=== PATIENT | female | born 1930 | race Caucasian/White ===

== ENCOUNTER 2016-10-21 20:53 | Emergency (ER) | payer MEDICARE, OTHER ==
[2016-10-21] MEDS ORDERED: ONDANSETRON 4 MG TAB.RAPDIS PO ONE (21:13)
--- NOTE | 2016-10-21 21:13 | ER Document Report ---
ED Medical Screen (RME) - General Stated Complaint: ABDOMINAL PAIN Notes: 3 hours ago around 6 pm epigastric area constat ache with nausea Last Bm - nl PMH: CHF, IBS, -HTN, HLD, Dm, tobacco use I have greeted and performed a rapid initial assessment of this patient. A comprehensive ED assessment and evaluation of the patient, analysis of test results and completion of the medical decision making process will be conducted by additional ED providers. - Related Data Allergies/Adverse Reactions: No Known Allergies Allergy (Unverified 10/21/16 21:09) Physical Exam - Vital signs Vitals: Temp Pulse Resp BP Pulse Ox 97.5 F 57 L 18 146/47 H 97 10/21/16 21:02 10/21/16 21:02 10/21/16 21:02 10/21/16 21:02 10/21/16 21:02 Course - Vital Signs Vital signs: Temp Pulse Resp BP Pulse Ox 97.5 F 57 L 18 146/47 H 97 10/21/16 21:02 10/21/16 21:02 10/21/16 21:02 10/21/16 21:02 10/21/16 21:02
--- NOTE | 2016-10-21 23:10 | ER Document Report ---
ED General - General Chief Complaint: Abdominal Pain Stated Complaint: ABDOMINAL PAIN Notes: Patient is a 6 year old female presents with complaint of onset of upper abdominal pain. Pain is mostly epigastric region. Pain is since resolved. No chest pain. No shortness of breath. Some nausea. No vomiting. No diarrhea. No recent fevers or infections. Patient does have a history of CHF. She was recently admitted to [facility] in [place]. She had a stress test which was negative. At that time she did have some fluid on her lungs. Those symptoms have since resolved. TRAVEL OUTSIDE OF THE [place] IN LAST 30 DAYS: No - Related Data Allergies/Adverse Reactions: No Known Allergies Allergy (Unverified 10/21/16 21:09) Past Medical History - Social History Smoking Status: Never Smoker Chew tobacco use (# tins/day): No Frequency of alcohol use: None Drug Abuse: None Family History: Reviewed & Not Pertinent Patient has suicidal ideation: No Patient has homicidal ideation: No Renal/ Medical History: Denies: Hx Peritoneal Dialysis Review of Systems - Review of Systems Notes: My Normal Review Basic REVIEW OF SYSTEMS: CONSTITUTIONAL : Denies fever, chills, or sweats. Denies recent illness. EENT: Denies eye, ear, throat, or mouth pain or symptoms. Denies nasal or sinus congestion. CARDIOVASCULAR: No chest pain RESPIRATORY: Denies cough, cold, or chest congestion. Denies shortness of breath, difficulty breathing, or wheezing. GASTROINTESTINAL: Epigastric abdominal pain. Denies nausea, vomiting, or diarrhea. Denies constipation. Last BM: MUSCULOSKELETAL: Denies neck or back pain or joint pain or swelling. SKIN: Denies rash or skin lesions. NEUROLOGICAL: Denies altered mental status or loss of consciousness. Denies headache. Denies weakness or paralysis or loss of use of either side. Denies problems with gait or speech. Denies sensory or motor loss. ALL OTHER SYSTEMS REVIEWED AND NEGATIVE. Physical Exam - Vital signs Vitals: Temp Pulse Resp BP Pulse Ox 97.5 F 57 L 18 146/47 H 97 10/21/16 21:02 10/21/16 21:02 10/21/16 21:02 10/21/16 21:02 10/21/16 21:02 - Notes Notes: General Appearance: Well nourished, alert, cooperative, no acute distress, no obvious discomfort. Well-appearing. Vitals: reviewed, See vital signs table. Head: no swelling or tenderness to the head Eyes: PERRL, EOMI, Conjuctiva clear Mouth: No decreasd moisture Neck: Supple, no neck tenderness, No thyromegaly Lungs: No wheezing, No rales, No rhonci, No accessory muscle use, good air exchange bilaterally. Heart: Normal rate, Regular rythm, No murmur, no rub Abdomen: Normal BS, soft, No rigidity, mild epigastric abdominal tenderness to palpation, No guarding, no rebound, no abdominal masses, no organomegaly Extremities: strength 5/5 in all extremities, good pulses in all extremities, no swelling or tenderness in the extremities, no edema. Skin: warm, dry, appropriate color, no rash Neuro: speech clear, oriented x 3, normal affect, responds appropriately to questions. Course - Vital Signs Vital signs: Temp Pulse Resp BP Pulse Ox 97.5 F 57 L 18 146/47 H 97 10/21/16 21:02 10/21/16 21:02 10/21/16 21:02 10/21/16 21:02 10/21/16 21:02 - Laboratory Result Diagrams: 10/21/16 23:45 10/21/16 23:45 Laboratory results interpreted by me: 10/21/16 10/21/16 10/21/16 23:45 23:45 23:55 WBC 11.5 H Hgb 11.3 L Hct 34.4 L RDW 14.4 H Seg Neutrophils % 81.0 H Lymphocytes % 8.2 L Absolute Neutrophils 9.3 H BUN 32 H Est GFR ( Amer) 51 L Est GFR (Non-Af Amer) 42 L Alkaline Phosphatase 178 H Creatine Kinase 29 L Lipase 409.0 H Ur Leukocyte Esterase SMALL H Urine Ascorbic Acid 40 H - EKG Interpretation by Me Additional EKG results interpreted by me: 10/21/16 23:09 EKG is reviewed and interpreted by me. EKG shows sinus bradycardia with rate of [address] segment elevation or depression. No ischemic T wave inversions. CA interval, QRS duration, QTC intervals are within normal range. No old EKG available for comparison. - Transfer of Care Notes: 10/22/16 02:44 Patient is continued be asymptomatic since come back to the room in the ER. She continues to have no pain. She continues to look well. Her laboratory evaluation is unremarkable exception of a very mild leukocytosis and a very mild elevation of her lipase. I did obtain old shunt the gallbladder which was negative. Obtain a CT scan of the abdomen and pelvis which was negative. I suspect this and the patient's initial severe epigastric pain which relieved and the mild lipase elevation that she may have had a gallstone that passed. I did explain to the patient. Informed her that there is no exact test to prove that that this is what has happened; however, that her history and long-term findings suggest that this is a possibility to assess what has occurred. I do not think patient needs state hospital being that she looks well and has been asymptomatic for several hours now. I will discharge her home but strongly encourage her to return to ER immediately if she has any recurrence of her symptoms. If she remains asymptomatic we will just have her follow-up with her doctor on Monday for reevaluation. Patient agrees with plan and will be discharged home. Dictation of this chart was performed using voice recognition software; therefore, there may be some unintended grammatical errors. Discharge - Discharge Clinical Impression: Abdominal pain Qualifiers: Abdominal location: epigastric Qualified Code(s): R10.13 - Epigastric pain Condition: Good Disposition: HOME, SELF-CARE Additional Instructions: ABDOMINAL PAIN: There are many causes of abdominal pain. Pain can mean a serious problem requiring surgery (such as appendicitis). It can also be an innocent problem that goes away on its own (such as a viral infection). Often, time must pass to determine the cause of pain. The physician does not feel that hospitalization is necessary, at present. Things may change within the next 24 hours. Call the doctor or come back for re- examination if any problems occur, such as: (1) Pain that becomes more severe, steady, or becomes concentrated in one specific area. Also, pain that is more severe with movement or coughing. (2) Vomiting that persists or becomes more frequent. (3) Blood in the vomitus, urine, or bowel movements. Blood in the stool may have a tarry or black appearance. (4) Shaking chills or fever greater than 100 degrees F. (5) The abdomen becomes more distended or swollen. (6) Bowel movements cease. (7) Failure to improve as expected. NORMAL EXAM AND WORKUP: At this time, your examination and workup show no significant abnormality. No significant abnormal physical findings are noted. All laboratory, EKG, and imaging ( CT scans, ultrasound) studies that were ordered show no significant abnormality. Although your examination and all studies that were ordered showed no significant abnormal finding, there are no examinations and no studies that are 100% accurate. There is always the possibility that some abnormality could exist and not be detected with physical examination or within the limits and capabilities of laboratory and other studies. You should return or follow up as you were instructed on your visit today for further evaluation if your symptoms do not resolve. PAIN MEDICATION INJECTION: You have received an injection of a pain medication. You should experience significant pain relief within 45 minutes. This drug is a narcotic - - it will impair your judgement, slow your reaction time and make you sleepy ( as well as relieve your pain). Narcotics also can cause nausea. You should not drive, work with machinery, or perform any task requiring mental alertness until all effects of the medication are gone -- six to eight hours. Do not take any alcohol, or sedatives, and do not take any other medication without checking with your physician. ANTINAUSEA MEDICATION: You have been given a medication to suppress nausea and vomiting. This type of medication can be given as a shot, pill, or suppository. It will usually last for many hours. Pills and shots usually last six to eight hours, suppositories last about 12 hours. For the typical illness, only one or two doses of the medication may be necessary. Mild lightheadedness may occur. This type of medicine can cause drowsiness. Do not drive or operate dangerous machinery while under its influence. Do not mix with alcohol. See your doctor at once if you have muscle spasms or tightness, or uncontrollable motions (particularly of the neck, mouth, or jaw). Persistent vomiting or severe lightheadedness should also be evaluated by the physician. FOLLOW-UP CARE: If you have been referred to a physician for follow-up care, call the physician s office for an appointment as you were instructed or within the next two days. If you experience worsening or a significant change in your symptoms, notify the physician immediately or return to the Emergency Department at any time for re-evaluation. FOLLOW-UP CARE: Please return to ER immediately if you have recurrent pain, recurrent vomiting, fevers, or feel unwell. If you continue to not have any pain than you can just follow-up with your doctor on Monday for reevaluation.
[2016-10-21 23:56] LABS: ABSOLUTE BASOPHILS # (AUTO) 0.1 10^3/uL (0.0-0.2); ABSOLUTE EOSINOPHILS # (AUTO) 0.3 10^3/uL (0.0-0.6); ABSOLUTE LYMPHOCYTES (AUTO) 0.9 10^3/uL (0.5-4.7); ABSOLUTE MONOCYTES (AUTO) 0.8 10^3/uL (0.1-1.4); ABSOLUTE NEUT (AUTO) 9.3 10^3/uL (1.7-8.2); BASOPHILS % (AUTO) 0.9 % (0-2); EOSINOPHILS % (AUTO) 2.7 % (0-6); HEMATOCRIT 34.4 % (36.0-47.0); HEMOGLOBIN 11.3 g/dL (12.0-15.5); HGB HCT DIFFERENCE -0.5; LYMPHOCYTES % (AUTO) 8.2 % (13-45); MEAN CORPUSCULAR HEMOGLOBIN 28.3 pg (27.0-33.4); MEAN CORPUSCULAR HGB CONC 32.9 g/dL (32.0-36.0); MEAN CORPUSCULAR VOLUME 86 fl (80-97); MONOCYTES % (AUTO) 7.2 % (3-13); RED CELL DISTRIBUTION WIDTH 14.4 % (11.5-14.0); WHITE BLOOD COUNT 11.5 10^3/uL (4.0-10.5)
[2016-10-22 00:08] LABS: APPEARANCE,URINE SLIGHTLY-CLOUDY; BILIRUBIN,URINE NEGATIVE (NEGATIVE); GLUCOSE, URINE NEGATIVE (NEGATIVE); KETONES,URINE NEGATIVE (NEGATIVE); LEUKOCYTE ESTERASE,URINE SMALL (NEGATIVE); NITRITE,URINE NEGATIVE (NEGATIVE); PROTEIN,URINE NEGATIVE (NEGATIVE); URINE SPECIFIC GRAVITY 1.013; UROBILINOGEN,URINE NEGATIVE mg/dL (<2.0)
[2016-10-22 00:09] LABS: ALANINE AMINOTRANSFERASE 26 U/L (9-52); ALKALINE PHOSPHATASE 178 U/L (38-126); ANION GAP 14 (5-19); ASPARTATE AMINO TRANSFERASE 22 U/L (14-36); BILIRUBIN,TOTAL 0.7 mg/dL (0.2-1.3); BLOOD UREA NITROGEN 32 mg/dL (7-20); CALCIUM 9.8 mg/dL (8.4-10.2); CARBON DIOXIDE 25 mmol/L (22-30); CHLORIDE 104 mmol/L (98-107); CREATINE KINASE 29 U/L (30-135); CREATININE RESULT 1.22 mg/dL (0.52-1.25); GLUCOSE 106 mg/dL (75-110); POTASSIUM 4.8 mmol/L (3.6-5.0); TOTAL PROTEIN 7.4 g/dL (6.3-8.2)
[2016-10-22 00:21] LABS: CREATINE KINASE MB 1.01 ng/mL (<4.55)
[2016-10-22 00:23] LABS: TROPONIN I < 0.012 ng/mL
[2016-10-22] MEDS ORDERED: NORMAL SALINE 1000 ML 500 ML IV ONE (01:25)
[2016-10-22 03:28] VITALS: BP 133/45
--- NOTE | 2016-10-22 08:42 | EKG REPORT ---
SEVERITY:- ABNORMAL ECG - SINUS RHYTHM PROBABLE LVH WITH SECONDARY REPOL ABNRM : Confirmed by: Cem Feliciano MD 22-Oct-2016 08:42:28
== END 2016-10-22 03:28 | disposition home or self-care (01) ==
LOC: ER 20:53
DX: R10.13 Epigastric pain (principal); R11.0 Nausea; R00.1 Bradycardia, unspecified; D72.829 Elevated white blood cell count, unspecified; R74.8 Abnormal levels of other serum enzymes; Z86.79 Personal history of other diseases of the circulatory system
CPT/HCPCS: 93005; 99284; 36415; 82553; 82550; 83690; 85025; 80053; 81001; 84484; 76705; 93976; 74177; 93010; A9270; J7030; S0119

== ENCOUNTER → 2017-01-17 | Day surgery (SDC) | payer MEDICARE, OTHER ==
[~2017-01-17] MED LIST: BUPIVACAINE HCL 0.5 % INJ/PF 30 ML SDV ONE; METHYLPREDNISOLONE ACETATE INJ 40 MG/1 ML ML ONE
== END ==
LOC: RAD 14:28
PROVIDERS: ATTEND Orthopaedic Surgery
PROC: 3E0U33Z Introduction of Anti-inflammatory into Joints, Percutaneous Approach (ICD-10-PCS; principal; 2017-01-17)
DX: M16.12 Unilateral primary osteoarthritis, left hip (principal)
CPT/HCPCS: 73501; 20610; 77002; J1020

== ENCOUNTER → 2017-03-02 | Day surgery (SDC) | payer MEDICARE, OTHER ==
--- NOTE | 2017-03-02 16:17 | RADIOLOGY REPORT (SQ) ---
EXAM DESCRIPTION: HIP UNILATERAL-1 VIEW; FLUORO/NEEDLE PLACEMENT; INJECT/ASPIR HIP/SHLDR/KNEE COMPLETED DATE/TIME: 03/02/2017 3:46 pm REASON FOR STUDY: PAIN IN LEFT HIP M25.552 PAIN IN LEFT HIP COMPARISON: Left hip films 11/25/2015 Left hip steroid injection 01/17/2017 FLUOROSCOPY TIME: 17 seconds 2 digital radiographic images saved to PACS. LIMITATIONS: None. PROCEDURE: SITE OF INJECTION: Left hip LOCALIZING CONTRAST TYPE AND DOSE: 0.5 mL of Isovue-300 MEDICATION TYPE AND DOSE: 80 mg of Depo-Medrol, 5 mL of 0.5% bupivacaine Using local anesthesia and sterile technique with fluoroscopic guidance, the needle was advanced into the joint. Iodinated contrast was injected to verify intraarticular placement. This was followed by therapeutic injection of the indicated medications. The needle was removed. There were no immediat e complications. Preprocedure pain level: 0/10. Postprocedure pain level: 0/10. IMPRESSION: THERAPEUTIC INJECTION OF THE left hip JOINT ABOVE. COMMENT: Patient medication list reviewed: Yes- Quality ID# [id number]:Eligible professional attests to doc umenting in the medical record they obtained, updated, or reviewed the patient's current medications. . Quality ID 145: Final reports for procedures using fluoroscopy that document radiation exposure sandhya daria, or exposure time and number of fluorographic images (if radiation exposure indices are not avail able) TECHNICAL DOCUMENTATION: JOB ID: [id number] [employer]- All Rights Reserved
== END ==
LOC: RAD 14:50
PROVIDERS: ATTEND Orthopaedic Surgery
PROC: 3E0U33Z Introduction of Anti-inflammatory into Joints, Percutaneous Approach (ICD-10-PCS; principal; 2017-03-02)
DX: M25.552 Pain in left hip (principal)
CPT/HCPCS: 73501; 20610; 77002; J1020

== ENCOUNTER 2017-08-23 15:17 | Inpatient (IN) | payer MEDICARE, OTHER ==
--- NOTE | 2017-08-23 15:58 | ER Document Report ---
ED Medical Screen (RME) - General Chief Complaint: Shortness Of Breath Stated Complaint: SHORTNESS OF BREATH Time Seen by Provider: 08/23/17 15:55 Notes: Patient reports 3 days of shortness of breath. No significant cough or cold symptoms. No pain. She states she does have a history of congestive heart failure and was hospitalized for this just before . She denies missing any doses of her medication. TRAVEL OUTSIDE OF THE [place] IN LAST 30 DAYS: No - Related Data Allergies/Adverse Reactions: No Known Allergies Allergy (Verified 08/23/17 15:17) Past Medical History - Social History Chew tobacco use (# tins/day): Yes Frequency of alcohol use: None - Past Medical History Cardiac Medical History: Reports: Hx Hypertension Renal/ Medical History: Denies: Hx Peritoneal Dialysis Past Surgical History: Reports: Hx Appendectomy Physical Exam - Vital signs Vitals: Temp Pulse Resp BP Pulse Ox 98.2 F 47 L 16 135/42 H 97 08/23/17 15:31 08/23/17 15:31 08/23/17 15:31 08/23/17 15:31 08/23/17 15:31 Course - Vital Signs Vital signs: Temp Pulse Resp BP Pulse Ox 98.2 F 47 L 16 135/42 H 97 08/23/17 15:31 08/23/17 15:31 08/23/17 15:31 08/23/17 15:31 08/23/17 15:31
[2017-08-23 16:41] LABS: ABSOLUTE BASOPHILS # (AUTO) 0.1 10^3/uL (0.0-0.2); ABSOLUTE EOSINOPHILS # (AUTO) 0.4 10^3/uL (0.0-0.6); ABSOLUTE LYMPHOCYTES (AUTO) 1.3 10^3/uL (0.5-4.7); ABSOLUTE MONOCYTES (AUTO) 0.8 10^3/uL (0.1-1.4); ABSOLUTE NEUT (AUTO) 5.8 10^3/uL (1.7-8.2); BASOPHILS % (AUTO) 1.6 % (0-2); EOSINOPHILS % (AUTO) 5.3 % (0-6); HEMATOCRIT 31.7 % (36.0-47.0); HEMOGLOBIN 10.5 g/dL (12.0-15.5); HGB HCT DIFFERENCE -0.2; LYMPHOCYTES % (AUTO) 15.2 % (13-45); MEAN CORPUSCULAR HEMOGLOBIN 28.7 pg (27.0-33.4); MEAN CORPUSCULAR VOLUME 87 fl (80-97); RED BLOOD COUNT 3.65 10^6/uL (3.72-5.28); RED CELL DISTRIBUTION WIDTH 15.7 % (11.5-14.0); SEGMENTED NEUTROPHILS % (AUTO) 68.9 % (42-78); WHITE BLOOD COUNT 8.5 10^3/uL (4.0-10.5)
[2017-08-23 16:57] LABS: ALANINE AMINOTRANSFERASE 29 U/L (9-52); ALBUMIN 4.3 g/dL (3.5-5.0); ALKALINE PHOSPHATASE 99 U/L (38-126); ANION GAP 16 (5-19); ASPARTATE AMINO TRANSFERASE 29 U/L (14-36); BILIRUBIN,DIRECT 0.2 mg/dL (0.0-0.4); BILIRUBIN,TOTAL 0.9 mg/dL (0.2-1.3); BLOOD UREA NITROGEN 45 mg/dL (7-20); CALCIUM 9.7 mg/dL (8.4-10.2); CARBON DIOXIDE 23 mmol/L (22-30); CHLORIDE 104 mmol/L (98-107); CREATININE RESULT 1.52 mg/dL (0.52-1.25); GLUCOSE 92 mg/dL (75-110); SODIUM 142.9 mmol/L (137-145); TOTAL PROTEIN 7.2 g/dL (6.3-8.2)
--- NOTE | 2017-08-23 17:08 | RADIOLOGY REPORT (SQ) ---
EXAM DESCRIPTION: CHEST PA/LAT COMPLETED DATE/TIME: 08/23/2017 4:38 pm REASON FOR STUDY: sob COMPARISON: None. EXAM PARAMETERS: NUMBER OF VIEWS: two views TECHNIQUE: Digital Frontal and Lateral radiographic views of the chest acquired. RADIATION DOSE: NA LIMITATIONS: none FINDINGS: LUNGS AND PLEURA: The lungs are hyperexpanded. Chronic interstitial changes are present. There is no localized infiltrate or effusion. MEDIASTINUM AND HILAR STRUCTURES: No masses or contour abnormalities. HEART AND VASCULAR STRUCTURES: Heart normal size. No evidence for failure. BONES: No acute findings. HARDWARE: None in the chest. OTHER: No other significant finding. IMPRESSION: Chronic lung changes with no acute cardiopulmonary disease. TECHNICAL DOCUMENTATION: JOB ID: [id number] [employer]- All Rights Reserved
[2017-08-23 17:09] LABS: TROPONIN I < 0.012 ng/mL
--- NOTE | 2017-08-23 18:08 | ER Document Report ---
ED Respiratory Problem - General Chief Complaint: Shortness Of Breath Stated Complaint: SHORTNESS OF BREATH Time Seen by Provider: 08/23/17 15:55 TRAVEL OUTSIDE OF THE [place] IN LAST 30 DAYS: No - HPI Notes: 87-year-old female with history of hypertension and CHF presents with dyspnea for approximately 3 days. Family is noted some wheezing particularly 2 days ago. She did have a recent hospitalization for a few days and [place] for CHF approximately 2 weeks ago. She was seen in follow-up by Dr. Phillips her PCP in [place], they stated her lungs had cleared. She notes most of her dyspnea with exertion. She denies any chest discomfort. Denies fever. No significant cough or cold symptoms otherwise. She has noted some slight increase in her lower extremity swelling. She states it is slightly worse on the left but she has had a left hip replacement. Denies hemoptysis, syncope, palpitations. She is currently using Lasix as directed. - Related Data Allergies/Adverse Reactions: No Known Allergies Allergy (Verified 08/23/17 15:17) Past Medical History - Social History Smoking Status: Never Smoker Chew tobacco use (# tins/day): Yes Frequency of alcohol use: None Family History: Reviewed & Not Pertinent Patient has suicidal ideation: No Patient has homicidal ideation: No - Past Medical History Cardiac Medical History: Reports: Hx Congestive Heart Failure, Hx Hypertension Renal/ Medical History: Denies: Hx Peritoneal Dialysis Past Surgical History: Reports: Hx Appendectomy, Hx Orthopedic Surgery - left hip replacement Review of Systems - Review of Systems -: Yes All other systems reviewed and negative Physical Exam - Vital signs Vitals: Temp Pulse Resp BP Pulse Ox 98.2 F 47 L 16 135/42 H 97 08/23/17 15:31 08/23/17 15:31 08/23/17 15:31 08/23/17 15:31 08/23/17 15:31 Interpretation: Hypertensive, Bradycardic - Notes Notes: Physical Exam: GENERAL: VS as per nursing doc. Well-appearing, thin female and in no acute distress. HEAD: Atraumatic, normocephalic. EYES: Sclera anicteric, no conjunctival injection or discharge. ENT: Nares patent, oropharynx clear without exudates. Moist mucous membranes. NECK: Supple without lymphadenopathy. Borderline JVD LUNGS: Breath sounds are coarse bilaterally, slightly diminished. There is a questionable left anterior friction rub evidence as a "squeak" HEART: Normal S1S2. Regular rate and rhythm with systolic murmurs. Equal peripheral pulses. ABDOMEN: Soft, non-tender EXTREMITIES: Normal range of motion. No calf tenderness. Negative Homans. 2+ edema of the left lower extremity, 1+ edema in the right lower extremity NEUROLOGICAL: Cranial nerves grossly intact. Normal speech. Normal sensory and motor exams. No gross cerebellar abnormalities. PSYCH: Normal mood, normal affect. SKIN: Warm, dry, no cyanosis, no splinter hemorrhages. Cap refill < 2 sec. Course - Vital Signs Vital signs: Temp Pulse Resp BP Pulse Ox 97.8 F 47 L 19 143/48 H 92 08/23/17 19:24 08/23/17 15:31 08/23/17 21:01 08/23/17 20:31 08/23/17 21:01 - Laboratory Result Diagrams: 08/23/17 16:20 08/23/17 16:20 Laboratory results interpreted by me: 08/23/17 08/23/17 08/23/17 16:20 16:20 16:20 RBC 3.65 L Hgb 10.5 L Hct 31.7 L RDW 15.7 H D-Dimer Carbonic Acid ABG pH ABG pCO2 ABG pO2 ABG O2 Saturation BUN 45 H Creatinine 1.52 H Est GFR ( Amer) 39 L Est GFR (Non-Af Amer) 32 L NT-Pro-B Natriuret Pep 638 H 08/23/17 08/23/17 16:20 20:41 RBC Hgb Hct RDW D-Dimer 1.48 H Carbonic Acid 0.86 L ABG pH 7.48 H ABG pCO2 28.6 L ABG pO2 51.5 L ABG O2 Saturation 89.6 L BUN Creatinine Est GFR ( Amer) Est GFR (Non-Af Amer) NT-Pro-B Natriuret Pep - Diagnostic Test Radiology reviewed: Image reviewed - Chronic lung changes without acute abnormality, Reports reviewed - EKG Interpretation by Me Rate: Bradycardia - Heart rate 49, some mild ST nonspecific changes slightly more prominent laterally. This does appear consistent with EKG from October 2016 where the rate was 53 - Consults Dr. Lockett Time consulted: 22:44 Consulted provider: will come to ER - Admit to Tele. NS Bol[place]. Discharge - Discharge Clinical Impression: Dyspnea, Hypoxemia, Bronchospasm Condition: Fair Disposition: ADMITTED INPATIENT Admitting Provider: Dr. Lockett Unit Admitted: Telemetry
[2017-08-23] MEDS ORDERED: IPRATROPIUM/ALBUTEROL 0.5-2.5 MG/3 ML AMPUL NEB ONE ×2 (18:16→19:37)
[2017-08-23 20:55] LABS: ARTERIAL BLOOD BASE EXCESS -1.6 mmol/L; ARTERIAL BLOOD O2 SATURATION 89.6 % (94-98)
--- NOTE | 2017-08-23 22:08 | EKG REPORT ---
SEVERITY:- OTHERWISE NORMAL ECG - SINUS BRADYCARDIA : Confirmed by: Ange Del Toro 23-Aug-2017 22:08:16
--- NOTE | 2017-08-23 22:09 | RADIOLOGY REPORT (SQ) ---
EXAM DESCRIPTION: NM LUNG VENT/PERF SCAN COMPLETED DATE/TIME: 08/23/2017 9:55 pm REASON FOR STUDY: Dyspnea, Elevated D-Dimer COMPARISON: Chest x-ray dated 08/23/2017. RADIONUCLIDE AND DOSE: 5.21 millicuries TC-99m MAA Intravenous 31.3 millicuries TC-99m DTPA Inhaled aerosol TECHNIQUE: Eight views of the lungs acquired post ventilation of DTPA aerosol. Eight matching views of the lungs acquired following injection of MAA. LIMITATIONS: None. FINDINGS: VENTILATION: Symmetric distribution of DTPA aerosol during ventilatory phase. Somewhat he terogenous appearance. No significant areas of photopenia. PERFUSION: Perfusion images with normal homogenous activity and no wedge-shaped or segmental defects. No ventilation-perfusion mismatches. OTHER: No other significant finding. IMPRESSION: NORMAL VENTILATION-PERFUSION LUNG SCAN. NEGATIVE FOR PULMONARY EMBOLI. SOMEWHAT HETERO GENOUS APPEARANCE ON VENTILATION IMAGES CONSISTENT WITH UNDERLYING LUNG DISEASE. TECHNICAL DOCUMENTATION: JOB ID: [id number] [employer]- All Rights Reserved
[2017-08-23] MEDS ORDERED: METHYLPREDNISOLONE INJ 125 MG/2 ML SDV IV ONE (22:32)
[2017-08-23] MEDS ORDERED: NORMAL SALINE 500 ML IV ONE (22:43)
[2017-08-23] MEDS ORDERED: LEVALBUTEROL HCL NEB 1.25 MG/3 ML AMPUL NEB PRN (23:26)
[2017-08-23] MEDS ORDERED: GUAIFENESIN SYRP 200 MG/10 ML UDC PO PRN (23:26)
[2017-08-23] MEDS ORDERED: VANCOMYCIN HCL 0 MG in DEXTROSE 5%-WATER 250 ML IV NR (23:30)
[2017-08-23] MEDS ORDERED: VANCOMYCIN HCL 1,250 MG in DEXTROSE 5%-WATER 250 ML IV ONE (23:45)
[2017-08-23] MEDS ORDERED: PIPERACILLIN/TAZOBACTAM 3.375 GM VIAL IV PRN (23:53)
[2017-08-23] MEDS ORDERED: VANCOMYCIN HCL INJ 1000 MG VIAL IV PRN (23:53)
[2017-08-24] MEDS ORDERED: PIPERACILLIN SODIUM/TAZOBACTAM 3.375 GM in NORMAL SALINE 100 ML IV SCH ×2
--- NOTE | 2017-08-24 01:58 | PDOC H&P ---
History of Present Illness Admission Date/PCP: 08/23/17 23:01 Dr. Belinda Phillips MD [place] History of Present Illness: ALEXANDER CHRISTOPHER is a 87 year old female with past medical history of hypertension , hyperlipidemia, gout, IBS, cervical cancer, and congestive heart failure who presents to the emergency department with shortness of breath. Patient reports that every time she gets an upper respiratory tract infection or visits her sisters in [place], that she ends up getting pneumonia or bronchitis. Patient reports that she was hospitalized over [facility] and [place]. Patient apparently saw her primary care physician after this hospitalization and is reported that her lungs were clear at that time. Patient complains of 3 days of shortness of breath, cough, and wheezing. She denies any sputum production. She admits to chronically being cold but denies any overt fevers. Patient is referred to the hospitalist service for COPD exacerbation. Patient's medications are currently undergoing reconciliation. Current list is automatically generated by [employer] and does not reflect an accurate description of her medications. Due to the urgent/emergent nature of her condition, she is admitted without a full list. Patient is unsure of doses, but reports that she takes aspirin, Toprol, Zocor, allopurinol, dicyclomine, and Lasix. Past Medical History Cardiac Medical History: Reports: Congestive Heart Failure, Hyperlipidema, Hypertension Pulmonary Medical History: Reports: Bronchitis, Pneumonia Renal/ Medical History: Reports: Other - Gout GI Medical History: Reports: Other - IBS Past Surgical History Past Surgical History: Reports: Appendectomy, Hysterectomy, Orthopedic Surgery - left hip replacement Social History Smoking Status: Never Smoker Frequency of Alcohol Use: None Hx Recreational Drug Use: No Drugs: None Hx Prescription Drug Abuse: No - Advance Directive Resuscitation Status: Do Not Resuscitate Surrogate healthcare decision maker:: Mert Christopher, Family History Family History: COPD, Malignancy, Other - Accident Parental Family History Reviewed: Yes Children Family History Reviewed: Yes Sibling(s) Family History Reviewed.: Yes Medication/Allergy Allergies/Adverse Reactions: No Known Allergies Allergy (Verified 08/23/17 15:17) Review of Systems Constitutional: PRESENT: chills, fatigue, weight loss - 3-4 pounds over the last 12 months. ABSENT: fever(s), headache(s), night sweats, weakness, weight gain Eyes: ABSENT: visual disturbances Ears: ABSENT: hearing changes Cardiovascular: PRESENT: edema - Left lower extremity chronic. ABSENT: chest pain, dyspnea on exertion, orthropnea, palpitations Respiratory: PRESENT: cough, dyspnea. ABSENT: hemoptysis, sputum Gastrointestinal: PRESENT: diarrhea - Occasional. ABSENT: abdominal pain, constipation, hematemesis, hematochezia, nausea, vomiting Genitourinary: ABSENT: dysuria, hematuria, nocturia Musculoskeletal: ABSENT: joint swelling Integumentary: ABSENT: rash, wounds Neurological: ABSENT: abnormal gait, abnormal speech, confusion, dizziness, focal weakness, syncope Psychiatric: ABSENT: anxiety, depression, homidical ideation, suicidal ideation Endocrine: ABSENT: cold intolerance, heat intolerance, polydipsia, polyuria Hematologic/Lymphatic: ABSENT: easy bleeding, easy bruising Physical Exam Vital Signs: Temp Pulse Resp BP Pulse Ox 97.8 F 64 18 150/55 H 95 08/24/17 01:21 08/24/17 01:21 08/24/17 01:21 08/24/17 01:21 08/24/17 01:21 General appearance: PRESENT: mild distress, well-developed, well-nourished, other - Appears younger than stated age ill appearing Head exam: PRESENT: atraumatic, normocephalic Eye exam: PRESENT: conjunctiva pink, EOMI, PERRLA. ABSENT: conjunctival injection, periorbital swelling, scleral icterus Ear exam: PRESENT: normal external ear exam Mouth exam: PRESENT: moist, tongue midline Neck exam: PRESENT: JVD. ABSENT: lymphadenopathy, thyromegaly, tracheal deviation Respiratory exam: PRESENT: rhonchi, symmetrical, tachypnea, unlabored, wheezes - R>L. ABSENT: accessory muscle use, rales Cardiovascular exam: PRESENT: RRR, +S1, +S2, systolic murmur. ABSENT: diastolic murmur, rubs Pulses: PRESENT: normal dorsalis pedis pul Vascular exam: PRESENT: normal capillary refill GI/Abdominal exam: PRESENT: normal bowel sounds, soft. ABSENT: distended, firm , guarding, mass, Gavin's sign, organolmegaly, rebound, rigid, tenderness Rectal exam: PRESENT: deferred Extremities exam: PRESENT: +1 edema - RLE, +2 edema - LLE. ABSENT: calf tenderness, clubbing Neurological exam: PRESENT: alert, awake, oriented to person, oriented to place , oriented to time, oriented to situation, CN II-XII grossly intact. ABSENT: motor sensory deficit Psychiatric exam: PRESENT: appropriate affect, normal mood. ABSENT: homicidal ideation, suicidal ideation Skin exam: PRESENT: dry, intact, warm. ABSENT: cyanosis, rash Results Laboratory Results: 08/23/17 08/23/17 08/23/17 16:20 16:20 16:20 WBC 8.5 Hgb 10.5 L Hct 31.7 L Plt Count 212 D-Dimer ABG pH ABG pCO2 ABG pO2 ABG HCO3 ABG O2 Saturation Sodium 142.9 Potassium 4.0 Chloride 104 Carbon Dioxide 23 Anion Gap 16 BUN 45 H Creatinine 1.52 H Glucose 92 Calcium 9.7 Total Bilirubin 0.9 Direct Bilirubin 0.2 AST 29 ALT 29 Alkaline Phosphatase 99 Troponin I < 0.012 Total Protein 7.2 Albumin 4.3 08/23/17 08/23/17 16:20 20:41 WBC Hgb Hct Plt Count D-Dimer 1.48 H ABG pH 7.48 H ABG pCO2 28.6 L ABG pO2 51.5 L ABG HCO3 21.0 ABG O2 Saturation 89.6 L Sodium Potassium Chloride Carbon Dioxide Anion Gap BUN Creatinine Glucose Calcium Total Bilirubin Direct Bilirubin AST ALT Alkaline Phosphatase Troponin I Total Protein Albumin Impressions: Chest X-Ray 08/23/17 15:56 IMPRESSION: Chronic lung changes with no acute cardiopulmonary disease. Lung Scan-VQ NM 08/23/17 20:08 IMPRESSION: NORMAL VENTILATION-PERFUSION LUNG SCAN. NEGATIVE FOR PULMONARY EMBOLI. SOMEWHAT HETEROGENOUS APPEARANCE ON VENTILATION IMAGES CONSISTENT WITH UNDERLYING LUNG DISEASE. Status: Imported from PACS Assessment & Plan - Diagnosis (1) COPD exacerbation Is this a current diagnosis for this admission?: Yes Plan: Patient reports that her parents were heavy smokers and her first was a heavy smoker as well. She reports that she develops bronchitis or pneumonia every time she gets an upper respiratory tract infection. Place patient on scheduled nebulized treatments and re-evaluate for improvement. PRN Xopenex Place patient on IV Solu-Medrol Obtain sputum culture Have concerns that patient may have early pneumonia. In light of this and her recent hospitalization will initiate patient on vancomycin and Zosyn. (2) Acute hypoxemic respiratory failure Is this a current diagnosis for this admission?: Yes Plan: Oxygen as needed to maintain saturation greater than 94% and will consider the use of BiPAP. (3) Renal failure (ARF), acute on chronic Qualifiers: Acute renal failure type: unspecified Chronic kidney disease stage: stage 3 (moderate) Qualified Code(s): N17.9 - Acute kidney failure, unspecified; N18.3 - Chronic kidney disease, stage 3 (moderate); N18.3 - Chronic kidney disease, stage 3 (moderate) Is this a current diagnosis for this admission?: Yes Plan: Patient appears to be mildly dehydrated though not feeling well, has been taking her Lasix regularly. Will give small amount of IV fluid. 06/12/17 08/23/17 06:30 16:20 Creatinine 1.14 1.52 H 10/21/16 23:45 Creatinine 1.22 (4) Chronic CHF Qualifiers: Congestive heart failure type: unspecified congestive heart failure type Qualified Code(s): I50.9 - Heart failure, unspecified Is this a current diagnosis for this admission?: Yes Plan: Will obtain echocardiogram. Will resume patient's home medications. Judicious use of IV fluids. (5) Hypertension Qualifiers: Hypertension type: essential hypertension Qualified Code(s): I10 - Essential (primary) hypertension Is this a current diagnosis for this admission?: Yes (6) Hyperlipidemia Qualifiers: Hyperlipidemia type: unspecified Qualified Code(s): E78.5 - Hyperlipidemia , unspecified Is this a current diagnosis for this admission?: Yes (7) Gout Qualifiers: Gout site: unspecified site Gout etiology: unspecified cause Chronicity: chronic Presence of tophus: without tophus Qualified Code(s): M1A.9XX0 - Chronic gout, unspecified, without tophus (tophi) Is this a current diagnosis for this admission?: Yes (8) IBS (irritable bowel syndrome) Qualifiers: Irritable bowel syndrome type: with diarrhea Qualified Code(s): K58.0 - Irritable bowel syndrome with diarrhea Is this a current diagnosis for this admission?: Yes (9) Hx of cervical cancer Is this a current diagnosis for this admission?: Yes (10) Anemia Qualifiers: Anemia type: unspecified type Qualified Code(s): D64.9 - Anemia, unspecified Is this a current diagnosis for this admission?: Yes Plan: Defer evaluation of this to her outpatient physician. Will continue to monitor and transfuse if drops below 8 (11) Lower extremity edema Is this a current diagnosis for this admission?: Yes Plan: Patient does have an elevated d-dimer. She had a negative VQ scan. Will obtain bilateral lower extremity Dopplers. She does report that her left leg is chronically more edematous than her right leg. - Time Time Spent: 50 to 70 Minutes Medications reviewed and adjusted accordingly: Yes Anticipated discharge: Home with Homehealth, Acute Rehab Within: Other - Plan improvement of symptomatology - Inpatient Certification Based on my medical assessment, after consideration of the patient's comorbidities, presenting symptoms, or acuity I expect that the services needed warrant INPATIENT care.: Yes I certify that my determination is in accordance with my understanding of Medicare's requirements for reasonable and necessary INPATIENT services [42 CFR 412.3e].: Yes Medical Necessity: Need For IV Fluids, Need For Continuous Telemetry Monitoring , Need for Nebulizer Therapy and Monitoring of Response, Need for IV Antibiotics Post Hospital Care: D/C Meteorology Instructor Documentation
[2017-08-24] MEDS ORDERED: PIPERACILLIN/TAZOBACTAM 3.375 GM VIAL IV ONE (02:32)
[2017-08-24] MEDS: PIPERACILLIN SODIUM/TAZOBACTAM 3.375 GM in NORMAL SALINE 100 ML IV SCH ×3 (02:48→16:17)
[2017-08-24 05:05] LABS: ABSOLUTE LYMPHOCYTES (AUTO) 0.3 10^3/uL (0.5-4.7); ABSOLUTE NEUT (AUTO) 5.9 10^3/uL (1.7-8.2); BASOPHILS % (AUTO) 0.4 % (0-2); EOSINOPHILS % (AUTO) 0.1 % (0-6); HEMATOCRIT 27.5 % (36.0-47.0); HEMOGLOBIN 9.2 g/dL (12.0-15.5); HGB HCT DIFFERENCE 0.1; LYMPHOCYTES % (AUTO) 5.4 % (13-45); MEAN CORPUSCULAR HEMOGLOBIN 28.9 pg (27.0-33.4); MEAN CORPUSCULAR HGB CONC 33.6 g/dL (32.0-36.0); MEAN CORPUSCULAR VOLUME 86 fl (80-97); MONOCYTES % (AUTO) 0.7 % (3-13); RED CELL DISTRIBUTION WIDTH 15.8 % (11.5-14.0); SEGMENTED NEUTROPHILS % (AUTO) 93.4 % (42-78); WHITE BLOOD COUNT 6.3 10^3/uL (4.0-10.5)
[2017-08-24] MEDS: BENZONATATE 100 MG CAPSULE PO SCH ×3 (05:19→22:01)
[2017-08-24] MEDS: HEPARIN SOD (PORCINE) 5,000 UNIT/ML 1 ML SYRINGE SUBCUT SCH ×3 (05:19→22:02)
[2017-08-24] MEDS: NORMAL SALINE 1000 ML 1,000 ML IV PRN ×2 (05:23→22:14)
[2017-08-24 05:24] LABS: ANION GAP 15 (5-19); BLOOD UREA NITROGEN 40 mg/dL (7-20); CALCIUM 9.1 mg/dL (8.4-10.2); CARBON DIOXIDE 20 mmol/L (22-30); CHLORIDE 107 mmol/L (98-107); CREATININE RESULT 1.46 mg/dL (0.52-1.25); GLUCOSE 193 mg/dL (75-110); POTASSIUM 3.8 mmol/L (3.6-5.0); SODIUM 142.3 mmol/L (137-145)
[2017-08-24] MEDS ORDERED: METHYLPREDNISOLONE INJ 40 MG/1 ML SDV IV SCH (06:00)
[2017-08-24] MEDS: IPRATROPIUM/ALBUTEROL 0.5-2.5 MG/3 ML AMPUL NEB SCH ×3 (07:46→19:44)
--- NOTE | 2017-08-24 09:02 | XCELERA REPORT ---
[address] [address] Lower Extremity Venous Evaluation Name: ALEXANDER CHRISTOPHER Age: 87 yrs Gender: Female : 1930 Patient Status: Emergency Patient Location: ER Study Date: 08/23/2017 07:36 PM Procedure: Color flow and duplex imaging bilaterally of the veins of the lower extremities as well as the Common Femoral veins. Reason For Study: Dyspnea, Edema (Bilateral Please) Ordering Physician: JAGRUTI GREGG Performed By: Lurdes Quiñonez Right Sided Venous Evaluation Subcutaneous edema noted in leg. Normal vessel filling wall to wall, compression and augmentation as well as Colour flow down to the infrageniculate veins. Left Sided Venous Evaluation Subcutaneous edema noted in leg. Normal vessel filling wall to wall, compression and augmentation as well as Colour flow down to the infrageniculate veins. Interpretation Summary No duplex evidence of DVT or obstruction in the bilateral lower extremities. Bilateral leg edema. : JAGRUTI GREGG [place]
[2017-08-24] MEDS ORDERED: GUAIFENESIN 600 MG TABLET.SA PO SCH (10:00)
[2017-08-24] MEDS: LACTOBACILLUS ACIDOPHILUS 250 MG TAB PO SCH ×2 (10:11→18:20)
[2017-08-24] MEDS ORDERED: LEVALBUTEROL HCL NEB 1.25 MG/3 ML AMPUL NEB PRN (11:00)
--- NOTE | 2017-08-24 14:09 | XCELERA REPORT ---
[address] [address] Transthoracic Echocardiogram Report Name: ALEXANDER CHRISTOPHER Age: 87 yrs Gender: Female : 1930 Patient Status: Inpatient Patient Location: [address] [place], [place] [id number] Study Date: 08/24/2017 09:24 AM Height: 66 in Weight: 123 lb BSA: 1.6 m2 Procedure: A two-dimensional transthoracic echocardiogram with color flow and Doppler was performed. Study Quality: Good. Reason For Study: CHF History: CHF. Ordering Physician: LELA KIDD Performed By: Lucina Campbell Interpretation Summary The left ventricle is normal in size. There is normal left ventricular wall thickness. LV EF is > than 65% Left ventricular systolic function is normal. Doppler measurements suggest normal left ventricular diastolic function The left ventricular wall motion is normal. There is no thrombus. There is no ventricular septal defect visualized. The right ventricle is mild to moderately dilated. The right ventricular systolic function is normal. There is mild right ventricular hypertrophy. The right atrium is mildly dilated. The left atrial size is normal. The interatrial septum is intact with no evidence for an atrial septal defect. There is no evidence of mitral valve prolapse. There is no mitral valve stenosis. There is a mild amount of mitral regurgitation There is no aortic valve stenosis There is no LVOT obstruction. There is a mild amount of aortic regurgitation There is no tricuspid stenosis. There is a mild to moderate amount of tricuspid regurgitation There is servere pulmonary hypertension by echo RVSP is 97 to 105 mm of Hg , with RA mean of 10 to 15. The inferior vena cava appeared normal and decreased < 50% with respiration (RAP 10-15 mmHg) The aortic root is normal size. There is no pericardial effusion. MMode/2D Measurements & Calculations RVDd: 2.9 cm LVIDd: 5.4 cm FS: 39.5 % Ao root diam: 2.4 cm IVSd: 0.92 cm LVIDs: 3.2 cm EDV(Teich): 139.1 ml LVPWd: 0.86 cm ESV(Teich): 42.4 ml Ao root area: 4.5 cm2 EF(Teich): 69.5 % Doppler Measurements & Calculations MV E max rina: MV dec slope: Ao V2 max: AI max rina: 130.1 cm/sec 166.0 cm/sec 353.8 cm/sec MV A max rina: 710.5 cm/sec2 Ao max PG: AI max P.5 cm/sec MV dec time: 11.0 mmHg 50.1 mmHg MV E/A: 2.1 0.18 sec AI dec slope: 156.9 cm/sec2 AI P1/2t: 660.5 msec LV V1 max PG: PA V2 max: TR max rina: 5.3 mmHg 117.0 cm/sec 435.8 cm/sec LV V1 max: PA max P.5 mmHgTR max P.6 cm/sec 76.3 mmHg Left Ventricle The left ventricle is normal in size. There is normal left ventricular wall thickness. LV EF is > than 65%. Left ventricular systolic function is normal. Doppler measurements suggest normal left ventricular diastolic function. The left ventricular wall motion is normal. There is no thrombus. There is no ventricular septal defect visualized. Right Ventricle The right ventricle is mild to moderately dilated. There is mild right ventricular hypertrophy. The right ventricular systolic function is normal. Atria The right atrium is mildly dilated. The left atrial size is normal. The interatrial septum is intact with no evidence for an atrial septal defect. Mitral Valve There is no evidence of mitral valve prolapse. There is no vegetation seen on the mitral valve. There is no mitral valve stenosis. There is a mild amount of mitral regurgitation. Aortic Valve There is no aortic valvular vegetation. There is no aortic valve stenosis. There is no LVOT obstruction. There is a mild amount of aortic regurgitation. Tricuspid Valve There is no tricuspid stenosis. There is a mild to moderate amount of tricuspid regurgitation. There is servere pulmonary hypertension by echo. RVSP is 97 to 105 mm of Hg , with RA mean of 10 to 15. Pulmonic Valve There is no pulmonic valvular stenosis. There is no pulmonic valvular regurgitation. Great Vessels The aortic root is normal size. The inferior vena cava appeared normal and decreased < 50% with respiration (RAP 10-15 mmHg). Effusions There is no pericardial effusion. : LELA KIDD > Elenita Chamberlain
[2017-08-24] MEDS: METHYLPREDNISOLONE INJ 40 MG/1 ML SDV IV SCH ×2 (14:14→22:02)
[2017-08-24] MEDS ORDERED: VANCOMYCIN HCL 500 MG in DEXTROSE 5%-WATER 100 ML IV SCH (22:00)
[2017-08-24] MEDS: GUAIFENESIN 600 MG TABLET.SA PO SCH (22:02)
[2017-08-24] MEDS: ACETAMINOPHEN 325 MG TABLET PO PRN (23:24)
[2017-08-25 05:07] LABS: HEMATOCRIT 27.6 % (36.0-47.0); HEMOGLOBIN 9.1 g/dL (12.0-15.5); HGB HCT DIFFERENCE -0.3; MEAN CORPUSCULAR HEMOGLOBIN 28.4 pg (27.0-33.4); MEAN CORPUSCULAR HGB CONC 32.9 g/dL (32.0-36.0); MEAN CORPUSCULAR VOLUME 86 fl (80-97); RED CELL DISTRIBUTION WIDTH 15.6 % (11.5-14.0)
[2017-08-25 05:14] LABS: ANION GAP 16 (5-19); BLOOD UREA NITROGEN 42 mg/dL (7-20); CARBON DIOXIDE 19 mmol/L (22-30); CHLORIDE 104 mmol/L (98-107); CREATININE RESULT 1.47 mg/dL (0.52-1.25); GLUCOSE 134 mg/dL (75-110); POTASSIUM 3.9 mmol/L (3.6-5.0); SODIUM 138.6 mmol/L (137-145)
[2017-08-25 05:22] LABS: BASOPHILS % (MANUAL) 0 % (0-2); EOSINOPHILS % (MANUAL) 0 % (0-6); LYMPHOCYTES % (MANUAL) 2 % (13-45); TOTAL CELLS COUNTED 100
[2017-08-25] MEDS: BENZONATATE 100 MG CAPSULE PO SCH ×3 (05:23→21:42)
[2017-08-25 05:24] LABS: ANISOCYTOSIS SLIGHT; OVALOCYTES SLIGHT; POIKILOCYTOSIS SLIGHT; POLYCHROMASIA SLIGHT; SCHISTOCYTES SLIGHT; TOXIC GRANULATION SLIGHT; WHITE BLOOD COUNT 13.1 10^3/uL (4.0-10.5)
[2017-08-25] MEDS: HEPARIN SOD (PORCINE) 5,000 UNIT/ML 1 ML SYRINGE SUBCUT SCH ×3 (05:24→21:45)
[2017-08-25] MEDS: METHYLPREDNISOLONE INJ 40 MG/1 ML SDV IV SCH ×2 (05:24→15:06)
[2017-08-25 05:42] LABS: THYROID STIMULATING HORMONE < 0.01 uIU/mL (0.47-4.68)
[2017-08-25] MEDS: IPRATROPIUM/ALBUTEROL 0.5-2.5 MG/3 ML AMPUL NEB SCH ×2 (07:42→13:27)
[2017-08-25] MEDS: LACTOBACILLUS ACIDOPHILUS 250 MG TAB PO SCH ×2 (09:38→17:52)
[2017-08-25] MEDS: GUAIFENESIN 600 MG TABLET.SA PO SCH ×2 (09:39→21:42)
[2017-08-25] MEDS ORDERED: LEVOFLOXACIN 500 MG TABLET PO ONE (10:00)
--- NOTE | 2017-08-25 15:58 | PDOC PROGRESS REPORT ---
Subjective Progress Note for:: 08/24/17 Subjective:: Patient is a 87-year-old with viral URI most likely resulting in her respiratory symptoms or acute bronchitis. Patient states she feels somewhat better. Explained to patient that her workup thus far is negative. Patient asked why she is always a cold. Told patient that I would check her thyroid function. Reason For Visit: ACUTE HYPOXEMIC RESPIRATORY FAILURE Physical Exam Vital Signs: Temp Pulse Resp BP Pulse Ox 97.5 F 65 15 141/49 H 100 08/24/17 15:08 08/24/17 15:08 08/24/17 15:08 08/24/17 15:08 08/24/17 17:28 Intake & Output General appearance: PRESENT: no acute distress, thin Head exam: PRESENT: normocephalic Eye exam: PRESENT: EOMI. ABSENT: scleral icterus Ear exam: PRESENT: normal external ear exam Mouth exam: PRESENT: moist Neck exam: ABSENT: carotid bruit, JVD, lymphadenopathy, thyromegaly Respiratory exam: PRESENT: clear to auscultation jase, decreased breath sounds. ABSENT: rales, rhonchi, wheezes Cardiovascular exam: PRESENT: RRR. ABSENT: diastolic murmur, rubs, systolic murmur GI/Abdominal exam: PRESENT: normal bowel sounds, soft. ABSENT: distended, guarding, mass, organolmegaly, rebound, tenderness Rectal exam: PRESENT: deferred Extremities exam: PRESENT: full ROM. ABSENT: calf tenderness, clubbing, pedal edema Neurological exam: PRESENT: alert, awake, oriented to person, oriented to place , oriented to time, oriented to situation, CN II-XII grossly intact. ABSENT: motor sensory deficit Psychiatric exam: PRESENT: appropriate affect, normal mood. ABSENT: homicidal ideation, suicidal ideation Skin exam: PRESENT: dry, intact, warm. ABSENT: cyanosis, rash Results Laboratory Results: 08/24/17 04:54 08/24/17 04:54 08/24/17 08/24/17 04:54 04:54 WBC 6.3 RBC 3.20 L Hgb 9.2 L Hct 27.5 L MCV 86 MCH 28.9 MCHC 33.6 RDW 15.8 H Plt Count 162 Seg Neutrophils % 93.4 H Lymphocytes % 5.4 L Monocytes % 0.7 L Eosinophils % 0.1 Basophils % 0.4 Absolute Neutrophils 5.9 Absolute Lymphocytes 0.3 L Absolute Monocytes 0.0 L Absolute Eosinophils 0.0 Absolute Basophils 0.0 Sodium 142.3 Potassium 3.8 Chloride 107 Carbon Dioxide 20 L Anion Gap 15 BUN 40 H Creatinine 1.46 H Est GFR ( Amer) 41 L Est GFR (Non-Af Amer) 34 L Glucose 193 H Calcium 9.1 Impressions: Chest X-Ray 08/23/17 15:56 IMPRESSION: Chronic lung changes with no acute cardiopulmonary disease. Lung Scan-VQ CA 08/23/17 20:08 IMPRESSION: NORMAL VENTILATION-PERFUSION LUNG SCAN. NEGATIVE FOR PULMONARY EMBOLI. SOMEWHAT HETEROGENOUS APPEARANCE ON VENTILATION IMAGES CONSISTENT WITH UNDERLYING LUNG DISEASE. Assessment & Plan - Diagnosis (1) COPD exacerbation Is this a current diagnosis for this admission?: Yes Plan: She has COPD exacerbation most likely due to viral bronchitis as patient chest x -ray is clear. Will de-escalate patient antibiotics to Levaquin alone along with systemic steroids. Will continue patient neb treatments. (2) Bronchitis Is this a current diagnosis for this admission?: Yes Plan: She has acute bronchitis most likely viral resulting in COPD exacerbation. Patient empirically started on antibiotics. Her antibiotics is weaned to just Levaquin. Will continue steroids and nebs. Patient does not have any active wheezing. Patient does not have any cough she just complains of feeling short of breath. (3) Acute hypoxemic respiratory failure Is this a current diagnosis for this admission?: Yes Plan: Patient receiving supplemental oxygen patient states she does not use oxygen at home. Will evaluate patient for home O2 prior to discharge home. Patient oxygen levels have been stable during his hospitalization while on supplemental oxygen. (4) Anemia Qualifiers: Anemia type: unspecified type Qualified Code(s): D64.9 - Anemia, unspecified Is this a current diagnosis for this admission?: Yes Plan: Does have anemia which appears to be chronic. 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 Patient hemoglobin lower than previous however this may be delusional as patient was receiving IV fluids. (5) Chronic CHF Qualifiers: Congestive heart failure type: unspecified congestive heart failure type Qualified Code(s): I50.9 - Heart failure, unspecified Is this a current diagnosis for this admission?: Yes Plan: Gives a history of chronic CHF however patient EF is normal on cardiac echo. Patient diastolic function is also normal. Patient may have venous insufficiency resulting in her pedal edema. (6) Gout Qualifiers: Gout site: unspecified site Gout etiology: unspecified cause Chronicity: chronic Presence of tophus: without tophus Qualified Code(s): M1A.9XX0 - Chronic gout, unspecified, without tophus (tophi) Is this a current diagnosis for this admission?: Yes Plan: Restart patient on her allopurinol. (7) Hyperlipidemia Qualifiers: Hyperlipidemia type: unspecified Qualified Code(s): E78.5 - Hyperlipidemia , unspecified Is this a current diagnosis for this admission?: Yes Plan: Continue statin. (8) Hypertension Qualifiers: Hypertension type: essential hypertension Qualified Code(s): I10 - Essential (primary) hypertension Is this a current diagnosis for this admission?: Yes Plan: Patient blood pressures are fairly stable. Will continue to monitor. (10) IBS (irritable bowel syndrome) Qualifiers: Irritable bowel syndrome type: with diarrhea Qualified Code(s): K58.0 - Irritable bowel syndrome with diarrhea Is this a current diagnosis for this admission?: Yes Plan: Resume patient's [place]. She is not complaining of any abdominal symptoms at this time. (11) Lower extremity edema Is this a current diagnosis for this admission?: Yes (12) Renal failure (ARF), acute on chronic Qualifiers: Acute renal failure type: unspecified Chronic kidney disease stage: stage 3 (moderate) Qualified Code(s): N17.9 - Acute kidney failure, unspecified; N18.3 - Chronic kidney disease, stage 3 (moderate); N18.3 - Chronic kidney disease, stage 3 (moderate) Is this a current diagnosis for this admission?: Yes Plan: Continue to monitor. Patient renal function appears stable at this time. Will discontinue the vancomycin and Zosyn as these can be harsh on the kidneys and patient does not require that treatment at this time. - Time Time Spent with patient: Less than 15 minutes Anticipated discharge: Home Within: within 36 hours - Inpatient Certification Medical Necessity: Need Close Monitoring Due to Risk of Patient Decompensation
--- NOTE | 2017-08-25 16:10 | PDOC PROGRESS REPORT ---
Subjective Progress Note for:: 08/25/17 Subjective:: Patient is a 87-year-old with viral URI most likely resulting in her respiratory symptoms or acute bronchitis. Per nurse patient had a panic attack overnight. Despite the patient that her workup thus far has been negative. Patient states she does not feel up to having Prashant dinner and has decided to cancel it. Patient states she still feels short of breath from time to time. Reason For Visit: ACUTE HYPOXEMIC RESPIRATORY FAILURE Physical Exam Vital Signs: Temp Pulse Resp BP Pulse Ox 97.2 F 80 16 147/56 H 94 08/25/17 11:41 08/25/17 14:00 08/25/17 13:27 08/25/17 11:41 08/25/17 13:27 Intake & Output 08/24/17 08/25/17 08/26/17 06:59 06:59 06:59 Intake Total 352 2573 118 Balance 352 2573 118 Weight 59.2 kg 59 kg General appearance: PRESENT: no acute distress, thin Head exam: PRESENT: normocephalic Eye exam: PRESENT: EOMI. ABSENT: scleral icterus Mouth exam: PRESENT: moist Neck exam: ABSENT: carotid bruit, JVD, lymphadenopathy, thyromegaly Respiratory exam: PRESENT: clear to auscultation jase, decreased breath sounds. ABSENT: rales, rhonchi, wheezes Cardiovascular exam: PRESENT: RRR. ABSENT: diastolic murmur, rubs, systolic murmur GI/Abdominal exam: PRESENT: normal bowel sounds, soft. ABSENT: distended, guarding, mass, organolmegaly, rebound, tenderness Rectal exam: PRESENT: deferred Extremities exam: PRESENT: full ROM, other - Left lower extremity is larger than right. ABSENT: calf tenderness, clubbing, pedal edema Neurological exam: PRESENT: alert, awake, oriented to person, oriented to place , oriented to time, oriented to situation, CN II-XII grossly intact. ABSENT: motor sensory deficit Psychiatric exam: PRESENT: anxious. ABSENT: homicidal ideation, suicidal ideation Skin exam: PRESENT: dry, intact, warm. ABSENT: cyanosis, rash Results Laboratory Results: 08/25/17 04:07 08/25/17 04:07 08/25/17 08/25/17 08/25/17 04:07 04:07 04:07 WBC 13.1 H D RBC 3.20 L Hgb 9.1 L Hct 27.6 L MCV 86 MCH 28.4 MCHC 32.9 RDW 15.6 H Plt Count 163 Seg Neutrophils % Not Reportable Lymphocytes % Not Reportable Monocytes % Not Reportable Eosinophils % Not Reportable Basophils % Not Reportable Absolute Neutrophils Not Reportable Absolute Lymphocytes Not Reportable Absolute Monocytes Not Reportable Absolute Eosinophils Not Reportable Absolute Basophils Not Reportable Sodium 138.6 Potassium 3.9 Chloride 104 Carbon Dioxide 19 L Anion Gap 16 BUN 42 H Creatinine 1.47 H Est GFR ( Amer) 41 L Est GFR (Non-Af Amer) 34 L Glucose 134 H Calcium 9.0 Magnesium 2.0 TSH < 0.01 L Free T4 1.16 Impressions: Chest X-Ray 08/23/17 15:56 IMPRESSION: Chronic lung changes with no acute cardiopulmonary disease. Lung Scan-VQ NM 08/23/17 20:08 IMPRESSION: NORMAL VENTILATION-PERFUSION LUNG SCAN. NEGATIVE FOR PULMONARY EMBOLI. SOMEWHAT HETEROGENOUS APPEARANCE ON VENTILATION IMAGES CONSISTENT WITH UNDERLYING LUNG DISEASE. Assessment & Plan - Diagnosis (1) COPD exacerbation Is this a current diagnosis for this admission?: Yes Plan: She has COPD exacerbation most likely due to viral bronchitis as patient chest x -ray is clear. Continue with p.o. Levaquin. Will wean to oral steroids as patient is not wheezing; more she is feeling jittery which could be due to the use of high-dose steroids.. Will continue with nebs however will change to Xopenex as patient is complaining of feeling anxious and jittery. (2) Bronchitis Is this a current diagnosis for this admission?: Yes Plan: Treatment continue treatment with steroids, nebs and antibiotic. Please refer to above for further management details. (3) Acute hypoxemic respiratory failure Is this a current diagnosis for this admission?: Yes Plan: Patient receiving supplemental oxygen patient states she does not use oxygen at home. Plan to evaluate patient for home O2 prior to discharge home. Patient oxygen levels have been stable during his hospitalization while on supplemental oxygen despite her feeling extremely short of breath from time to time. (4) Anemia Qualifiers: Anemia type: unspecified type Qualified Code(s): D64.9 - Anemia, unspecified Is this a current diagnosis for this admission?: Yes Plan: Does have anemia which appears to be chronic. 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 Hemoglobin has been stable since yesterday. (5) Chronic CHF Qualifiers: Congestive heart failure type: unspecified congestive heart failure type Qualified Code(s): I50.9 - Heart failure, unspecified Is this a current diagnosis for this admission?: Yes Plan: She does not have CHF based on echo completed on 08/24/2017. Possibly her pedal edema secondary to venous insufficiency. Will resume patient's Lasix. (6) Gout Qualifiers: Gout site: unspecified site Gout etiology: unspecified cause Chronicity: chronic Presence of tophus: without tophus Qualified Code(s): M1A.9XX0 - Chronic gout, unspecified, without tophus (tophi) Is this a current diagnosis for this admission?: Yes Plan: No acute attack. Continue allopurinol. (7) Hyperlipidemia Qualifiers: Hyperlipidemia type: unspecified Qualified Code(s): E78.5 - Hyperlipidemia , unspecified Is this a current diagnosis for this admission?: Yes Plan: Continue statin. (8) Hypertension Qualifiers: Hypertension type: essential hypertension Qualified Code(s): I10 - Essential (primary) hypertension Is this a current diagnosis for this admission?: Yes Plan: Patient blood pressures are fairly stable. Will continue to monitor. Will resume antihypertensives on discharge. (9) IBS (irritable bowel syndrome) Qualifiers: Irritable bowel syndrome type: with diarrhea Qualified Code(s): K58.0 - Irritable bowel syndrome with diarrhea Is this a current diagnosis for this admission?: Yes Plan: Stable. Continue patient's Bentyl. (10) Lower extremity edema Is this a current diagnosis for this admission?: Yes Plan: No DVT on Doppler studies. Will resume patient's Lasix. Patient has compression stockings in place. Patient's pedal edema is most likely thought to be secondary to venous insufficiency. (11) Renal failure (ARF), acute on chronic Qualifiers: Acute renal failure type: unspecified Chronic kidney disease stage: stage 3 (moderate) Qualified Code(s): N17.9 - Acute kidney failure, unspecified; N18.3 - Chronic kidney disease, stage 3 (moderate); N18.3 - Chronic kidney disease, stage 3 (moderate) Is this a current diagnosis for this admission?: Yes Plan: We will continue to monitor. Will renally dose medications when appropriate. - Time Time Spent with patient: 15-24 minutes Anticipated discharge: Home Within: within 24 hours - Inpatient Certification Medical Necessity: Significant Comorbidiites Make Outpatient Treatment Too Risky
[2017-08-25] MEDS: DICYCLOMINE HCL 10 MG CAPSULE PO SCH (19:37)
[2017-08-25] MEDS: LEVALBUTEROL HCL NEB 1.25 MG/3 ML AMPUL NEB SCH (19:56)
[2017-08-25] MEDS ORDERED: ALLOPURINOL 100 MG TABLET PO SCH (22:00)
[2017-08-25] MEDS ORDERED: SIMVASTATIN 10 MG TABLET PO SCH (22:00)
[2017-08-26] MEDS: DICYCLOMINE HCL 10 MG CAPSULE PO SCH ×3 (00:47→12:09)
[2017-08-26] MEDS: ACETAMINOPHEN 325 MG TABLET PO PRN (00:49)
[2017-08-26] MEDS: BENZONATATE 100 MG CAPSULE PO SCH (06:24)
[2017-08-26] MEDS: HEPARIN SOD (PORCINE) 5,000 UNIT/ML 1 ML SYRINGE SUBCUT SCH (06:25)
[2017-08-26 08:38] VITALS: BP 153/60
[2017-08-26] MEDS: LEVALBUTEROL HCL NEB 1.25 MG/3 ML AMPUL NEB SCH (08:48)
[2017-08-26] MEDS: GUAIFENESIN 600 MG TABLET.SA PO SCH (09:11)
[2017-08-26] MEDS: LACTOBACILLUS ACIDOPHILUS 250 MG TAB PO SCH (09:14)
[2017-08-26] MEDS ORDERED: PREDNISONE 20 MG TABLET PO SCH (10:00)
[2017-08-26] MEDS ORDERED: ESCITALOPRAM OXALATE 10 MG TABLET PO SCH (10:00)
[2017-08-26] MEDS ORDERED: LEVOFLOXACIN 250 MG TABLET PO SCH (10:00)
[2017-08-26] MEDS ORDERED: FERROUS SULFATE 325 MG TABLET PO SCH (10:00)
[2017-08-26] MEDS ORDERED: METOPROLOL SUCCINATE 25 MG TAB.SR.24H PO SCH (10:00)
[2017-08-26] MEDS ORDERED: FUROSEMIDE 20 MG TABLET PO SCH (10:00)
[2017-08-26] MEDS ORDERED: ALLOPURINOL 100 MG TABLET PO SCH (10:00)
[2017-08-26] MEDS ORDERED: DULOXETINE HCL 20 MG CAPSULE.DR PO SCH (10:00)
[2017-08-26] MEDS ORDERED: ASPIRIN 81 MG TABLET, ENT COATED PO SCH (10:00)
--- NOTE | 2017-08-26 11:38 | PDOC DISCHARGE SUMMARY ---
General - Admit/Disc Date/PCP Admission Date/Primary Care Provider: 08/23/17 23:01 Discharge Date: 08/26/17 - Discharge Diagnosis (1) COPD exacerbation Is this a current diagnosis for this admission?: Yes (2) Bronchitis Is this a current diagnosis for this admission?: Yes (3) Acute hypoxemic respiratory failure Is this a current diagnosis for this admission?: Yes (4) Anemia Is this a current diagnosis for this admission?: Yes (5) Chronic CHF Is this a current diagnosis for this admission?: Yes (6) Gout Is this a current diagnosis for this admission?: Yes (7) Hyperlipidemia Is this a current diagnosis for this admission?: Yes (8) Hypertension Is this a current diagnosis for this admission?: Yes (9) IBS (irritable bowel syndrome) Is this a current diagnosis for this admission?: Yes (10) Lower extremity edema Is this a current diagnosis for this admission?: Yes (11) Renal failure (ARF), acute on chronic Is this a current diagnosis for this admission?: Yes - Additional Information Resuscitation Status: Do Not Resuscitate Discharge Activity: Activity As Tolerated Prescriptions: Azithromycin 500 mg PO DAILY 5 Days #5 tablet Ipratropium/Albuterol Sulfate [Duoneb 3 ml Ampul] 3 ml NEB TID 90 Days vial.neb Nebulizer and Compressor [Portable Nebulizer System] 1 each MC TID #1 each Prednisone [Deltasone 20 mg Tablet] 40 mg PO DAILY #10 tablet Walker [Folding Walker] 1 each MC ASDIR PRN #1 each PRN Reason: Home Medications: Albuterol Sulfate [Proair HFA] 1 puff IN Q4 08/24/17 Allopurinol [Zyloprim 100 mg Tablet] 100 mg PO Q8 08/24/17 Amlodipine Besylate [Norvasc 10 mg Tablet] 10 mg PO DAILY 08/24/17 Aspirin [Aspirin EC] 81 mg PO DAILY 08/24/17 Dicyclomine HCl [Bentyl 10 mg Capsule] 10 mg PO Q6 08/24/17 Escitalopram Oxalate [Lexapro] 20 mg PO DAILY 08/24/17 Furosemide [Lasix 20 mg Tablet] 60 mg PO DAILY 08/24/17 Ketoconazole [Nizoral 2% Shampoo 120 ml Bottle] 3 ml TP MOTH@1000 08/24/17 Metoprolol Succinate [Toprol Xl] 25 mg PO DAILY 08/24/17 Simvastatin [Zocor 20 mg Tablet] 20 mg PO QHS 08/24/17 Azithromycin 500 mg PO DAILY 5 Days #5 tablet 08/26/17 Ipratropium/Albuterol Sulfate [Duoneb 3 ml Ampul] 3 ml NEB TID 90 Days vial.neb 08/26/17 Nebulizer and Compressor [Portable Nebulizer System] 1 each TID #1 each 08/26 Prednisone [Deltasone 20 mg Tablet] 40 mg PO DAILY #10 tablet 08/26/17 Walker [Folding Walker] 1 each ASDIR PRN #1 each 08/26/17 History of Present Illness History of Present Illness: ALEXANDER CHRISTOPHER is a 87 year old female hypertension, hyperlipidemia, gout, IBS, cervical cancer and congestive heart failure presented with complaint of shortness of breath. Please refer to H&P dictated by Dr. Lockett for complete details. Hospital Course Hospital Course: Patient was brought in for shortness of breath. Patient thought to have acute bronchitis due to a viral syndrome. Patient did not have any finding on chest x -ray nor was her white count elevated. Patient did not have any true respiratory symptoms although she stated that she felt short of breath. Patient was treated aggressively with antibiotics steroids and pulmonary toilet. VQ scan was done and was low probability for possible PE however it was consistent with chronic lung disease. Patient states he does not have a nebulizer at home but does have inhalers. Advised patient that she would be supplied with a nebulizer for her COPD. Patient was weaned off of her supplemental oxygen and did maintain her sats. Will be discharged on p.o. steroids and antibiotic for her COPD exacerbation. Patient is being discharged on azithromycin as it does not require renal dosing. Patient did ambulate with PT who recommended that patient have a walker. Patient had a cardiac echo done which was negative for heart failure despite patient giving the history of congestive heart failure. Patient does have intermittent swelling of her legs but this was thought to be most likely secondary to venous insufficiency. Patient had venous Doppler completed which was negative for DVT. Does have CKD stage III which remained stable during hospitalization. Patient count was also stable she was continued on allopurinol. Patient blood pressure medications were held during her hospitalization but will be resumed on discharge. Patient blood pressures were fairly stable during hospitalization. Reports having anxiety and depression. Patient is currently on Lexapro per patient's family she is not always compliant with this medication. Patient was offered additional medications however she was reluctant to take anything new. Patient will be discharged home with home health,nurses aide and physical therapy. Physical Exam Vital Signs: Temp Pulse Resp BP Pulse Ox 97.6 F 64 16 153/60 H 99 08/26/17 07:30 08/26/17 07:30 08/26/17 07:30 08/26/17 07:30 08/26/17 07:30 Intake & Output 08/25/17 08/26/17 08/27/17 06:59 06:59 06:59 Intake Total 2573 1679 Balance 2573 1679 Weight 59 kg 59 kg General appearance: PRESENT: no acute distress, thin Head exam: PRESENT: normocephalic Eye exam: PRESENT: EOMI. ABSENT: scleral icterus Ear exam: PRESENT: normal external ear exam Mouth exam: PRESENT: moist Teeth exam: PRESENT: other - dentures Neck exam: ABSENT: carotid bruit, JVD, lymphadenopathy, thyromegaly Respiratory exam: PRESENT: clear to auscultation jase. ABSENT: rales, rhonchi, wheezes Cardiovascular exam: PRESENT: RRR. ABSENT: diastolic murmur, rubs, systolic murmur Pulses: PRESENT: normal dorsalis pedis pul Vascular exam: PRESENT: normal capillary refill GI/Abdominal exam: PRESENT: normal bowel sounds, soft. ABSENT: distended, guarding, mass, organolmegaly, rebound, tenderness Rectal exam: PRESENT: deferred Extremities exam: PRESENT: full ROM. ABSENT: calf tenderness, clubbing, pedal edema Neurological exam: PRESENT: alert, awake, oriented to person, oriented to place , oriented to time, oriented to situation, CN II-XII grossly intact. ABSENT: motor sensory deficit Psychiatric exam: PRESENT: appropriate affect, normal mood. ABSENT: homicidal ideation, suicidal ideation Skin exam: PRESENT: dry, intact, warm. ABSENT: cyanosis, rash Results Laboratory Results: 08/25/17 04:07 08/25/17 04:07 Impressions: Chest X-Ray 08/23/17 15:56 IMPRESSION: Chronic lung changes with no acute cardiopulmonary disease. Lung Scan-VQ NM 08/23/17 20:08 IMPRESSION: NORMAL VENTILATION-PERFUSION LUNG SCAN. NEGATIVE FOR PULMONARY EMBOLI. SOMEWHAT HETEROGENOUS APPEARANCE ON VENTILATION IMAGES CONSISTENT WITH UNDERLYING LUNG DISEASE. Qualifiers PATEINT BEING DISCHARGED WITH ANY OF THE FOLLOWING DIAGNOSIS?: No Plan Time Spent: Greater than 30 Minutes - 1 home health and physical therapy. Patient will also receive a nurse's aide. Prescription given for walker and for nebulizer.
== END 2017-08-26 13:00 | disposition home or self-care (01) | DRG 192 ==
LOC: ER 15:17 → EH 23:01 → 3N 08-24 01:15
PROVIDERS: ADMIT Family Medicine; ATTEND Family Medicine
DX: J44.0 Chronic obstructive pulmonary disease with (acute) lower respiratory infection (principal); J44.1 Chronic obstructive pulmonary disease with (acute) exacerbation; J20.8 Acute bronchitis due to other specified organisms; D63.1 Anemia in chronic kidney disease; I12.9 Hypertensive chronic kidney disease with stage 1 through stage 4 chronic kidney disease, or unspecified chronic kidney disease; N18.3 Chronic kidney disease, stage 3 (moderate); E78.5 Hyperlipidemia, unspecified; M10.9 Gout, unspecified; K58.9 Irritable bowel syndrome, unspecified; Z66 Do not resuscitate; Z77.22 Contact with and (suspected) exposure to environmental tobacco smoke (acute) (chronic); I11.0 Hypertensive heart disease with heart failure; I50.9 Heart failure, unspecified; E86.0 Dehydration; Z85.41 Personal history of malignant neoplasm of cervix uteri; Z79.899 Other long term (current) drug therapy; Z90.49 Acquired absence of other specified parts of digestive tract; Z90.710 Acquired absence of both cervix and uterus; Z96.642 Presence of left artificial hip joint
CPT/HCPCS: 36415; 71020; 78582; 80048; 80053; 82803; 83735; 83880; 84439; 84443; 84484; 85025; 85379; 87040; 87077; 87186; 93005; 93010; 93306; 93970; 94640; 94799; 96374; 99285; A9540; A9567; G8978-GP; G8979-GP; J1644; J2543; J2920; J2930; J3370; J3490; J7030; J7040; J7060; J7512; J7620; Q9969

== ENCOUNTER 2019-03-13 12:01 | Emergency (ER) | payer MEDICARE, OTHER ==
--- NOTE | 2019-03-13 13:34 | ER Document Report ---
ED General - General Chief Complaint: Head Injury Stated Complaint: HEAD INJURY Time Seen by Provider: 03/13/19 13:14 Mode of Arrival: Ambulatory Information source: Patient TRAVEL OUTSIDE OF THE [place] IN LAST 30 DAYS: No - HPI Notes: 88-year-old female presents the ED for complaints of getting out of bed approx 8 hours ago, lost her balance, hit the back of her head and having her right wrist hit against the bed rail, patient states she only fell less than 2 feet patient is on a baby aspirin. She also states she had her right wrist. Denies fevers, chills, chest pain,palpitations, shortness of breath, dyspnea, nausea, vomiting, diarrhea, abdominal pain, hematuria,blurred vision, double vision, loss of vision, speech changes, LH, dizziness, syncope, headaches, wheezing, ST, URI, neck pain, weakness, bowel or bladder dysfunction, saddle anesthesia, numbness or tingling in bilateral upper or lower extremities equally, muscle paralysis, weakness in bilateral upper or lower extremities equally or rash. - Related Data Allergies/Adverse Reactions: No Known Allergies Allergy (Verified 03/13/19 13:25) Past Medical History - General Information source: Patient - Social History Smoking Status: Unknown if Ever Smoked Chew tobacco use (# tins/day): No Frequency of alcohol use: None Family History: COPD, Malignancy, Other - Accident Patient has suicidal ideation: No Patient has homicidal ideation: No - Past Medical History Cardiac Medical History: Reports: Hx Congestive Heart Failure, Hx Hypercholesterolemia, Hx Hypertension Pulmonary Medical History: Reports: Hx Bronchitis, Hx Pneumonia Renal/ Medical History: Denies: Hx Peritoneal Dialysis Past Surgical History: Reports: Hx Appendectomy, Hx Hysterectomy, Hx Orthopedic Surgery - left hip replacement - Immunizations Hx Pneumococcal Vaccination: 07/12/17 Review of Systems - Review of Systems Constitutional: No symptoms reported EENT: No symptoms reported Cardiovascular: No symptoms reported Respiratory: No symptoms reported Gastrointestinal: No symptoms reported Genitourinary: No symptoms reported Female Genitourinary: No symptoms reported Musculoskeletal: No symptoms reported Skin: See HPI Hematologic/Lymphatic: No symptoms reported Neurological/Psychological: No symptoms reported Physical Exam - Notes Notes: PHYSICAL EXAMINATION: GENERAL: Well-appearing, well-nourished and in no acute distress. HEAD: Atraumatic, normocephalic. EYES: Pupils equal round and reactive to light, extraocular movements intact, conjunctiva are normal. ENT: Nares patent, oropharynx clear without exudates. Moist mucous membranes. NECK: Normal range of motion, supple without lymphadenopathy LUNGS: Breath sounds clear to auscultation bilaterally and equal. No wheezes ra les or rhonchi. HEART: Regular rate and rhythm without murmurs ABDOMEN: Soft, nontender, nondistended abdomen. No guarding, no rebound. No masses appreciated. Female : deferred Musculoskeletal: Normal range of motion, no pitting or edema. No cyanosis. NEUROLOGICAL: Cranial nerves grossly intact. Normal speech, normal gait. Normal sensory, motor exams. 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 Radial pulses +2 in bilateral upper extremities equally PSYCH: Normal mood, normal affect. SKIN: Warm, Dry, normal turgor, no rashes or lesions noted. Small hematoma to left occipital aspect of head, no open wounds bleeding or drainage. Course - Re-evaluation Re-evalutation: 03/13/19 13:35 88-year-old female afebrile vitals stable and in no distress for evaluation of Head hematoma after falling out of bed. CT head negative for any acute findings per radiology, CT cervical spine negative for any acute findings, EKG within normal limits, CBC negative for hematoma leukocytosis, CMP negative for hepatic or renal dysfunction, alk phos slightly elevated. Coags normal. Advised to follow concussion protocol. discussed concussion protocol such as being woken up every hour by someone you live with, be asked orientation questions and to call 911 if any neurological changes occur such as speech changes, weakness on one side, unable to orient, nausea, vomiting, or severe headache, etc. pt verbalized understanding of this care and agreed to plan of care. discussed worrisome symptoms as well as reasons for return over what time frame. patient states understanding and is agreeable with plan. Some appointment with her neurologist for routine checkup on March 15. After performing a Medical Screening Examination, I estimate there is LOW risk for ACUTE GLAUCOMA, TEMPORAL ARTERITIS, MENINGITIS, INCRANIAL HEMORRHAGE, or ISCHEMIC STROKE thus I consider the discharge disposition reasonable. I have reevaluated this patient multiple times and no significant life threatening changes are noted. The patient and I have discussed the diagnosis and risks, and we agree with discharging home with close follow-up with the understanding that symptoms and presentations can change. We also discussed returning to the Emergency Department immediately if new or worsening symptoms occur. We have discussed the symptoms which are most concerning (e.g., changing or worsening symptoms, new numbness or weakness, vomiting, fever) that necessitate immediate return. - Laboratory Result Diagrams: 03/13/19 13:25 03/13/19 13:25 Laboratory results interpreted by me: 03/13/19 03/13/19 13:25 13:25 Hgb 11.9 L Hct 35.4 L Potassium 3.4 L Carbon Dioxide 32 H BUN 26 H Est GFR ( Amer) 53 L Est GFR (Non-Af Amer) 44 L AST 68 H Alkaline Phosphatase 205 H Discharge - Discharge Clinical Impression: Closed head injury, Hematoma, Sprain of cervical neck, Right wrist pain Condition: Stable Disposition: HOME, SELF-CARE Instructions: Post-Concussion Syndrome ([facility]), Concussion ([facility]), Head Injury Precautions ([facility]), Wrist Sprain ([facility]), Neck Injury (Cervical Strain) ([facility]) Additional Instructions: CT of your head and neck were normal, wrist x-ray was normal. Advised to follow discussed concussion protocol such as being woken up every hour by someone you live with, be asked orientation questions and to call 911 if any neurological changes occur such as speech changes, weakness on one side, unable to orient, nausea, vomiting, or severe headache, etc. pt verbalized understanding of this care and agreed to plan of care. discussed worrisome symptoms as well as reasons for return over what time frame. patient states understanding and is agreeable with plan. follow up with Primary care provider tomorrow. Please return to the emergency department if you have any worsening, or concern of your symptoms. Please return to the emergency department if you develop chest pain, difficulty breathing, severe abdominal pain, or ongoing vomiting. Please follow-up with your primary care physician in 2-3 days and any other recommended physicians. If prescribed, take all medications as directed. If you have any questions or concerns do not hesitate to return the emergency department for evaluation. Referrals: PIEDAD CRUZ MD [ACTIVE STAFF] - Follow up tomorrow
[2019-03-13 13:38] LABS: ABSOLUTE BASOPHILS # (AUTO) 0.1 10^3/uL (0.0-0.2); ABSOLUTE EOSINOPHILS # (AUTO) 0.3 10^3/uL (0.0-0.6); ABSOLUTE MONOCYTES (AUTO) 0.6 10^3/uL (0.1-1.4); ABSOLUTE NEUT (AUTO) 5.1 10^3/uL (1.7-8.2); BASOPHILS % (AUTO) 0.7 % (0-2); EOSINOPHILS % (AUTO) 4.2 % (0-6); HEMATOCRIT 35.4 % (36.0-47.0); HEMOGLOBIN 11.9 g/dL (12.0-15.5); LYMPHOCYTES % (AUTO) 14.3 % (13-45); MEAN CORPUSCULAR HEMOGLOBIN 29.1 pg (27.0-33.4); MEAN CORPUSCULAR HGB CONC 33.5 g/dL (32.0-36.0); MEAN CORPUSCULAR VOLUME 87 fl (80-97); MONOCYTES % (AUTO) 8.1 % (3-13); PLATELET COUNT 156 10^3/uL (150-450); RED BLOOD COUNT 4.08 10^6/uL (3.72-5.28); RED CELL DISTRIBUTION WIDTH 13.8 % (11.5-14.0); SEGMENTED NEUTROPHILS % (AUTO) 72.7 % (42-78); TOTAL CELLS COUNTED % (AUTO) 100 %
[2019-03-13 13:45] LABS: INTERNATIONAL RATION (INR) 1.02; PROTHROMBIN TIME 13.4 SEC (11.4-15.4)
[2019-03-13 13:46] LABS: PARTIAL THROMBOPLASTIN TIME 34.9 SEC (23.5-35.8)
--- NOTE | 2019-03-13 13:54 | RADIOLOGY REPORT (SQ) ---
EXAM DESCRIPTION: CT HEAD WITHOUT COMPLETED DATE/TIME: 03/13/2019 1:40 pm REASON FOR STUDY: fell out of bed this am, small hematoma, neck pain COMPARISON: None. TECHNIQUE: Axial images acquired through the brain without intravenous contrast. Images reviewed wi th bone, brain and subdural windows. Additional sagittal and coronal reconstructions were generated. Images stored on PACS. All CT scanners at this facility use dose modulation, iterative reconstruction, and/or weight based d osing when appropriate to reduce radiation dose to as low as reasonably achievable (ALARA). [facility]: Dose Right [facility]: CareDose [facility]: Dose Right [facility]: Teradose 4D [facility]: [employer] RADIATION DOSE: CT Rad equipment meets quality standard of care and radiation dose reduction techniq ues were employed. CTDIvol: 53.2 mGy. DLP: 991 mGy-cm. mGy. LIMITATIONS: None. FINDINGS: VENTRICLES: Normal size and contour. CEREBRUM: No masses. No hemorrhage. No midline shift. No evidence for acute infarction. Few scatte red areas of low density in the white matter most likely chronic small vessel ischemic changes. CEREBELLUM: No masses. No hemorrhage. No alteration of density. No evidence for acute infarction. EXTRAAXIAL SPACES: No fluid collections. No masses. ORBITS AND GLOBE: No intra- or extraconal masses. Normal contour of globe without masses. CALVARIUM: No fracture. PARANASAL SINUSES: No fluid or mucosal thickening. SOFT TISSUES: Soft tissue hematoma of the left parietal scalp. OTHER: No other significant finding. IMPRESSION: 1. No acute intracranial pathology. 2. 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 3. Soft tissue hematoma of the left parietal scalp. EVIDENCE OF ACUTE STROKE: NO. COMMENT: Quality ID # [id number]: Final reports with documentation of one or more dose reduction techniques (e.g., Automated exposure control, adjustment of the mA and/or kV according to patient size, use of iterative reconstruction technique) TECHNICAL DOCUMENTATION: JOB ID: [id number] [employer]- All Rights Reserved Reading location - IP/workstation name: [id number]
[2019-03-13 13:55] LABS: ALANINE AMINOTRANSFERASE 52 U/L (9-52); ALBUMIN 4.2 g/dL (3.5-5.0); ALKALINE PHOSPHATASE 205 U/L (38-126); ANION GAP 9 (5-19); ASPARTATE AMINO TRANSFERASE 68 U/L (14-36); BILIRUBIN,DIRECT 0.2 mg/dL (0.0-0.4); BILIRUBIN,TOTAL 1.3 mg/dL (0.2-1.3); BLOOD UREA NITROGEN 26 mg/dL (7-20); CALCIUM 9.8 mg/dL (8.4-10.2); CARBON DIOXIDE 32 mmol/L (22-30); CHLORIDE 101 mmol/L (98-107); GLUCOSE 89 mg/dL (75-110); POTASSIUM 3.4 mmol/L (3.6-5.0); SODIUM 141.9 mmol/L (137-145); TOTAL PROTEIN 7.2 g/dL (6.3-8.2)
--- NOTE | 2019-03-13 14:01 | RADIOLOGY REPORT (SQ) ---
EXAM DESCRIPTION: CT CERVICAL SPINE WITHOUT COMPLETED DATE/TIME: 03/13/2019 1:40 pm REASON FOR STUDY: fell out of bed this am, small hematoma, neck pain COMPARISON: None. TECHNIQUE: Axial images acquired through the cervical spine without intravenous contrast. Images re viewed with lung, soft tissue and bone windows. Reconstructed coronal and sagittal MPR images review ed. Images stored on PACS. All CT scanners at this facility use dose modulation, iterative reconstruction, and/or weight based d osing when appropriate to reduce radiation dose to as low as reasonably achievable (ALARA). [facility]: Dose Right [facility]: CareDose [facility]: Dose Right [facility]: Teradose 4D [facility]: [employer] RADIATION DOSE: CT Rad equipment meets quality standard of care and radiation dose reduction techniq ues were employed. CTDIvol: 7.8 mGy. DLP: 146 mGy-cm. mGy. LIMITATIONS: None. FINDINGS: ALIGNMENT: Anatomic. MINERALIZATION: Normal. VERTEBRAL BODIES: No fractures or dislocation. DISCS: Severe multilevel disc degenerative disease and osteophytosis at C4 through C6. FACETS, LATERAL MASSES, POSTERIOR ELEMENTS: Severe left eccentric facet degenerative disease. No fra ctures. No dislocation. No acute findings. HARDWARE: None in the spine. VISUALIZED RIBS: No fractures. LUNG APICES AND SOFT TISSUES: No significant or acute findings. OTHER: No other significant finding. IMPRESSION: No fracture or static subluxation of the cervical spine. Severe multilevel disc and fac et degenerative disease of the cervical spine. TECHNICAL DOCUMENTATION: JOB ID: [id number] Quality ID # [id number]: Final reports with documentation of one or more dose reduction techniques (e.g., Au tomated exposure control, adjustment of the mA and/or kV according to patient size, use of iterative reconstruction technique) 2010 [employer]- All Rights Reserved Reading location - IP/workstation name: [email or web address]
[2019-03-13] MEDS ORDERED: NOREPINEPHRINE BITARTRATE INJ/PF 4 MG/4 ML SDV IV ONE (22:19)
== END 2019-03-13 15:34 | disposition home or self-care (01) ==
LOC: ER 12:01
DX: S09.90XA Unspecified injury of head, initial encounter (principal); S00.93XA Contusion of unspecified part of head, initial encounter; S16.1XXA Strain of muscle, fascia and tendon at neck level, initial encounter; M25.531 Pain in right wrist; W06.XXXA Fall from bed, initial encounter; Z79.82 Long term (current) use of aspirin; I50.9 Heart failure, unspecified; I11.0 Hypertensive heart disease with heart failure
CPT/HCPCS: 36415; 70450; 72125; 80053; 85025; 85610; 85730; 99284

== ENCOUNTER 2020-09-25 12:43 | Inpatient (IN) | payer MEDICARE, OTHER ==
[2020-09-25] MEDS ORDERED: HYDROCODONE/ACETAMINOPHEN 5-325 MG TABLET PO ONE (13:37)
--- NOTE | 2020-09-25 13:39 | ER Document Report ---
ED Medical Screen (RME) - General Chief Complaint: Hip Pain Stated Complaint: FALL/HIP PAIN Time Seen by Provider: 09/25/20 13:32 Primary Care Provider: ELISABET MUNGUIA DO [Primary Care Provider] - Follow up as needed Mode of Arrival: Medic Information source: Patient TRAVEL OUTSIDE OF THE [place] IN LAST 30 DAYS: No - HPI Patient complains to provider of: Right hip pain after fall Notes: 09/25/20 13:38 Patient is here with complaints of right hip pain after fall. The patient states she was going out to her mailbox when she tripped and fell and landed on her right hip. She denies striking her head, no loss of consciousness, no blood thinning medications. She complains of a lot of pain in her right hip. She denies any other injuries or complaints at this moment. Exam: No distress, nontoxic. No respiratory distress. Tenderness to palpation of the right hip with limited range of motion secondary to pain. Palpable pulse distally. An initial examination was made on the patient as part of the triage process, and it was determined a more comprehensive evaluation was necessary. Initial or ders were placed and patient was transferred to another provider in the ED who assumed care and finished evaluation and plan. - Related Data Allergies/Adverse Reactions: No Known Allergies Allergy (Verified 03/13/19 13:25) Past Medical History - Past Medical History Cardiac Medical History: Reports: Hx Congestive Heart Failure, Hx Hypercholesterolemia, Hx Hypertension Pulmonary Medical History: Reports: Hx Bronchitis, Hx Pneumonia Renal/ Medical History: Denies: Hx Peritoneal Dialysis Past Surgical History: Reports: Hx Appendectomy, Hx Hysterectomy, Hx Orthopedic Surgery - left hip replacement Physical Exam - Vital signs Vitals: Temp Pulse Resp BP Pulse Ox 97.6 F 60 12 185/83 H 95 09/25/20 13:10 09/25/20 13:10 09/25/20 13:10 09/25/20 13:10 09/25/20 13:10 Course - Vital Signs Vital signs: Temp Pulse Resp BP Pulse Ox 97.6 F 60 12 185/83 H 95 09/25/20 13:10 09/25/20 13:10 09/25/20 13:10 09/25/20 13:10 09/25/20 13:10 Doctor's Discharge - Discharge Referrals: RATLEY,ELISABET, DO [Primary Care Provider] - Follow up as needed
--- NOTE | 2020-09-25 14:19 | RADIOLOGY REPORT (SQ) ---
EXAM DESCRIPTION: CHEST SINGLE VIEW IMAGES COMPLETED DATE/TIME: 09/25/2020 2:06 pm REASON FOR STUDY: Pre-op COMPARISON: 08/23/2017 EXAM PARAMETERS: NUMBER OF VIEWS: One view. TECHNIQUE: Single frontal radiographic view of the chest acquired. RADIATION DOSE: NA LIMITATIONS: None. FINDINGS: LUNGS AND PLEURA: Chronic interstitial changes. No acute infiltrate or effusion. MEDIASTINUM AND HILAR STRUCTURES: No masses. Contour normal. HEART AND VASCULAR STRUCTURES: Heart normal in size. Normal vasculature. BONES: No acute findings. HARDWARE: Pacemaker. OTHER: No other significant finding. IMPRESSION: Chronic lung changes with no acute cardiopulmonary finding. TECHNICAL DOCUMENTATION: JOB ID: [id number] 2010 [employer]- All Rights Reserved Reading location - IP/workstation name: [email or web address]
--- NOTE | 2020-09-25 14:21 | RADIOLOGY REPORT (SQ) ---
EXAM DESCRIPTION: HIP RIGHT AP/LATERAL IMAGES COMPLETED DATE/TIME: 09/25/2020 2:06 pm REASON FOR STUDY: Fall, right hip pain COMPARISON: None. NUMBER OF VIEWS: Two views. TECHNIQUE: AP pelvis and additional frog legview of the right hip. LIMITATIONS: None. FINDINGS: MINERALIZATION: Normal. RIGHT HIP: Impacted subcapital fracture of the femoral neck. LEFT HIP: Left total hip replacement in good position. PUBIS AND ISCHIUM: No fracture. PELVIS: No fracture. SACRUM: No fracture or dislocation. No worrisome bone lesions. LOWER LUMBAR SPINE: No fracture or dislocation. No worrisome bone lesions. No significant disc disea se. SOFT TISSUES: No findings. OTHER: No other significant finding. IMPRESSION: Impacted subcapital fracture of the femoral neck. TECHNICAL DOCUMENTATION: JOB ID: [id number] 2010 [employer]- All Rights Reserved Reading location - IP/workstation name: [email or web address]
--- NOTE | 2020-09-25 14:32 | ER Document Report ---
Entered by CAROLINA KIM SCRIBE 09/25/20 1411 Acting as scribe for:ALEX RAYMUNDO MD ED Hip Pain/Injury - General Chief Complaint: Hip Pain Stated Complaint: FALL/HIP PAIN Time Seen by Provider: 09/25/20 13:32 Mode of Arrival: Medic Information source: Patient Notes: This 89-year-old female patient presents to the emergency department today with complaints of right hip pain resulting from a mechanical fall. Patient was walking out to her mailbox today and tripped, landing on her right hip. She did not lose consciousness. She is not on any blood thinners. TRAVEL OUTSIDE OF THE [place] IN LAST 30 DAYS: No - Related Data Allergies/Adverse Reactions: No Known Allergies Allergy (Verified 03/13/19 13:25) Past Medical History - General Information source: Patient - Social History Smoking Status: Never Smoker Cigarette use (# per day): No Chew tobacco use (# tins/day): No Smoking Education Provided: No Frequency of alcohol use: None Drug Abuse: None Lives with: Family Family History: COPD, Malignancy, Other - Accident - Past Medical History Cardiac Medical History: Reports: Hx Congestive Heart Failure, Hx Hypercholesterolemia, Hx Hypertension Pulmonary Medical History: Reports: Hx Bronchitis, Hx COPD - Patient is on 2 L nasal cannula at home., Hx Pneumonia Musculoskeletal Medical History: Reports Hx Musculoskeletal Trauma - Left hip frature Past Surgical History: Reports: Hx Appendectomy, Hx Hysterectomy, Hx Orthopedic Surgery - left hip replacement, Hx Pacemaker - Immunizations Hx Pneumococcal Vaccination: 07/12/17 Review of Systems - Review of Systems Constitutional: No symptoms reported EENT: No symptoms reported Cardiovascular: No symptoms reported Respiratory: No symptoms reported Gastrointestinal: No symptoms reported Genitourinary: No symptoms reported Female Genitourinary: No symptoms reported Musculoskeletal: See HPI, Joint pain - right hip Skin: No symptoms reported Hematologic/Lymphatic: No symptoms reported Neurological/Psychological: denies: Lost consciousness -: Yes All other systems reviewed and negative Physical Exam - Vital signs Vitals: Temp Pulse Resp BP Pulse Ox 97.6 F 60 12 185/83 H 95 09/25/20 13:10 09/25/20 13:10 09/25/20 13:10 09/25/20 13:10 09/25/20 13:10 - Notes Notes: Physical Exam: General: Alert, appears well. Patient is reasonably oriented, she does seem to be a little demented. HEENT: Normocephalic. Atraumatic. PERRL. Extraocular movements intact. Oropharynx clear. Neck: Supple. Non-tender. Respiratory: No respiratory distress. Mild wheezing and rhonchi bilaterally, consistent with COPD. Cardiovascular: Regular rate and rhythm. Abdominal: Normal Inspection. Non-tender. No distension. Normal Bowel Sounds. Back: No gross abnormalities. Extremities: Upper extremities: Normal inspection. Normal ROM. Lower extremities: Right hip tenderness to palpation. Neurological: Patient does seem to have some mild dementia. Normal speech. Psychological: Normal affect. Normal Mood. Skin: Warm. Dry. Normal color. Course - Vital Signs Vital signs: Temp Pulse Resp BP Pulse Ox 97.8 F 60 18 157/74 H 86 L 09/25/20 17:01 09/25/20 13:10 09/25/20 17:01 09/25/20 17:01 09/25/20 17:01 - Laboratory Results Result Diagrams: 09/25/20 14:36 09/25/20 14:36 Laboratory Results Interpreted: 09/25/20 09/25/20 09/25/20 14:36 14:36 16:09 WBC 19.0 H Plt Count 127 L Seg Neuts % (Manual) 96 H Lymphocytes % (Manual) 2 L Monocytes % (Manual) 2 L Abs Neuts (Manual) 18.2 H Abs Lymphs (Manual) 0.4 L BUN 25 H Est GFR ( Amer) 52 L Est GFR (MDRD) Non-Af 43 L Glucose 152 H Total Bilirubin 2.4 H AST 44 H Alkaline Phosphatase 166 H Urine Protein 100 H Urine Urobilinogen 2.0 H Ur Leukocyte Esterase SMALL H Critical Laboratory Results Reviewed: No Critical Results - Radiology Results Radiology Results Interpreted: 09/25/20 15:56 Chest x-ray shows chronic lung changes without acute findings. Right hip shows impacted subcapital femoral neck fracture. Critical Radiology Results Reviewed: Yes - Right femoral neck fracture Attending or Supervising Physician who Reviewed Radiology: ALEX RAYMUNDO - EKG Interpretation by Fl EKG shows normal: [place], Intervals, QRS Complexes, ST-T Waves Rate: Normal - 74 Rhythm: Other - Atrial paced complexes Voltage: Consistent with LVH When compared to previous EKG there are: Changes noted - Consults Dr. Carias Time consulted: 15:45 Consulted provider: will see as inpatient Dr. Pierre Time consulted: 16:30 Consulted provider: will come to ER Discharge - Discharge Clinical Impression: Femoral neck fracture Qualifiers: Encounter type: initial encounter Fracture type: closed Laterality: right Qualified Code(s): S72.001A - Fracture of unspecified part of neck of right femur, initial encounter for closed fracture Hypertension Qualifiers: Hypertension type: essential hypertension Qualified Code(s): I10 - Essential (primary) hypertension Leukocytosis Qualifiers: Leukocytosis type: unspecified Qualified Code(s): D72.829 - Elevated white blood cell count, unspecified COPD (chronic obstructive pulmonary disease) Qualifiers: COPD type: unspecified COPD Qualified Code(s): J44.9 - Chronic obstructive pulmonary disease, unspecified Condition: Stable Disposition: ADMITTED INPATIENT Admitting Provider: Gabby (Hospitalist) Unit Admitted: Telemetry I personally performed the services described in the documentation, reviewed and edited the documentation which was dictated to the scribe in my presence, and it accurately records my words and actions.
[2020-09-25 15:00] LABS: HEMOGLOBIN 14.2 g/dL (12.0-15.5); MEAN CORPUSCULAR HGB CONC 33.9 g/dL (32.0-36.0); MEAN CORPUSCULAR VOLUME 89 fl (80-97); PLATELET COUNT 127 10^3/uL (150-450); RED BLOOD COUNT 4.73 10^6/uL (3.72-5.28); RED CELL DISTRIBUTION WIDTH 13.8 % (11.5-14.0)
[2020-09-25 15:18] LABS: ABSOLUTE LYMPHOCYTES# (MANUAL) 0.4 10^3/uL (0.5-4.7); ABSOLUTE MONOCYTES # (MANUAL) 0.4 10^3/uL (0.1-1.4); BASOPHILS % (MANUAL) 0 % (0-2); EOSINOPHILS % (MANUAL) 0 % (0-6); LYMPHOCYTES % (MANUAL) 2 % (13-45); MONOCYTES % (MANUAL) 2 % (3-13); PLATELET COMMENT DECREASED; SEGMENTED NEUTROPHILS % (MAN) 96 % (42-78); TOTAL CELLS COUNTED 100
[2020-09-25 15:19] LABS: ALKALINE PHOSPHATASE 166 U/L (38-126); ANION GAP 8 (5-19); ASPARTATE AMINO TRANSFERASE 44 U/L (14-36); BILIRUBIN,DIRECT 0.3 mg/dL (0.0-0.4); BILIRUBIN,TOTAL 2.4 mg/dL (0.2-1.3); BLOOD UREA NITROGEN 25 mg/dL (7-20); CALCIUM 9.1 mg/dL (8.4-10.2); CARBON DIOXIDE 30 mmol/L (22-30); CHLORIDE 105 mmol/L (98-107); GLUCOSE 152 mg/dL (75-110); POTASSIUM 3.8 mmol/L (3.6-5.0); TOTAL PROTEIN 7.4 g/dL (6.3-8.2); TOXIC VACUOLATION PRESENT
[2020-09-25 15:20] LABS: BURR CELLS SLIGHT; SCHISTOCYTES SLIGHT
[2020-09-25] MEDS ORDERED: NORMAL SALINE 1000 ML 1,000 ML IV ONE (15:25)
[2020-09-25] MEDS ORDERED: MORPHINE SULFATE 10 MG/ML INJ IV ONE ×2 (15:25→16:25)
[2020-09-25] MEDS ORDERED: ONDANSETRON HCL INJ/PF 4 MG/2 ML SDV IV ONE (15:26)
[2020-09-25] MEDS ORDERED: IPRATROPIUM/ALBUTEROL 0.5-2.5 MG/3 ML AMPUL NEB ONE (15:46)
--- NOTE | 2020-09-25 16:32 | PDOC CONSULTATION ---
Consultation Consult Date: 09/25/20 Provider Consulted: FADI IZQUIERDO History of Present Illness Admission Date/PCP: ELISABET MUNGUIA DO Patient complains of: Right hip pain History of Present Illness: ALEXANDER CHRISTOPHER is a 89 year old female who sustained a fall onto her right hip when she was taking her mail out. Patient was unable to weight-bear and was brought to the emergency room where x-rays demonstrated fracture. Patient has had prior hip fracture on the left which was fixed with screws also sustained a distal radius fracture on the left at some point time in the past 3 weeks as well. As for her hip her pain is worse with any attempted motion and weightbearing. Denies numbness or tingling. Pain improved with current pain regimen. She has required respiratory treatment due to recent "cold". Past Medical History Cardiac Medical History: Reports: Congestive Heart Failure, Hyperlipidema, Hypertension Pulmonary Medical History: Reports: Bronchitis, Pneumonia Past Surgical History Past Surgical History: Reports: Appendectomy, Hysterectomy, Orthopedic Surgery - left hip replacement, Pacemaker Social History Lives with: Family Smoking Status: Never Smoker Frequency of Alcohol Use: None Hx Recreational Drug Use: No Drugs: None Hx Prescription Drug Abuse: No Family History Family History: COPD, Malignancy, Other - Accident Parental Family History Reviewed: No Children Family History Reviewed: No Sibling(s) Family History Reviewed.: No Medication/Allergy Home Medications: Albuterol Sulfate [Proair HFA] 1 puff IN Q4 08/24/17 Allopurinol [Zyloprim 100 mg Tablet] 100 mg PO Q8 08/24/17 Amlodipine Besylate [Norvasc 10 mg Tablet] 10 mg PO DAILY 08/24/17 Aspirin [Aspirin EC] 81 mg PO DAILY 08/24/17 Dicyclomine HCl [Bentyl 10 mg Capsule] 10 mg PO Q6 08/24/17 Escitalopram Oxalate [Lexapro] 20 mg PO DAILY 08/24/17 Furosemide [Lasix 20 mg Tablet] 60 mg PO DAILY 08/24/17 Ketoconazole [Nizoral 2% Shampoo 120 ml Bottle] 3 ml TP MOTH@1000 08/24/17 Metoprolol Succinate [Toprol Xl] 25 mg PO DAILY 08/24/17 Simvastatin [Zocor 20 mg Tablet] 20 mg PO QHS 08/24/17 Azithromycin 500 mg PO DAILY 5 Days #5 tablet 08/26/17 Ipratropium/Albuterol Sulfate [Duoneb 3 ml Ampul] 3 ml NEB TID 90 Days vial.neb 08/26/17 Nebulizer and Compressor [Portable Nebulizer System] 1 each MC TID #1 each 08/26/17 Prednisone [Deltasone 20 mg Tablet] 40 mg PO DAILY #10 tablet 08/26/17 Walker [Folding Walker] 1 each ASDIR PRN #1 each 08/26/17 Allergies/Adverse Reactions: No Known Allergies Allergy (Verified 03/13/19 13:25) Review of Systems Constitutional: ABSENT: chills, fever(s), headache(s), weight gain, weight loss Eyes: ABSENT: visual disturbances Ears: ABSENT: hearing changes Cardiovascular: ABSENT: chest pain, dyspnea on exertion, edema, orthropnea, palpitations Respiratory: PRESENT: cough, sputum. ABSENT: hemoptysis Gastrointestinal: ABSENT: abdominal pain, constipation, diarrhea, hematemesis, hematochezia, nausea, vomiting Genitourinary: ABSENT: dysuria, hematuria Musculoskeletal: PRESENT: as per HPI Integumentary: ABSENT: rash, wounds Neurological: ABSENT: abnormal gait, abnormal speech, confusion, dizziness, focal weakness, syncope Psychiatric: ABSENT: anxiety, depression, homidical ideation, suicidal ideation Endocrine: ABSENT: cold intolerance, heat intolerance, menstrual abnormalities, polydipsia, polyuria Hematologic/Lymphatic: ABSENT: easy bleeding, easy bruising, lymphadenopathy Physical Exam Vital Signs: Temp Pulse Resp BP Pulse Ox 97.6 F 60 22 H 170/68 H 95 09/25/20 13:10 09/25/20 13:10 09/25/20 15:03 09/25/20 15:03 09/25/20 15:03 Intake & Output 09/24/20 09/25/20 09/26/20 06:59 06:59 06:59 Weight 59.1 kg General appearance: PRESENT: no acute distress, well-developed, well-nourished Head exam: PRESENT: atraumatic, normocephalic Eye exam: PRESENT: conjunctiva pink, EOMI, PERRLA. ABSENT: scleral icterus Ear exam: PRESENT: normal external ear exam Mouth exam: PRESENT: moist, tongue midline Neck exam: PRESENT: full ROM. ABSENT: carotid bruit, JVD, lymphadenopathy, thyromegaly Respiratory exam: PRESENT: unlabored Cardiovascular exam: PRESENT: RRR. ABSENT: diastolic murmur, rubs, systolic murmur Pulses: PRESENT: normal dorsalis pedis pul, +2 pedal pulses bilateral Vascular exam: PRESENT: normal capillary refill GI/Abdominal exam: PRESENT: normal bowel sounds, soft. ABSENT: distended, guarding, mass, organolmegaly, rebound, tenderness Rectal exam: PRESENT: deferred Musculoskeletal exam: PRESENT: other - Right hip: Positive logroll. Short/external rotated. No erythema or drainage. Moderate thigh swelling without change, intact plantarflexion/dorsiflexion. No sensory deficits. No calf tenderness. Neurological exam: PRESENT: alert, awake, oriented to person, oriented to place, oriented to time, oriented to situation, CN II-XII grossly intact. ABSENT: motor sensory deficit Psychiatric exam: PRESENT: appropriate affect, normal mood. ABSENT: homicidal ideation, suicidal ideation Skin exam: PRESENT: dry, intact, warm. ABSENT: cyanosis, rash Results Laboratory Results: 09/25/20 14:36 09/25/20 14:36 09/25/20 09/25/20 14:36 14:36 WBC 19.0 H RBC 4.73 Hgb 14.2 Hct 42.0 MCV 89 MCH 30.0 MCHC 33.9 RDW 13.8 Plt Count 127 L Seg Neutrophils % Not Reportable Sodium 142.7 Potassium 3.8 Chloride 105 Carbon Dioxide 30 Anion Gap 8 BUN 25 H Creatinine 1.18 Est GFR ( Amer) 52 L Glucose 152 H Calcium 9.1 Total Bilirubin 2.4 H AST 44 H Alkaline Phosphatase 166 H Total Protein 7.4 Albumin 4.0 Impressions: Chest X-Ray 09/25/20 13:37 IMPRESSION: Chronic lung changes with no acute cardiopulmonary finding. Hip/Pelvis X-Ray 09/25/20 13:37 IMPRESSION: Impacted subcapital fracture of the femoral neck. Status: Image reviewed by me - I have reviewed patient's radiographs consistent with displaced right femoral neck fracture. Assessment & Plan - Diagnosis (1) Femoral neck fracture Qualifiers: Encounter type: initial encounter Fracture type: closed Laterality: right Qualified Code(s): S72.001A - Fracture of unspecified part of neck of right femur, initial encounter for closed fracture Is this a current diagnosis for this admission?: Yes Plan: Patient has evidence of right femoral neck fracture noted on radiographs which I have reviewed. Today we discussed treatment option with the patient and son who also provided history of present illness. Despite patient's advanced age she does ambulate regular without an assistive device and thus I have recommended operative intervention. However because of her age and comorbidities she knows she is at high risk of anesthesia risks. Despite these age and comorbidities I feel would be in patient's best interest to proceed with operative intervention to decrease further possible compromise specifically pulmonary compromise due to bedrest. After discussing risk and benefits joint decision was made to proceed with operative intervention which includes right hip hemiarthroplasty. Risks include anesthetic complications, excessive bleeding, infection, injury to surrounding nerves, vessels and tendons, bruising, healing difficulties, scar formation, hardware complication, posttraumatic arthritis and any unforseen complication.
[2020-09-25 16:57] LABS: APPEARANCE,URINE SLIGHTLY-CLOUDY; BILIRUBIN,URINE NEGATIVE (NEGATIVE); GLUCOSE, URINE NEGATIVE (NEGATIVE); KETONES,URINE NEGATIVE (NEGATIVE); LEUKOCYTE ESTERASE,URINE SMALL (NEGATIVE); NITRITE,URINE NEGATIVE (NEGATIVE); PROTEIN,URINE 100 mg/dL (NEGATIVE); URINE SPECIFIC GRAVITY 1.017
[2020-09-25 17:02] LABS: COLOR,URINE YELLOW
[2020-09-25 18:33] LABS: PROTHROMBIN TIME 13.4 SEC (11.4-15.4)
[2020-09-25 18:34] LABS: PARTIAL THROMBOPLASTIN TIME 34.5 SEC (23.5-35.8)
[2020-09-25] MEDS ORDERED: ONDANSETRON HCL INJ/PF 4 MG/2 ML SDV IV PRN (18:37)
[2020-09-25] MEDS ORDERED: IPRATROPIUM/ALBUTEROL 0.5-2.5 MG/3 ML AMPUL NEB PRN (18:37)
[2020-09-25] MEDS ORDERED: ALBUTEROL SULFATE HFA (90 MCG/PUFF) 8 GM MDI IH PRN (18:45)
[2020-09-25] MEDS ORDERED: MORPHINE SULFATE 10 MG/ML INJ IV PRN (18:46)
--- NOTE | 2020-09-25 19:10 | PDOC H&P ---
History of Present Illness Admission Date/PCP: 09/25/20 16:52 ELISABET MUNGUIA DO Patient complains of: fall and R hip pain History of Present Illness: ALEXANDER CHRISTOPHER is an 89 year old female with PMH of HTN, HLD, CHF, CHB s/p pacemaker, pulmonary hypertension on 2 L home O2 and frequent falls who presented to the ED s/p fall with R hip pain. She notes that she hates using canes/walkers. She was walking to the mailbox today when she had a mechanical fall onto her R hip. She denies LOC or head trauma. She recently (4-5 weeks ago) had a fall which results in a LUE fracture, which is still in a cast. She also notes that she broke her left hip in a fall a few years ago. She denies recent illnesses, sick contacts, fevers/chills, SOB, CP, cough, abdominal pain, dysuria. Pain is currently well controlled. In the ED, she was found to have a R femoral neck fracture. Orthopedic surgery was consulted and recommended surgical repair on 09/26. Past Medical History Cardiac Medical History: Reports: Congestive Heart Failure, Hyperlipidema, Hypertension Pulmonary Medical History: Reports: Respiratory Failure - pulmonary HTN on 2 L home O2 Past Surgical History Past Surgical History: Reports: Appendectomy, Hysterectomy, Orthopedic Surgery - left hip replacement, Pacemaker Social History Information Source: Patient, Relative Lives with: Family Smoking Status: Never Smoker Electronic Cigarette use?: No Frequency of Alcohol Use: None Hx Recreational Drug Use: No Drugs: None Hx Prescription Drug Abuse: No - Advance Directive Resuscitation Status: Do Not Resuscitate Surrogate healthcare decision maker:: her sons, Daniel and Felice Slade Family History Family History: Reviewed & Not Pertinent, COPD, Malignancy, Other - Accident Parental Family History Reviewed: Yes Children Family History Reviewed: Yes Sibling(s) Family History Reviewed.: Yes Medication/Allergy Home Medications: Albuterol Sulfate [Proair HFA] 1 puff IN Q4 08/24/17 Allopurinol [Zyloprim 100 mg Tablet] 100 mg PO Q8 08/24/17 Amlodipine Besylate [Norvasc 10 mg Tablet] 10 mg PO DAILY 08/24/17 Aspirin [Aspirin EC] 81 mg PO DAILY 08/24/17 Dicyclomine HCl [Bentyl 10 mg Capsule] 10 mg PO Q6 08/24/17 Escitalopram Oxalate [Lexapro] 20 mg PO DAILY 08/24/17 Furosemide [Lasix 20 mg Tablet] 60 mg PO DAILY 08/24/17 Ketoconazole [Nizoral 2% Shampoo 120 ml Bottle] 3 ml TP MOTH@1000 08/24/17 Metoprolol Succinate [Toprol Xl] 25 mg PO DAILY 08/24/17 Simvastatin [Zocor 20 mg Tablet] 20 mg PO QHS 08/24/17 Azithromycin 500 mg PO DAILY 5 Days #5 tablet 08/26/17 Ipratropium/Albuterol Sulfate [Duoneb 3 ml Ampul] 3 ml NEB TID 90 Days vial.neb 08/26/17 Nebulizer and Compressor [Portable Nebulizer System] 1 each MC TID #1 each 08/26/17 Prednisone [Deltasone 20 mg Tablet] 40 mg PO DAILY #10 tablet 08/26/17 Walker [Folding Walker] 1 each MC ASDIR PRN #1 each 08/26/17 Allergies/Adverse Reactions: No Known Allergies Allergy (Verified 03/13/19 13:25) Review of Systems Constitutional: ABSENT: fatigue, fever(s) Cardiovascular: ABSENT: chest pain, orthropnea, palpitations Respiratory: ABSENT: cough, dyspnea Gastrointestinal: ABSENT: diarrhea, vomiting Genitourinary: ABSENT: dysuria Integumentary: ABSENT: rash Neurological: PRESENT: frequent falls. ABSENT: syncope Physical Exam Vital Signs: Temp Pulse Resp BP Pulse Ox 97.8 F 60 18 157/74 H 86 L 09/25/20 17:01 09/25/20 13:10 09/25/20 17:01 09/25/20 17:01 09/25/20 17:01 Intake & Output 09/24/20 09/25/20 09/26/20 06:59 06:59 06:59 Weight 59.1 kg General appearance: PRESENT: no acute distress, cooperative Eye exam: ABSENT: scleral icterus Mouth exam: PRESENT: dry mucosa Throat exam: ABSENT: post pharyngeal erythema Neck exam: ABSENT: JVD Respiratory exam: PRESENT: unlabored. ABSENT: crackles, prolonged expiratory phas, tachypnea, wheezes Cardiovascular exam: PRESENT: RRR GI/Abdominal exam: PRESENT: normal bowel sounds, soft. ABSENT: tenderness Gentrourinary exam: PRESENT: indwelling catheter Extremities exam: ABSENT: pedal edema Musculoskeletal exam: PRESENT: normal inspection Neurological exam: PRESENT: alert, awake, oriented to person, oriented to place, oriented to situation Psychiatric exam: PRESENT: appropriate affect Skin exam: ABSENT: jaundice, rash Results Laboratory Results: 09/25/20 14:36 09/25/20 14:36 09/25/20 09/25/20 09/25/20 14:36 14:36 16:09 WBC 19.0 H RBC 4.73 Hgb 14.2 Hct 42.0 MCV 89 MCH 30.0 MCHC 33.9 RDW 13.8 Plt Count 127 L Seg Neutrophils % Not Reportable Sodium 142.7 Potassium 3.8 Chloride 105 Carbon Dioxide 30 Anion Gap 8 BUN 25 H Creatinine 1.18 Est GFR ( Amer) 52 L Glucose 152 H Calcium 9.1 Total Bilirubin 2.4 H AST 44 H Alkaline Phosphatase 166 H Total Protein 7.4 Albumin 4.0 Urine Color YELLOW Urine Appearance SLIGHTLY-CLOUDY Urine pH 5.0 Ur Specific [place] 1.017 Urine Protein 100 H Urine Glucose (UA) NEGATIVE Urine Ketones NEGATIVE Urine Blood NEGATIVE Urine Nitrite NEGATIVE Ur Leukocyte Esterase SMALL H Urine WBC (Auto) 9 Impressions: Chest X-Ray 09/25/20 13:37 IMPRESSION: Chronic lung changes with no acute cardiopulmonary finding. Hip/Pelvis X-Ray 09/25/20 13:37 IMPRESSION: Impacted subcapital fracture of the femoral neck. Assessment and Plan - Diagnosis (1) Femoral neck fracture Qualifiers: Encounter type: initial encounter Fracture type: closed Laterality: right Qualified Code(s): S72.001A - Fracture of unspecified part of neck of right femur, initial encounter for closed fracture Is this a current diagnosis for this admission?: Yes (2) Frequent falls Is this a current diagnosis for this admission?: Yes (3) Chronic hypoxemic respiratory failure Is this a current diagnosis for this admission?: Yes (4) Hypertension Qualifiers: Hypertension type: essential hypertension Qualified Code(s): I10 - Essential (primary) hypertension Is this a current diagnosis for this admission?: Yes (5) Leukocytosis Qualifiers: Leukocytosis type: unspecified Qualified Code(s): D72.829 - Elevated white blood cell count, unspecified Is this a current diagnosis for this admission?: Yes (6) Hyperlipidemia Qualifiers: Hyperlipidemia type: unspecified Qualified Code(s): E78.5 - Hyperlipidemia, unspecified Is this a current diagnosis for this admission?: Yes (7) Pulmonary hypertension Is this a current diagnosis for this admission?: Yes - Plan Summary Summary: -Lui CHRISTOPHER is an 89 year old female with PMH of HTN, HLD, CHF, CHB s/p pacemaker, pulmonary hypertension on 2 L home O2 and frequent falls who presented to the ED s/p fall with R hip pain. She notes that she hates using canes/walkers. She was walking to the mailbox today when she had a mechanical fall onto her R hip. She recently (4-5 weeks ago) had a fall which results in a LUE fracture, which is still in a cast. She also notes that she broke her left hip in a fall a few years ago. She denies recent illnesses, sick contacts, fevers/chills, SOB, CP, cough, abdominal pain, dysuria. R femoral neck fracture - Orthopedic surgery was consulted and recommended surgical repair on 09/26 (NPO past MN) - bed rest - fall precautions - Duke catheter placed in ED - PT immediately after surgery - pain control with oxycodone PRN, Tylenol scheduled and Morphine for breakthrough pain Pre-Operative Risk Assessment: she is euvolemic on exam and on the appropriate cardiac medications to control her risk factors. She has a Revised Cardiac Risk Index for Pre-Operative Risk of 2 (Class III) with a 10.1% 30-day risk of , CA or cardiac arrest. I discussed risks of surgery/anesthesia with patient and her son at bedside. They are understanding that she is high risk given her cardiac and pulmonary function, but are willing to take the risk to maximize her mobility and quality of life. Pulmonary HTN: on 2L Home O2 - Duo-Nebs PRN - supplemental O2 for goal saturation >90% - continue home sildenafil Leukocytosis: likely a stress reaction given fall and femur fracture. She has no other signs of or symptoms of infection. UA shows small LE and bacteria - this is likely due to asymptomatic bacteriuria and does not require antibiotic therapy. - repeat CBC in AM - hold off on antibiotics Congestive Heart Failure: euvolemic to slightly dry on exam today. No evidence of volume overload. - restart home medications - avoid aggressive IVF hydration Essential HTN: uncontrolled, likely due to the fact that she has not taken any of her home medications today - restart home medications Complete Heart Block s/p pacemaker - telemetry Dispo: she will likely require SNF placement on discharge. Discharge planning consult placed. DVT ppx: hold off on starting until after surgery tomorrow morning Code Status: DNR/DNI - Time Time Spent with patient: 35 or more minutes Anticipated Discharge Disposition: [facility] Anticipated Discharge Timeframe: within 48 hours
--- NOTE | 2020-09-25 19:25 | EKG REPORT ---
SEVERITY:- ABNORMAL ECG - ATRIAL-PACED COMPLEXES PROBABLE LVH WITH SECONDARY REPOL ABNRM : Confirmed by: Elenita Chamberlain MD 25-Sep-2020 19:24:54
[2020-09-25] MEDS: LOSARTAN POTASSIUM 50 MG TABLET PO SCH (20:14)
[2020-09-25] MEDS: ACETAMINOPHEN 325 MG TABLET PO SCH (20:14)
[2020-09-25] MEDS: SILDENAFIL CITRATE 20 MG TABLET PO SCH (20:17)
[2020-09-25] MEDS: CARVEDILOL 6.25 MG TABLET PO SCH (21:21)
[2020-09-25] MEDS: ATORVASTATIN CALCIUM 40 MG TABLET PO SCH (21:22)
[2020-09-25] MEDS: DILTIAZEM HCL 180 MG CAPSULE.CR PO SCH (21:22)
[2020-09-25] MEDS: ASPIRIN 81 MG TABLET, CHEWABLE PO SCH (21:22)
[2020-09-26 05:53] LABS: HEMATOCRIT 43.4 % (36.0-47.0); HEMOGLOBIN 14.7 g/dL (12.0-15.5); MEAN CORPUSCULAR HGB CONC 33.9 g/dL (32.0-36.0); MEAN CORPUSCULAR VOLUME 89 fl (80-97); RED CELL DISTRIBUTION WIDTH 13.9 % (11.5-14.0); WHITE BLOOD COUNT 19.5 10^3/uL (4.0-10.5)
[2020-09-26 06:00] LABS: ANION GAP 12 (5-19); BLOOD UREA NITROGEN 40 mg/dL (7-20); CALCIUM 8.6 mg/dL (8.4-10.2); CARBON DIOXIDE 25 mmol/L (22-30); CHLORIDE 105 mmol/L (98-107); GLUCOSE 127 mg/dL (75-110); POTASSIUM 4.5 mmol/L (3.6-5.0)
[2020-09-26 07:33] LABS: PLATELET COUNT 55 10^3/uL (150-450)
[2020-09-26 07:34] LABS: ABSOLUTE LYMPHOCYTES# (MANUAL) 0.2 10^3/uL (0.5-4.7); ABSOLUTE MONOCYTES # (MANUAL) 0.8 10^3/uL (0.1-1.4); BASOPHILS % (MANUAL) 0 % (0-2); EOSINOPHILS % (MANUAL) 1 % (0-6); LYMPHOCYTES % (MANUAL) 1 % (13-45); MONOCYTES % (MANUAL) 4 % (3-13); SEGMENTED NEUTROPHILS % (MAN) 94 % (42-78); TOTAL CELLS COUNTED 100
[2020-09-26 07:37] LABS: ANISOCYTOSIS SLIGHT; OVALOCYTES 1+; POIKILOCYTOSIS SLIGHT; TOXIC GRANULATION 1+
[2020-09-26 07:38] LABS: PLATELET COMMENT DECREASED; SCHISTOCYTES SLIGHT; TEAR DROP CELLS SLIGHT
[2020-09-26 08:10] LABS: ARTERIAL BLOOD BASE EXCESS -2.3 mmol/L; ARTERIAL BLOOD H2CO3 1.38 mmol/L (1.05-1.35); ARTERIAL BLOOD HCO3 23.8 mmol/L (20-24); ARTERIAL BLOOD O2 SATURATION 87.8 % (94-98); ARTERIAL BLOOD PCO2 45.8 mmHg (35-45); ARTERIAL BLOOD PH 7.33 (7.35-7.45); ARTERIAL BLOOD PO2 57.1 mmHg (80-100); ARTERIAL BLOOD TOTAL CO2 25.2 mmol/L (21-25)
[2020-09-26 08:12] LABS: ARTERIAL BLOOD FIO2 100%
[2020-09-26] MEDS ORDERED: PROMETHAZINE HCL INJ 25 MG/1 ML VIAL ONE (08:22)
[2020-09-26] MEDS ORDERED: PROMETHAZINE HCL INJ 25 MG/1 ML VIAL IV PRN (08:51)
[2020-09-26] MEDS ORDERED: NORMAL SALINE 250 ML IV PRN ×2 (08:55)
[2020-09-26] MEDS: SILDENAFIL CITRATE 20 MG TABLET PO SCH ×3 (09:02→17:16)
[2020-09-26] MEDS: CARVEDILOL 6.25 MG TABLET PO SCH ×2 (09:02→22:05)
[2020-09-26] MEDS: ESCITALOPRAM OXALATE 10 MG TABLET PO SCH (09:02)
[2020-09-26] MEDS: LOSARTAN POTASSIUM 50 MG TABLET PO SCH (09:02)
[2020-09-26] MEDS: ACETAMINOPHEN 325 MG TABLET PO SCH ×3 (09:02→17:16)
[2020-09-26] MEDS: METHYLPREDNISOLONE INJ 40 MG/1 ML SDV IV SCH ×2 (09:09→17:19)
[2020-09-26] MEDS: CEFEPIME 1 GM/D5W RTU 1 GM/50 ML RTUPB IV SCH ×2 (09:10→22:04)
[2020-09-26 09:37] LABS: INTERNATIONAL RATION (INR) 1.04; PROTHROMBIN TIME 13.8 SEC (11.4-15.4)
--- NOTE | 2020-09-26 09:49 | PDOC PROGRESS REPORT ---
Subjective Date:: 09/26/20 Subjective:: Patient lying in bed with BiPAP and respiratory therapist at bedside. Unable to obtain subjective history given patient's breathing status. Did discuss with patient's son who states she began having breathing issues last evening after he left and has worsened since his presentation today. According to nursing staff she has required high levels of oxygen over the past few hours and did have episode of nausea vomiting this morning. Reason For Visit: RIGHT FEMORAL NECK FRACTURE Physical Exam Vital Signs: Temp Pulse Resp BP Pulse Ox 98.4 F 66 20 144/55 H 82 L 09/26/20 07:32 09/26/20 08:14 09/26/20 08:14 09/26/20 07:32 09/26/20 08:14 Intake & Output 09/25/20 09/26/20 09/27/20 06:59 06:59 06:59 Output Total 15 Balance -15 Weight 62.3 kg Musculoskeletal exam: PRESENT: other - Right hip: Short/external rotated, positive logroll, moderate thigh swelling without change, intact plantarflexion/dorsiflexion. No sensory deficits. No calf tenderness. Results Laboratory Results: 09/26/20 04:55 09/26/20 04:55 09/25/20 09/25/20 09/25/20 14:36 14:36 14:36 WBC 19.0 H RBC 4.73 Hgb 14.2 Hct 42.0 MCV 89 MCH 30.0 MCHC 33.9 RDW 13.8 Plt Count 127 L Seg Neutrophils % Not Reportable Carbonic Acid HCO3/H2CO3 Ratio ABG pH ABG pCO2 ABG pO2 ABG HCO3 ABG O2 Saturation ABG Base Excess FiO2 Sodium 142.7 Potassium 3.8 Chloride 105 Carbon Dioxide 30 Anion Gap 8 BUN 25 H Creatinine 1.18 Est GFR ( Amer) 52 L Glucose 152 H Calcium 9.1 Magnesium Total Bilirubin 2.4 H AST 44 H Alkaline Phosphatase 166 H Total Protein 7.4 Albumin 4.0 Urine Color Urine Appearance Urine pH Ur Specific [place] Urine Protein Urine Glucose (UA) Urine Ketones Urine Blood Urine Nitrite Ur Leukocyte Esterase Urine WBC (Auto) Blood Type O POSITIVE Antibody Screen NEGATIVE 09/25/20 09/26/20 09/26/20 16:09 04:55 04:55 WBC 19.5 H RBC 4.90 Hgb 14.7 Hct 43.4 MCV 89 MCH 30.0 MCHC 33.9 RDW 13.9 Plt Count 55 L Seg Neutrophils % Not Reportable Carbonic Acid HCO3/H2CO3 Ratio ABG pH ABG pCO2 ABG pO2 ABG HCO3 ABG O2 Saturation ABG Base Excess FiO2 Sodium 141.6 Potassium 4.5 Chloride 105 Carbon Dioxide 25 Anion Gap 12 BUN 40 H Creatinine 2.18 H Est GFR ( Amer) 26 L Glucose 127 H Calcium 8.6 Magnesium 1.6 Total Bilirubin AST Alkaline Phosphatase Total Protein Albumin Urine Color YELLOW Urine Appearance SLIGHTLY-CLOUDY Urine pH 5.0 Ur Specific [place] 1.017 Urine Protein 100 H Urine Glucose (UA) NEGATIVE Urine Ketones NEGATIVE Urine Blood NEGATIVE Urine Nitrite NEGATIVE Ur Leukocyte Esterase SMALL H Urine WBC (Auto) 9 Blood Type Antibody Screen 09/26/20 07:50 WBC RBC Hgb Hct MCV MCH MCHC RDW Plt Count Seg Neutrophils % Carbonic Acid 1.38 H HCO3/H2CO3 Ratio 17:1 ABG pH 7.33 L ABG pCO2 45.8 H ABG pO2 57.1 L ABG HCO3 23.8 ABG O2 Saturation 87.8 L ABG Base Excess -2.3 FiO2 100% Sodium Potassium Chloride Carbon Dioxide Anion Gap BUN Creatinine Est GFR ( Amer) Glucose Calcium Magnesium Total Bilirubin AST Alkaline Phosphatase Total Protein Albumin Urine Color Urine Appearance Urine pH Ur Specific [place] Urine Protein Urine Glucose (UA) Urine Ketones Urine Blood Urine Nitrite Ur Leukocyte Esterase Urine WBC (Auto) Blood Type Antibody Screen Impressions: Hip/Pelvis X-Ray 09/25/20 13:37 IMPRESSION: Impacted subcapital fracture of the femoral neck. Assessment & Plan - Diagnosis (1) Femoral neck fracture Qualifiers: Encounter type: initial encounter Fracture type: closed Laterality: right Qualified Code(s): S72.001A - Fracture of unspecified part of neck of right femur, initial encounter for closed fracture Is this a current diagnosis for this admission?: Yes Plan: Unfortunately patient's respiratory status and creatinine have worsened over the past 18 hours. Currently she is not medically optimized for operative intervention and would be higher risk than she was in the past 24 hours. At this point patient will be treated via the hospital service for medical optimization and treatment of her current likely aspiration pneumonia and acute renal failure. Discussed the case with the hospitalist service who feels patient will require at least 48 hours of optimization to operative intervention can be performed. We will continue to monitor from the periphery once patient is medically optimized and cleared for surgery we will proceed with planned right hip hemiarthroplasty - Time Time Spent with patient: Less than 15 minutes
--- NOTE | 2020-09-26 09:51 | RADIOLOGY REPORT (SQ) ---
EXAM DESCRIPTION: CHEST SINGLE VIEW IMAGES COMPLETED DATE/TIME: 09/26/2020 8:54 am REASON FOR STUDY: hypoxia COMPARISON: AP chest 09/25/2020 EXAM PARAMETERS: NUMBER OF VIEWS: One view. TECHNIQUE: Single frontal radiographic view of the chest acquired. RADIATION DOSE: NA LIMITATIONS: None. FINDINGS: LUNGS AND PLEURA: There is now dense alveolar and interstitial infiltrates throughout both lungs, ARDS versus edema versus pneumonia. This is progressive since 09/25/2020. No gross pleural effusion or pneumothorax. MEDIASTINUM AND HILAR STRUCTURES: No masses. Contour normal. HEART AND VASCULAR STRUCTURES: Borderline cardiomegaly. Unchanged dual lead pacemaker BONES: No acute findings. HARDWARE: Left-sided pacemaker unchanged OTHER: No other significant finding. IMPRESSION: Dense alveolar and interstitial infiltrates edema versus ARDS versus pneumonia. This is progressive since yesterday TECHNICAL DOCUMENTATION: JOB ID: [id number] 2010 [employer]- All Rights Reserved Reading location - IP/workstation name: [id number]
--- NOTE | 2020-09-26 09:53 | RADIOLOGY REPORT (SQ) ---
EXAM DESCRIPTION: KUB/ABDOMEN (SINGLE VIEW) IMAGES COMPLETED DATE/TIME: 09/26/2020 8:54 am REASON FOR STUDY: abd pain COMPARISON: AP chest same day AP pelvis 09/25/2020 NUMBER OF VIEWS: One view. TECHNIQUE: Supine radiographic image of the abdomen acquired. LIMITATIONS: None. FINDINGS: BOWEL GAS PATTERN: Normal bowel gas pattern. No dilated loops. CALCIFICATIONS: No suspicious calcifications. SOFT TISSUES: No gross mass or suggestion of organomegaly. HARDWARE: Duke catheter in the bladder. BONES: Right subcapital femoral neck fracture unchanged from 09/25/2020. Old left hip replacement OTHER: No other significant finding. IMPRESSION: NO RADIOGRAPHIC EVIDENCE FOR ACUTE ABDOMINAL DISEASE. UNCHANGED RIGHT SUBCAPITAL FEMORAL NECK FRACTURE TECHNICAL DOCUMENTATION: JOB ID: [id number] 2010 [employer]- All Rights Reserved Reading location - IP/workstation name: [email or web address]
[2020-09-26 09:55] LABS: C-REACTIVE PROTEIN 52.4 mg/L (<10.0)
[2020-09-26 09:56] LABS: D-DIMER 15.09 ug/mL (0.00-0.50)
[2020-09-26] MEDS ORDERED: FUROSEMIDE 40 MG TABLET PO SCH (10:00)
--- NOTE | 2020-09-26 12:07 | RADIOLOGY REPORT (SQ) ---
EXAM DESCRIPTION: NM LUNG PERFUSION SCAN IMAGES COMPLETED DATE/TIME: 09/26/2020 11:27 am REASON FOR STUDY: SOB. COMPARISON: Chest film 09/26/2020, 09/25/2020 Ventilation-perfusion scan 08/23/2017 RADIONUCLIDE AND DOSE: 5.3 millicuries TC-99m MAA The route of agent administration: Intravenous TECHNIQUE: Eight views of the lungs acquired following injection of MAA. LIMITATIONS: None. FINDINGS: PERFUSION: Perfusion images with normal homogenous activity and no wedge-shaped or segment al defects. OTHER: No other significant finding. IMPRESSION: NORMAL PERFUSION LUNG SCAN. TECHNICAL DOCUMENTATION: JOB ID: [id number] 2010 [employer]- All Rights Reserved Reading location - IP/workstation name: [email or web address]
--- NOTE | 2020-09-26 16:15 | PDOC PROGRESS REPORT ---
Subjective Date:: 09/26/20 Subjective:: ALEXANDER CHRISTOPHER is an 89 year old female with PMH of HTN, HLD, CHF, CHB s/p pacemaker, pulmonary hypertension on 2 L home O2 and frequent falls who presented to the ED s/p fall with R hip pain. She notes that she hates using canes/walkers. She was walking to the mailbox today when she had a mechanical fall onto her R hip. She denies LOC or head trauma. She recently (4-5 weeks ago) had a fall which results in a LUE fracture, which is still in a cast. She also notes that she broke her left hip in a fall a few years ago. She denies recent illnesses, sick contacts, fevers/chills, SOB, CP, cough, abdominal pain, dysuria. Pain is currently well controlled. In the ED, she was found to have a R femoral neck fracture. Orthopedic surgery was consulted and recommended surgical repair on 09/26. 09/26/2020. This morning patient noted to be hypoxic, and having nausea and vomi ting, stat ABG showed hypoxemia. Chest x-ray showed diffuse alveolar and interstitial infiltrate edema, ARDS or pneumonia. VQ scan negative for any PE. Unfortunately patient's surgery was delayed due to worsening respiratory symptoms. Overnight patient's oxygen demand has gone up but as per night nurse patient did not have any nausea or vomiting overnight, not sure if patient had aspiration or she is developing pneumonia. Patient received COVID-19 vaccination last Monday, Reason For Visit: RIGHT FEMORAL NECK FRACTURE Physical Exam Vital Signs: Temp Pulse Resp BP Pulse Ox 97.3 F 63 22 H 110/49 L 92 09/26/20 12:57 09/26/20 12:57 09/26/20 12:57 09/26/20 12:57 09/26/20 12:57 Intake & Output 09/25/20 09/26/20 09/27/20 06:59 06:59 06:59 Intake Total 50 Output Total 15 85 Balance -15 -35 Weight 62.3 kg General appearance: PRESENT: severe distress, well-developed, well-nourished Head exam: PRESENT: atraumatic, normocephalic Respiratory exam: PRESENT: crackles, decreased breath sounds, tachypnea. ABSENT: rales, rhonchi, wheezes Cardiovascular exam: PRESENT: RRR. ABSENT: diastolic murmur, rubs, systolic murmur GI/Abdominal exam: PRESENT: normal bowel sounds, soft. ABSENT: distended, guarding, mass, organolmegaly, rebound, tenderness Neurological exam: PRESENT: alert, awake, oriented to person, oriented to place, CN II-XII grossly intact. ABSENT: motor sensory deficit Results Laboratory Results: 09/26/20 04:55 09/26/20 04:55 09/25/20 09/25/20 09/26/20 14:36 16:09 04:55 WBC 19.5 H RBC 4.90 Hgb 14.7 Hct 43.4 MCV 89 MCH 30.0 MCHC 33.9 RDW 13.9 Plt Count 55 L Seg Neutrophils % Not Reportable Carbonic Acid HCO3/H2CO3 Ratio ABG pH ABG pCO2 ABG pO2 ABG HCO3 ABG O2 Saturation ABG Base Excess FiO2 Sodium Potassium Chloride Carbon Dioxide Anion Gap BUN Creatinine Est GFR ( Amer) Glucose Calcium Magnesium Ferritin C-Reactive Protein Urine Color YELLOW Urine Appearance SLIGHTLY-CLOUDY Urine pH 5.0 Ur Specific [place] 1.017 Urine Protein 100 H Urine Glucose (UA) NEGATIVE Urine Ketones NEGATIVE Urine Blood NEGATIVE Urine Nitrite NEGATIVE Ur Leukocyte Esterase SMALL H Urine WBC (Auto) 9 Blood Type O POSITIVE Antibody Screen NEGATIVE 09/26/20 09/26/20 09/26/20 04:55 07:50 09:09 WBC RBC Hgb Hct MCV MCH MCHC RDW Plt Count Seg Neutrophils % Carbonic Acid 1.38 H HCO3/H2CO3 Ratio 17:1 ABG pH 7.33 L ABG pCO2 45.8 H ABG pO2 57.1 L ABG HCO3 23.8 ABG O2 Saturation 87.8 L ABG Base Excess -2.3 FiO2 100% Sodium 141.6 Potassium 4.5 Chloride 105 Carbon Dioxide 25 Anion Gap 12 BUN 40 H Creatinine 2.18 H Est GFR ( Amer) 26 L Glucose 127 H Calcium 8.6 Magnesium 1.6 Ferritin 326.00 H C-Reactive Protein 52.4 H Urine Color Urine Appearance Urine pH Ur Specific [place] Urine Protein Urine Glucose (UA) Urine Ketones Urine Blood Urine Nitrite Ur Leukocyte Esterase Urine WBC (Auto) Blood Type Antibody Screen Impressions: Hip/Pelvis X-Ray 09/25/20 13:37 IMPRESSION: Impacted subcapital fracture of the femoral neck. Chest X-Ray 09/26/20 00:00 IMPRESSION: Dense alveolar and interstitial infiltrates edema versus ARDS versus pneumonia. This is progressive since yesterday KUB X-Ray 09/26/20 00:00 IMPRESSION: NO RADIOGRAPHIC EVIDENCE FOR ACUTE ABDOMINAL DISEASE. UNCHANGED RIGHT SUBCAPITAL FEMORAL NECK FRACTURE Lung Scan-VQ NM 09/26/20 00:00 IMPRESSION: NORMAL PERFUSION LUNG SCAN. Assessment and Plan - Diagnosis (1) Acute hypoxemic respiratory failure Is this a current diagnosis for this admission?: Yes Plan: Likely due to underlying pneumonia. Aspiration pneumonia, community-acquired pneumonia is also possibility. Patient has been having nausea vomiting since last night which increases likelihood of aspiration pneumonia. ABG positive for hypoxemia. Chest x-ray dense alveolar and interstitial infiltrates edema, ARDS or pneumonia. VQ scan negative for any PE. COVID-19 serology negative. Patient received COVID-19 vaccine on 09/22/2020. Continue empiric broad-spectrum IV antibiotics. Scheduled duo nebs, scheduled BiPAP, IV steroids, pulmonary toileting. Follow-up sputum and blood culture. (2) Pneumonia Qualifiers: Pneumonia type: aspiration pneumonia Is this a current diagnosis for this admission?: Yes Plan: As per #1. (3) Thrombocytopenia Is this a current diagnosis for this admission?: Yes Plan: Presented with platelets of 127. Dropped to 55 today. Not received any heparin. No history of recent hospitalization. Unlikely this is heparin- induced thrombocytopenia. Likely due to acute illness. Continue treating underlying pneumonia. Monitor H&H, monitor for bleeding, supportive transfusions. (4) COPD (chronic obstructive pulmonary disease) Qualifiers: COPD type: unspecified COPD Qualified Code(s): J44.9 - Chronic obstructive pulmonary disease, unspecified Is this a current diagnosis for this admission?: Yes Plan: History of nonoxygen dependent COPD. Plan as per #1. (5) Femoral neck fracture Qualifiers: Encounter type: initial encounter Fracture type: closed Laterality: right Qualified Code(s): S72.001A - Fracture of unspecified part of neck of right femur, initial encounter for closed fracture Is this a current diagnosis for this admission?: Yes Plan: Ortho on board, surgery planned on Monday due to patient's respiratory symptoms. (6) Hypertension Qualifiers: Hypertension type: essential hypertension Qualified Code(s): I10 - Essential (primary) hypertension Is this a current diagnosis for this admission?: Yes Plan: Monitor vitals, continue home meds. Adjust meds as needed. (7) Nausea & vomiting Qualifiers: Vomiting Intractability: unspecified Is this a current diagnosis for this admission?: Yes Plan: Likely gastroenteritis. KUB no acute changes. Antiemetics, supportive measures, monitor electrolytes at volume status. Replace electrolytes as needed. (8) Frequent falls Is this a current diagnosis for this admission?: Yes Plan: Fall precautions. (9) Pulmonary hypertension Is this a current diagnosis for this admission?: Yes Plan: on 2L Home O2 - Duo-Nebs PRN - supplemental O2 for goal saturation >90% - continue home sildenafil (10) ANDRAE (acute kidney injury) Is this a current diagnosis for this admission?: Yes Plan: Prerenal. Most likely due to nausea vomiting and low p.o. intake. Cautious volume restriction guided by volume status given acute respiratory failure. BMP tomorrow. - Plan Summary Summary: -Lui CHRISTOPHER is an 89 year old female with PMH of HTN, HLD, CHF, CHB s/p pacemaker, pulmonary hypertension on 2 L home O2 and frequent falls who presented to the ED s/p fall with R hip pain. She notes that she hates using canes/walkers. She was walking to the mailbox today when she had a mechanical fall onto her R hip. She recently (4-5 weeks ago) had a fall which results in a LUE fracture, which is still in a cast. She also notes that she broke her left hip in a fall a few years ago. She denies recent illnesses, sick contacts, fevers/chills, SOB, CP, cough, abdominal pain, dysuria. R femoral neck fracture - Orthopedic surgery was consulted and recommended surgical repair on 09/26 (NPO past MN) - bed rest - fall precautions - Duke catheter placed in ED - PT immediately after surgery - pain control with oxycodone PRN, Tylenol scheduled and Morphine for breakthrough pain Pre-Operative Risk Assessment: she is euvolemic on exam and on the appropriate cardiac medications to control her risk factors. She has a Revised Cardiac Risk Index for Pre-Operative Risk of 2 (Class III) with a 10.1% 30-day risk of , NH or cardiac arrest. I discussed risks of surgery/anesthesia with patient and her son at bedside. They are understanding that she is high risk given her cardiac and pulmonary function, but are willing to take the risk to maximize her mobility and quality of life. Pulmonary HTN: on 2L Home O2 - Duo-Nebs PRN - supplemental O2 for goal saturation >90% - continue home sildenafil Leukocytosis: likely a stress reaction given fall and femur fracture. She has no other signs of or symptoms of infection. UA shows small LE and bacteria - this is likely due to asymptomatic bacteriuria and does not require antibiotic therapy. - repeat CBC in AM - hold off on antibiotics Congestive Heart Failure: euvolemic to slightly dry on exam today. No evidence of volume overload. - restart home medications - avoid aggressive IVF hydration Essential HTN: uncontrolled, likely due to the fact that she has not taken any of her home medications today - restart home medications Complete Heart Block s/p pacemaker - telemetry Dispo: she will likely require SNF placement on discharge. Discharge planning consult placed. DVT ppx: hold off on starting until after surgery tomorrow morning Code Status: DNR/DNI - Time Time Spent with patient: 35 or more minutes Medications reviewed and adjusted accordingly: Yes Anticipated Discharge Disposition: Home with Home Health Anticipated Discharge Timeframe: within 72 hours
[2020-09-26] MEDS ORDERED: NORMAL SALINE 1000 ML 1,000 ML IV PRN (18:36)
--- NOTE | 2020-09-26 19:13 | PDOC CONSULTATION ---
Consultation Consult Date: 09/26/20 Attending physician:: YARI MCLAUGHLIN Provider Consulted: DIANA WRIGHT Consult reason:: Preop clearance patient with pacemaker History of Present Illness Admission Date/PCP: 09/25/20 16:52 ELISABET MUNGUIA DO Patient complains of: Patient noted to be in severe respiratory distress and not able to talk. Currently wearing bilevel therapy and 100% oxygen. History of Present Illness: ALEXANDER CHRISTOPHER is a 89 year old female with PMH of HTN, HLD, CHF, CHB s/p pacemaker, pulmonary hypertension on 2 L home O2 and frequent falls who presented to the ED s/p fall with R hip pain. She notes that she hates using canes/walkers. She was walking to the mailbox today when she had a mechanical fall onto her R hip. She denies LOC or head trauma. She recently (4-5 weeks ago) had a fall which results in a LUE fracture, which is still in a cast. She also notes that she broke her left hip in a fall a few years ago. She denies recent illnesses, sick contacts, fevers/chills, SOB, CP, cough, abdominal pain, dysuria. Pain is currently well controlled. This history obtained by the hospitalist was reviewed. Talked with hospitalist and also nurse. It seems patient had a very sudden deterioration in her pulmon valdo status this morning. Chest x-ray showed marked worsening of infiltrates. Past Medical History Cardiac Medical History: Reports: Congestive Heart Failure, Hyperlipidema, Hypertension Pulmonary Medical History: Reports: Bronchitis, Chronic Obstructive Pulmonary Disease (COPD) - Patient is on 2 L nasal cannula at home., Pneumonia, Respiratory Failure - pulmonary HTN on 2 L home O2 Psychiatric Medical History: Denies: Depression Past Surgical History Past Surgical History: Reports: Appendectomy, Hysterectomy, Orthopedic Surgery - left hip replacement, Pacemaker Social History Information Source: [facility] Records Lives with: Family Smoking Status: Never Smoker Electronic Cigarette use?: No Frequency of Alcohol Use: None Hx Recreational Drug Use: No Drugs: None Hx Prescription Drug Abuse: No - Advance Directive Resuscitation Status: Do Not Resuscitate Family History Family History: Reviewed & Not Pertinent, COPD, Malignancy, Other - Accident Parental Family History Reviewed: Yes Children Family History Reviewed: Yes Sibling(s) Family History Reviewed.: Yes Medication/Allergy Home Medications: Albuterol Sulfate [Proair HFA] 1 puff IN Q4 08/24/17 Allopurinol [Zyloprim 100 mg Tablet] 100 mg PO Q8 08/24/17 Amlodipine Besylate [Norvasc 10 mg Tablet] 10 mg PO DAILY 08/24/17 Aspirin [Aspirin EC] 81 mg PO DAILY 08/24/17 Dicyclomine HCl [Bentyl 10 mg Capsule] 10 mg PO Q6 08/24/17 Escitalopram Oxalate [Lexapro] 20 mg PO DAILY 08/24/17 Furosemide [Lasix 20 mg Tablet] 60 mg PO DAILY 08/24/17 Ketoconazole [Nizoral 2% Shampoo 120 ml Bottle] 3 ml TP MOTH@1000 08/24/17 Metoprolol Succinate [Toprol Xl] 25 mg PO DAILY 08/24/17 Simvastatin [Zocor 20 mg Tablet] 20 mg PO QHS 08/24/17 Azithromycin 500 mg PO DAILY 5 Days #5 tablet 08/26/17 Ipratropium/Albuterol Sulfate [Duoneb 3 ml Ampul] 3 ml NEB TID 90 Days vial.neb 08/26/17 Nebulizer and Compressor [Portable Nebulizer System] 1 each MC TID #1 each 08/26/17 Prednisone [Deltasone 20 mg Tablet] 40 mg PO DAILY #10 tablet 08/26/17 Walker [Folding Walker] 1 each MC ASDIR PRN #1 each 08/26/17 Allergies/Adverse Reactions: No Known Allergies Allergy (Verified 03/13/19 13:25) Review of Systems ROS unobtainable: Other - Unable to obtain due to severe respiratory distress. Physical Exam Vital Signs: Temp Pulse Resp BP Pulse Ox 97.6 F 60 32 H 115/62 94 09/26/20 15:39 09/26/20 15:39 09/26/20 16:25 09/26/20 15:39 09/26/20 16:25 Intake & Output 09/25/20 09/26/20 09/27/20 06:59 06:59 06:59 Intake Total 50 Output Total 15 100 Balance -15 -50 Weight 62.3 kg Exam: GENERAL: Thin built in respiratory distress. Orientation not checked. HEAD: Atraumatic, normocephalic. EYES: BOBBY, sclera anicteric, conjunctiva are normal. ENT: Moist mucous membranes. NECK: supple without lymphadenopathy. Trachea is central. No cervical or axillary lymphadenopathy noted. Carotids are 2+, JVD WNL LUNGS: Bibasilar crackles with few wheezes rales or rhonchi noted. No significant dullness noted on percussion. CHEST: Palpation of the chest wall shows no significant chest wall tenderness. 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 ABDOMEN: Soft, no significant tenderness appreciated, normoactive bowel sounds. No guarding, no rebound. No rigidity noted . No masses appreciated. EXTREMITIES: Pedal pulses are 1-2+, no calf tenderness noted. No clubbing or cyanosis. negative pedal edema noted. Evidence of right hip fracture noted. NEUROLOGICAL: Neurological exam not performed.. PSYCH: Not examined. SKIN: No significant ecchymosis, skin is noted to be warm. MUSCULOSKELETAL EXAM: Not examined but findings of right hip fracture noted. Results Laboratory Results: 09/26/20 04:55 09/26/20 04:55 09/25/20 09/26/20 09/26/20 14:36 04:55 04:55 WBC 19.5 H RBC 4.90 Hgb 14.7 Hct 43.4 MCV 89 MCH 30.0 MCHC 33.9 RDW 13.9 Plt Count 55 L Seg Neutrophils % Not Reportable Carbonic Acid HCO3/H2CO3 Ratio ABG pH ABG pCO2 ABG pO2 ABG HCO3 ABG O2 Saturation ABG Base Excess FiO2 Sodium 141.6 Potassium 4.5 Chloride 105 Carbon Dioxide 25 Anion Gap 12 BUN 40 H Creatinine 2.18 H Est GFR ( Amer) 26 L Glucose 127 H Calcium 8.6 Magnesium 1.6 Ferritin C-Reactive Protein Blood Type O POSITIVE Antibody Screen NEGATIVE 09/26/20 09/26/20 07:50 09:09 WBC RBC Hgb Hct MCV MCH MCHC RDW Plt Count Seg Neutrophils % Carbonic Acid 1.38 H HCO3/H2CO3 Ratio 17:1 ABG pH 7.33 L ABG pCO2 45.8 H ABG pO2 57.1 L ABG HCO3 23.8 ABG O2 Saturation 87.8 L ABG Base Excess -2.3 FiO2 100% Sodium Potassium Chloride Carbon Dioxide Anion Gap BUN Creatinine Est GFR ( Amer) Glucose Calcium Magnesium Ferritin 326.00 H C-Reactive Protein 52.4 H Blood Type Antibody Screen EKG Comments: Admission EKG shows atrial paced beats with nonspecific ST segment changes. Impressions: Hip/Pelvis X-Ray 09/25/20 13:37 IMPRESSION: Impacted subcapital fracture of the femoral neck. Chest X-Ray 09/26/20 00:00 IMPRESSION: Dense alveolar and interstitial infiltrates edema versus ARDS amor hermann pneumonia. This is progressive since yesterday KUB X-Ray 09/26/20 00:00 IMPRESSION: NO RADIOGRAPHIC EVIDENCE FOR ACUTE ABDOMINAL DISEASE. UNCHANGED RIGHT SUBCAPITAL FEMORAL NECK FRACTURE Lung Scan-VQ NM 09/26/20 00:00 IMPRESSION: NORMAL PERFUSION LUNG SCAN. Assessment & Plan - Diagnosis (1) Signs and symptoms of severe respiratory distress Is this a current diagnosis for this admission?: Yes (2) COPD (chronic obstructive pulmonary disease) Qualifiers: COPD type: unspecified COPD Qualified Code(s): J44.9 - Chronic obstructive pulmonary disease, unspecified Is this a current diagnosis for this admission?: Yes (3) Femoral neck fracture Qualifiers: Encounter type: initial encounter Fracture type: closed Laterality: right Qualified Code(s): S72.001A - Fracture of unspecified part of neck of right femur, initial encounter for closed fracture Is this a current diagnosis for this admission?: Yes (4) Pulmonary hypertension Is this a current diagnosis for this admission?: Yes (5) Acute hypoxemic respiratory failure Is this a current diagnosis for this admission?: Yes (6) Chronic CHF Is this a current diagnosis for this admission?: Yes (7) Hypoxemia Is this a current diagnosis for this admission?: Yes - Notes Notes: Patient noted to be in severe respiratory distress. Chest x-ray shows marked worsening with bilateral infiltrate covering almost 2/3 of the lungs bilaterally. Currently 100% oxygen via BiPAP but still patient hypoxemic. A recent VQ scan was negative. Exact etiology not clear could be progression of pneumonia/aspiration. Doubt CHF but in the differential diagnosis. Did not notice any elevated JVP or other evidence of fluid overload. Have ordered a 2D echo. It seems patient has primarily pulmonary process going on and it may be worthwhile to involve floor surfacer on the case. In this regard have discussed this with the hospitalist. At this point, patient respiratory status would need to improve. Patient also very debilitated therefore operative risk is going to be on the high side. Patient CODE STATUS is DNR. - Time Time Spent: 30 to 50 Minutes Medications reviewed and adjusted accordingly: Yes
[2020-09-26] MEDS ORDERED: FONDAPARINUX SODIUM INJ 2.5 MG/0.5 ML DISP.SYRIN SUBCUT ONE ×2 (20:45→21:02)
[2020-09-26] MEDS ORDERED: HEPARIN SOD (PORCINE) 5,000 UNIT/ML 1 ML VIAL SUBCUT SCH (22:00)
[2020-09-26] MEDS: ATORVASTATIN CALCIUM 40 MG TABLET PO SCH (22:04)
[2020-09-26] MEDS: ASPIRIN 81 MG TABLET, CHEWABLE PO SCH (22:04)
[2020-09-26] MEDS: DILTIAZEM HCL 180 MG CAPSULE.CR PO SCH (22:06)
[2020-09-27] MEDS: METHYLPREDNISOLONE INJ 40 MG/1 ML SDV IV SCH ×3 (03:38→18:15)
[2020-09-27 05:28] LABS: HEMATOCRIT 39.7 % (36.0-47.0); HEMOGLOBIN 13.4 g/dL (12.0-15.5); MEAN CORPUSCULAR HEMOGLOBIN 29.8 pg (27.0-33.4); MEAN CORPUSCULAR HGB CONC 33.8 g/dL (32.0-36.0); MEAN CORPUSCULAR VOLUME 88 fl (80-97); RED BLOOD COUNT 4.51 10^6/uL (3.72-5.28); RED CELL DISTRIBUTION WIDTH 14.6 % (11.5-14.0); WHITE BLOOD COUNT 19.8 10^3/uL (4.0-10.5)
[2020-09-27 05:31] LABS: ALBUMIN 3.2 g/dL (3.5-5.0); ALKALINE PHOSPHATASE 71 U/L (38-126); ANION GAP 8 (5-19); ASPARTATE AMINO TRANSFERASE 52 U/L (14-36); BILIRUBIN,DIRECT 0.6 mg/dL (0.0-0.4); BILIRUBIN,TOTAL 2.3 mg/dL (0.2-1.3); CALCIUM 8.4 mg/dL (8.4-10.2); CARBON DIOXIDE 26 mmol/L (22-30); CHLORIDE 108 mmol/L (98-107); GLUCOSE 132 mg/dL (75-110); POTASSIUM 4.4 mmol/L (3.6-5.0); TOTAL PROTEIN 6.2 g/dL (6.3-8.2)
[2020-09-27 05:42] LABS: BLOOD UREA NITROGEN 66 mg/dL (7-20)
[2020-09-27 06:21] LABS: PLATELET COUNT 29 10^3/uL (150-450)
[2020-09-27 06:24] LABS: ABSOLUTE MONOCYTES # (MANUAL) 0.6 10^3/uL (0.1-1.4); BASOPHILS % (MANUAL) 0 % (0-2); EOSINOPHILS % (MANUAL) 0 % (0-6); LYMPHOCYTES % (MANUAL) 9 % (13-45); METAMYELOCYTES % (MANUAL) 5 % (0-1); MONOCYTES % (MANUAL) 3 % (3-13); SEGMENTED NEUTROPHILS % (MAN) 62 % (42-78); TOTAL CELLS COUNTED 100
[2020-09-27 06:25] LABS: BAND NEUTROPHILS % (MANUAL) 20 % (3-5); OVALOCYTES SLIGHT; PLATELET COMMENT DECREASED; POIKILOCYTOSIS SLIGHT
--- NOTE | 2020-09-27 10:38 | XCELERA REPORT ---
[address] [address] Transthoracic Echocardiogram Report Name: ALEXANDER CHRISTOPHER Age: 89 yrs Gender: Female : 1930 Patient Status: Inpatient Patient Location: [address] [place], [place] [address] Study Date: 09/26/2020 09:23 PM Height: 66 in Weight: 137 lb BSA: 1.7 m2 Procedure: A complete two-dimensional transthoracic echocardiogram was performed (2D, M-mode, spectral and color flow Doppler). The study was technically adequate with some images being suboptimal in quality. Reason For Study: Resp distress Ordering Physician: ANGE WRIGHT Performed By: Marti Pemberton Interpretation Summary IMPRESSION: 1. Low Normal LVEF. RVEF mildly depressed. RV moderately dilated. Severe pulmonary hypertension noted. 2. Borderline LVH noted. 3. Grade II Diastolic Dysfunction noted. 4. Mild to moderate tricuspid regurg with severe pulmonary hypertension with estimated RVSP at 80 to 90 mmHg.. FINDINGS: LEFT VENTRICLE: LV Systolic function: LVEF is felt to be at lower limit of normal at approximately 55%. LV Diastolic Function: Grade II diastolic dysfunction noted. Wall motion : Regional wall motion cannot be accurately commented upon but no definite regional wall motion abnormalities noted. Left ventricular chamber size : is within normal limit. Left ventricular wall thickness : is increased indicative of borderline LVH. INTERVENTRICULAR SEPTUM: no evidence of VSD noted. No asymmetric hypertrophy noted. RIGHT VENTRICLE: RV systolic function : is felt to be mildly depressed. Right Ventricle Size : Moderately dilated. LEFT ATRIUM size : mildly dilated. RIGHT ATRIUM size : Mildly dilated. INTER ATRIAL SEPTUM : No definite atrial septal defect noted however a small PFO could be missed. AORTIC ROOT : seems to be within normal limits. Ascending aorta is not well visualized. INFERIOR VENA CAVA: Normal size with normal respiratory variation. VALVES: MITRAL VALVE : Leaflets are mildly thickened. Mobility seems to be within normal limits. Mitral Regurgitation : Trace mitral regurgitation is noted. Mitral Stenosis: No mitral stenosis noted. Mitral valve prolapse : none noted. AORTIC VALVE: seems to be trileaflet with thickening but adequate excursion. Aortic stenosis : No aortic stenosis noted. Aortic regurgitation : Trace to mild aortic incompetence noted. TRICUSPID VALVE : mobility and structures within normal limit. Tricuspid stenosis : no tricuspid stenosis noted. Tricuspid regurgitation : Mild to moderate tricuspid regurgitation noted. Estimated RVSP : Severe pulmonary hypertension noted. TR jet velocity 440 cm/s, indicative of RVSP at approximately 80 to 90 mmHg. PULMONARY VALVE : was not well visualized but no significant abnormalities suspected. Pulmonary stenosis : no significant pulmonary stenosis noted. Pulmonary regurgitation : no significant pulmonary regurgitation noted. MASSES AND THROMBUS : No definite intracardiac thrombus or masses are noted. PERICARDIUM: No pericardial effusion was noted. MMode/2D Measurements & Calculations RVDd: 2.8 cm LVIDd: 5.0 cm FS: 39.7 % Ao root diam: 2.1 cm IVSd: 0.99 cm LVIDs: 3.0 cm EDV(Teich): 118.9 ml Ao root area: 3.4 cm2 LVPWd: 0.94 cm ESV(Teich): 35.7 ml LA dimension: 3.7 cm EF(Teich): 70.0 % Doppler Measurements & Calculations MV E max rina: MV P1/2t max rina: Ao V2 max: AI max rina: 67.9 cm/sec 87.3 cm/sec 122.1 cm/sec 220.4 cm/sec MV A max rina: MV P1/2t: 58.3 msec Ao max PG: AI max P.6 cm/sec MVA(P1/2t): 3.8 cm2 6.0 mmHg 19.4 mmHg MV E/A: 0.96 MV dec slope: AI dec slope: 316.3 cm/sec2 438.6 cm/sec2 AI P1/2t: MV dec time: 204.1 msec 0.20 sec LV V1 max PG: PA V2 max: PI end-d rina: TR max rina: 4.6 mmHg 103.7 cm/sec 114.0 cm/sec 462.9 cm/sec LV V1 max: PA max P.3 mmHg TR max P.0 cm/sec 85.7 mmHg AV P1/2t-pr_phl: MV P1/2t-pr_phl: 204.1 msec 58.3 msec : ANGE WRIGHT Shyamal
[2020-09-27] MEDS ORDERED: LABETALOL HCL INJ 20 MG/4 ML DISP.SYRIN IV PRN (11:09)
[2020-09-27] MEDS ORDERED: NORMAL SALINE 1000 ML 1,000 ML IV PRN (11:09)
[2020-09-27] MEDS: CARVEDILOL 6.25 MG TABLET PO SCH (11:15)
[2020-09-27] MEDS: ESCITALOPRAM OXALATE 10 MG TABLET PO SCH (11:15)
[2020-09-27] MEDS: LOSARTAN POTASSIUM 50 MG TABLET PO SCH (11:15)
[2020-09-27] MEDS: CEFEPIME 1 GM/D5W RTU 1 GM/50 ML RTUPB IV SCH (11:15)
[2020-09-27] MEDS: ACETAMINOPHEN 325 MG TABLET PO SCH ×3 (11:16→17:31)
[2020-09-27] MEDS: SILDENAFIL CITRATE 20 MG TABLET PO SCH ×3 (11:16→17:31)
--- NOTE | 2020-09-27 12:31 | PDOC PROGRESS REPORT ---
Subjective Date:: 09/27/20 Subjective:: Patient was seen in the morning. She looks better than when first seen yesterda y at around 7:30 PM. However patient said lab works shows worsening. Patient has worsening renal function and also this morning is noted to have very low platelet counts. In addition 2D echo showed severe pulmonary hypertension with mild to moderate RV systolic dysfunction. Chest x-ray had shown bilateral pneumonitis/infiltrate. Chest x-ray picture suggestive of ARDS. Reason For Visit: RIGHT FEMORAL NECK FRACTURE Physical Exam Vital Signs: Temp Pulse Resp BP Pulse Ox 97.6 F 68 14 153/64 H 100 09/27/20 07:55 09/27/20 08:38 09/27/20 08:38 09/27/20 07:07 09/27/20 08:38 Intake & Output 09/26/20 09/27/20 09/28/20 06:59 06:59 06:59 Intake Total 1100 872 Output Total 15 300 Balance -15 800 872 Weight 62.3 kg 62 kg Exam: GENERAL: Thin built in respiratory distress. Orientation not checked. HEAD: Atraumatic, normocephalic. EYES: BOBBY, sclera anicteric, conjunctiva are normal. ENT: Moist mucous membranes. NECK: supple without lymphadenopathy. Trachea is central. No cervical or axillary lymphadenopathy noted. Carotids are 2+, JVD WNL LUNGS: Bibasilar crackles with few wheezes rales or rhonchi noted. No significant dullness noted on percussion. CHEST: Palpation of the chest wall shows no significant chest wall tenderness. 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 ABDOMEN: Soft, no significant tenderness appreciated, normoactive bowel sounds. No guarding, no rebound. No rigidity noted . No masses appreciated. EXTREMITIES: Pedal pulses are 1-2+, no calf tenderness noted. No clubbing or cyanosis. negative pedal edema noted. Evidence of right hip fracture noted. NEUROLOGICAL: Neurological exam not performed.. PSYCH: Not examined. SKIN: No significant ecchymosis, skin is noted to be warm. MUSCULOSKELETAL EXAM: Not examined. Results Laboratory Results: 09/27/20 04:14 09/27/20 04:14 09/27/20 09/27/20 04:14 04:14 WBC 19.8 H RBC 4.51 Hgb 13.4 Hct 39.7 MCV 88 MCH 29.8 MCHC 33.8 RDW 14.6 H Plt Count 29 L* Seg Neutrophils % Not Reportable Sodium 141.6 Potassium 4.4 Chloride 108 H Carbon Dioxide 26 Anion Gap 8 BUN 66 H D Creatinine 2.55 H Est GFR ( Amer) 21 L Glucose 132 H Calcium 8.4 Total Bilirubin 2.3 H AST 52 H Alkaline Phosphatase 71 Total Protein 6.2 L Albumin 3.2 L 09/25/20 16:09 Catheterized Urine Urine Culture - Final Klebsiella Pneumoniae Impressions: Hip/Pelvis X-Ray 09/25/20 13:37 IMPRESSION: Impacted subcapital fracture of the femoral neck. Chest X-Ray 09/26/20 00:00 IMPRESSION: Dense alveolar and interstitial infiltrates edema versus ARDS versus pneumonia. This is progressive since yesterday KUB X-Ray 09/26/20 00:00 IMPRESSION: NO RADIOGRAPHIC EVIDENCE FOR ACUTE ABDOMINAL DISEASE. UNCHANGED RIGHT SUBCAPITAL FEMORAL NECK FRACTURE Lung Scan-VQ NM 09/26/20 00:00 IMPRESSION: NORMAL PERFUSION LUNG SCAN. Assessment & Plan - Diagnosis (1) Signs and symptoms of severe respiratory distress Is this a current diagnosis for this admission?: Yes (2) COPD (chronic obstructive pulmonary disease) Qualifiers: COPD type: unspecified COPD Qualified Code(s): J44.9 - Chronic obstructive pulmonary disease, unspecified Is this a current diagnosis for this admission?: Yes (3) Femoral neck fracture Qualifiers: Encounter type: initial encounter Fracture type: closed Laterality: right Qualified Code(s): S72.001A - Fracture of unspecified part of neck of right femur, initial encounter for closed fracture Is this a current diagnosis for this admission?: Yes (4) Pulmonary hypertension Is this a current diagnosis for this admission?: Yes (5) Acute hypoxemic respiratory failure Is this a current diagnosis for this admission?: Yes (6) Chronic CHF Is this a current diagnosis for this admission?: Yes (7) Hypoxemia Is this a current diagnosis for this admission?: Yes - Notes Notes: Telemetry strips reviewed shows intermittent atrial paced rhythm. Intermittent ventricular paced beats. 2D echo shows normal LVEF but mild to moderately depressed RV EF with moderate enlargement of the RV and severe pulmonary hypertension. It seems patient has severe comorbid diagnosis with severe pulmonary hypertension secondary to intrinsic pulmonary process. Patient also seems to have developed acute renal failure and also very low platelet count. Po ssibility of DIC is being considered by the hospitalist. Do not see any evidence of volume overload or CHF. Patient's is severely hypoxemic needing high flow oxygen to correct it. At this point it is felt that patient not ready to undergo general anesthesia. It seems significant major issues are noncardiac. Will however continue to follow patient. Dr. Schafer on service from tomorrow. - Time Time with patient: Greater than 35 minutes Medications reviewed and adjusted accordingly: Yes
[2020-09-27 15:00] LABS: HEMATOCRIT 32.3 % (36.0-47.0); MEAN CORPUSCULAR HEMOGLOBIN 29.6 pg (27.0-33.4); MEAN CORPUSCULAR HGB CONC 33.6 g/dL (32.0-36.0); MEAN CORPUSCULAR VOLUME 88 fl (80-97); RED BLOOD COUNT 3.67 10^6/uL (3.72-5.28); RED CELL DISTRIBUTION WIDTH 14.1 % (11.5-14.0); WHITE BLOOD COUNT 14.6 10^3/uL (4.0-10.5)
[2020-09-27 15:24] LABS: HEMOGLOBIN 10.9 g/dL (12.0-15.5)
[2020-09-27 15:26] LABS: PLATELET COUNT 36 10^3/uL (150-450)
--- NOTE | 2020-09-27 15:48 | PDOC PROGRESS REPORT ---
Subjective Date:: 09/27/20 Subjective:: Patient lying in bed with BiPAP and respiratory therapist/nurse at bedside. Ana ble to obtain subjective history given patient's breathing status. Did discuss with patient's son who states she is relatively unchanged compared to yesterday. According to nursing staff her laboratory values have worsened she has improved her oxygenation although still requires BiPAP once BiPAP is removed her saturation significantly decreased with nonrebreather. She has been agitated and required occasional Ativan. They state at baseline her pain is relatively controlled. Reason For Visit: RIGHT FEMORAL NECK FRACTURE Physical Exam Vital Signs: Temp Pulse Resp BP Pulse Ox 97.4 F 74 20 154/47 H 92 09/27/20 12:14 09/27/20 12:14 09/27/20 12:30 09/27/20 12:14 09/27/20 12:30 Intake & Output 09/26/20 09/27/20 09/28/20 06:59 06:59 06:59 Intake Total 1100 1050 Output Total 15 300 200 Balance -15 800 850 Weight 62.3 kg 62 kg General appearance: PRESENT: disheveled Respiratory exam: PRESENT: accessory muscle use, decreased breath sounds Musculoskeletal exam: PRESENT: other - Right lower extremity: No evidence of skin breakdown. Positive logroll. Moderate thigh swelling without change Neurological exam: PRESENT: other - Disoriented to time place and situation. Results Laboratory Results: 09/27/20 14:30 09/27/20 04:14 09/27/20 09/27/20 09/27/20 04:14 04:14 14:30 WBC 19.8 H 14.6 H RBC 4.51 3.67 L Hgb 13.4 10.9 L D Hct 39.7 32.3 L MCV 88 88 MCH 29.8 29.6 MCHC 33.8 33.6 RDW 14.6 H 14.1 H Plt Count 29 L* 36 L Seg Neutrophils % Not Reportable Sodium 141.6 Potassium 4.4 Chloride 108 H Carbon Dioxide 26 Anion Gap 8 BUN 66 H D Creatinine 2.55 H Est GFR ( Amer) 21 L Glucose 132 H Calcium 8.4 Total Bilirubin 2.3 H AST 52 H Alkaline Phosphatase 71 Total Protein 6.2 L Albumin 3.2 L 09/25/20 16:09 Catheterized Urine Urine Culture - Final Klebsiella Pneumoniae Impressions: Hip/Pelvis X-Ray 09/25/20 13:37 IMPRESSION: Impacted subcapital fracture of the femoral neck. Chest X-Ray 09/26/20 00:00 IMPRESSION: Dense alveolar and interstitial infiltrates edema versus ARDS versus pneumonia. This is progressive since yesterday KUB X-Ray 09/26/20 00:00 IMPRESSION: NO RADIOGRAPHIC EVIDENCE FOR ACUTE ABDOMINAL DISEASE. UNCHANGED RIGHT SUBCAPITAL FEMORAL NECK FRACTURE Lung Scan-VQ NM 09/26/20 00:00 IMPRESSION: NORMAL PERFUSION LUNG SCAN. Assessment & Plan - Diagnosis (1) Femoral neck fracture Qualifiers: Encounter type: initial encounter Fracture type: closed Laterality: right Qualified Code(s): S72.001A - Fracture of unspecified part of neck of right femur, initial encounter for closed fracture Is this a current diagnosis for this admission?: Yes Plan: Patient sustained a right displaced femoral neck fracture. Unfortunate she has multiple medical comorbidities. Her medical status has significantly decreased over the past 24-48 hours. Her platelet count continues to decrease which would be contraindication for operative intervention furthermore she also has sustaining acute renal failure with respiratory compromise and bilateral pneumonia/infiltrates. Currently patient is not medically optimized for operative intervention. We will continue to monitor once patient becomes medically optimized will consider operative intervention. I have discussed with the son there is the possibility that her medical condition does not improve and thus operative intervention will have to be suspended. - Time Time Spent with patient: Less than 15 minutes
[2020-09-27] MEDS ORDERED: LORAZEPAM INJ 2 MG/1 ML VIAL IV ONE (16:00)
--- NOTE | 2020-09-27 16:54 | PDOC PROGRESS REPORT ---
Subjective Date:: 09/27/20 Subjective:: ALEXANDER CHRISTOPHER is an 89 year old female with PMH of HTN, HLD, CHF, CHB s/p pacemaker, pulmonary hypertension on 2 L home O2 and frequent falls who presented to the ED s/p fall with R hip pain. She notes that she hates using canes/walkers. She was walking to the mailbox today when she had a mechanical fall onto her R hip. She denies LOC or head trauma. She recently (4-5 weeks ago) had a fall which results in a LUE fracture, which is still in a cast. She also notes that she broke her left hip in a fall a few years ago. She denies recent illnesses, sick contacts, fevers/chills, SOB, CP, cough, abdominal pain, dysuria. Pain is currently well controlled. In the ED, she was found to have a R femoral neck fracture. Orthopedic surgery was consulted and recommended surgical repair on 09/26. 09/26/2020. This morning patient noted to be hypoxic, and having nausea and vomi ting, stat ABG showed hypoxemia. Chest x-ray showed diffuse alveolar and interstitial infiltrate edema, ARDS or pneumonia. VQ scan negative for any PE. Unfortunately patient's surgery was delayed due to worsening respiratory symptoms. Overnight patient's oxygen demand has gone up but as per night nurse patient did not have any nausea or vomiting overnight, not sure if patient had aspiration or she is developing pneumonia. Patient received COVID-19 vaccination last 09/27/2020. Unfortunately patient's clinical status is deteriorating compared to yesterday, yesterday she started to become hypoxic and was having nausea and vomiting, initial thought was patient might have developed aspiration pneumonia, but given her worsening platelet levels, elevated D-dimers, fibrinogen, and ot her inflammatory markers looks like patient has developed ARDS and DIC likely due to fat emboli due to acute hip fracture. 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 I have had discussions with 2 of her sons and I have updated them about her underlying medical conditions. Reason For Visit: RIGHT FEMORAL NECK FRACTURE Physical Exam Vital Signs: Temp Pulse Resp BP Pulse Ox 97.4 F 74 19 154/47 H 91 L 09/27/20 12:14 09/27/20 12:14 09/27/20 15:54 09/27/20 12:14 09/27/20 15:54 Intake & Output 09/26/20 09/27/20 09/28/20 06:59 06:59 06:59 Intake Total 1100 1050 Output Total 15 300 200 Balance -15 800 850 Weight 62.3 kg 62 kg General appearance: PRESENT: severe distress, well-developed, well-nourished, other - On BiPAP, delirious Respiratory exam: PRESENT: decreased breath sounds, tachypnea. ABSENT: rales, rhonchi, wheezes Cardiovascular exam: PRESENT: RRR. ABSENT: diastolic murmur, rubs, systolic murmur GI/Abdominal exam: PRESENT: normal bowel sounds, soft. ABSENT: distended, guarding, mass, organolmegaly, rebound, tenderness Neurological exam: PRESENT: altered - Patient appears very anxious and delirio us, awake however does not follow any command., awake, motor sensory deficit - Moves all extremities. Results Laboratory Results: 09/27/20 14:30 09/27/20 04:14 09/27/20 09/27/20 09/27/20 04:14 04:14 14:30 WBC 19.8 H 14.6 H RBC 4.51 3.67 L Hgb 13.4 10.9 L D Hct 39.7 32.3 L MCV 88 88 MCH 29.8 29.6 MCHC 33.8 33.6 RDW 14.6 H 14.1 H Plt Count 29 L* 36 L Seg Neutrophils % Not Reportable Sodium 141.6 Potassium 4.4 Chloride 108 H Carbon Dioxide 26 Anion Gap 8 BUN 66 H D Creatinine 2.55 H Est GFR ( Amer) 21 L Glucose 132 H Calcium 8.4 Total Bilirubin 2.3 H AST 52 H Alkaline Phosphatase 71 Total Protein 6.2 L Albumin 3.2 L 09/25/20 16:09 Catheterized Urine Urine Culture - Final Klebsiella Pneumoniae Impressions: Hip/Pelvis X-Ray 09/25/20 13:37 IMPRESSION: Impacted subcapital fracture of the femoral neck. Chest X-Ray 09/26/20 00:00 IMPRESSION: Dense alveolar and interstitial infiltrates edema versus ARDS versus pneumonia. This is progressive since yesterday KUB X-Ray 09/26/20 00:00 IMPRESSION: NO RADIOGRAPHIC EVIDENCE FOR ACUTE ABDOMINAL DISEASE. UNCHANGED RIGHT SUBCAPITAL FEMORAL NECK FRACTURE Lung Scan-VQ NM 09/26/20 00:00 IMPRESSION: NORMAL PERFUSION LUNG SCAN. Assessment and Plan - Diagnosis (1) Acute hypoxemic respiratory failure Is this a current diagnosis for this admission?: Yes Plan: Initially thought to be aspiration pneumonia but seems like that patient has developed ARDS aspiration pneumonia and community-acquired pneumonia also remains a possibility. Patient has been having nausea vomiting since last night which increases likelihood of aspiration pneumonia. Patient had left hip fracture prior to admission. She also received COVID-19 vaccination on 09/22/2020. ABG 09/26/2020 positive for hypoxemia. Chest x-ray dense alveolar and interstitial infiltrates edema, ARDS or pneumonia. VQ scan negative for any PE. COVID-19 serology negative. Continue empiric broad-spectrum IV antibiotics and high-dose IV steroids. Scheduled duo nebs, scheduled BiPAP, pulmonary toileting. Follow-up sputum and blood culture. (2) Disseminated intravascular coagulation Is this a current diagnosis for this admission?: Yes Plan: Patient had hip fracture prior to presentation to ED, fat emboli is known to cause DIC in some cases. Not sure if this is true DIC since patient is having worsening thrombocytopenia, anemia, direct hyper bilirubinemia, elevated D-dimer but elevated fibrinogen. Has also developed ecchymosis on her extremities and face. Monitor closely, supportive transfusions, high-dose steroids. Hematology consulted. Pending recommendations. (3) Pneumonia Qualifiers: Pneumonia type: aspiration pneumonia Is this a current diagnosis for this admission?: Yes Plan: As per #1. (4) Thrombocytopenia Is this a current diagnosis for this admission?: Yes Plan: Worsening thrombocytopenia. Has not received any heparin. No history of recent hospitalization. Unlikely this is heparin-induced thrombocytopenia. Likely due to #2. Plan as per above. (5) COPD (chronic obstructive pulmonary disease) Qualifiers: COPD type: unspecified COPD Qualified Code(s): J44.9 - Chronic obstructive pulmonary disease, unspecified Is this a current diagnosis for this admission?: Yes Plan: History of nonoxygen dependent COPD. Plan as per #1. (6) Femoral neck fracture Qualifiers: Encounter type: initial encounter Fracture type: closed Laterality: right Qualified Code(s): S72.001A - Fracture of unspecified part of neck of right femur, initial encounter for closed fracture Is this a current diagnosis for this admission?: Yes Plan: Ortho on board, surgery planned on Monday due to patient's respiratory symptoms. (7) Hypertension Qualifiers: Hypertension type: essential hypertension Qualified Code(s): I10 - Essential (primary) hypertension Is this a current diagnosis for this admission?: Yes Plan: Monitor vitals, continue home meds. Adjust meds as needed. (8) Nausea & vomiting Qualifiers: Vomiting Intractability: unspecified Is this a current diagnosis for this admission?: Yes Plan: Resolved. Likely gastroenteritis. KUB no acute changes. Antiemetics, supportive measures, monitor electrolytes at volume status. Replace electrolytes as needed. (9) Frequent falls Is this a current diagnosis for this admission?: Yes Plan: Fall precautions. Outpatient PT. (10) Pulmonary hypertension Is this a current diagnosis for this admission?: Yes Plan: On 2L Home O2 Duo-Nebs PRN Supplemental O2 for goal saturation >90% Continue home sildenafil Outpatient pulmonology follow-up. (11) ANDRAE (acute kidney injury) Is this a current diagnosis for this admission?: Yes Plan: Prerenal. Likely due to nausea vomiting and low p.o. intake. Cautious volume restriction guided by volume status given acute respiratory failure. Monitor volume status and electrolytes, replace electrolytes as needed. [facility] tomorrow. Nephrology consulted. - Plan Summary Summary: -Lui CHRISTOPHER is an 89 year old female with PMH of HTN, HLD, CHF, CHB s/p pacemaker, pulmonary hypertension on 2 L home O2 and frequent falls who presented to the ED s/p fall with R hip pain. She notes that she hates using canes/walkers. She was walking to the mailbox today when she had a mechanical fall onto her R hip. She recently (4-5 weeks ago) had a fall which results in a LUE fracture, which is still in a cast. She also notes that she broke her left hip in a fall a few years ago. She denies recent illnesses, sick contacts, fevers/chills, SOB, CP, cough, abdominal pain, dysuria. R femoral neck fracture - Orthopedic surgery was consulted and recommended surgical repair on 09/26 (NPO past MN) - bed rest - fall precautions - [facility] catheter placed in ED - PT immediately after surgery - pain control with oxycodone PRN, Tylenol scheduled and Morphine for breakthrough pain Pre-Operative Risk Assessment: she is euvolemic on exam and on the appropriate cardiac medications to control her risk factors. She has a Revised Cardiac Risk Index for Pre-Operative Risk of 2 (Class III) with a 10.1% 30-day risk of , MO or cardiac arrest. I discussed risks of surgery/anesthesia with patient and her son at bedside. They are understanding that she is high risk given her cardiac and pulmonary function, but are willing to take the risk to maximize her mobility and quality of life. Pulmonary HTN: on 2L Home O2 - Duo-Nebs PRN - supplemental O2 for goal saturation >90% - continue home sildenafil Leukocytosis: likely a stress reaction given fall and femur fracture. She has no other signs of or symptoms of infection. UA shows small LE and bacteria - this is likely due to asymptomatic bacteriuria and does not require antibiotic therapy. - repeat CBC in AM - hold off on antibiotics Congestive Heart Failure: euvolemic to slightly dry on exam today. No evidence of volume overload. - restart home medications - avoid aggressive IVF hydration Essential HTN: uncontrolled, likely due to the fact that she has not taken any of her home medications today - restart home medications Complete Heart Block s/p pacemaker - telemetry Dispo: she will likely require SNF placement on discharge. Discharge planning consult placed. DVT ppx: hold off on starting until after surgery tomorrow morning Code Status: DNR/DNI - Time Time Spent with patient: 35 or more minutes Anticipated Discharge Disposition: Home with Home Health Anticipated Discharge Timeframe: within 72 hours
--- NOTE | 2020-09-27 17:30 | RADIOLOGY REPORT (SQ) ---
EXAM DESCRIPTION: CT HEAD WITHOUT IMAGES COMPLETED DATE/TIME: 09/27/2020 2:19 pm REASON FOR STUDY: AMS COMPARISON: 03/13/2019 TECHNIQUE: Axial images acquired through the brain without intravenous contrast. Images reviewed wi th bone, brain and subdural windows. Additional sagittal and coronal reconstructions were generated. Images stored on PACS. All CT scanners at this facility use dose modulation, iterative reconstruction, and/or weight based d osing when appropriate to reduce radiation dose to as low as reasonably achievable (ALARA). [facility]: Dose Right [facility]: CareDose [facility]: Dose Right [facility]: Teradose 4D [facility]: Smart [employer] 3D RADIATION DOSE: CT Rad equipment meets quality standard of care and radiation dose reduction techniq ues were employed. CTDIvol: 53.2 - 55.2 mGy. DLP: 2131 mGy-cm.mGy. LIMITATIONS: Motion artifact on initial images. Patient was rescanned with improvement in artifact. FINDINGS: VENTRICLES: Prominent. CEREBRUM: No masses. No hemorrhage. No midline shift. Areas of low density in the white matter mos t likely due to chronic micro-vascular ischemic change. No evidence for acute infarction. CEREBELLUM: No masses. No hemorrhage. No alteration of density. No evidence for acute infarction. EXTRAAXIAL SPACES: Age-related involutional change. No fluid collections. No masses. ORBITS AND GLOBE: No intra- or extraconal masses. Normal contour of globe without masses. CALVARIUM: No fracture. PARANASAL SINUSES: No fluid or mucosal thickening. SOFT TISSUES: No mass or hematoma. OTHER: No other significant finding. IMPRESSION: CHRONIC CHANGES OF ATROPHY AND MICROVASCULAR ISCHEMIA. NO ACUTE PROCESS. EVIDENCE OF ACUTE STROKE: NO. TECHNICAL DOCUMENTATION: JOB ID: [id number] Quality ID # [id number]: Final reports with documentation of one or more dose reduction techniques (e.g., Au tomated exposure control, adjustment of the mA and/or kV according to patient size, use of iterative reconstruction technique) 2010 [employer]- All Rights Reserved Reading location - IP/workstation name: [email or web address]
--- NOTE | 2020-09-27 18:52 | PDOC CONSULTATION ---
Consultation Consult Date: 09/27/20 Provider Consulted: RENEE GRIMES Consult reason:: Hematology/Oncology consultation was requested for patient with fractures femure and thrombocytopenia. History of Present Illness Admission Date/PCP: 09/25/20 16:52 ELISABET MUNGUIA DO History of Present Illness: ALEXANDER CHRISTOPHER is a 89 year old female who follows with PCP in [place]. History was obtained from patient's son as patient is on BiPAP, is sedated and is not able to answer any questions. Son states that she has frequent falls, because her balance is unsteady and she refuses to use the walkers or canes that family has provided. she was walking out to get her main on Mon and fell, fracturing h er hip. She has previously broken the opposite hip 5 year ago, and she broke her wrist 5 weeks ago. She was admitted to the hospital, but on the night of admission, she vomited and aspirated and since has continued to decline. She is currently on BiPAP and has not been awake enough to speak with her family since Monday night. Surgery for her hip has not been possible due to her breathing and her low blood counts. On admission, her PLT count was 127 and this morning it was 29. No evidence of active bleeding. No history of prior thrombocytopenia. Past Medical History Cardiac Medical History: Reports: Congestive Heart Failure, Hyperlipidema, Hyp ertension Pulmonary Medical History: Reports: Bronchitis, Chronic Obstructive Pulmonary Disease (COPD) - Patient is on 2 L nasal cannula at home., Pneumonia, Respiratory Failure - pulmonary HTN on 2 L home O2 Psychiatric Medical History: Denies: Depression Past Surgical History Past Surgical History: Reports: Appendectomy, Hysterectomy, Orthopedic Surgery - left hip replacement, Pacemaker Social History Lives with: Family Smoking Status: Never Smoker Electronic Cigarette use?: No Frequency of Alcohol Use: None Hx Recreational Drug Use: No Drugs: None Hx Prescription Drug Abuse: No - Advance Directive Resuscitation Status: Do Not Resuscitate Family History Family History: Reviewed & Not Pertinent, COPD, Malignancy, Other - Accident Parental Family History Reviewed: Yes Children Family History Reviewed: Yes Sibling(s) Family History Reviewed.: Yes Medication/Allergy Home Medications: Atorvastatin Calcium [Lipitor 40 mg Tablet] 40 mg PO QHS 09/27/20 Carvedilol [Coreg 3.125 mg Tablet] 3.125 mg PO Q12 09/27/20 Diltiazem HCl [Diltiazem 24Hr ER] 180 mg PO DAILY 09/27/20 Escitalopram Oxalate [Lexapro 10 mg Tablet] 20 mg PO DAILY 09/27/20 Furosemide [Lasix 40 mg Tablet] 40 mg PO DAILY 09/27/20 Ibandronate Sodium [Boniva] 150 mg PO .QMONTHLY 09/27/20 Telmisartan 40 mg PO DAILY 09/27/20 Allergies/Adverse Reactions: No Known Allergies Allergy (Verified 03/13/19 13:25) Review of Systems ROS unobtainable: Due to mental status Physical Exam Vital Signs: Temp Pulse Resp BP Pulse Ox 97.4 F 74 19 154/47 H 92 09/27/20 12:14 09/27/20 12:14 09/27/20 15:54 09/27/20 12:14 09/27/20 17:30 Intake & Output 09/26/20 09/27/20 09/28/20 06:59 06:59 06:59 Intake Total 1100 1050 Output Total 15 300 200 Balance -15 800 850 Weight 62.3 kg 62 kg General appearance: PRESENT: mild distress Exam: Elderly, 89 year old female. Head exam: PRESENT: normocephalic Mouth exam: PRESENT: dry mucosa Respiratory exam: PRESENT: other - On BiPAP, so breath sounds obscured Cardiovascular exam: PRESENT: other - Heart sounds obscured by BiPAP Extremities exam: PRESENT: other - Fractured hip, full exam was deferred. Neurological exam: PRESENT: other - Sedated. Skin exam: PRESENT: pallor Results Laboratory Results: 09/27/20 14:30 09/27/20 04:14 09/27/20 09/27/20 09/27/20 04:14 04:14 14:30 WBC 19.8 H 14.6 H RBC 4.51 3.67 L Hgb 13.4 10.9 L D Hct 39.7 32.3 L MCV 88 88 MCH 29.8 29.6 MCHC 33.8 33.6 RDW 14.6 H 14.1 H Plt Count 29 L* 36 L Seg Neutrophils % Not Reportable Sodium 141.6 Potassium 4.4 Chloride 108 H Carbon Dioxide 26 Anion Gap 8 BUN 66 H D Creatinine 2.55 H Est GFR ( Amer) 21 L Glucose 132 H Calcium 8.4 Total Bilirubin 2.3 H AST 52 H Alkaline Phosphatase 71 Total Protein 6.2 L Albumin 3.2 L 09/25/20 16:09 Catheterized Urine Urine Culture - Final Klebsiella Pneumoniae Impressions: Hip/Pelvis X-Ray 09/25/20 13:37 IMPRESSION: Impacted subcapital fracture of the femoral neck. Chest X-Ray 09/26/20 00:00 IMPRESSION: Dense alveolar and interstitial infiltrates edema versus ARDS versus pneumonia. This is progressive since yesterday KUB X-Ray 09/26/20 00:00 IMPRESSION: NO RADIOGRAPHIC EVIDENCE FOR ACUTE ABDOMINAL DISEASE. UNCHANGED RIGHT SUBCAPITAL FEMORAL NECK FRACTURE Lung Scan-VQ NM 09/26/20 00:00 IMPRESSION: NORMAL PERFUSION LUNG SCAN. Head CT 09/27/20 00:00 IMPRESSION: CHRONIC CHANGES OF ATROPHY AND MICROVASCULAR ISCHEMIA. NO ACUTE PROCESS. EVIDENCE OF ACUTE STROKE: NO. Status: Image reviewed by me Assessment & Plan - Diagnosis (1) Femoral neck fracture Qualifiers: Encounter type: initial encounter Fracture type: closed Laterality: right Qualified Code(s): S72.001A - Fracture of unspecified part of neck of right femur, initial encounter for closed fracture Is this a current diagnosis for this admission?: Yes Plan: Surgery on hold due to underlying medical problems. (2) Leukocytosis Qualifiers: Leukocytosis type: unspecified Qualified Code(s): D72.829 - Elevated white blood cell count, unspecified Is this a current diagnosis for this admission?: Yes Plan: She may have had an underlying infection prior to admission. Urine Culture growing klebsiella. She also now has aspiration pneumonia. On Cefapime. (3) Thrombocytopenia Is this a current diagnosis for this admission?: Yes Plan: May be multifactoral but most likely due to acute injury and acute infection. Currently no evidence of bleeding and PLT are >20. Would only transfuse PLT for evidence of bleeding. Surgeries on hold, but if any procedures are necessary, may transfuse to get PLT >50. No current evidence of TTP, but will watch HGB and look for schistocyes, as indicated. These should recover within 2-3 days. Her Fibrinogen is elevated, so no evidence of DIC currently. She will need DVT prophylaxis eventually, but would hold all blood thinners as long as PLT are <50. - Plan Summary Plan Summary: I will continue to follow patient. Please call with any questions or concerns. Patient was discussed with Dr. Norwood.
[2020-09-27] MEDS: DEXTROSE 5%-WATER 1000 ML 1,000 ML IV PRN (20:42)
[2020-09-27] MEDS ORDERED: FONDAPARINUX SODIUM INJ 2.5 MG/0.5 ML DISP.SYRIN SUBCUT SCH (22:00)
[2020-09-28] MEDS: CEFEPIME 1 GM/D5W RTU 1 GM/50 ML RTUPB IV SCH ×3 (00:27→22:24)
[2020-09-28] MEDS: CARVEDILOL 6.25 MG TABLET PO SCH ×3 (00:45→22:23)
[2020-09-28] MEDS: DILTIAZEM HCL 180 MG CAPSULE.CR PO SCH ×2 (00:45→22:24)
[2020-09-28] MEDS: ATORVASTATIN CALCIUM 40 MG TABLET PO SCH ×2 (00:46→22:24)
[2020-09-28] MEDS: METHYLPREDNISOLONE INJ 40 MG/1 ML SDV IV SCH ×3 (01:52→18:15)
[2020-09-28] MEDS: DEXTROSE 5%-WATER 1000 ML 1,000 ML IV PRN (01:52)
[2020-09-28 07:59] LABS: HEMATOCRIT 27.4 % (36.0-47.0); HEMOGLOBIN 9.6 g/dL (12.0-15.5); MEAN CORPUSCULAR HEMOGLOBIN 30.6 pg (27.0-33.4); MEAN CORPUSCULAR VOLUME 87 fl (80-97); RED BLOOD COUNT 3.14 10^6/uL (3.72-5.28); RED CELL DISTRIBUTION WIDTH 13.7 % (11.5-14.0); WHITE BLOOD COUNT 13.7 10^3/uL (4.0-10.5)
[2020-09-28 08:21] LABS: ANION GAP 7 (5-19); BLOOD UREA NITROGEN 60 mg/dL (7-20); CALCIUM 8.1 mg/dL (8.4-10.2); CARBON DIOXIDE 24 mmol/L (22-30); CHLORIDE 110 mmol/L (98-107); GLUCOSE 129 mg/dL (75-110); POTASSIUM 3.7 mmol/L (3.6-5.0)
[2020-09-28 08:31] LABS: PLATELET COUNT 39 10^3/uL (150-450)
[2020-09-28 08:36] LABS: ABSOLUTE LYMPHOCYTES# (MANUAL) 0.4 10^3/uL (0.5-4.7); ABSOLUTE MONOCYTES # (MANUAL) 0.1 10^3/uL (0.1-1.4); BAND NEUTROPHILS % (MANUAL) 1 % (3-5); BASOPHILS % (MANUAL) 0 % (0-2); EOSINOPHILS % (MANUAL) 0 % (0-6); LYMPHOCYTES % (MANUAL) 3 % (13-45); MONOCYTES % (MANUAL) 1 % (3-13); SEGMENTED NEUTROPHILS % (MAN) 95 % (42-78); TOTAL CELLS COUNTED 100
[2020-09-28 08:37] LABS: ANISOCYTOSIS SLIGHT; PLATELET COMMENT DECREASED; POLYCHROMASIA SLIGHT
--- NOTE | 2020-09-28 08:55 | PDOC PROGRESS REPORT ---
Subjective Date:: 09/28/20 Subjective:: Patient lying in bed with BiPAP. Pt is a poor historian and unable obtain subjective history given patient's breathing status. Nursiong coverage from last night reported no change in status from yesterday. Pt will be undergoing a ABG this morning. Nurse reports B/p elevated at last check. She continues to show signs of agitation requiring PRN Ativan. They report she has no complaints of pain. Reason For Visit: RIGHT FEMORAL NECK FRACTURE Physical Exam Vital Signs: Temp Pulse Resp BP Pulse Ox 97.3 F 73 22 H 178/80 H 96 09/28/20 08:10 09/28/20 08:10 09/28/20 08:10 09/28/20 08:10 09/28/20 08:10 Intake & Output 09/27/20 09/28/20 09/29/20 06:59 06:59 06:59 Intake Total 1100 2617 Output Total 300 1150 Balance 800 1467 Weight 62 kg 62 kg General appearance: PRESENT: disheveled, thin Respiratory exam: PRESENT: accessory muscle use, other Additional comments: BiPap in use. Pulses: PRESENT: normal dorsalis pedis pul Neurological exam: ABSENT: oriented to person, oriented to place, oriented to time, oriented to situation Additonal comments: Musculoskeletal exam: PRESENT: other - Right lower extremity: No evidence of skin breakdown. Positive logroll. Moderate thigh swelling without change Results Laboratory Results: 09/28/20 07:32 09/28/20 07:32 09/27/20 09/28/20 09/28/20 14:30 07:32 07:32 WBC 14.6 H 13.7 H RBC 3.67 L 3.14 L Hgb 10.9 L D 9.6 L Hct 32.3 L 27.4 L MCV 88 87 MCH 29.6 30.6 MCHC 33.6 35.0 RDW 14.1 H 13.7 Plt Count 36 L 39 L Seg Neutrophils % Not Reportable Sodium 141.1 Potassium 3.7 Chloride 110 H Carbon Dioxide 24 Anion Gap 7 BUN 60 H Creatinine 1.19 Est GFR ( Amer) 52 L Glucose 129 H Calcium 8.1 L 09/25/20 16:09 Catheterized Urine Urine Culture - Final Klebsiella Pneumoniae Impressions: Hip/Pelvis X-Ray 09/25/20 13:37 IMPRESSION: Impacted subcapital fracture of the femoral neck. Chest X-Ray 09/26/20 00:00 IMPRESSION: Dense alveolar and interstitial infiltrates edema versus ARDS versus pneumonia. This is progressive since yesterday KUB X-Ray 09/26/20 00:00 IMPRESSION: NO RADIOGRAPHIC EVIDENCE FOR ACUTE ABDOMINAL DISEASE. UNCHANGED RIGHT SUBCAPITAL FEMORAL NECK FRACTURE Lung Scan-VQ NM 09/26/20 00:00 IMPRESSION: NORMAL PERFUSION LUNG SCAN. Head CT 09/27/20 00:00 IMPRESSION: CHRONIC CHANGES OF ATROPHY AND MICROVASCULAR ISCHEMIA. NO ACUTE PROCESS. EVIDENCE OF ACUTE STROKE: NO. Assessment & Plan - Time Time Spent with patient: Less than 15 minutes - Plan Summary Plan Summary: - Diagnosis (1) Femoral neck fracture Qualifiers: Encounter type: initial encounter Fracture type: closed Laterality: right Qualified Code(s): S72.001A - Fracture of unspecified part of neck of right femur, initial encounter for closed fracture Is this a current diagnosis for this admission?: Yes Plan: Patient sustained a right displaced femoral neck fracture. She has multiple medical comorbidities. Her medical status has significantly decreased since admission from the ED. Her platelet count remains low but has minimal increase from previous labs. Low plts remain a contraindication for operative intervention furthermore she has acute renal failure with respiratory compromise and bilateral pneumonia/infiltrates. An ABG is to be preformed this morning to asses improvement with BiPAP. Pt continues to not be medically optimized for operative intervention. We will continue to monitor once patient becomes medically optimized will consider operative intervention.
[2020-09-28 08:56] LABS: ARTERIAL BLOOD BASE EXCESS 0.6 mmol/L; ARTERIAL BLOOD HCO3 23.7 mmol/L (20-24); ARTERIAL BLOOD PCO2 33.1 mmHg (35-45); ARTERIAL BLOOD PH 7.47 (7.35-7.45); ARTERIAL BLOOD PO2 75.3 mmHg (80-100); ARTERIAL BLOOD TOTAL CO2 24.7 mmol/L (21-25)
[2020-09-28 08:58] LABS: ARTERIAL BLOOD FIO2 45%
--- NOTE | 2020-09-28 09:14 | PDOC PROGRESS REPORT ---
Subjective Date:: 09/28/20 Subjective:: Patient remains on BiPAP with soft Gloves on her hands. She is able to open her eyes and mouth words, but I am not able to understand. Nurses report no new concerns and no evidence of bleeding. Reason For Visit: RIGHT FEMORAL NECK FRACTURE Physical Exam Vital Signs: Temp Pulse Resp BP Pulse Ox 97.3 F 73 22 H 178/80 H 96 09/28/20 08:10 09/28/20 08:10 09/28/20 08:10 09/28/20 08:10 09/28/20 08:10 Intake & Output 09/27/20 09/28/20 09/29/20 06:59 06:59 06:59 Intake Total 1100 2617 Output Total 300 1150 Balance 800 1467 Weight 62 kg 62 kg General appearance: PRESENT: thin Head exam: PRESENT: normocephalic Respiratory exam: PRESENT: other - Breath sounds obscured by BiPAP Cardiovascular exam: PRESENT: other - Heart sounds obscuted by BiPAP Neurological exam: PRESENT: altered, awake Skin exam: PRESENT: pallor Results Laboratory Results: 09/28/20 07:32 09/28/20 07:32 09/27/20 09/28/20 09/28/20 14:30 07:32 07:32 WBC 14.6 H 13.7 H RBC 3.67 L 3.14 L Hgb 10.9 L D 9.6 L Hct 32.3 L 27.4 L MCV 88 87 MCH 29.6 30.6 MCHC 33.6 35.0 RDW 14.1 H 13.7 Plt Count 36 L 39 L Seg Neutrophils % Not Reportable Carbonic Acid HCO3/H2CO3 Ratio ABG pH ABG pCO2 ABG pO2 ABG HCO3 ABG O2 Saturation ABG Base Excess FiO2 Sodium 141.1 Potassium 3.7 Chloride 110 H Carbon Dioxide 24 Anion Gap 7 BUN 60 H Creatinine 1.19 Est GFR ( Amer) 52 L Glucose 129 H Calcium 8.1 L 09/28/20 08:40 WBC RBC Hgb Hct MCV MCH MCHC RDW Plt Count Seg Neutrophils % Carbonic Acid 1.00 L HCO3/H2CO3 Ratio 23:1 ABG pH 7.47 H ABG pCO2 33.1 L ABG pO2 75.3 L ABG HCO3 23.7 ABG O2 Saturation 96.0 ABG Base Excess 0.6 FiO2 45% Sodium Potassium Chloride Carbon Dioxide Anion Gap BUN Creatinine Est GFR ( Amer) Glucose Calcium 09/25/20 16:09 Catheterized Urine Urine Culture - Final Klebsiella Pneumoniae Impressions: Hip/Pelvis X-Ray 09/25/20 13:37 IMPRESSION: Impacted subcapital fracture of the femoral neck. Chest X-Ray 09/26/20 00:00 IMPRESSION: Dense alveolar and interstitial infiltrates edema versus ARDS versu s pneumonia. This is progressive since yesterday KUB X-Ray 09/26/20 00:00 IMPRESSION: NO RADIOGRAPHIC EVIDENCE FOR ACUTE ABDOMINAL DISEASE. UNCHANGED RIGHT SUBCAPITAL FEMORAL NECK FRACTURE Lung Scan-VQ NM 09/26/20 00:00 IMPRESSION: NORMAL PERFUSION LUNG SCAN. Head CT 09/27/20 00:00 IMPRESSION: CHRONIC CHANGES OF ATROPHY AND MICROVASCULAR ISCHEMIA. NO ACUTE PROCESS. EVIDENCE OF ACUTE STROKE: NO. Assessment & Plan - Diagnosis (1) Femoral neck fracture Qualifiers: Encounter type: initial encounter Fracture type: closed Laterality: right Qualified Code(s): S72.001A - Fracture of unspecified part of neck of right femur, initial encounter for closed fracture Is this a current diagnosis for this admission?: Yes Plan: As per Ortho. (2) Leukocytosis Qualifiers: Leukocytosis type: unspecified Qualified Code(s): D72.829 - Elevated white blood cell count, unspecified Is this a current diagnosis for this admission?: Yes Plan: Continues to improve. On antibiotics. Remains afebrile. Klebsiella in urine. (3) Thrombocytopenia Is this a current diagnosis for this admission?: Yes Plan: Slowly resolving. No indication for transfusion today unless a procedure is planned. Most likely consumptive and immune related. - Time Time Spent with patient: Less than 15 minutes
--- NOTE | 2020-09-28 09:57 | PDOC PROGRESS REPORT ---
Subjective Date:: 09/28/20 Subjective:: The patient is an 89-year-old female with multiple medical comorbidities who was initially consulted to my partner, Dr. Del Toro, for preop evaluation. For details of her prior cardiac evaluations please see prior notes by Dr. Del Toro. In summary, the patient was admitted on 09/25/2020 due to a right displaced femoral fracture. Decision was made to proceed with surgery however the patient developed severe respiratory distress and was placed on BiPAP. She was also noted to have severe thrombocytopenia therefore her orthopedic surgery had been put on hold. Unfortunately her clinical status has been more complicated lately with evidence of what looks like possible aspiration pneumonia/pneumonitis/ARDS. Her echocardiogram in 09/26/2020 demonstrated a preserved ejection fraction with severe pulmonary hypertension as well as mildly depressed RV systolic function among other findings. This morning the patient continues to be essentially at her baseline. She continues to be on BiPAP and, although she tries to talk, her words are unintelligible. Her platelets although low, are improving very slowly. Her telemetry this morning shows normal sinus rhythm with intermittent AV paced rhythm and artifact. Physical exam on 09/28/2020: GENERAL: The patient is on BiPAP support, tries to speak with her words are unintelligible, soft gloves in both hands. HEENT: Normocephalic, atraumatic. Pupils equal. Sclerae anicteric. Oropharynx moist. NECK: No JVD. No carotid bruits. LUNGS: Clear to auscultation bilaterally. On BiPAP support. CARDIOVASCULAR: Regular rate and rhythm, normal S1 and S2 without murmurs, rubs, or gallops. PMI not displaced. ABDOMEN: No masses or tenderness to palpation. No bruit. No splenomegaly or hepatomegaly. No abdominal aorta bruit noted. EXTREMITIES: No edema, no cyanosis, no clubbing. +2 pulses femoral and pedal pulses bilaterally. SKIN: No lesions or rashes. MUSCULOSKELETAL: No chest tenderness to palpation. NEUROLOGIC: Nonfocal. No gross sensory or motor deficits bilateral upper or lower extremities. Reason For Visit: RIGHT FEMORAL NECK FRACTURE Physical Exam Vital Signs: Temp Pulse Resp BP Pulse Ox 97.3 F 73 24 H 178/80 H 99 09/28/20 08:10 09/28/20 08:10 09/28/20 08:35 09/28/20 08:10 09/28/20 08:35 Intake & Output 09/27/20 09/28/20 09/29/20 06:59 06:59 06:59 Intake Total 1100 2617 Output Total 300 1150 Balance 800 1467 Weight 62 kg 62 kg Results Laboratory Results: 09/28/20 07:32 09/28/20 07:32 09/27/20 09/28/20 09/28/20 14:30 07:32 07:32 WBC 14.6 H 13.7 H RBC 3.67 L 3.14 L Hgb 10.9 L D 9.6 L Hct 32.3 L 27.4 L MCV 88 87 MCH 29.6 30.6 MCHC 33.6 35.0 RDW 14.1 H 13.7 Plt Count 36 L 39 L Seg Neutrophils % Not Reportable Carbonic Acid HCO3/H2CO3 Ratio ABG pH ABG pCO2 ABG pO2 ABG HCO3 ABG O2 Saturation ABG Base Excess FiO2 Sodium 141.1 Potassium 3.7 Chloride 110 H Carbon Dioxide 24 Anion Gap 7 BUN 60 H Creatinine 1.19 Est GFR ( Amer) 52 L Glucose 129 H Calcium 8.1 L 09/28/20 08:40 WBC RBC Hgb Hct MCV MCH MCHC RDW Plt Count Seg Neutrophils % Carbonic Acid 1.00 L HCO3/H2CO3 Ratio 23:1 ABG pH 7.47 H ABG pCO2 33.1 L ABG pO2 75.3 L ABG HCO3 23.7 ABG O2 Saturation 96.0 ABG Base Excess 0.6 FiO2 45% Sodium Potassium Chloride Carbon Dioxide Anion Gap BUN Creatinine Est GFR ( Amer) Glucose Calcium 09/25/20 16:09 Catheterized Urine Urine Culture - Final Klebsiella Pneumoniae Impressions: Hip/Pelvis X-Ray 09/25/20 13:37 IMPRESSION: Impacted subcapital fracture of the femoral neck. Chest X-Ray 09/26/20 00:00 IMPRESSION: Dense alveolar and interstitial infiltrates edema versus ARDS versus pneumonia. This is progressive since yesterday KUB X-Ray 09/26/20 00:00 IMPRESSION: NO RADIOGRAPHIC EVIDENCE FOR ACUTE ABDOMINAL DISEASE. UNCHANGED RIGHT SUBCAPITAL FEMORAL NECK FRACTURE Lung Scan-VQ NM 09/26/20 00:00 IMPRESSION: NORMAL PERFUSION LUNG SCAN. Head CT 09/27/20 00:00 IMPRESSION: CHRONIC CHANGES OF ATROPHY AND MICROVASCULAR ISCHEMIA. NO ACUTE PROCESS. EVIDENCE OF ACUTE STROKE: NO. 09/28/20 07:32 09/28/20 07:32 MCV 87 fl (80-97) 09/28/20 07:32 MCH 30.6 pg (27.0-33.4) 09/28/20 07:32 MCHC 35.0 g/dL (32.0-36.0) 09/28/20 07:32 RDW 13.7 % (11.5-14.0) 09/28/20 07:32 Seg Neutrophils % Not Reportable 09/28/20 07:32 Carbonic Acid 1.00 mmol/L (1.05-1.35) L 09/28/20 08:40 HCO3/H2CO3 Ratio 23:1 09/28/20 08:40 ABG pH 7.47 (7.35-7.45) H 09/28/20 08:40 ABG pCO2 33.1 mmHg (35-45) L 09/28/20 08:40 ABG pO2 75.3 mmHg (80-100) L 09/28/20 08:40 ABG HCO3 23.7 mmol/L (20-24) 09/28/20 08:40 ABG O2 Saturation 96.0 % (94-98) 09/28/20 08:40 ABG Base Excess 0.6 mmol/L 09/28/20 08:40 FiO2 45% 09/28/20 08:40 Chloride 110 mmol/L (98-107) H 09/28/20 07:32 Carbon Dioxide 24 mmol/L (22-30) 09/28/20 07:32 Anion Gap 7 (5-19) 09/28/20 07:32 Est GFR ( Amer) 52 (>60) L 09/28/20 07:32 Glucose 129 mg/dL (75-110) H 09/28/20 07:32 Calcium 8.1 mg/dL (8.4-10.2) L 09/28/20 07:32 Magnesium 1.6 mg/dL (1.6-2.3) 09/26/20 04:55 Ferritin 326.00 ng/mL (11.1-264.0) H 09/26/20 09:09 Total Bilirubin 2.3 mg/dL (0.2-1.3) H 09/27/20 04:14 AST 52 U/L (14-36) H 09/27/20 04:14 Alkaline Phosphatase 71 U/L (38-126) 09/27/20 04:14 C-Reactive Protein 52.4 mg/L (<10.0) H 09/26/20 09:09 Total Protein 6.2 g/dL (6.3-8.2) L 09/27/20 04:14 Albumin 3.2 g/dL (3.5-5.0) L 09/27/20 04:14 Urine Color YELLOW 09/25/20 16:09 Urine Appearance SLIGHTLY-CLOUDY 09/25/20 16:09 Urine pH 5.0 (5.0-9.0) 09/25/20 16:09 Ur Specific Adams 1.017 09/25/20 16:09 Urine Protein 100 mg/dL (NEGATIVE) H 09/25/20 16:09 Urine Glucose (UA) NEGATIVE mg/dL (NEGATIVE) 09/25/20 16:09 Urine Ketones NEGATIVE mg/dL (NEGATIVE) 09/25/20 16:09 Urine Blood NEGATIVE (NEGATIVE) 09/25/20 16:09 Urine Nitrite NEGATIVE (NEGATIVE) 09/25/20 16:09 Ur Leukocyte Esterase SMALL (NEGATIVE) H 09/25/20 16:09 Urine WBC (Auto) 9 /HPF 09/25/20 16:09 Blood Type O POSITIVE 09/25/20 14:36 Antibody Screen NEGATIVE 09/25/20 14:36 09/25/20 16:09 Catheterized Urine Urine Culture - Final Klebsiella Pneumoniae Current Medication List Generic Name Dose Route Start Last Admin Trade Name Freq PRN Reason Stop Dose Admin Acetaminophen 975 mg 09/25/20 20:00 09/27/20 17:31 Acetaminophen 325 Mg Tablet PO 10/25/20 19:59 Not Given TID MARY Albuterol 2 puff 09/25/20 18:45 Albuterol Sulfate Hfa (90 Mcg/Puff) 8 Gm Mdi IH 10/25/20 18:44 Q4HP PRN FOR WHEEZING Albuterol/Ipratropium 3 ml 09/25/20 18:37 09/26/20 09:31 Ipratropium/Albuterol 0.5-2.5 Mg/3 Ml Ampul NEB 10/25/20 18:36 3 ml RTQ4HP PRN Administration SHORTNESS OF BREATH Aspirin 81 mg 09/25/20 22:00 09/26/20 22:04 Aspirin 81 Mg Tablet, Chewable PO 10/25/20 21:59 Not Given QHS [facility] Atorvastatin Calcium 40 mg 09/25/20 22:00 09/28/20 00:46 Atorvastatin Calcium 40 Mg Tablet PO 10/25/20 21:59 Not Given QHS [facility] Carvedilol 6.25 mg 09/25/20 22:00 09/28/20 00:45 Carvedilol 6.25 Mg Tablet PO 10/25/20 21:59 Not Given Q12 MARY Diltiazem HCl 180 mg 09/25/20 22:00 09/28/20 00:45 Diltiazem Hcl 180 Mg Capsule.Cr PO 10/25/20 21:59 Not Given QHS [facility] Escitalopram Oxalate 20 mg 09/26/20 10:00 09/27/20 11:15 Escitalopram Oxalate 10 Mg Tablet PO 10/26/20 09:59 Not Given DAILY [facility] Cefepime HCl 1 gm in 50 mls @ 100 mls/hr 09/26/20 10:00 09/28/20 03:47 Maxipime Rtu 1 Gm/D5w 50 Ml Premix Bag IV 10/03/20 09:59 Infused Q12 [facility] Infusion Dextrose 1,000 mls @ 100 mls/hr 09/27/20 14:24 09/28/20 01:52 D5w 1000 Ml Iv Soln IV 10/27/20 14:23 100 mls/hr CONTINUOUS PRN Administration THIS MED IS NOT "PRN" Labetalol HCl 10 mg 09/27/20 11:09 09/28/20 08:26 Labetalol Hcl Inj 20 Mg/4 Ml Disp.Syrin IV 10/27/20 11:08 10 mg Q6HP PRN Administration Give For Sbp > [160] Losartan Potassium 50 mg 09/25/20 19:30 09/27/20 11:15 Losartan Potassium 50 Mg Tablet PO 10/25/20 19:29 Not Given DAILY [facility] Methylprednisolone Sodium Succinate 60 mg 09/27/20 18:00 09/28/20 01:52 Methylprednisolone Inj 40 Mg/1 Ml Sdv IV 10/27/20 17:59 60 mg Q8A MARY Administration Morphine Sulfate 1 mg 09/25/20 18:46 Morphine Sulfate 10 Mg/Ml Inj IV 10/02/20 18:45 Q4HP PRN FOR BREAKTHROUGH PAIN Ondansetron HCl 4 mg 09/25/20 18:37 09/26/20 06:37 Ondansetron Hcl Inj/Pf 4 Mg/2 Ml Sdv IV 10/25/20 18:36 4 mg Q6HP PRN Administration FOR NAUSEA/VOMITING Oxycodone HCl 5 mg 09/25/20 18:46 Oxycodone Hcl Ir 5 Mg Tablet PO 10/02/20 18:45 Q4HP PRN FOR PAIN Promethazine HCl 6.25 mg 09/26/20 08:51 Promethazine Hcl Inj 25 Mg/1 Ml Vial IV 10/26/20 08:50 Q4HP PRN UNRESOLVED NAUSEA/VOMITING Sildenafil Citrate 20 mg 09/25/20 20:00 09/27/20 17:31 Sildenafil Citrate 20 Mg Tablet PO 10/25/20 19:59 Not Given TID [facility] Discontinued Medications Generic Name Dose Route Start Last Admin Trade Name Freq PRN Reason Stop Dose Admin Hydrocodone Bitart/Acetaminophen 1 tab 09/25/20 13:37 09/25/20 13:42 Hydrocodone/Acetaminophen 5-325 Mg Tablet PO 09/25/20 13:38 1 tab NOW ONE Administration Albuterol/Ipratropium 3 ml 09/25/20 15:46 09/25/20 16:01 Ipratropium/Albuterol 0.5-2.5 Mg/3 Ml Ampul NEB 09/25/20 15:47 3 ml NOW ONE Administration Fondaparinux 2.5 mg 09/26/20 20:45 09/26/20 22:06 Fondaparinux Sodium Inj 2.5 Mg/0.5 Ml Disp.Syrin SUBCUT 09/26/20 20:46 2.5 mg NOW ONE Administration Fondaparinux 2.5 mg 09/27/20 22:00 Fondaparinux Sodium Inj 2.5 Mg/0.5 Ml Disp.Syrin SUBCUT 10/27/20 21:59 QHS [facility] Fondaparinux Confirm 09/26/20 21:02 09/26/20 22:06 Fondaparinux Sodium Inj 2.5 Mg/0.5 Ml Disp.Syrin Administered 09/26/20 21:03 Not Given Dose 2.5 mg SUBCUT .STK-MED ONE Furosemide 40 mg 09/26/20 10:00 Furosemide 40 Mg Tablet PO 10/26/20 09:59 DAILY MARY Heparin Sodium (Porcine) 5,000 unit 09/26/20 22:00 Heparin Sod (Porcine) 5,000 Unit/Ml 1 Ml Vial SUBCUT 10/26/20 21:59 Q8 MARY Sodium Chloride 1,000 mls @ 30 mls/hr 09/25/20 15:25 09/27/20 02:44 Nacl 0.9% 1000 Ml Iv Soln IV 09/27/20 00:44 Infused BOLUS ONE Infusion Sodium Chloride 250 mls @ 30 mls/hr 09/26/20 08:55 Nacl 0.9% 250 Ml Iv Soln IV 09/27/20 08:54 .DURING TRANSFUSION PRN THIS MED IS NOT "PRN" Sodium Chloride 250 mls @ 0 mls/hr 09/26/20 08:55 Nacl 0.9% 250 Ml Iv Soln IV 09/27/20 08:54 CONTINUOUS PRN AFTER EACH UNIT As Directed Sodium Chloride 1,000 mls @ 80 mls/hr 09/26/20 18:36 09/27/20 12:41 Nacl 0.9% 1000 Ml Iv Soln IV 10/26/20 18:35 Infused CONTINUOUS PRN Infusion THIS MED IS NOT "PRN" Sodium Chloride 1,000 mls @ 100 mls/hr 09/27/20 11:09 09/27/20 20:43 Nacl 0.9% 1000 Ml Iv Soln IV 10/26/20 18:35 Infused CONTINUOUS PRN Infusion THIS MED IS NOT "PRN" Lorazepam 0.25 mg 09/27/20 16:00 09/27/20 15:27 Lorazepam Inj 2 Mg/1 Ml Vial IV 09/27/20 16:01 0.25 mg NOW ONE Administration Methylprednisolone Sodium Succinate 40 mg 09/26/20 09:00 09/27/20 11:14 Methylprednisolone Inj 40 Mg/1 Ml Sdv IV 10/26/20 08:59 40 mg Q8A MARY Administration Morphine Sulfate 3 mg 09/25/20 15:25 09/25/20 16:00 Morphine Sulfate 10 Mg/Ml Inj IV 09/25/20 15:26 3 mg NOW ONE Administration Morphine Sulfate 2 mg 09/25/20 16:25 09/25/20 19:52 Morphine Sulfate 10 Mg/Ml Inj IV 09/25/20 16:26 Not Given NOW ONE Ondansetron HCl 4 mg 09/25/20 15:26 09/25/20 16:00 Ondansetron Hcl Inj/Pf 4 Mg/2 Ml Sdv IV 09/25/20 15:27 4 mg NOW ONE Administration Promethazine HCl Confirm 09/26/20 08:22 09/26/20 08:28 Promethazine Hcl Inj 25 Mg/1 Ml Vial Administered 09/26/20 08:23 6.25 mg Dose Administration 25 mg .ROUTE .[facility] Assessment & Plan - Diagnosis (1) Preop cardiovascular exam Is this a current diagnosis for this admission?: Yes Plan: The patient's clinical status has not improved enough as to undergo surgery yet. She continues to have multiple medical comorbidities that are being addressed at this point. Her main issue is her thrombocytopenia as well as her severe pulmonary hypertension. Once again, she is at a very high perioperative cardiovascular risk and she is not optimized yet. At this point cardiology does not have further recommendations other than to continue to manage her medical comorbidities. We will sign off the case for now, please reconsult when her respiratory status and thrombocytopenia are improved enough as to undergo surgery, at that point we will reevaluate the patient. (2) Femoral neck fracture Qualifiers: Encounter type: initial encounter Fracture type: closed Laterality: right Qualified Code(s): S72.001A - Fracture of unspecified part of neck of right femur, initial encounter for closed fracture Is this a current diagnosis for this admission?: Yes Plan: Management per orthopedic surgery service. (3) Hypertension Qualifiers: Hypertension type: essential hypertension Qualified Code(s): I10 - Essential (primary) hypertension Is this a current diagnosis for this admission?: Yes Plan: Her blood pressure is not optimized. Her goal blood pressure is 130/80 or below. I will defer further management to hospitalist team however would consider increasing carvedilol dose. (4) Pulmonary hypertension Is this a current diagnosis for this admission?: Yes Plan: Continue with medical management.
[2020-09-28] MEDS: ACETAMINOPHEN 325 MG TABLET PO SCH ×3 (10:57→18:14)
[2020-09-28] MEDS: ESCITALOPRAM OXALATE 10 MG TABLET PO SCH (10:58)
[2020-09-28] MEDS: LOSARTAN POTASSIUM 50 MG TABLET PO SCH (10:58)
[2020-09-28] MEDS: SILDENAFIL CITRATE 20 MG TABLET PO SCH ×3 (12:08→18:15)
--- NOTE | 2020-09-28 13:08 | PDOC PROGRESS REPORT ---
Subjective Date:: 09/28/20 Subjective:: ALEXANDER CHRISTOPHER is an 89 year old female with PMH of HTN, HLD, CHF, CHB s/p pacemaker, pulmonary hypertension on 2 L home O2 and frequent falls who presented to the ED s/p fall with R hip pain. She notes that she hates using canes/walkers. She was walking to the mailbox today when she had a mechanical fall onto her R hip. She denies LOC or head trauma. She recently (4-5 weeks ago) had a fall which results in a LUE fracture, which is still in a cast. She also notes that she broke her left hip in a fall a few years ago. She denies recent illnesses, sick contacts, fevers/chills, SOB, CP, cough, abdominal pain, dysuria. Pain is currently well controlled. In the ED, she was found to have a R femoral neck fracture. Orthopedic surgery was consulted and recommended surgical repair on 09/26. 09/26/2020. This morning patient noted to be hypoxic, and having nausea and vomi ting, stat ABG showed hypoxemia. Chest x-ray showed diffuse alveolar and interstitial infiltrate edema, ARDS or pneumonia. VQ scan negative for any PE. Unfortunately patient's surgery was delayed due to worsening respiratory symptoms. Overnight patient's oxygen demand has gone up but as per night nurse patient did not have any nausea or vomiting overnight, not sure if patient had aspiration or she is developing pneumonia. Patient received COVID-19 vaccination last 09/27/2020. Unfortunately patient's clinical status is deteriorating compared to yesterday, yesterday she started to become hypoxic and was having nausea and vomiting, initial thought was patient might have developed aspiration pneumonia, but given her worsening platelet levels, elevated D-dimers, fibrinogen, and ot her inflammatory markers looks like patient has developed ARDS and DIC likely due to fat emboli due to acute hip fracture. 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 I have had discussions with 2 of her sons and I have updated them about her underlying medical conditions. 09/28/2020. No acute events overnight, patient has moderate improvement of her symptoms since yesterday, currently off of BiPAP on 6 L nasal cannula saturating WNL, her leukocytosis and kidney function are also improving, her platelets are trending down but still below normal, patient appears very weak however follows commands and talks in a very low voice, denies having any pain. Reason For Visit: RIGHT FEMORAL NECK FRACTURE Physical Exam Vital Signs: Temp Pulse Resp BP Pulse Ox 98.3 F 74 20 164/64 H 97 09/28/20 11:31 09/28/20 11:31 09/28/20 11:31 09/28/20 11:31 09/28/20 11:31 Intake & Output 09/27/20 09/28/20 09/29/20 06:59 06:59 06:59 Intake Total 1100 2617 120 Output Total 300 1150 300 Balance 800 1467 -180 Weight 62 kg 62 kg General appearance: PRESENT: no acute distress, well-developed, well-nourished, other - Appears very weak Head exam: PRESENT: atraumatic, normocephalic Respiratory exam: PRESENT: clear to auscultation jase. ABSENT: rales, rhonchi, wheezes Cardiovascular exam: PRESENT: RRR. ABSENT: diastolic murmur, rubs, systolic murmur GI/Abdominal exam: PRESENT: normal bowel sounds, soft. ABSENT: distended, gua rding, mass, organolmegaly, rebound, tenderness Musculoskeletal exam: PRESENT: other - Right lower extremity internally rotated, able to wiggle her toes, neurovascularly intact. Neurological exam: PRESENT: alert, awake, oriented to person, oriented to place Results Laboratory Results: 09/28/20 07:32 09/28/20 07:32 09/27/20 09/28/20 09/28/20 14:30 07:32 07:32 WBC 14.6 H 13.7 H RBC 3.67 L 3.14 L Hgb 10.9 L D 9.6 L Hct 32.3 L 27.4 L MCV 88 87 MCH 29.6 30.6 MCHC 33.6 35.0 RDW 14.1 H 13.7 Plt Count 36 L 39 L Seg Neutrophils % Not Reportable Carbonic Acid HCO3/H2CO3 Ratio ABG pH ABG pCO2 ABG pO2 ABG HCO3 ABG O2 Saturation ABG Base Excess FiO2 Sodium 141.1 Potassium 3.7 Chloride 110 H Carbon Dioxide 24 Anion Gap 7 BUN 60 H Creatinine 1.19 Est GFR ( Amer) 52 L Glucose 129 H Calcium 8.1 L 09/28/20 08:40 WBC RBC Hgb Hct MCV MCH MCHC RDW Plt Count Seg Neutrophils % Carbonic Acid 1.00 L HCO3/H2CO3 Ratio 23:1 ABG pH 7.47 H ABG pCO2 33.1 L ABG pO2 75.3 L ABG HCO3 23.7 ABG O2 Saturation 96.0 ABG Base Excess 0.6 FiO2 45% Sodium Potassium Chloride Carbon Dioxide Anion Gap BUN Creatinine Est GFR ( Amer) Glucose Calcium Impressions: Hip/Pelvis X-Ray 09/25/20 13:37 IMPRESSION: Impacted subcapital fracture of the femoral neck. Chest X-Ray 09/26/20 00:00 IMPRESSION: Dense alveolar and interstitial infiltrates edema versus ARDS versus pneumonia. This is progressive since yesterday KUB X-Ray 09/26/20 00:00 IMPRESSION: NO RADIOGRAPHIC EVIDENCE FOR ACUTE ABDOMINAL DISEASE. UNCHANGED RIGHT SUBCAPITAL FEMORAL NECK FRACTURE Lung Scan-VQ NM 09/26/20 00:00 IMPRESSION: NORMAL PERFUSION LUNG SCAN. Head CT 09/27/20 00:00 IMPRESSION: CHRONIC CHANGES OF ATROPHY AND MICROVASCULAR ISCHEMIA. NO ACUTE PROCESS. EVIDENCE OF ACUTE STROKE: NO. Assessment and Plan - Diagnosis (1) Acute hypoxemic respiratory failure Is this a current diagnosis for this admission?: Yes Plan: Moderate improvement compared to yesterday. Off of BiPAP. Currently saturating WNL on 5 L nasal cannula. Initially thought to be aspiration pneumonia but seems like that patient has developed ARDS aspiration pneumonia but community-acquired pneumonia also remains a possibility. Patient has been having nausea vomiting since last night which increases likelihood of aspiration pneumonia. Patient had left hip fracture prior to admission. She also received COVID-19 vaccination on 09/22/2020. ABG 09/28/2020 mild improvement of hypoxemia. Chest x-ray dense alveolar and interstitial infiltrates edema, ARDS or pneumonia. VQ scan negative for any PE. COVID-19 serology negative. Day 3 IV antibiotics. Day 3 IV cefepime. Continue empiric broad-spectrum IV antibiotics and high-dose IV steroids. Scheduled duo nebs, scheduled BiPAP as needed, pulmonary toileting. Follow-up sputum and blood culture. (2) Disseminated intravascular coagulation Is this a current diagnosis for this admission?: Yes Plan: No DIC as per hematology note. Platelets trending up. Patient had hip fracture prior to presentation to ED, fat emboli is known to cause DIC in some cases. Not sure if this is true DIC since patient is having worsening thrombocytopenia, anemia, direct hyper bilirubinemia, elevated D-dimer but elevated fibrinogen. Has also developed ecchymosis on her extremities and face. Monitor closely, supportive transfusions, high-dose steroids. Hematology consulted. Recommendations noted. (3) Pneumonia Qualifiers: Pneumonia type: aspiration pneumonia Is this a current diagnosis for this admission?: Yes Plan: As per #1. (4) Thrombocytopenia Is this a current diagnosis for this admission?: Yes Plan: Mild improvement. Has not received any heparin. No history of recent hospitalization. Unlikely this is heparin-induced thrombocytopenia. Likely due to #2. Plan as per above. (5) COPD (chronic obstructive pulmonary disease) Qualifiers: COPD type: unspecified COPD Qualified Code(s): J44.9 - Chronic obstructive pulmonary disease, unspecified Is this a current diagnosis for this admission?: Yes Plan: History of oxygen dependent COPD 2 L nasal cannula. Plan as per #1. (6) Femoral neck fracture Qualifiers: Encounter type: initial encounter Fracture type: closed Laterality: right Qualified Code(s): S72.001A - Fracture of unspecified part of neck of right femur, initial encounter for closed fracture Is this a current diagnosis for this admission?: Yes Plan: Ortho on board, surgery on hold given her worsening condition. (7) Hypertension Qualifiers: Hypertension type: essential hypertension Qualified Code(s): I10 - Essential (primary) hypertension Is this a current diagnosis for this admission?: Yes Plan: Monitor vitals, continue home meds. Adjust meds as needed. (8) Nausea & vomiting Qualifiers: Vomiting Intractability: unspecified Is this a current diagnosis for this admission?: Yes Plan: Resolved. Likely gastroenteritis. KUB no acute changes. Antiemetics, supportive measures, monitor electrolytes at volume status. Replace electrolytes as needed. (9) Frequent falls Is this a current diagnosis for this admission?: Yes Plan: Fall precautions. Outpatient PT. (10) Pulmonary hypertension Is this a current diagnosis for this admission?: Yes Plan: History of severe pulmonary hypertension. On 2L Home O2 Supplemental O2 for goal saturation >90% Continue home sildenafil Outpatient pulmonology follow-up. (11) ANDRAE (acute kidney injury) Is this a current diagnosis for this admission?: Yes Plan: Resolved. Prerenal. Likely due to nausea vomiting and low p.o. intake. Cautious volume restriction guided by volume status given acute respiratory failure. Monitor volume status and electrolytes, replace electrolytes as needed. BMP tomorrow. Nephrology consulted. - Plan Summary Summary: -Lui CHRISTOPHER is an 89 year old female with PMH of HTN, HLD, CHF, CHB s/p pacemaker, pulmonary hypertension on 2 L home O2 and frequent falls who pre sented to the ED s/p fall with R hip pain. She notes that she hates using canes/walkers. She was walking to the mailbox today when she had a mechanical fall onto her R hip. She recently (4-5 weeks ago) had a fall which results in a LUE fracture, which is still in a cast. She also notes that she broke her left hip in a fall a few years ago. She denies recent illnesses, sick contacts, fevers/chills, SOB, CP, cough, abdominal pain, dysuria. R femoral neck fracture - Orthopedic surgery was consulted and recommended surgical repair on 09/26 (NPO past MN) - bed rest - fall precautions - [facility] catheter placed in ED - PT immediately after surgery - pain control with oxycodone PRN, Tylenol scheduled and Morphine for breakthrough pain Pre-Operative Risk Assessment: she is euvolemic on exam and on the appropriate cardiac medications to control her risk factors. She has a Revised Cardiac Risk Index for Pre-Operative Risk of 2 (Class III) with a 10.1% 30-day risk of , [place] or cardiac arrest. I discussed risks of surgery/anesthesia with patient and her son at bedside. They are understanding that she is high risk given her cardiac and pulmonary function, but are willing to take the risk to maximize her mobility and quality of life. Pulmonary HTN: on 2L Home O2 - Duo-Nebs PRN - supplemental O2 for goal saturation >90% - continue home sildenafil Leukocytosis: likely a stress reaction given fall and femur fracture. She has no other signs of or symptoms of infection. UA shows small LE and bacteria - this is likely due to asymptomatic bacteriuria and does not require antibiotic therapy. - repeat CBC in AM - hold off on antibiotics Congestive Heart Failure: euvolemic to slightly dry on exam today. No evidence of volume overload. - restart home medications - avoid aggressive IVF hydration Essential HTN: uncontrolled, likely due to the fact that she has not taken any of her home medications today - restart home medications Complete Heart Block s/p pacemaker - telemetry Dispo: she will likely require SNF placement on discharge. Discharge planning consult placed. DVT ppx: hold off on starting until after surgery tomorrow morning Code Status: DNR/DNI - Time Time Spent with patient: 35 or more minutes Anticipated Discharge Disposition: Home with Home Health Anticipated Discharge Timeframe: within 72 hours
[2020-09-28 13:57] LABS: PATH REVIEW PATHOLOGIST REVIEWED
--- NOTE | 2020-09-28 18:54 | CDI QUERY ---
CDI Query CDI Review: Dear Provider, Please clarify and document in progress notes and D/C summary if "PNEUMONIA" noted in chart was: LIKELY, POSSIBLY, PROBABLY, DEVELOPING on admission NOT present on admission, occurred after admission UNABLE TO DETERMINE clinical data: admitted 09/25 cxr 09/26= probable pneumonia acute on chronic respiratory failure Jackie Santoro, MAYELA [phone]
[2020-09-28] MEDS: OXYCODONE HCL IR 5 MG TABLET PO PRN (22:23)
[2020-09-29] MEDS: METHYLPREDNISOLONE INJ 40 MG/1 ML SDV IV SCH ×3 (02:08→19:16)
[2020-09-29] MEDS: DEXTROSE 5%-WATER 1000 ML 1,000 ML IV PRN ×2 (03:43→15:50)
[2020-09-29 05:31] LABS: INTERNATIONAL RATION (INR) 1.15; PROTHROMBIN TIME 14.9 SEC (11.4-15.4)
[2020-09-29 05:36] LABS: HEMOGLOBIN 9.3 g/dL (12.0-15.5); MEAN CORPUSCULAR HEMOGLOBIN 30.3 pg (27.0-33.4); MEAN CORPUSCULAR HGB CONC 34.6 g/dL (32.0-36.0); MEAN CORPUSCULAR VOLUME 88 fl (80-97); RED BLOOD COUNT 3.08 10^6/uL (3.72-5.28); WHITE BLOOD COUNT 12.8 10^3/uL (4.0-10.5)
[2020-09-29 05:41] LABS: D-DIMER 1.87 ug/mL (0.00-0.50)
[2020-09-29 05:47] LABS: BLOOD UREA NITROGEN 54 mg/dL (7-20); CALCIUM 8.4 mg/dL (8.4-10.2); GLUCOSE 159 mg/dL (75-110); POTASSIUM 3.9 mmol/L (3.6-5.0)
[2020-09-29 05:52] LABS: ANION GAP 6 (5-19); CARBON DIOXIDE 25 mmol/L (22-30); CHLORIDE 107 mmol/L (98-107)
[2020-09-29 06:02] LABS: PLATELET COUNT 46 10^3/uL (150-450)
[2020-09-29] MEDS ORDERED: MIDAZOLAM 2 MG/2 ML INJ ONE (06:23)
[2020-09-29] MEDS ORDERED: PROPOFOL INJ 200 MG/20 ML VIAL IV ONE (06:23)
[2020-09-29] MEDS ORDERED: FENTANYL CITRATE INJ/PF 100 MCG/2 ML AMPUL ONE (06:23)
[2020-09-29 06:28] LABS: ARTERIAL BLOOD BASE EXCESS -0.5 mmol/L; ARTERIAL BLOOD H2CO3 1.04 mmol/L (1.05-1.35); ARTERIAL BLOOD HCO3 23.3 mmol/L (20-24); ARTERIAL BLOOD PCO2 34.7 mmHg (35-45); ARTERIAL BLOOD PH 7.44 (7.35-7.45); ARTERIAL BLOOD TOTAL CO2 24.3 mmol/L (21-25)
[2020-09-29 06:54] LABS: ARTERIAL BLOOD FIO2 4.5L
[2020-09-29] MEDS ORDERED: DEXTROSE 50%-WATER 25 GM/50 ML DISP.SYRIN IV PRN ×2 (07:51)
[2020-09-29] MEDS ORDERED: GLUCAGON,HUMAN RECOMB 1 MG INJ SUBCUT PRN (07:51)
[2020-09-29] MEDS ORDERED: DEXTROSE 40% GEL 15 GM TUBE PO PRN ×2 (07:51)
[2020-09-29] MEDS ORDERED: NORMAL SALINE 250 ML IV PRN ×2 (07:59)
--- NOTE | 2020-09-29 08:47 | PDOC PROGRESS REPORT ---
Subjective Date:: 09/29/20 Subjective:: Patient is sitting up in bed, talkative. She states that she is not having any pain, but was very hungry yesterday. She is asking for something to drink this morning and asks what time of day it is. She is now off BiPAP and denies any dyspnea. Reason For Visit: RIGHT FEMORAL NECK FRACTURE Physical Exam Vital Signs: Temp Pulse Resp BP Pulse Ox 97.2 F 60 19 143/57 H 91 L 09/29/20 08:01 09/29/20 08:01 09/29/20 08:01 09/29/20 08:01 09/29/20 08:01 Intake & Output 09/28/20 09/29/20 09/30/20 06:59 06:59 06:59 Intake Total 2617 1340 Output Total 1150 1400 Balance 1467 -60 Weight 62 kg 60.4 kg General appearance: PRESENT: thin Head exam: PRESENT: normocephalic Eye exam: PRESENT: EOMI Respiratory exam: PRESENT: unlabored Neurological exam: PRESENT: altered, awake. ABSENT: oriented to person, oriented to time Psychiatric exam: PRESENT: appropriate affect Skin exam: PRESENT: normal color Results Laboratory Results: 09/29/20 04:29 09/29/20 04:29 09/28/20 09/28/20 09/29/20 07:32 08:40 04:29 WBC 13.7 H 12.8 H RBC 3.14 L 3.08 L Hgb 9.6 L 9.3 L Hct 27.4 L 27.0 L MCV 87 88 MCH 30.6 30.3 MCHC 35.0 34.6 RDW 13.7 14.0 Plt Count 39 L 46 L Carbonic Acid 1.00 L HCO3/H2CO3 Ratio 23:1 ABG pH 7.47 H ABG pCO2 33.1 L ABG pO2 75.3 L ABG HCO3 23.7 ABG O2 Saturation 96.0 ABG Base Excess 0.6 FiO2 45% Sodium Potassium Chloride Carbon Dioxide Anion Gap BUN Creatinine Est GFR ( Amer) Glucose Calcium Magnesium 09/29/20 09/29/20 04:29 05:50 WBC RBC Hgb Hct MCV MCH MCHC RDW Plt Count Carbonic Acid 1.04 L HCO3/H2CO3 Ratio 22:1 ABG pH 7.44 ABG pCO2 34.7 L ABG pO2 66.0 L ABG HCO3 23.3 ABG O2 Saturation 94.0 ABG Base Excess -0.5 FiO2 4.5L Sodium 137.6 Potassium 3.9 Chloride 107 Carbon Dioxide 25 Anion Gap 6 BUN 54 H Creatinine 1.05 Est GFR ( Amer) > 60 Glucose 159 H Calcium 8.4 Magnesium 2.2 Impressions: Hip/Pelvis X-Ray 09/25/20 13:37 IMPRESSION: Impacted subcapital fracture of the femoral neck. Chest X-Ray 09/26/20 00:00 IMPRESSION: Dense alveolar and interstitial infiltrates edema versus ARDS versus pneumonia. This is progressive since yesterday KUB X-Ray 09/26/20 00:00 IMPRESSION: NO RADIOGRAPHIC EVIDENCE FOR ACUTE ABDOMINAL DISEASE. UNCHANGED RIGHT SUBCAPITAL FEMORAL NECK FRACTURE Lung Scan-VQ NM 09/26/20 00:00 IMPRESSION: NORMAL PERFUSION LUNG SCAN. Head CT 09/27/20 00:00 IMPRESSION: CHRONIC CHANGES OF ATROPHY AND MICROVASCULAR ISCHEMIA. NO ACUTE PROCESS. EVIDENCE OF ACUTE STROKE: NO. Assessment & Plan - Diagnosis (1) Femoral neck fracture Qualifiers: Encounter type: initial encounter Fracture type: closed Laterality: right Qualified Code(s): S72.001A - Fracture of unspecified part of neck of right femur, initial encounter for closed fracture Is this a current diagnosis for this admission?: Yes (2) Leukocytosis Qualifiers: Leukocytosis type: unspecified Qualified Code(s): D72.829 - Elevated white blood cell count, unspecified Is this a current diagnosis for this admission?: Yes Plan: remains on Cefapime for UTI. This continues to improve. No fevers. (3) Thrombocytopenia Is this a current diagnosis for this admission?: Yes Plan: After discussed with Drs. Carias and Enma, plan is to transfuse PLT today and proceed with ORIF later today, or in AM, as soon as PLT are in a safer range. I will arrange transfusion NISH. - Time Time Spent with patient: 15-24 minutes - Plan Summary Plan Summary: Patient was discussed with the rest of the physician team. Patient is agreeable to transfusion. Please call if needed.
[2020-09-29] MEDS ORDERED: LABETALOL HCL INJ 20 MG/4 ML DISP.SYRIN IV ONE (09:45)
--- NOTE | 2020-09-29 09:50 | PDOC PROGRESS REPORT ---
Subjective Date:: 09/29/20 Subjective:: Patient lying in bed currently requiring nasal cannula. Is much more awake and alert today. States pain is currently controlled. Does complain of some weakness. Denies chest pain today. Son at bedside. Reason For Visit: RIGHT FEMORAL NECK FRACTURE Physical Exam Vital Signs: Temp Pulse Resp BP Pulse Ox 97.2 F 61 20 143/57 H 96 09/29/20 08:01 09/29/20 08:44 09/29/20 08:44 09/29/20 08:01 09/29/20 08:44 Intake & Output 09/28/20 09/29/20 09/30/20 06:59 06:59 06:59 Intake Total 2617 1340 Output Total 1150 1400 Balance 1467 -60 Weight 62 kg 60.4 kg Musculoskeletal exam: PRESENT: other - Right hip: Short/external rotated. Positive logroll. Intact plantarflexion/dorsiflexion. No sensory deficits. Results Laboratory Results: 09/29/20 04:29 09/29/20 04:29 09/29/20 09/29/20 09/29/20 04:29 04:29 05:50 WBC 12.8 H RBC 3.08 L Hgb 9.3 L Hct 27.0 L MCV 88 MCH 30.3 MCHC 34.6 RDW 14.0 Plt Count 46 L Carbonic Acid 1.04 L HCO3/H2CO3 Ratio 22:1 ABG pH 7.44 ABG pCO2 34.7 L ABG pO2 66.0 L ABG HCO3 23.3 ABG O2 Saturation 94.0 ABG Base Excess -0.5 FiO2 4.5L Sodium 137.6 Potassium 3.9 Chloride 107 Carbon Dioxide 25 Anion Gap 6 BUN 54 H Creatinine 1.05 Est GFR ( Amer) > 60 Glucose 159 H Calcium 8.4 Magnesium 2.2 Impressions: Hip/Pelvis X-Ray 09/25/20 13:37 IMPRESSION: Impacted subcapital fracture of the femoral neck. Chest X-Ray 09/26/20 00:00 IMPRESSION: Dense alveolar and interstitial infiltrates edema versus ARDS versus pneumonia. This is progressive since yesterday KUB X-Ray 09/26/20 00:00 IMPRESSION: NO RADIOGRAPHIC EVIDENCE FOR ACUTE ABDOMINAL DISEASE. UNCHANGED RIGHT SUBCAPITAL FEMORAL NECK FRACTURE Lung Scan-VQ NM 09/26/20 00:00 IMPRESSION: NORMAL PERFUSION LUNG SCAN. Head CT 09/27/20 00:00 IMPRESSION: CHRONIC CHANGES OF ATROPHY AND MICROVASCULAR ISCHEMIA. NO ACUTE PROCESS. EVIDENCE OF ACUTE STROKE: NO. Assessment & Plan - Diagnosis (1) Femoral neck fracture Qualifiers: Encounter type: initial encounter Fracture type: closed Laterality: right Qualified Code(s): S72.001A - Fracture of unspecified part of neck of right femur, initial encounter for closed fracture Is this a current diagnosis for this admission?: Yes Plan: I have discussed the case with patient's son and current plan is to proceed with operative intervention either today or tomorrow depending on anesthesia clearance. Have also discussed with Dr. Prince and Dr. Edge Plan is to transfuse platelets. From medical standpoint patient has seen significant improvement and if her platelets are improved anesthesia is willing to proceed with operative treatment with spinal anesthesia. Tentative plan is to proceed with operative intervention today understanding it may be delayed till tomorrow. I also reiterated the risk and benefits of surgical seizure especially given patient's multiple comorbidities and age with the son. Despite these risks decision was made to proceed with operative intervention which includes right hip hemiarthroplasty. - Time Time Spent with patient: Less than 15 minutes
[2020-09-29] MEDS: CEFEPIME 1 GM/D5W RTU 1 GM/50 ML RTUPB IV SCH ×2 (09:57→22:25)
[2020-09-29] MEDS: CARVEDILOL 6.25 MG TABLET PO SCH ×2 (10:47→22:20)
[2020-09-29] MEDS: LOSARTAN POTASSIUM 50 MG TABLET PO SCH (10:47)
[2020-09-29] MEDS: ESCITALOPRAM OXALATE 10 MG TABLET PO SCH (10:47)
[2020-09-29] MEDS: SILDENAFIL CITRATE 20 MG TABLET PO SCH ×3 (10:47→18:17)
[2020-09-29] MEDS: ACETAMINOPHEN 325 MG TABLET PO SCH ×3 (10:48→18:17)
--- NOTE | 2020-09-29 11:03 | PDOC PROGRESS REPORT ---
Subjective Date:: 09/29/20 Subjective:: ALEXANDER CHRISTOPHER is an 89 year old female with PMH of HTN, HLD, CHF, CHB s/p pacemaker, pulmonary hypertension on 2 L home O2 and frequent falls who presented to the ED s/p fall with R hip pain. She notes that she hates using canes/walkers. She was walking to the mailbox today when she had a mechanical fall onto her R hip. She denies LOC or head trauma. She recently (4-5 weeks ago) had a fall which results in a LUE fracture, which is still in a cast. She also notes that she broke her left hip in a fall a few years ago. She denies recent illnesses, sick contacts, fevers/chills, SOB, CP, cough, abdominal pain, dysuria. Pain is currently well controlled. In the ED, she was found to have a R femoral neck fracture. Orthopedic surgery was consulted and recommended surgical repair on 09/26. 09/26/2020. This morning patient noted to be hypoxic, and having nausea and vomi ting, stat ABG showed hypoxemia. Chest x-ray showed diffuse alveolar and interstitial infiltrate edema, ARDS or pneumonia. VQ scan negative for any PE. Unfortunately patient's surgery was delayed due to worsening respiratory symptoms. Overnight patient's oxygen demand has gone up but as per night nurse patient did not have any nausea or vomiting overnight, not sure if patient had aspiration or she is developing pneumonia. Patient received COVID-19 vaccination last 09/27/2020. Unfortunately patient's clinical status is deteriorating compared to yesterday, yesterday she started to become hypoxic and was having nausea and vomiting, initial thought was patient might have developed aspiration pneumonia, but given her worsening platelet levels, elevated D-dimers, fibrinogen, and ot her inflammatory markers looks like patient has developed ARDS and DIC likely due to fat emboli due to acute hip fracture. I have visited patient several times today, residential therapist patient was more alert and oriented and following commands however as the day has progressed and has become more delirious and anxious, however her oxygen demand is decreasing as well as her leukocytosis. I have had discussions with 2 of her sons and I have updated them about her underlying medical conditions. 09/28/2020. No acute events overnight, patient has moderate improvement of her symptoms since yesterday, currently off of BiPAP on 6 L nasal cannula saturating WNL, her leukocytosis and kidney function are also improving, her platelets are trending down but still below normal, patient appears very weak however follows commands and talks in a very low voice, denies having any pain. 09/29/2020. Moderate improvement. SPO2 WNL on 3 L nasal cannula, platelets are improving, patient awake and alert however confused at times, not sure if this is her baseline, complaining of being hungry otherwise denies any lower extremity pain, denies any fever, chills, nausea, vomiting. She is scheduled for surgery today. Reason For Visit: RIGHT FEMORAL NECK FRACTURE Physical Exam Vital Signs: Temp Pulse Resp BP Pulse Ox 97.2 F 61 20 143/57 H 96 09/29/20 08:01 09/29/20 08:44 09/29/20 08:44 09/29/20 08:01 09/29/20 08:44 Intake & Output 09/28/20 09/29/20 09/30/20 06:59 06:59 06:59 Intake Total 2617 1340 50 Output Total 1150 1400 Balance 1467 -60 50 Weight 62 kg 60.4 kg General appearance: PRESENT: no acute distress, thin Head exam: PRESENT: atraumatic, normocephalic Neck exam: ABSENT: carotid bruit, JVD, lymphadenopathy, thyromegaly Respiratory exam: PRESENT: clear to auscultation jase. ABSENT: rales, rhonchi, wheezes Cardiovascular exam: PRESENT: RRR. ABSENT: diastolic murmur, rubs, systolic murmur GI/Abdominal exam: PRESENT: normal bowel sounds, soft. ABSENT: distended, guarding, mass, organolmegaly, rebound, tenderness Neurological exam: PRESENT: alert, awake, oriented to person, CN II-XII grossly intact. ABSENT: motor sensory deficit Results Laboratory Results: 09/29/20 04:29 09/29/20 04:29 09/29/20 09/29/20 09/29/20 04:29 04:29 05:50 WBC 12.8 H RBC 3.08 L Hgb 9.3 L Hct 27.0 L MCV 88 MCH 30.3 MCHC 34.6 RDW 14.0 Plt Count 46 L Carbonic Acid 1.04 L HCO3/H2CO3 Ratio 22:1 ABG pH 7.44 ABG pCO2 34.7 L ABG pO2 66.0 L ABG HCO3 23.3 ABG O2 Saturation 94.0 ABG Base Excess -0.5 FiO2 4.5L Sodium 137.6 Potassium 3.9 Chloride 107 Carbon Dioxide 25 Anion Gap 6 BUN 54 H Creatinine 1.05 Est GFR ( Amer) > 60 Glucose 159 H Calcium 8.4 Magnesium 2.2 Blood Type 09/29/20 08:34 WBC RBC Hgb Hct MCV MCH MCHC RDW Plt Count Carbonic Acid HCO3/H2CO3 Ratio ABG pH ABG pCO2 ABG pO2 ABG HCO3 ABG O2 Saturation ABG Base Excess FiO2 Sodium Potassium Chloride Carbon Dioxide Anion Gap BUN Creatinine Est GFR ( Amer) Glucose Calcium Magnesium Blood Type O POSITIVE Impressions: Hip/Pelvis X-Ray 09/25/20 13:37 IMPRESSION: Impacted subcapital fracture of the femoral neck. Chest X-Ray 09/26/20 00:00 IMPRESSION: Dense alveolar and interstitial infiltrates edema versus ARDS versus pneumonia. This is progressive since yesterday KUB X-Ray 09/26/20 00:00 IMPRESSION: NO RADIOGRAPHIC EVIDENCE FOR ACUTE ABDOMINAL DISEASE. UNCHANGED RIGHT SUBCAPITAL FEMORAL NECK FRACTURE Lung Scan-VQ NM 09/26/20 00:00 IMPRESSION: NORMAL PERFUSION LUNG SCAN. Head CT 09/27/20 00:00 IMPRESSION: CHRONIC CHANGES OF ATROPHY AND MICROVASCULAR ISCHEMIA. NO ACUTE PROCESS. EVIDENCE OF ACUTE STROKE: NO. Assessment and Plan - Diagnosis (1) Acute hypoxemic respiratory failure Is this a current diagnosis for this admission?: Yes Plan: Moderate improvement compared to yesterday. Off of BiPAP. Currently saturating WNL on 3 L nasal cannula. Initially thought to be aspiration pneumonia but seems like that patient has developed ARDS aspiration pneumonia but community-acquired pneumonia also remains a possibility. Patient has been having nausea vomiting since last night which increases likelihood of aspiration pneumonia. Patient had left hip fracture prior to admission. She also received COVID-19 vaccination on 09/22/2020. ABG 09/28/2020 mild improvement of hypoxemia. Chest x-ray dense alveolar and interstitial infiltrates edema, ARDS or pneumonia. VQ scan negative for any PE. COVID-19 serology negative. Day 4 IV antibiotics. Day 4 IV cefepime. Continue empiric broad-spectrum IV antibiotics and high-dose IV steroids. Scheduled duo nebs, scheduled BiPAP as needed, pulmonary toileting. Follow-up sputum and blood culture. (2) Disseminated intravascular coagulation Is this a current diagnosis for this admission?: Yes Plan: No DIC as per hematology note. Platelets trending up. Patient had hip fracture prior to presentation to ED, fat emboli is known to cause DIC in some cases. Not sure if this is true DIC since patient is having worsening thrombocytopenia, anemia, direct hyper bilirubinemia, elevated D-dimer but elevated fibrinogen. Has also developed ecchymosis on her extremities and face. Monitor closely, supportive transfusions, high-dose steroids. Hematology consulted. Recommendations noted. (3) Pneumonia Qualifiers: Pneumonia type: aspiration pneumonia Is this a current diagnosis for this admission?: Yes Plan: As per #1. (4) Thrombocytopenia Is this a current diagnosis for this admission?: Yes Plan: Mild improvement. Has not received any heparin. No history of recent hospitalization. Unlikely this is heparin-induced thrombocytopenia. Likely due to #2. Plan as per above. (5) COPD (chronic obstructive pulmonary disease) Qualifiers: COPD type: unspecified COPD Qualified Code(s): J44.9 - Chronic obstructive pulmonary disease, unspecified Is this a current diagnosis for this admission?: Yes Plan: History of oxygen dependent COPD 2 L nasal cannula. Plan as per #1. (6) Femoral neck fracture Qualifiers: Encounter type: initial encounter Fracture type: closed Laterality: right Qualified Code(s): S72.001A - Fracture of unspecified part of neck of right femur, initial encounter for closed fracture Is this a current diagnosis for this admission?: Yes Plan: Ortho on board, scheduled for hemiarthroplasty today. (7) Hypertension Qualifiers: Hypertension type: essential hypertension Qualified Code(s): I10 - Essential (primary) hypertension Is this a current diagnosis for this admission?: Yes Plan: Monitor vitals, continue home meds. Adjust meds as needed. (8) Nausea & vomiting Qualifiers: Vomiting Intractability: unspecified Is this a current diagnosis for this admission?: Yes Plan: Resolved. Likely gastroenteritis. KUB no acute changes. Antiemetics, supportive measures, monitor electrolytes at volume status. Replace electrolytes as needed. (9) Frequent falls Is this a current diagnosis for this admission?: Yes Plan: Fall precautions. Outpatient PT. (10) Pulmonary hypertension Is this a current diagnosis for this admission?: Yes Plan: History of severe pulmonary hypertension. On 2L Home O2 Supplemental O2 for goal saturation >90% Continue home sildenafil Outpatient pulmonology follow-up. (11) ANDRAE (acute kidney injury) Is this a current diagnosis for this admission?: Yes Plan: Resolved. Prerenal. Likely due to nausea vomiting and low p.o. intake. Cautious volume restriction guided by volume status given acute respiratory failure. Monitor volume status and electrolytes, replace electrolytes as needed. BMP tomorrow. Nephrology consulted. - Plan Summary Summary: -Lui CHRISTOPHER is an 89 year old female with PMH of HTN, HLD, CHF, CHB s/p pacemaker, pulmonary hypertension on 2 L home O2 and frequent falls who present ed to the ED s/p fall with R hip pain. She notes that she hates using canes/walkers. She was walking to the mailbox today when she had a mechanical fall onto her R hip. She recently (4-5 weeks ago) had a fall which results in a LUE fracture, which is still in a cast. She also notes that she broke her left hip in a fall a few years ago. She denies recent illnesses, sick contacts, fevers/chills, SOB, CP, cough, abdominal pain, dysuria. R femoral neck fracture - Orthopedic surgery was consulted and recommended surgical repair on 09/26 (NPO past MS) - bed rest - fall precautions - [facility] catheter placed in ED - PT immediately after surgery - pain control with oxycodone PRN, Tylenol scheduled and Morphine for breakthrough pain Pre-Operative Risk Assessment: she is euvolemic on exam and on the appropriate cardiac medications to control her risk factors. She has a Revised Cardiac Risk Index for Pre-Operative Risk of 2 (Class III) with a 10.1% 30-day risk of , NM or cardiac arrest. I discussed risks of surgery/anesthesia with patient and her son at bedside. They are understanding that she is high risk given her cardiac and pulmonary function, but are willing to take the risk to maximize her mobility and quality of life. Pulmonary HTN: on 2L Home O2 - Duo-Nebs PRN - supplemental O2 for goal saturation >90% - continue home sildenafil Leukocytosis: likely a stress reaction given fall and femur fracture. She has no other signs of or symptoms of infection. UA shows small LE and bacteria - this is likely due to asymptomatic bacteriuria and does not require antibiotic the rapy. - repeat CBC in AM - hold off on antibiotics Congestive Heart Failure: euvolemic to slightly dry on exam today. No evidence of volume overload. - restart home medications - avoid aggressive IVF hydration Essential HTN: uncontrolled, likely due to the fact that she has not taken any of her home medications today - restart home medications Complete Heart Block s/p pacemaker - telemetry Dispo: she will likely require SNF placement on discharge. Discharge planning consult placed. DVT ppx: hold off on starting until after surgery tomorrow morning Code Status: DNR/DNI - Time Time Spent with patient: 35 or more minutes Anticipated Discharge Disposition: [facility] Facility Anticipated Discharge Timeframe: within 72 hours
[2020-09-29 15:30] LABS: HEMATOCRIT 25.6 % (36.0-47.0); HEMOGLOBIN 8.7 g/dL (12.0-15.5); MEAN CORPUSCULAR HEMOGLOBIN 29.8 pg (27.0-33.4); MEAN CORPUSCULAR VOLUME 88 fl (80-97); RED BLOOD COUNT 2.92 10^6/uL (3.72-5.28); WHITE BLOOD COUNT 14.3 10^3/uL (4.0-10.5)
[2020-09-29 15:47] LABS: PLATELET COUNT 130 10^3/uL (150-450)
[2020-09-29 15:49] LABS: ABSOLUTE LYMPHOCYTES# (MANUAL) 0.1 10^3/uL (0.5-4.7); ABSOLUTE MONOCYTES # (MANUAL) 0.6 10^3/uL (0.1-1.4); BASOPHILS % (MANUAL) 0 % (0-2); EOSINOPHILS % (MANUAL) 0 % (0-6); LYMPHOCYTES % (MANUAL) 1 % (13-45); MONOCYTES % (MANUAL) 4 % (3-13); SEGMENTED NEUTROPHILS % (MAN) 95 % (42-78); TOTAL CELLS COUNTED 100
[2020-09-29 15:50] LABS: ANISOCYTOSIS SLIGHT; PLATELET COMMENT DECREASED; PLATELET LARGE PRESENT
[2020-09-29] MEDS ORDERED: BACITRACIN INJ 50,000 UNIT VIAL ONE (16:29)
[2020-09-29] MEDS ORDERED: CEFAZOLIN INJ 1 GM VIAL ONE (17:11)
[2020-09-29] MEDS ORDERED: MORPHINE SULFATE 10 MG/ML INJ IV PRN (18:08)
[2020-09-29] MEDS ORDERED: PROMETHAZINE HCL INJ 25 MG/1 ML VIAL IV PRN ×2 (18:08)
[2020-09-29] MEDS ORDERED: FENTANYL CITRATE INJ/PF 100 MCG/2 ML AMPUL IV PRN ×3 (18:08)
[2020-09-29] MEDS ORDERED: DIPHENHYDRAMINE HCL 50 MG/ML VIAL IV PRN (18:08)
[2020-09-29] MEDS ORDERED: MAG HYDROX/AL HYDROX/SIMETH SUSP 30 ML UDCUP PO PRN (19:01)
--- NOTE | 2020-09-29 19:01 | Operative Report ---
Operative Report DATE OF SURGERY: 09/29/20 PREOPERATIVE DIAGNOSIS: Right displaced femoral neck fracture POSTOPERATIVE DIAGNOSIS: Same OPERATION: Right hip hemiarthroplasty SURGEON: FADI IZQUIERDO 1ST MORPHOLOGIST: MYRON NOEL - Required for patient positioning, retractor placement, left leg manipulation and wound closure ANESTHESIA: Spinal COMPLICATIONS: None ESTIMATED BLOOD LOSS: 100cc PROCEDURE: Indication for above procedure: 89-year-old female who sustained a fall onto her right hip. Patient was a community ambulator and was brought to the emergency room where x-rays demonstrated displaced femoral neck fracture. We discussed treatment options the patient and family decision was made to proceed with operative intervention. Unfortunately during patient's hospital course she developed bilateral pneumonia along with thrombocytopenia. Patient was medically optimized with antibiotics and received 2 packages of platelets on 09/29/2020. Once patient's platelet count and pulmonary status improved decision was made to proceed with operative intervention. Procedure In Detail: Patient was seen and evaluated in the preoperative holding area. The RIGHT lower extremity was initialized and marked. Patient received 2g of Ancef IV for bacterial prophylaxis. Patient was taken back to the operative room where transferred to the operative table and placed under spinal anesthesia. Once they were adequately anesthetized patient was placed in the lateral position an axillary roll was placed in nonoperative left lower extremity was carefully padded.. A surgical team debriefing was performed ensuring all instrumentation was available, the surgical procedure was discussed with possible concerns revi ewed. The upper extremity was prepped with chlor prep draped in a sterile fashion. A timeout was done identifying correct patient, procedure and extremity everyone in attendance agree with this and verbalized no concerns. A posterior skin incision was made just posterior to the greater trochanter. Dissection was done down to the gluteus christophe and iliotibial band fascia this was split in line with the skin incision. Any peripheral vasculature was carefully coagulated. A Charley retractor was placed after palpation of the sciatic nerve and the sciatic nerve was safely retracted from the wound throughout the entirety of the case. I then identified the external rotators with the use of a Bovie this was carefully elevated off along with underlying capsule from the neck in a T-shaped capsulotomy was made just superior to the piriformis and tagged The femoral neck was identified and approximately 1 fingerbreadth above the lesser trochanter a freshening cut was made. Any excess bone remaining was carefully removed. I then used the corkscrew to remove the femoral head from the acetabulum which was then measured on the back table. The excess bone was removed and removed the scopes irrigated with normal saline. I then trial the femoral head according to what was measured on the back table and got good fit within the acetabulum w/ a size 49 head. I then turned my attention to femoral preparation. A box osteotome was first used to get laterally along the trochanter. I then used the lateralizing reamer to avoid medialization of the stem and ultimately varus malalignment. I then began broaching with a 0 broach and broached up to a #6 broach which was somewhat countersunk. I then utilized the calcar reamer reamed out the appropriate level. I then broached up to a #7 broach which I got good proximal fit. I began trialing with a #0 neck length and had good stability through flexion, internal rotation and adduction. There is no instability with external rotation. Leg lengths were found to be compatible and equal to the other side. At this point the trial implants were removed. The wound was irrigated with normal saline. I then implanted my appropriate size stem the good peripheral fit and placement at my predetermined broach level. I then implanted the final unipolar head. The hip was reduced once again measures stability and good stability throughout all range of motion with no palpable impingement. Leg lengths were equivalent to the nonoperative side. The wound was copiously irrigated with normal saline. Utilizing a #5 FiberWire suture I secured the capsule posteriorly into the trochanter. I then irrigated once again with normal saline. The gluteus christophe and tensor fascia rocio was closed with a running 0 PDS suture. I then closed the subcutaneous tissues with interrupted 2-0 Vicryl suture. The skin was closed a running 3-0 subcuticular Monocryl suture this was then reinforced with Dermabond and Steri-Strips. A sterile Tegaderm dressing was then placed. Sponge counts, instrument counts and needle counts were correct. Patient was then awoken from anesthesia laid supine at which point her leg lengths were once again checked and found to be equal to the nonoperative extremity. Patient was then transferred to the operating stretcher and placed in an abduction pillow. The was no intraoperative complications patient tolerated procedure well was stable to PACU. Postoperative plan: Patient will be started on ASA for DVT prophylaxis. She will begin physical therapy on postop day #1. Implants: Accolade II Size 7, 49 Unipolar Head, +0 Neck Length
[2020-09-29] MEDS: RINGERS SOLUTION,LACTATED 1,000 ML IV PRN (21:07)
[2020-09-29] MEDS: ATORVASTATIN CALCIUM 40 MG TABLET PO SCH (22:20)
[2020-09-29] MEDS: DILTIAZEM HCL 180 MG CAPSULE.CR PO SCH (22:21)
[2020-09-30] MEDS ORDERED: CEFAZOLIN 2 GM/D5W RTU 50 ML IV SCH
[2020-09-30] MEDS: OXYCODONE HCL IR 5 MG TABLET PO PRN ×2 (00:52→21:08)
[2020-09-30] MEDS: METHYLPREDNISOLONE INJ 40 MG/1 ML SDV IV SCH ×2 (03:08→09:30)
[2020-09-30 06:09] LABS: HEMATOCRIT 22.3 % (36.0-47.0); MEAN CORPUSCULAR HGB CONC 34.4 g/dL (32.0-36.0); MEAN CORPUSCULAR VOLUME 87 fl (80-97); PLATELET COUNT 110 10^3/uL (150-450); RED BLOOD COUNT 2.56 10^6/uL (3.72-5.28); RED CELL DISTRIBUTION WIDTH 13.9 % (11.5-14.0); WHITE BLOOD COUNT 12.9 10^3/uL (4.0-10.5)
[2020-09-30 06:36] LABS: HEMOGLOBIN 7.7 g/dL (12.0-15.5)
[2020-09-30 06:48] LABS: ABSOLUTE LYMPHOCYTES# (MANUAL) 0.5 10^3/uL (0.5-4.7); ABSOLUTE MONOCYTES # (MANUAL) 0.1 10^3/uL (0.1-1.4); BASOPHILS % (MANUAL) 0 % (0-2); EOSINOPHILS % (MANUAL) 0 % (0-6); LYMPHOCYTES % (MANUAL) 4 % (13-45); MONOCYTES % (MANUAL) 1 % (3-13); SEGMENTED NEUTROPHILS % (MAN) 95 % (42-78); TOTAL CELLS COUNTED 100
[2020-09-30 06:49] LABS: PLATELET COMMENT DECREASED; RBC MORPHOLOGY COMMENT NORMO-CYTIC/CHROMIC; TOXIC GRANULATION SLIGHT
[2020-09-30 06:58] LABS: ALBUMIN 2.6 g/dL (3.5-5.0); ALKALINE PHOSPHATASE 59 U/L (38-126); ANION GAP 7 (5-19); ASPARTATE AMINO TRANSFERASE 36 U/L (14-36); BILIRUBIN,DIRECT 0.4 mg/dL (0.0-0.4); BILIRUBIN,TOTAL 1.2 mg/dL (0.2-1.3); BLOOD UREA NITROGEN 59 mg/dL (7-20); CALCIUM 8.3 mg/dL (8.4-10.2); CARBON DIOXIDE 25 mmol/L (22-30); CHLORIDE 106 mmol/L (98-107); GLUCOSE 118 mg/dL (75-110); POTASSIUM 3.9 mmol/L (3.6-5.0); TOTAL PROTEIN 5.1 g/dL (6.3-8.2)
--- NOTE | 2020-09-30 08:32 | RADIOLOGY REPORT (SQ) ---
EXAM DESCRIPTION: WRIST LEFT 3 VIEWS IMAGES COMPLETED DATE/TIME: 09/29/2020 7:14 pm REASON FOR STUDY: Fracture COMPARISON: None. NUMBER OF VIEWS: Three views. TECHNIQUE: AP, lateral, and oblique radiographic images acquired of the left wrist. LIMITATIONS: Overlying casting material obscures fine osseous detail. FINDINGS: MINERALIZATION: Osteopenia. BONES: Moderately displaced comminuted fracture of the distal radius demonstrating callus formation, conferring a subacute appearance. Mildly displaced ulnar styloid fracture. No acute osseous injury demonstrated on this limited exam. Degenerative changes are seen at the thumb carpal metacarpal join t. There is widening of the scapholunate interval. SOFT TISSUES: No soft tissue swelling. No foreign body. OTHER: No other significant finding. IMPRESSION: Distal radius and ulna fractures as detailed above. No acute findings on this limited e xamination. TECHNICAL DOCUMENTATION: JOB ID: [id number] 2010 [employer]- All Rights Reserved Reading location - IP/workstation name: [email or web address]
--- NOTE | 2020-09-30 08:34 | PDOC PROGRESS REPORT ---
Subjective Date:: 09/30/20 Subjective:: Patient sitting up in bed and talkative. Oldest son is at bedside. She states that her nose itches. She denies any pain or dyspnea. No active bleeding per staff. Reason For Visit: RIGHT FEMORAL NECK FRACTURE Physical Exam Vital Signs: Temp Pulse Resp BP Pulse Ox 97.1 F 66 18 155/69 H 97 09/30/20 07:50 09/30/20 07:50 09/30/20 07:50 09/30/20 07:50 09/30/20 07:50 Intake & Output 09/29/20 09/30/20 10/01/20 06:59 06:59 06:59 Intake Total 1340 2576 Output Total 1400 1365 Balance -60 1211 Weight 60.4 kg 60.2 kg General appearance: PRESENT: thin Head exam: PRESENT: normocephalic Eye exam: PRESENT: EOMI Mouth exam: PRESENT: dry mucosa Respiratory exam: PRESENT: unlabored Neurological exam: PRESENT: alert, awake Psychiatric exam: PRESENT: appropriate affect Skin exam: PRESENT: pallor Results Laboratory Results: 09/30/20 05:02 09/30/20 05:02 09/29/20 09/29/20 09/30/20 08:34 15:19 05:02 WBC 14.3 H 12.9 H RBC 2.92 L 2.56 L Hgb 8.7 L 7.7 L Hct 25.6 L 22.3 L MCV 88 87 MCH 29.8 30.0 MCHC 34.0 34.4 RDW 14.0 13.9 Plt Count 130 L D 110 L Seg Neutrophils % Not Reportable Not Reportable Sodium Potassium Chloride Carbon Dioxide Anion Gap BUN Creatinine Est GFR ( Amer) Glucose Calcium Total Bilirubin AST Alkaline Phosphatase Total Protein Albumin Blood Type O POSITIVE 09/30/20 05:02 WBC RBC Hgb Hct MCV MCH MCHC RDW Plt Count Seg Neutrophils % Sodium 137.5 Potassium 3.9 Chloride 106 Carbon Dioxide 25 Anion Gap 7 BUN 59 H Creatinine 0.94 Est GFR ( Amer) > 60 Glucose 118 H Calcium 8.3 L Total Bilirubin 1.2 AST 36 Alkaline Phosphatase 59 Total Protein 5.1 L Albumin 2.6 L Blood Type Impressions: Chest X-Ray 09/26/20 00:00 IMPRESSION: Dense alveolar and interstitial infiltrates edema versus ARDS versus pneumonia. This is progressive since yesterday KUB X-Ray 09/26/20 00:00 IMPRESSION: NO RADIOGRAPHIC EVIDENCE FOR ACUTE ABDOMINAL DISEASE. UNCHANGED RIGHT SUBCAPITAL FEMORAL NECK FRACTURE Lung Scan-VQ NM 09/26/20 00:00 IMPRESSION: NORMAL PERFUSION LUNG SCAN. Head CT 09/27/20 00:00 IMPRESSION: CHRONIC CHANGES OF ATROPHY AND MICROVASCULAR ISCHEMIA. NO ACUTE PROCESS. EVIDENCE OF ACUTE STROKE: NO. Assessment & Plan - Diagnosis (1) Femoral neck fracture Qualifiers: Encounter type: initial encounter Fracture type: closed Laterality: right Qualified Code(s): S72.001A - Fracture of unspecified part of neck of right femur, initial encounter for closed fracture Is this a current diagnosis for this admission?: Yes Plan: s/p ORIF yesterday. Pain well controlled. (2) Leukocytosis Qualifiers: Leukocytosis type: unspecified Qualified Code(s): D72.829 - Elevated white blood cell count, unspecified Is this a current diagnosis for this admission?: Yes Plan: Most likely reactive. Resolving. Day 5 Cefapime. Would consider change to PO ABX. Urine cultures sensitive to Cipro. I will defer to primary team. (3) Thrombocytopenia Is this a current diagnosis for this admission?: Yes Plan: Much improved after transfusion. Will continue to transfuse to keep PLT >50 after surgery. I agree with DVT prophylaxis as long as PLT >50. (4) Anemia Qualifiers: Anemia type: unspecified type Qualified Code(s): D64.9 - Anemia, unspecified Is this a current diagnosis for this admission?: Yes Plan: Most likely blood loss after Hip fracture and surgery. I agree with pRBC transfusion. This has already been ordered. - Time Time Spent with patient: 15-24 minutes - Plan Summary Plan Summary: I discussed her care with family. All questions answered to the best of my ability.
--- NOTE | 2020-09-30 08:34 | RADIOLOGY REPORT (SQ) ---
EXAM DESCRIPTION: HIP RIGHT AP/LATERAL IMAGES COMPLETED DATE/TIME: 09/29/2020 7:14 pm REASON FOR STUDY: Post Operative COMPARISON: None. NUMBER OF VIEWS: Two views. TECHNIQUE: AP pelvis and additional frog legview of the right hip. LIMITATIONS: None. FINDINGS: MINERALIZATION: Osteopenia. RIGHT HIP: Status post right total hip arthroplasty without evidence of hardware complication or acut e osseous injury. LEFT HIP: Status post total hip arthroplasty, incompletely characterized but without evidence of hard antonio complication. PUBIS AND ISCHIUM: No fracture. PELVIS: No fracture. SACRUM: No fracture or dislocation. No worrisome bone lesions. LOWER LUMBAR SPINE: No fracture or dislocation. No worrisome bone lesions. No significant disc disea se. SOFT TISSUES: Subcutaneous gas is not an unexpected finding in the immediate postoperative setting. OTHER: No other significant finding. IMPRESSION: Status post right total hip arthroplasty without evidence of hardware complication. Add itional chronic and incidental findings as detailed above. TECHNICAL DOCUMENTATION: JOB ID: [id number] 2010 [employer] All Rights Reserved Reading location - IP/workstation name: [email or web address]
[2020-09-30] MEDS: ESCITALOPRAM OXALATE 10 MG TABLET PO SCH (09:30)
[2020-09-30] MEDS: LOSARTAN POTASSIUM 50 MG TABLET PO SCH (09:30)
[2020-09-30] MEDS: CARVEDILOL 6.25 MG TABLET PO SCH ×2 (09:30→21:08)
[2020-09-30] MEDS: MULTIVITAMIN TABLET PO SCH (09:30)
[2020-09-30] MEDS: SENNOSIDES/DOCUSATE 8.6-50 MG 1 EACH TABLET PO SCH ×2 (09:30→17:13)
[2020-09-30] MEDS: SILDENAFIL CITRATE 20 MG TABLET PO SCH ×3 (09:30→17:13)
[2020-09-30] MEDS: ACETAMINOPHEN 325 MG TABLET PO SCH ×3 (09:30→17:14)
[2020-09-30] MEDS: CEFEPIME 1 GM/D5W RTU 1 GM/50 ML RTUPB IV SCH ×2 (09:31→21:09)
[2020-09-30] MEDS: RINGERS SOLUTION,LACTATED 1,000 ML IV PRN (09:37)
[2020-09-30] MEDS ORDERED: PRENATAL VITAMIN W DHA CAPSULE PO SCH (10:00)
[2020-09-30] MEDS: METHYLPREDNISOLONE INJ 125 MG/2 ML SDV IV SCH (10:05)
--- NOTE | 2020-09-30 10:42 | PDOC PROGRESS REPORT ---
Subjective Date:: 09/30/20 Subjective:: ALEXANDER CHRISTOPHER is an 89 year old female with PMH of HTN, HLD, CHF, CHB s/p pacemaker, pulmonary hypertension on 2 L home O2 and frequent falls who presented to the ED s/p fall with R hip pain. She notes that she hates using canes/walkers. She was walking to the mailbox today when she had a mechanical fall onto her R hip. She denies LOC or head trauma. She recently (4-5 weeks ago) had a fall which results in a LUE fracture, which is still in a cast. She also notes that she broke her left hip in a fall a few years ago. She denies recent illnesses, sick contacts, fevers/chills, SOB, CP, cough, abdominal pain, dysuria. Pain is currently well controlled. In the ED, she was found to have a R femoral neck fracture. Orthopedic surgery was consulted and recommended surgical repair on 09/26. 09/26/2020. This morning patient noted to be hypoxic, and having nausea and vomi ting, stat ABG showed hypoxemia. Chest x-ray showed diffuse alveolar and interstitial infiltrate edema, ARDS or pneumonia. VQ scan negative for any PE. Unfortunately patient's surgery was delayed due to worsening respiratory symptoms. Overnight patient's oxygen demand has gone up but as per night nurse patient did not have any nausea or vomiting overnight, not sure if patient had aspiration or she is developing pneumonia. Patient received COVID-19 vaccination last 09/27/2020. Unfortunately patient's clinical status is deteriorating compared to yesterday, yesterday she started to become hypoxic and was having nausea and vomiting, initial thought was patient might have developed aspiration pneumonia, but given her worsening platelet levels, elevated D-dimers, fibrinogen, and ot her inflammatory markers looks like patient has developed ARDS and DIC likely due to fat emboli due to acute hip fracture. 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 I have had discussions with 2 of her sons and I have updated them about her underlying medical conditions. 09/28/2020. No acute events overnight, patient has moderate improvement of her symptoms since yesterday, currently off of BiPAP on 6 L nasal cannula saturating WNL, her leukocytosis and kidney function are also improving, her platelets are trending down but still below normal, patient appears very weak however follows commands and talks in a very low voice, denies having any pain. 09/29/2020. Moderate improvement. SPO2 WNL on 3 L nasal cannula, platelets are improving, patient awake and alert however confused at times, not sure if this is her baseline, complaining of being hungry otherwise denies any lower extremity pain, denies any fever, chills, nausea, vomiting. She is scheduled for surgery today. 09/30/2020. No acute events noted. Moderate improvement of hypoxia and mentation, patient comfortable resting with no apparent distress, alert and oriented and very pleasant cooperative with physical examination, she is status post hemiarthroplasty on 09/29/2020. Denies any fever, chest pain, nausea, vomiting. Patient family has refused SNF and they would like to take her home with home PT once she is ready to be discharged. Patient will probably benefit from another day or 2 of antibiotics and respiratory treatments. Reason For Visit: RIGHT FEMORAL NECK FRACTURE Physical Exam Vital Signs: Temp Pulse Resp BP Pulse Ox 97.1 F 66 18 155/69 H 97 09/30/20 08:46 09/30/20 07:50 09/30/20 07:50 09/30/20 07:50 09/30/20 07:50 Intake & Output 09/29/20 09/30/20 10/01/20 06:59 06:59 06:59 Intake Total 1340 3576 1050 Output Total 1400 1365 Balance -60 2211 1050 Weight 60.4 kg 60.2 kg General appearance: PRESENT: no acute distress, thin, well-nourished Head exam: PRESENT: atraumatic, normocephalic Neck exam: ABSENT: carotid bruit, JVD, lymphadenopathy, thyromegaly Respiratory exam: PRESENT: clear to auscultation jase. ABSENT: rales, rhonchi, wheezes Cardiovascular exam: PRESENT: RRR. ABSENT: diastolic murmur, rubs, systolic murmur Extremities exam: PRESENT: full ROM, other - Right hip wound looks clean.. ABSENT: calf tenderness, clubbing, pedal edema Neurological exam: PRESENT: alert, awake, oriented to person, oriented to place, CN II-XII grossly intact. ABSENT: motor sensory deficit Results Laboratory Results: 09/30/20 05:02 09/30/20 05:02 09/29/20 09/29/20 09/30/20 08:34 15:19 05:02 WBC 14.3 H 12.9 H RBC 2.92 L 2.56 L Hgb 8.7 L 7.7 L Hct 25.6 L 22.3 L MCV 88 87 MCH 29.8 30.0 MCHC 34.0 34.4 RDW 14.0 13.9 Plt Count 130 L D 110 L Seg Neutrophils % Not Reportable Not Reportable Sodium Potassium Chloride Carbon Dioxide Anion Gap BUN Creatinine Est GFR ( Amer) Glucose Calcium Total Bilirubin AST Alkaline Phosphatase Total Protein Albumin Blood Type O POSITIVE Antibody Screen NEGATIVE 09/30/20 05:02 WBC RBC Hgb Hct MCV MCH MCHC RDW Plt Count Seg Neutrophils % Sodium 137.5 Potassium 3.9 Chloride 106 Carbon Dioxide 25 Anion Gap 7 BUN 59 H Creatinine 0.94 Est GFR ( Amer) > 60 Glucose 118 H Calcium 8.3 L Total Bilirubin 1.2 AST 36 Alkaline Phosphatase 59 Total Protein 5.1 L Albumin 2.6 L Blood Type Antibody Screen Impressions: Chest X-Ray 09/26/20 00:00 IMPRESSION: Dense alveolar and interstitial infiltrates edema versus ARDS versus pneumonia. This is progressive since yesterday KUB X-Ray 09/26/20 00:00 IMPRESSION: NO RADIOGRAPHIC EVIDENCE FOR ACUTE ABDOMINAL DISEASE. UNCHANGED RIGHT SUBCAPITAL FEMORAL NECK FRACTURE Lung Scan-VQ NM 09/26/20 00:00 IMPRESSION: NORMAL PERFUSION LUNG SCAN. Head CT 09/27/20 00:00 IMPRESSION: CHRONIC CHANGES OF ATROPHY AND MICROVASCULAR ISCHEMIA. NO ACUTE PROCESS. EVIDENCE OF ACUTE STROKE: NO. Hip/Pelvis X-Ray 09/29/20 00:00 IMPRESSION: Status post right total hip arthroplasty without evidence of hardware complication. Additional chronic and incidental findings as detailed above. Wrist X-Ray 09/29/20 00:00 IMPRESSION: Distal radius and ulna fractures as detailed above. No acute findings on this limited examination. Assessment and Plan - Diagnosis (1) Acute hypoxemic respiratory failure Is this a current diagnosis for this admission?: Yes Plan: Moderate improvement compared to yesterday. Off of BiPAP. Currently saturating WNL on 3 L nasal cannula. Initially thought to be aspiration pneumonia but seems like that patient has developed ARDS aspiration pneumonia but community-acquired pneumonia also remains a possibility. Patient has been having nausea vomiting since last night which increases likelihood of aspiration pneumonia. Patient had left hip fracture prior to admission. She also received COVID-19 vaccination on 09/22/2020. ABG 09/28/2020 mild improvement of hypoxemia. Chest x-ray dense alveolar and interstitial infiltrates edema, ARDS or pneumonia. VQ scan negative for any PE. COVID-19 serology negative. Day 5 IV antibiotics. Day 5 IV cefepime. Continue empiric broad-spectrum IV antibiotics and high-dose IV steroids. Scheduled duo nebs, scheduled BiPAP as needed, pulmonary toileting. Follow-up sputum and blood culture. (2) Disseminated intravascular coagulation Is this a current diagnosis for this admission?: Yes Plan: No DIC as per hematology note. Platelets trending up. Patient had hip fracture prior to presentation to ED, fat emboli is known to cause DIC in some cases. Not sure if this is true DIC since patient is having worsening thrombocytopenia, anemia, direct hyper bilirubinemia, elevated D-dimer but elevated fibrinogen. Has also developed ecchymosis on her extremities and face. Monitor closely, supportive transfusions, high-dose steroids. Hematology consulted. Recommendations noted. (3) Pneumonia Qualifiers: Pneumonia type: aspiration pneumonia Is this a current diagnosis for this admission?: Yes Plan: Possibly community-acquired pneumonia complicated by ARDS. Not as per #1. (4) Thrombocytopenia Is this a current diagnosis for this admission?: Yes Plan: Mild improvement. Has not received any heparin. No history of recent hospitalization. Unlikely this is heparin-induced thrombocytopenia. Likely due to #2. Plan as per above. (5) COPD (chronic obstructive pulmonary disease) Qualifiers: COPD type: unspecified COPD Qualified Code(s): J44.9 - Chronic obstructive pulmonary disease, unspecified Is this a current diagnosis for this admission?: Yes Plan: History of oxygen dependent COPD 2 L nasal cannula. Plan as per #1. (6) Femoral neck fracture Qualifiers: Encounter type: initial encounter Fracture type: closed Laterality: right Qualified Code(s): S72.001A - Fracture of unspecified part of neck of right femur, initial encounter for closed fracture Is this a current diagnosis for this admission?: Yes Plan: Ortho on board, scheduled for hemiarthroplasty today. (7) Hypertension Qualifiers: Hypertension type: essential hypertension Qualified Code(s): I10 - Essential (primary) hypertension Is this a current diagnosis for this admission?: Yes Plan: Monitor vitals, continue home meds. Adjust meds as needed. (8) Nausea & vomiting Qualifiers: Vomiting Intractability: unspecified Is this a current diagnosis for this admission?: Yes Plan: Resolved. Likely gastroenteritis. KUB no acute changes. Antiemetics, supportive measures, monitor electrolytes at volume status. Replace electrolytes as needed. (9) Frequent falls Is this a current diagnosis for this admission?: Yes Plan: Fall precautions. Outpatient PT. (10) Pulmonary hypertension Is this a current diagnosis for this admission?: Yes Plan: History of severe pulmonary hypertension. On 2L Home O2 Supplemental O2 for goal saturation >90% Continue home sildenafil Outpatient pulmonology follow-up. (11) ANDRAE (acute kidney injury) Is this a current diagnosis for this admission?: Yes Plan: Resolved. Prerenal. Likely due to nausea vomiting and low p.o. intake. Cautious volume restriction guided by volume status given acute respiratory failure. Monitor volume status and electrolytes, replace electrolytes as needed. BMP tomorrow. Nephrology consulted. (12) Anemia Qualifiers: Anemia type: iron deficiency Is this a current diagnosis for this admission?: Yes Plan: Acute blood loss anemia. Most likely due to hip fracture and subsequent surgery. No any apparent sign of acute bleeding. Scheduled to receive 1 PRBC today. Monitor H&H. - Plan Summary Summary: -Lui CHRISTOPHER is an 89 year old female with PMH of HTN, HLD, CHF, CHB s/p pacemaker, pulmonary hypertension on 2 L home O2 and frequent falls who presented to the ED s/p fall with R hip pain. She notes that she hates using canes/walkers. She was walking to the mailbox today when she had a mechanical fall onto her R hip. She recently (4-5 weeks ago) had a fall which results in a LUE fracture, which is still in a cast. She also notes that she broke her left hip in a fall a few years ago. She denies recent illnesses, sick contacts, fevers/chills, SOB, CP, cough, abdominal pain, dysuria. R femoral neck fracture - Orthopedic surgery was consulted and recommended surgical repair on 1/16 (NPO past MN) - bed rest - fall precautions - [facility] catheter placed in ED - PT immediately after surgery - pain control with oxycodone PRN, Tylenol scheduled and Morphine for breakthrough pain Pre-Operative Risk Assessment: she is euvolemic on exam and on the appropriate cardiac medications to control her risk factors. She has a Revised Cardiac Risk Index for Pre-Operative Risk of 2 (Class III) with a 10.1% 30-day risk of , NC or cardiac arrest. I discussed risks of surgery/anesthesia with patient and her son at bedside. They are understanding that she is high risk given her cardiac and pulmonary function, but are willing to take the risk to maximize her mobility and quality of life. Pulmonary HTN: on 2L Home O2 - Duo-Nebs PRN - supplemental O2 for goal saturation >90% - continue home sildenafil Leukocytosis: likely a stress reaction given fall and femur fracture. She has no other signs of or symptoms of infection. UA shows small LE and bacteria - this is likely due to asymptomatic bacteriuria and does not require antibiotic therapy. - repeat CBC in AM - hold off on antibiotics Congestive Heart Failure: euvolemic to slightly dry on exam today. No evidence of volume overload. - restart home medications - avoid aggressive IVF hydration Essential HTN: uncontrolled, likely due to the fact that she has not taken any of her home medications today - restart home medications Complete Heart Block s/p pacemaker - telemetry Dispo: she will likely require SNF placement on discharge. Discharge planning consult placed. DVT ppx: hold off on starting until after surgery tomorrow morning Code Status: DNR/DNI - Time Time Spent with patient: 35 or more minutes Anticipated Discharge Disposition: Home with Home Health Anticipated Discharge Timeframe: within 72 hours
--- NOTE | 2020-09-30 15:40 | PDOC PROGRESS REPORT ---
Subjective Date:: 09/30/20 Reason For Visit: RIGHT FEMORAL NECK FRACTURE Post right hemiarthroplasty postop day #1 Physical Exam Vital Signs: Temp Pulse Resp BP Pulse Ox 97.4 F 61 16 142/58 H 98 09/30/20 14:12 09/30/20 14:12 09/30/20 14:12 09/30/20 14:12 09/30/20 14:12 Intake & Output 09/29/20 09/30/20 10/01/20 06:59 06:59 06:59 Intake Total 1340 3576 1400 Output Total 1400 1365 Balance -60 2211 1400 Weight 60.4 kg 60.2 kg Vascular exam: PRESENT: normal capillary refill - 2+ dorsalis pedis pulse bilateral lower extremities Musculoskeletal exam: PRESENT: ambulatory - And ambulates with significant assistance and is going to require home health. Patient's dressing was slightly saturated and is being changed. Plan is to refer her to continue doing the physical therapy exercises and use the walker. She has no calf tenderness. Results Laboratory Results: 09/30/20 05:02 09/30/20 05:02 09/29/20 09/29/20 09/30/20 08:34 15:19 05:02 WBC 14.3 H 12.9 H RBC 2.92 L 2.56 L Hgb 8.7 L 7.7 L Hct 25.6 L 22.3 L MCV 88 87 MCH 29.8 30.0 MCHC 34.0 34.4 RDW 14.0 13.9 Plt Count 130 L D 110 L Seg Neutrophils % Not Reportable Not Reportable Sodium Potassium Chloride Carbon Dioxide Anion Gap BUN Creatinine Est GFR ( Amer) Glucose Calcium Total Bilirubin AST Alkaline Phosphatase Total Protein Albumin Blood Type O POSITIVE Antibody Screen NEGATIVE 09/30/20 05:02 WBC RBC Hgb Hct MCV MCH MCHC RDW Plt Count Seg Neutrophils % Sodium 137.5 Potassium 3.9 Chloride 106 Carbon Dioxide 25 Anion Gap 7 BUN 59 H Creatinine 0.94 Est GFR ( Amer) > 60 Glucose 118 H Calcium 8.3 L Total Bilirubin 1.2 AST 36 Alkaline Phosphatase 59 Total Protein 5.1 L Albumin 2.6 L Blood Type Antibody Screen Impressions: Chest X-Ray 09/26/20 00:00 IMPRESSION: Dense alveolar and interstitial infiltrates edema versus ARDS versus pneumonia. This is progressive since yesterday KUB X-Ray 09/26/20 00:00 IMPRESSION: NO RADIOGRAPHIC EVIDENCE FOR ACUTE ABDOMINAL DISEASE. UNCHANGED RIGHT SUBCAPITAL FEMORAL NECK FRACTURE Lung Scan-VQ NM 09/26/20 00:00 IMPRESSION: NORMAL PERFUSION LUNG SCAN. Head CT 09/27/20 00:00 IMPRESSION: CHRONIC CHANGES OF ATROPHY AND MICROVASCULAR ISCHEMIA. NO ACUTE PROCESS. EVIDENCE OF ACUTE STROKE: NO. Hip/Pelvis X-Ray 09/29/20 00:00 IMPRESSION: Status post right total hip arthroplasty without evidence of hardware complication. Additional chronic and incidental findings as detailed above. Wrist X-Ray 09/29/20 00:00 IMPRESSION: Distal radius and ulna fractures as detailed above. No acute findings on this limited examination. Assessment & Plan - Diagnosis (1) Femoral neck fracture Qualifiers: Encounter type: initial encounter Fracture type: closed Laterality: right Qualified Code(s): S72.001A - Fracture of unspecified part of neck of right femur, initial encounter for closed fracture Plan: Plan is for the patient to be discharged home after clearance by PT and will continue home health status post right hemiarthroplasty. - Time Anticipated Discharge Disposition: Home with Home Health - Will be going home with home health and home physical therapy Anticipated Discharge Timeframe: within 24 hours Time Spent with patient: 15 minutes - Plan Summary Plan Summary: Plan is for her to be discharged home progressed with physical therapy and will follow up in the office.
[2020-09-30 17:08] LABS: HEMATOCRIT 28.7 % (36.0-47.0); MEAN CORPUSCULAR HEMOGLOBIN 30.6 pg (27.0-33.4); MEAN CORPUSCULAR HGB CONC 34.6 g/dL (32.0-36.0); MEAN CORPUSCULAR VOLUME 88 fl (80-97); PLATELET COUNT 110 10^3/uL (150-450); RED BLOOD COUNT 3.25 10^6/uL (3.72-5.28); RED CELL DISTRIBUTION WIDTH 13.4 % (11.5-14.0); WHITE BLOOD COUNT 15.7 10^3/uL (4.0-10.5)
[2020-09-30] MEDS: RIVAROXABAN 10 MG TABLET PO SCH (17:13)
[2020-09-30 17:46] LABS: HEMOGLOBIN 9.9 g/dL (12.0-15.5)
[2020-09-30 17:47] LABS: ABSOLUTE LYMPHOCYTES# (MANUAL) 0.9 10^3/uL (0.5-4.7); ABSOLUTE MONOCYTES # (MANUAL) 0.8 10^3/uL (0.1-1.4); BASOPHILS % (MANUAL) 0 % (0-2); EOSINOPHILS % (MANUAL) 0 % (0-6); LYMPHOCYTES % (MANUAL) 6 % (13-45); MONOCYTES % (MANUAL) 5 % (3-13); SEGMENTED NEUTROPHILS % (MAN) 89 % (42-78); TOTAL CELLS COUNTED 100
[2020-09-30 17:48] LABS: PLATELET COMMENT DECREASED; RBC MORPHOLOGY COMMENT NORMO-CYTIC/CHROMIC
[2020-09-30] MEDS: ATORVASTATIN CALCIUM 40 MG TABLET PO SCH (21:08)
[2020-09-30] MEDS: DILTIAZEM HCL 180 MG CAPSULE.CR PO SCH (21:08)
[2020-10-01] MEDS: RINGERS SOLUTION,LACTATED 1,000 ML IV PRN (00:42)
[2020-10-01] MEDS ORDERED: HALOPERIDOL LACTATE INJ 5 MG/1 ML VIAL IM ONE (04:00)
[2020-10-01 06:12] LABS: HEMATOCRIT 27.4 % (36.0-47.0); HEMOGLOBIN 9.4 g/dL (12.0-15.5); MEAN CORPUSCULAR HEMOGLOBIN 30.2 pg (27.0-33.4); MEAN CORPUSCULAR HGB CONC 34.5 g/dL (32.0-36.0); MEAN CORPUSCULAR VOLUME 88 fl (80-97); PLATELET COUNT 115 10^3/uL (150-450); RED BLOOD COUNT 3.13 10^6/uL (3.72-5.28); RED CELL DISTRIBUTION WIDTH 13.8 % (11.5-14.0); WHITE BLOOD COUNT 17.4 10^3/uL (4.0-10.5)
[2020-10-01] MEDS: MULTIVITAMIN TABLET PO SCH (09:57)
[2020-10-01] MEDS: CARVEDILOL 6.25 MG TABLET PO SCH ×2 (09:57→21:52)
[2020-10-01] MEDS: LOSARTAN POTASSIUM 50 MG TABLET PO SCH (09:57)
[2020-10-01] MEDS: SENNOSIDES/DOCUSATE 8.6-50 MG 1 EACH TABLET PO SCH (09:57)
[2020-10-01] MEDS: ESCITALOPRAM OXALATE 10 MG TABLET PO SCH (09:57)
[2020-10-01] MEDS: SILDENAFIL CITRATE 20 MG TABLET PO SCH ×3 (09:58→17:01)
[2020-10-01] MEDS: ACETAMINOPHEN 325 MG TABLET PO SCH (09:59)
[2020-10-01] MEDS ORDERED: ZIPRASIDONE MESYLATE INJ/PF 20 MG SDV IM PRN ×2 (10:10→11:00)
[2020-10-01] MEDS ORDERED: LORAZEPAM INJ 2 MG/1 ML VIAL IV PRN (10:10)
[2020-10-01] MEDS: METHYLPREDNISOLONE INJ 125 MG/2 ML SDV IV SCH (10:33)
--- NOTE | 2020-10-01 11:01 | PDOC PROGRESS REPORT ---
Subjective Date:: 10/01/20 Subjective:: ALEXANDER CHRISTOPHER is an 89 year old female with PMH of HTN, HLD, CHF, CHB s/p pacemaker, pulmonary hypertension on 2 L home O2 and frequent falls who presented to the ED s/p fall with R hip pain. She notes that she hates using canes/walkers. She was walking to the mailbox today when she had a mechanical fall onto her R hip. She denies LOC or head trauma. She recently (4-5 weeks ago) had a fall which results in a LUE fracture, which is still in a cast. She also notes that she broke her left hip in a fall a few years ago. She denies recent illnesses, sick contacts, fevers/chills, SOB, CP, cough, abdominal pain, dysuria. Pain is currently well controlled. In the ED, she was found to have a R femoral neck fracture. Orthopedic surgery was consulted and recommended surgical repair on 09/26. 09/26/2020. This morning patient noted to be hypoxic, and having nausea and vomi ting, stat ABG showed hypoxemia. Chest x-ray showed diffuse alveolar and interstitial infiltrate edema, ARDS or pneumonia. VQ scan negative for any PE. Unfortunately patient's surgery was delayed due to worsening respiratory symptoms. Overnight patient's oxygen demand has gone up but as per night nurse patient did not have any nausea or vomiting overnight, not sure if patient had aspiration or she is developing pneumonia. Patient received COVID-19 vaccination last 09/27/2020. Unfortunately patient's clinical status is deteriorating compared to yesterday, yesterday she started to become hypoxic and was having nausea and vomiting, initial thought was patient might have developed aspiration pneumonia, but given her worsening platelet levels, elevated D-dimers, fibrinogen, and ot her inflammatory markers looks like patient has developed ARDS and DIC likely due to fat emboli due to acute hip fracture. 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 I have had discussions with 2 of her sons and I have updated them about her underlying medical conditions. 09/28/2020. No acute events overnight, patient has moderate improvement of her symptoms since yesterday, currently off of BiPAP on 6 L nasal cannula saturating WNL, her leukocytosis and kidney function are also improving, her platelets are trending down but still below normal, patient appears very weak however follows commands and talks in a very low voice, denies having any pain. 09/29/2020. Moderate improvement. SPO2 WNL on 3 L nasal cannula, platelets are improving, patient awake and alert however confused at times, not sure if this is her baseline, complaining of being hungry otherwise denies any lower extremity pain, denies any fever, chills, nausea, vomiting. She is scheduled for surgery today. 09/30/2020. No acute events noted. Moderate improvement of hypoxia and mentation, patient comfortable resting with no apparent distress, alert and oriented and very pleasant cooperative with physical examination, she is status post hemiarthroplasty on 09/29/2020. Denies any fever, chest pain, nausea, vomiting. Patient family has refused SNF and they would like to take her home with home PT once she is ready to be discharged. Patient will probably benefit from another day or 2 of antibiotics and respiratory treatments. 10/01/2020. Patient was agitated this morning, as per night nurse she was yelling and screaming at the staff, she removed her IV lines, patient received oxycodone for hip pain, not sure if her agitation was due to reaction to oxycodone or if she was , this morning on my encounter patient is sitting on the edge of the bed accompanied by physical therapist, she is very pleasant and does not appear to be in any acute distress still seems to be confused, she is stating that "in the morning she was trying to give herself glucose and then she saw that she was bleeding from her left arm. " Apparently patient had left antecubital IV and she removed it, not sure if she was bleeding. She denies to be in any pain, denies any fever, chills, nausea, vo miting. Reason For Visit: RIGHT FEMORAL NECK FRACTURE Physical Exam Vital Signs: Temp Pulse Resp BP Pulse Ox 98.0 F 71 20 166/58 H 97 10/01/20 08:43 10/01/20 07:54 10/01/20 07:54 10/01/20 07:54 10/01/20 08:23 Intake & Output 09/30/20 10/01/20 10/02/20 06:59 06:59 06:59 Intake Total 3576 3552 1000 Output Total 1365 1295 Balance 2210 8947 1000 Weight 60.2 kg 60.2 kg General appearance: PRESENT: no acute distress, well-developed, well-nourished Head exam: PRESENT: atraumatic, normocephalic Respiratory exam: PRESENT: clear to auscultation jase. ABSENT: rales, rhonchi, wheezes Cardiovascular exam: PRESENT: RRR. ABSENT: diastolic murmur, rubs, systolic murmur GI/Abdominal exam: PRESENT: normal bowel sounds, soft. ABSENT: distended, guarding, mass, organolmegaly, rebound, tenderness Extremities exam: PRESENT: full ROM. ABSENT: calf tenderness, clubbing, pedal edema Neurological exam: PRESENT: alert, awake, oriented to person, oriented to place, CN II-XII grossly intact. ABSENT: motor sensory deficit Skin exam: PRESENT: other - Multiple ecchymosis in the upper extremities. Results Laboratory Results: 10/01/20 04:49 09/30/20 05:02 09/29/20 09/30/20 10/01/20 08:34 16:24 04:49 WBC 15.7 H 17.4 H RBC 3.25 L 3.13 L Hgb 9.9 L D 9.4 L Hct 28.7 L 27.4 L MCV 88 88 MCH 30.6 30.2 MCHC 34.6 34.5 RDW 13.4 13.8 Plt Count 110 L 115 L Seg Neutrophils % Not Reportable Blood Type O POSITIVE Antibody Screen NEGATIVE Impressions: Chest X-Ray 09/26/20 00:00 IMPRESSION: Dense alveolar and interstitial infiltrates edema versus ARDS versus pneumonia. This is progressive since yesterday KUB X-Ray 09/26/20 00:00 IMPRESSION: NO RADIOGRAPHIC EVIDENCE FOR ACUTE ABDOMINAL DISEASE. UNCHANGED RIGHT SUBCAPITAL FEMORAL NECK FRACTURE Lung Scan-VQ NM 09/26/20 00:00 IMPRESSION: NORMAL PERFUSION LUNG SCAN. Head CT 09/27/20 00:00 IMPRESSION: CHRONIC CHANGES OF ATROPHY AND MICROVASCULAR ISCHEMIA. NO ACUTE PROCESS. EVIDENCE OF ACUTE STROKE: NO. Hip/Pelvis X-Ray 09/29/20 00:00 IMPRESSION: Status post right total hip arthroplasty without evidence of hardware complication. Additional chronic and incidental findings as detailed above. Wrist X-Ray 09/29/20 00:00 IMPRESSION: Distal radius and ulna fractures as detailed above. No acute findings on this limited examination. Assessment and Plan - Diagnosis (1) Acute hypoxemic respiratory failure Is this a current diagnosis for this admission?: Yes Plan: Moderate improvement compared to yesterday. Off of BiPAP. Currently saturating WNL on 2 L nasal cannula which is her baseline. Initially thought to be aspiration pneumonia but seems like that patient has developed ARDS aspiration pneumonia but community-acquired pneumonia also remains a possibility. Patient has been having nausea vomiting since last night which increases likelihood of aspiration pneumonia. Patient had left hip fracture prior to admission. She also received COVID-19 vaccination on 09/22/2020. ABG 09/28/2020 mild improvement of hypoxemia. Chest x-ray dense alveolar and interstitial infiltrates edema, ARDS or pneumonia. VQ scan negative for any PE. COVID-19 serology negative. Day 6 IV antibiotics. Day 6 IV cefepime. Continue empiric broad-spectrum IV antibiotics and high-dose IV steroids. Scheduled duo nebs, scheduled BiPAP as needed, pulmonary toileting. Follow-up sputum and blood culture. (2) Disseminated intravascular coagulation Is this a current diagnosis for this admission?: Yes Plan: No DIC as per hematology note. Platelets trending up. Patient had hip fracture prior to presentation to ED, fat emboli is known to cause DIC in some cases. Not sure if this is true DIC since patient is having worsening thrombocytopenia, anemia, direct hyper bilirubinemia, elevated D-dimer but elevated fibrinogen. Has also developed ecchymosis on her extremities and face. Monitor closely, supportive transfusions, high-dose steroids. Hematology consulted. Recommendations noted. (3) Pneumonia Qualifiers: Pneumonia type: aspiration pneumonia Is this a current diagnosis for this admission?: Yes Plan: Possibly community-acquired pneumonia complicated by ARDS. Not as per #1. (4) Thrombocytopenia Is this a current diagnosis for this admission?: Yes Plan: Mild improvement. Has not received any heparin. No history of recent hospitalization. Unlikely this is heparin-induced thrombocytopenia. Likely due to #2. Plan as per above. (5) COPD (chronic obstructive pulmonary disease) Qualifiers: COPD type: unspecified COPD Qualified Code(s): J44.9 - Chronic obstructive pulmonary disease, unspecified Is this a current diagnosis for this admission?: Yes Plan: History of oxygen dependent COPD 2 L nasal cannula. Plan as per #1. (6) Femoral neck fracture Qualifiers: Encounter type: initial encounter Fracture type: closed Laterality: right Qualified Code(s): S72.001A - Fracture of unspecified part of neck of right femur, initial encounter for closed fracture Is this a current diagnosis for this admission?: Yes Plan: Status post hemiarthroplasty. Family has refused transfer to rehab. Plan is to continue PT while inpatient and discharged home with home PT. Ortho on board, recommendations noted. (7) Hypertension Qualifiers: Hypertension type: essential hypertension Qualified Code(s): I10 - Essential (primary) hypertension Is this a current diagnosis for this admission?: Yes Plan: Monitor vitals, continue home meds. Adjust meds as needed. (8) Nausea & vomiting Qualifiers: Vomiting Intractability: unspecified Is this a current diagnosis for this admission?: Yes Plan: Resolved. Likely gastroenteritis. KUB no acute changes. Antiemetics, supportive measures, monitor electrolytes at volume status. Replace electrolytes as needed. (9) Frequent falls Is this a current diagnosis for this admission?: Yes Plan: Fall precautions. Outpatient PT. (10) Pulmonary hypertension Is this a current diagnosis for this admission?: Yes Plan: History of severe pulmonary hypertension. On 2L Home O2 Supplemental O2 for goal saturation >90% Continue home sildenafil Outpatient pulmonology follow-up. (11) ANDRAE (acute kidney injury) Is this a current diagnosis for this admission?: Yes Plan: Resolved. Prerenal. Likely due to nausea vomiting and low p.o. intake. Cautious volume restriction guided by volume status given acute respiratory failure. Monitor volume status and electrolytes, replace electrolytes as needed. [facility] tomorrow. Nephrology consulted. (12) Anemia Qualifiers: Anemia type: iron deficiency Is this a current diagnosis for this admission?: Yes Plan: Acute blood loss anemia. Most likely due to hip fracture and subsequent surgery. No any apparent sign of acute bleeding. Scheduled to receive 1 PRBC today. Monitor H&H. - Plan Summary Summary: -Lui CHRISTOPHER is an 89 year old female with PMH of HTN, HLD, CHF, CHB s/p pacemaker, pulmonary hypertension on 2 L home O2 and frequent falls who presented to the ED s/p fall with R hip pain. She notes that she hates using canes/walkers. She was walking to the mailbox today when she had a mechanical fall onto her R hip. She recently (4-5 weeks ago) had a fall which results in a LUE fracture, which is still in a cast. She also notes that she broke her left hip in a fall a few years ago. She denies recent illnesses, sick contacts, fevers/chills, SOB, CP, cough, abdominal pain, dysuria. R femoral neck fracture - Orthopedic surgery was consulted and recommended surgical repair on 09/26 (NPO past MN) - bed rest - fall precautions - [facility] catheter placed in ED - PT immediately after surgery - pain control with oxycodone PRN, Tylenol scheduled and Morphine for breakthrough pain Pre-Operative Risk Assessment: she is euvolemic on exam and on the appropriate cardiac medications to control her risk factors. She has a Revised Cardiac Risk Index for Pre-Operative Risk of 2 (Class III) with a 10.1% 30-day risk of , AK or cardiac arrest. I discussed risks of surgery/anesthesia with patient and her son at bedside. They are understanding that she is high risk given her cardiac and pulmonary function, but are willing to take the risk to maximize her mobility and quality of life. Pulmonary HTN: on 2L Home O2 - Duo-Nebs PRN - supplemental O2 for goal saturation >90% - continue home sildenafil Leukocytosis: likely a stress reaction given fall and femur fracture. She has no other signs of or symptoms of infection. UA shows small LE and bacteria - this is likely due to asymptomatic bacteriuria and does not require antibiotic therapy. - repeat CBC in AM - hold off on antibiotics Congestive Heart Failure: euvolemic to slightly dry on exam today. No evidence of volume overload. - restart home medications - avoid aggressive IVF hydration Essential HTN: uncontrolled, likely due to the fact that she has not taken any of her home medications today - restart home medications Complete Heart Block s/p pacemaker - telemetry Dispo: she will likely require SNF placement on discharge. Discharge planning consult placed. DVT ppx: hold off on starting until after surgery tomorrow morning Code Status: DNR/DNI - Time Time Spent with patient: 35 or more minutes Medications reviewed and adjusted accordingly: Yes Anticipated Discharge Disposition: Home with Home Health Anticipated Discharge Timeframe: within 48 hours
[2020-10-01] MEDS: CEFEPIME 1 GM/D5W RTU 1 GM/50 ML RTUPB IV SCH ×2 (11:03→21:49)
[2020-10-01] MEDS: NALOXONE HCL INJ/PF 0.4 MG/1 ML SDV IV ONE ×2 (12:10→12:36)
[2020-10-01] MEDS: PREDNISONE 20 MG TABLET PO SCH (12:37)
[2020-10-01] MEDS: ACETAMINOPHEN 325 MG TABLET PO PRN (14:25)
[2020-10-01] MEDS: RIVAROXABAN 10 MG TABLET PO SCH (17:01)
[2020-10-01] MEDS: DILTIAZEM HCL 180 MG CAPSULE.CR PO SCH (21:52)
[2020-10-01] MEDS: ATORVASTATIN CALCIUM 40 MG TABLET PO SCH (21:52)
--- NOTE | 2020-10-01 23:55 | PDOC PROGRESS REPORT ---
Subjective Date:: 10/01/20 Subjective:: Patient doing well. No acute events overnight. Comfortable on nasal cannula. Sitting in chair. Reason For Visit: RIGHT FEMORAL NECK FRACTURE Physical Exam Vital Signs: Temp Pulse Resp BP Pulse Ox 98.0 F 71 20 166/58 H 97 10/01/20 08:43 10/01/20 07:54 10/01/20 07:54 10/01/20 07:54 10/01/20 12:46 Intake & Output 09/30/20 10/01/20 10/02/20 06:59 06:59 06:59 Intake Total 3576 3552 1050 Output Total 1365 1295 Balance 2211 2257 1050 Weight 60.2 kg 60.2 kg Physical Exam: No acute distress, alert and orient x3 Right lower extremity -Pulses 2+ distally -Compartments soft -Sensation grossly intact to L3-4-5 S1 -Motor grossly intact to EHL TA gastroc and quad Incision dressing clean dry and intact. Results Laboratory Results: 10/01/20 04:49 09/30/20 05:02 09/30/20 10/01/20 16:24 04:49 WBC 15.7 H 17.4 H RBC 3.25 L 3.13 L Hgb 9.9 L D 9.4 L Hct 28.7 L 27.4 L MCV 88 88 MCH 30.6 30.2 MCHC 34.6 34.5 RDW 13.4 13.8 Plt Count 110 L 115 L Seg Neutrophils % Not Reportable Impressions: Chest X-Ray 09/26/20 00:00 IMPRESSION: Dense alveolar and interstitial infiltrates edema versus ARDS versus pneumonia. This is progressive since yesterday KUB X-Ray 09/26/20 00:00 IMPRESSION: NO RADIOGRAPHIC EVIDENCE FOR ACUTE ABDOMINAL DISEASE. UNCHANGED RIGHT SUBCAPITAL FEMORAL NECK FRACTURE Lung Scan-VQ NM 09/26/20 00:00 IMPRESSION: NORMAL PERFUSION LUNG SCAN. Head CT 09/27/20 00:00 IMPRESSION: CHRONIC CHANGES OF ATROPHY AND MICROVASCULAR ISCHEMIA. NO ACUTE PROCESS. EVIDENCE OF ACUTE STROKE: NO. Hip/Pelvis X-Ray 09/29/20 00:00 IMPRESSION: Status post right total hip arthroplasty without evidence of hardware complication. Additional chronic and incidental findings as detailed above. Wrist X-Ray 09/29/20 00:00 IMPRESSION: Distal radius and ulna fractures as detailed above. No acute findings on this limited examination. Assessment & Plan - Diagnosis (1) Femoral neck fracture Qualifiers: Encounter type: initial encounter Fracture type: closed Laterality: right Qualified Code(s): S72.001A - Fracture of unspecified part of neck of right femur, initial encounter for closed fracture Is this a current diagnosis for this admission?: Yes Plan: Status post right hip hemiarthroplasty postoperative day #2 -Weightbearing as tolerated, no precautions, encourage out of bed NISH for ADL training - PT/OT DVT prophylaxis per recommendations of hospitalist. -multimodal pain management to avoid excessive narcotics, including gabapentin, tramadol, Toradol, acetaminophen. -Dressing should not be removed for 7 to 10 days until seen in the office -May shower with the dressing intact, if it starts to come off she should not get the incision wet. -Follow-up with Dr. Gilberto Carias, orthopedic surgeon at [facility] for surgery, in 10 days. Call for an appointment. . [address], [place] [address] - Time Time Spent with patient: Less than 15 minutes
[2020-10-02 05:22] LABS: HEMATOCRIT 29.3 % (36.0-47.0); MEAN CORPUSCULAR HEMOGLOBIN 30.1 pg (27.0-33.4); MEAN CORPUSCULAR VOLUME 88 fl (80-97); PLATELET COUNT 123 10^3/uL (150-450); RED BLOOD COUNT 3.31 10^6/uL (3.72-5.28); RED CELL DISTRIBUTION WIDTH 13.8 % (11.5-14.0); WHITE BLOOD COUNT 12.4 10^3/uL (4.0-10.5)
--- NOTE | 2020-10-02 08:18 | PDOC PROGRESS REPORT ---
Subjective Date:: 10/02/20 Subjective:: Patient is sleepy, but has no complaints. She is off all oxygen. Nurses deny a ny concerns. Reason For Visit: RIGHT FEMORAL NECK FRACTURE Physical Exam Vital Signs: Temp Pulse Resp BP Pulse Ox 97.9 F 64 16 168/61 H 98 10/01/20 23:10 10/02/20 02:00 10/01/20 23:10 10/01/20 23:10 10/02/20 00:20 Intake & Output 10/01/20 10/02/20 10/03/20 06:59 06:59 06:59 Intake Total 3552 1600 Output Total 1295 600 Balance 2257 1000 Weight 60.2 kg 60 kg General appearance: PRESENT: thin Head exam: PRESENT: normocephalic Respiratory exam: PRESENT: unlabored Musculoskeletal exam: PRESENT: normal inspection Neurological exam: PRESENT: awake Skin exam: PRESENT: normal color Results Laboratory Results: 10/02/20 04:32 09/30/20 05:02 10/02/20 04:32 WBC 12.4 H RBC 3.31 L Hgb 10.0 L Hct 29.3 L MCV 88 MCH 30.1 MCHC 34.0 RDW 13.8 Plt Count 123 L Impressions: Chest X-Ray 09/26/20 00:00 IMPRESSION: Dense alveolar and interstitial infiltrates edema versus ARDS versus pneumonia. This is progressive since yesterday KUB X-Ray 09/26/20 00:00 IMPRESSION: NO RADIOGRAPHIC EVIDENCE FOR ACUTE ABDOMINAL DISEASE. UNCHANGED RIGHT SUBCAPITAL FEMORAL NECK FRACTURE Lung Scan-VQ NM 09/26/20 00:00 IMPRESSION: NORMAL PERFUSION LUNG SCAN. Head CT 09/27/20 00:00 IMPRESSION: CHRONIC CHANGES OF ATROPHY AND MICROVASCULAR ISCHEMIA. NO ACUTE PROCESS. EVIDENCE OF ACUTE STROKE: NO. Hip/Pelvis X-Ray 09/29/20 00:00 IMPRESSION: Status post right total hip arthroplasty without evidence of hardware complication. Additional chronic and incidental findings as detailed above. Wrist X-Ray 09/29/20 00:00 IMPRESSION: Distal radius and ulna fractures as detailed above. No acute findings on this limited examination. Assessment & Plan - Diagnosis (1) Femoral neck fracture Qualifiers: Encounter type: initial encounter Fracture type: closed Laterality: right Qualified Code(s): S72.001A - Fracture of unspecified part of neck of right femur, initial encounter for closed fracture Is this a current diagnosis for this admission?: Yes (2) Leukocytosis Qualifiers: Leukocytosis type: unspecified Qualified Code(s): D72.829 - Elevated white blood cell count, unspecified Is this a current diagnosis for this admission?: Yes Plan: Continues, but remains stable. (3) Thrombocytopenia Is this a current diagnosis for this admission?: Yes Plan: Improved after PLT transfusions. Remains stable and >50. (4) Anemia Qualifiers: Anemia type: iron deficiency Is this a current diagnosis for this admission?: Yes Plan: Her ferritin was normal, so I do not believe this is iron deficiency. I will check B12 and Folate. No indication for blood transfusion. - Time Time Spent with patient: 15-24 minutes - Plan Summary Plan Summary: I will sign off, but am happy to follow as outpatient to make sure blood counts return to normal. Please call me if needed.
[2020-10-02] MEDS: LOSARTAN POTASSIUM 50 MG TABLET PO SCH (09:19)
[2020-10-02] MEDS: ESCITALOPRAM OXALATE 10 MG TABLET PO SCH (09:20)
[2020-10-02] MEDS: MULTIVITAMIN TABLET PO SCH (09:20)
[2020-10-02] MEDS: CARVEDILOL 6.25 MG TABLET PO SCH ×2 (09:20→21:38)
[2020-10-02] MEDS: PREDNISONE 20 MG TABLET PO SCH (09:20)
[2020-10-02] MEDS: CEFEPIME 1 GM/D5W RTU 1 GM/50 ML RTUPB IV SCH ×2 (09:21→21:39)
[2020-10-02] MEDS: SILDENAFIL CITRATE 20 MG TABLET PO SCH ×3 (09:22→17:57)
--- NOTE | 2020-10-02 12:07 | PDOC PROGRESS REPORT ---
Subjective Date:: 10/02/20 Subjective:: ALEXANDER CHRISTOPHER is an 89 year old female with PMH of HTN, HLD, CHF, CHB s/p pacemaker, pulmonary hypertension on 2 L home O2 and frequent falls who presented to the ED s/p fall with R hip pain. She notes that she hates using canes/walkers. She was walking to the mailbox today when she had a mechanical fall onto her R hip. She denies LOC or head trauma. She recently (4-5 weeks ago) had a fall which results in a LUE fracture, which is still in a cast. She also notes that she broke her left hip in a fall a few years ago. She denies recent illnesses, sick contacts, fevers/chills, SOB, CP, cough, abdominal pain, dysuria. Pain is currently well controlled. In the ED, she was found to have a R femoral neck fracture. Orthopedic surgery was consulted and recommended surgical repair on 09/26. 09/26/2020. This morning patient noted to be hypoxic, and having nausea and vomi ting, stat ABG showed hypoxemia. Chest x-ray showed diffuse alveolar and interstitial infiltrate edema, ARDS or pneumonia. VQ scan negative for any PE. Unfortunately patient's surgery was delayed due to worsening respiratory symptoms. Overnight patient's oxygen demand has gone up but as per night nurse patient did not have any nausea or vomiting overnight, not sure if patient had aspiration or she is developing pneumonia. Patient received COVID-19 vaccination last 09/27/2020. Unfortunately patient's clinical status is deteriorating compared to yesterday, yesterday she started to become hypoxic and was having nausea and vomiting, initial thought was patient might have developed aspiration pneumonia, but given her worsening platelet levels, elevated D-dimers, fibrinogen, and ot her inflammatory markers looks like patient has developed ARDS and DIC likely due to fat emboli due to acute hip fracture. I have visited patient several times today, direct care provider patient was more alert and oriented and following commands however as the day has progressed and has become more delirious and anxious, however her oxygen demand is decreasing as well as her leukocytosis. I have had discussions with 2 of her sons and I have updated them about her underlying medical conditions. 09/28/2020. No acute events overnight, patient has moderate improvement of her symptoms since yesterday, currently off of BiPAP on 6 L nasal cannula saturating WNL, her leukocytosis and kidney function are also improving, her platelets are trending down but still below normal, patient appears very weak however follows commands and talks in a very low voice, denies having any pain. 09/29/2020. Moderate improvement. SPO2 WNL on 3 L nasal cannula, platelets are improving, patient awake and alert however confused at times, not sure if this is her baseline, complaining of being hungry otherwise denies any lower extremity pain, denies any fever, chills, nausea, vomiting. She is scheduled for surgery today. 09/30/2020. No acute events noted. Moderate improvement of hypoxia and mentation, patient comfortable resting with no apparent distress, alert and oriented and very pleasant cooperative with physical examination, she is status post hemiarthroplasty on 09/29/2020. Denies any fever, chest pain, nausea, vomiting. Patient family has refused SNF and they would like to take her home with home PT once she is ready to be discharged. Patient will probably benefit from another day or 2 of antibiotics and respiratory treatments. 10/01/2020. Patient was agitated this morning, as per night nurse she was yelling and screaming at the staff, she removed her IV lines, patient received oxycodone for hip pain, not sure if her agitation was due to reaction to oxycodone or if she was , this morning on my encounter patient is sitting on the edge of the bed accompanied by physical therapist, she is very pleasant and does not appear to be in any acute distress still seems to be confused, she is stating that "in the morning she was trying to give herself glucose and then she saw that she was bleeding from her left arm. " Apparently patient had left antecubital IV and she removed it, not sure if she was bleeding. She denies to be in any pain, denies any fever, chills, nausea, vo miting. 10/02/2020. No acute events overnight. Patient had right upper extremity IV access infiltration which was replaced, patient also received a dose of IV Ativan, this morning comfortably resting in bed sleeping, easily arousable, alert and oriented, very pleasant, stating that she is feeling better but her right hip hip and right foot are hurting, worse right foot. Possible discharge home tomorrow. Reason For Visit: RIGHT FEMORAL NECK FRACTURE Physical Exam Vital Signs: Temp Pulse Resp BP Pulse Ox 97.2 F 61 18 167/58 H 92 10/02/20 07:45 10/02/20 07:45 10/02/20 07:45 10/02/20 07:45 10/02/20 07:45 Intake & Output 10/01/20 10/02/20 10/03/20 06:59 06:59 06:59 Intake Total 3552 1600 50 Output Total 1295 600 Balance 2257 1000 50 Weight 60.2 kg 60 kg General appearance: PRESENT: no acute distress, well-developed, well-nourished Head exam: PRESENT: atraumatic, normocephalic Respiratory exam: PRESENT: clear to auscultation jase. ABSENT: rales, rhonchi, wheezes Cardiovascular exam: PRESENT: RRR. ABSENT: diastolic murmur, rubs, systolic murmur Extremities exam: PRESENT: full ROM, other - Right hip wound looks clean.. ABS ENT: calf tenderness, clubbing, pedal edema Neurological exam: PRESENT: alert, awake, oriented to person, oriented to place, CN II-XII grossly intact. ABSENT: motor sensory deficit Results Laboratory Results: 10/02/20 04:32 09/30/20 05:02 10/02/20 10/02/20 04:32 08:16 WBC 12.4 H RBC 3.31 L Hgb 10.0 L Hct 29.3 L MCV 88 MCH 30.1 MCHC 34.0 RDW 13.8 Plt Count 123 L Vitamin B12 > 1000.0 H Folate 14.10 Impressions: Chest X-Ray 09/26/20 00:00 IMPRESSION: Dense alveolar and interstitial infiltrates edema versus ARDS versus pneumonia. This is progressive since yesterday KUB X-Ray 09/26/20 00:00 IMPRESSION: NO RADIOGRAPHIC EVIDENCE FOR ACUTE ABDOMINAL DISEASE. UNCHANGED RIGHT SUBCAPITAL FEMORAL NECK FRACTURE Lung Scan-VQ NM 09/26/20 00:00 IMPRESSION: NORMAL PERFUSION LUNG SCAN. Head CT 09/27/20 00:00 IMPRESSION: CHRONIC CHANGES OF ATROPHY AND MICROVASCULAR ISCHEMIA. NO ACUTE PROCESS. EVIDENCE OF ACUTE STROKE: NO. Hip/Pelvis X-Ray 09/29/20 00:00 IMPRESSION: Status post right total hip arthroplasty without evidence of hardware complication. Additional chronic and incidental findings as detailed above. Wrist X-Ray 09/29/20 00:00 IMPRESSION: Distal radius and ulna fractures as detailed above. No acute findings on this limited examination. Assessment and Plan - Diagnosis (1) Acute hypoxemic respiratory failure Is this a current diagnosis for this admission?: Yes Plan: Moderate improvement. SPO2 WNL on RA. Initially thought to be aspiration pneumonia but seems like that patient has developed ARDS aspiration pneumonia but community-acquired pneumonia also remains a possibility. Patient has been having nausea vomiting since last night which increases likelihood of aspiration pneumonia. Patient had left hip fracture prior to admission. She also received COVID-19 vaccination on 09/22/2020. ABG 09/28/2020 mild improvement of hypoxemia. Chest x-ray dense alveolar and interstitial infiltrates edema, ARDS or pneumonia. VQ scan negative for any PE. COVID-19 serology negative. Day 7 IV antibiotics. Day 7 IV cefepime. Continue empiric broad-spectrum IV antibiotics and high-dose IV steroids. Scheduled duo nebs, scheduled BiPAP as needed, pulmonary toileting. Follow-up sputum and blood culture. (2) Disseminated intravascular coagulation Is this a current diagnosis for this admission?: Yes Plan: No DIC as per hematology note. Platelets trending up. Patient had hip fracture prior to presentation to ED, fat emboli is known to cause DIC in some cases. Not sure if this is true DIC since patient is having worsening thrombocytopenia, anemia, direct hyper bilirubinemia, elevated D-dimer but elevated fibrinogen. Has also developed ecchymosis on her extremities and face. Monitor closely, supportive transfusions, high-dose steroids. Hematology consulted. Recommendations noted. (3) Pneumonia Qualifiers: Pneumonia type: aspiration pneumonia Is this a current diagnosis for this admission?: Yes Plan: Possibly community-acquired pneumonia complicated by ARDS. Not as per #1. (4) Thrombocytopenia Is this a current diagnosis for this admission?: Yes Plan: Trending up. Has not received any heparin. No history of recent hospitalization. Unlikely this is heparin-induced thrombocytopenia. Likely due to acute illness. Status post platelet transfusion. Monitor for bleeding, platelet levels tomorrow. (5) COPD (chronic obstructive pulmonary disease) Qualifiers: COPD type: unspecified COPD Qualified Code(s): J44.9 - Chronic obstructive pulmonary disease, unspecified Is this a current diagnosis for this admission?: Yes Plan: History of oxygen dependent COPD 2 L nasal cannula as needed. Plan as per #1. (6) Femoral neck fracture Qualifiers: Encounter type: initial encounter Fracture type: closed Laterality: right Qualified Code(s): S72.001A - Fracture of unspecified part of neck of right femur, initial encounter for closed fracture Is this a current diagnosis for this admission?: Yes Plan: Status post hemiarthroplasty. Family has refused transfer to rehab. Plan is to continue PT while inpatient and discharged home with home PT. Ortho on board, recommendations noted. (7) Hypertension Qualifiers: Hypertension type: essential hypertension Qualified Code(s): I10 - Essential (primary) hypertension Is this a current diagnosis for this admission?: Yes Plan: Mildly hypertensive. He is euvolemic. Monitor vitals, continue home meds. IV labetalol as needed. Adjust meds as needed. (8) Nausea & vomiting Qualifiers: Vomiting Intractability: unspecified Is this a current diagnosis for this admission?: Yes Plan: Resolved. Likely gastroenteritis. KUB no acute changes. Antiemetics, supportive measures, monitor electrolytes at volume status. R eplace electrolytes as needed. (9) Frequent falls Is this a current diagnosis for this admission?: Yes Plan: Fall precautions. Outpatient PT. (10) Pulmonary hypertension Is this a current diagnosis for this admission?: Yes Plan: History of severe pulmonary hypertension. On 2L Home O2 Supplemental O2 for goal saturation >90% Continue home sildenafil Outpatient pulmonology follow-up. (11) ANDRAE (acute kidney injury) Is this a current diagnosis for this admission?: Yes Plan: Resolved. Prerenal. Likely due to nausea vomiting and low p.o. intake. Cautious volume restriction guided by volume status given acute respiratory failure. Monitor volume status and electrolytes, replace electrolytes as needed. BMP tomorrow. Nephrology consulted. (12) Anemia Qualifiers: Anemia type: iron deficiency Is this a current diagnosis for this admission?: Yes Plan: Acute blood loss anemia. Most likely due to hip fracture and subsequent surgery. No any apparent sign of acute bleeding. Scheduled to receive 1 PRBC today. Monitor H&H. - Plan Summary Summary: -Lui CHRISTOPHER is an 89 year old female with PMH of HTN, HLD, CHF, CHB s/p pacemaker, pulmonary hypertension on 2 L home O2 and frequent falls who presented to the ED s/p fall with R hip pain. She notes that she hates using canes/walkers. She was walking to the mailbox today when she had a mechanical fall onto her R hip. She recently (4-5 weeks ago) had a fall which results in a LUE fracture, which is still in a cast. She also notes that she broke her left hip in a fall a few years ago. She denies recent illnesses, sick contacts, fevers/chills, SOB, CP, cough, abdominal pain, dysuria. R femoral neck fracture - Orthopedic surgery was consulted and recommended surgical repair on 09/26 (NPO past MA) - bed rest - fall precautions - [facility] catheter placed in ED - PT immediately after surgery - pain control with oxycodone PRN, Tylenol scheduled and Morphine for breakthrough pain Pre-Operative Risk Assessment: she is euvolemic on exam and on the appropriate cardiac medications to control her risk factors. She has a Revised Cardiac Risk Index for Pre-Operative Risk of 2 (Class III) with a 10.1% 30-day risk of , MA or cardiac arrest. I discussed risks of surgery/anesthesia with patient and her son at bedside. They are understanding that she is high risk given her cardiac and pulmonary function, but are willing to take the risk to maximize her mobility and quality of life. Pulmonary HTN: on 2L Home O2 - Duo-Nebs PRN - supplemental O2 for goal saturation >90% - continue home sildenafil Leukocytosis: likely a stress reaction given fall and femur fracture. She has no other signs of or symptoms of infection. UA shows small LE and bacteria - this is likely due to asymptomatic bacteriuria and does not require antibiotic therapy. - repeat CBC in AM - hold off on antibiotics Congestive Heart Failure: euvolemic to slightly dry on exam today. No evidence of volume overload. - restart home medications - avoid aggressive IVF hydration Essential HTN: uncontrolled, likely due to the fact that she has not taken any of her home medications today - restart home medications Complete Heart Block s/p pacemaker - telemetry Dispo: she will likely require SNF placement on discharge. Discharge planning consult placed. DVT ppx: hold off on starting until after surgery tomorrow morning Code Status: DNR/DNI - Time Time Spent with patient: 35 or more minutes Anticipated Discharge Disposition: Home with Home Health Anticipated Discharge Timeframe: within 24 hours
--- NOTE | 2020-10-02 12:24 | PDOC PROGRESS REPORT ---
Subjective Date:: 10/02/20 Subjective:: Pt is s/p 3 days from right hip jennifer arthoplasty. She reports that her pain is well controlled. She is sleeping well throughout the night. She also reports she has been up preforming PT with ambulating with walker over the last 2 days. She denies leg pain, SOB, or chest pain. Reason For Visit: RIGHT FEMORAL NECK FRACTURE Physical Exam Vital Signs: Temp Pulse Resp BP Pulse Ox 97.2 F 61 18 167/58 H 92 10/02/20 07:45 10/02/20 07:45 10/02/20 07:45 10/02/20 07:45 10/02/20 07:45 Intake & Output 10/01/20 10/02/20 10/03/20 06:59 06:59 06:59 Intake Total 3552 1600 50 Output Total 1295 600 Balance 2257 1000 50 Weight 60.2 kg 60 kg General appearance: PRESENT: no acute distress, cooperative, thin Respiratory exam: PRESENT: unlabored Additional comments: Right LE: Dressing intact, no noteable edema or ecchymosis, nontender to palpation. Dorsi/plantar flexion intact, sensation intact, no calf tenderness. Neurological exam: PRESENT: alert, oriented to person, oriented to place, oriented to time Psychiatric exam: PRESENT: appropriate affect, normal mood Additional comments: Scattered ecchymosis across bilateral antecubital area. Results Laboratory Results: 10/02/20 04:32 09/30/20 05:02 10/02/20 10/02/20 04:32 08:16 WBC 12.4 H RBC 3.31 L Hgb 10.0 L Hct 29.3 L MCV 88 MCH 30.1 MCHC 34.0 RDW 13.8 Plt Count 123 L Vitamin B12 > 1000.0 H Folate 14.10 Impressions: Chest X-Ray 09/26/20 00:00 IMPRESSION: Dense alveolar and interstitial infiltrates edema versus ARDS versus pneumonia. This is progressive since yesterday KUB X-Ray 09/26/20 00:00 IMPRESSION: NO RADIOGRAPHIC EVIDENCE FOR ACUTE ABDOMINAL DISEASE. UNCHANGED RIGHT SUBCAPITAL FEMORAL NECK FRACTURE Lung Scan-VQ NM 09/26/20 00:00 IMPRESSION: NORMAL PERFUSION LUNG SCAN. Head CT 09/27/20 00:00 IMPRESSION: CHRONIC CHANGES OF ATROPHY AND MICROVASCULAR ISCHEMIA. NO ACUTE PROCESS. EVIDENCE OF ACUTE STROKE: NO. Hip/Pelvis X-Ray 09/29/20 00:00 IMPRESSION: Status post right total hip arthroplasty without evidence of hardware complication. Additional chronic and incidental findings as detailed above. Wrist X-Ray 09/29/20 00:00 IMPRESSION: Distal radius and ulna fractures as detailed above. No acute findings on this limited examination. Assessment & Plan - Diagnosis (1) Femoral neck fracture Qualifiers: Encounter type: initial encounter Fracture type: closed Laterality: right Qualified Code(s): S72.001A - Fracture of unspecified part of neck of right femur, initial encounter for closed fracture Is this a current diagnosis for this admission?: Yes Plan: 3 days status post right hip jennifer arthroplasty patient is healing well. PT is going well strength and range of motion is increased. D/C plans to follow up with Ortho in 10 days. - Time Time Spent with patient: Less than 15 minutes - Plan Summary Plan Summary: Left distal arm Fracture: Xray ordered and reviewed. Xrays showed comminuted distal radial fracture with collapse and ulnar variance. No prior Xray available for comparisons.
[2020-10-02] MEDS: RIVAROXABAN 10 MG TABLET PO SCH (17:55)
[2020-10-02] MEDS: ATORVASTATIN CALCIUM 40 MG TABLET PO SCH (21:38)
[2020-10-02] MEDS: DILTIAZEM HCL 180 MG CAPSULE.CR PO SCH (21:38)
[2020-10-02] MEDS: ACETAMINOPHEN 325 MG TABLET PO PRN (23:34)
[2020-10-03 05:56] LABS: HEMATOCRIT 25.2 % (36.0-47.0); HEMOGLOBIN 8.6 g/dL (12.0-15.5); MEAN CORPUSCULAR HEMOGLOBIN 30.3 pg (27.0-33.4); MEAN CORPUSCULAR HGB CONC 34.4 g/dL (32.0-36.0); MEAN CORPUSCULAR VOLUME 88 fl (80-97); PLATELET COUNT 120 10^3/uL (150-450); RED BLOOD COUNT 2.85 10^6/uL (3.72-5.28); RED CELL DISTRIBUTION WIDTH 13.5 % (11.5-14.0); WHITE BLOOD COUNT 10.9 10^3/uL (4.0-10.5)
[2020-10-03 06:16] LABS: BLOOD UREA NITROGEN 35 mg/dL (7-20); CALCIUM 8.1 mg/dL (8.4-10.2); CHLORIDE 110 mmol/L (98-107); GLUCOSE 94 mg/dL (75-110); POTASSIUM 3.8 mmol/L (3.6-5.0)
[2020-10-03 06:23] LABS: ANION GAP 5 (5-19); CARBON DIOXIDE 25 mmol/L (22-30)
[2020-10-03] MEDS: CARVEDILOL 6.25 MG TABLET PO SCH ×2 (09:34→21:38)
[2020-10-03] MEDS: SILDENAFIL CITRATE 20 MG TABLET PO SCH ×3 (09:34→19:44)
[2020-10-03] MEDS: LOSARTAN POTASSIUM 50 MG TABLET PO SCH (09:46)
[2020-10-03] MEDS: MULTIVITAMIN TABLET PO SCH (09:46)
[2020-10-03] MEDS: ESCITALOPRAM OXALATE 10 MG TABLET PO SCH (09:48)
--- NOTE | 2020-10-03 14:33 | PDOC PROGRESS REPORT ---
Subjective Date:: 10/03/20 Subjective:: ALEXANDER CHRISTOPHER is an 89 year old female with PMH of HTN, HLD, CHF, CHB s/p pacemaker, pulmonary hypertension on 2 L home O2 and frequent falls who presented to the ED s/p fall with R hip pain. She notes that she hates using canes/walkers. She was walking to the mailbox today when she had a mechanical fall onto her R hip. She denies LOC or head trauma. She recently (4-5 weeks ago) had a fall which results in a LUE fracture, which is still in a cast. She also notes that she broke her left hip in a fall a few years ago. She denies recent illnesses, sick contacts, fevers/chills, SOB, CP, cough, abdominal pain, dysuria. Pain is currently well controlled. In the ED, she was found to have a R femoral neck fracture. Orthopedic surgery was consulted and recommended surgical repair on 09/26. 09/26/2020. This morning patient noted to be hypoxic, and having nausea and vomi ting, stat ABG showed hypoxemia. Chest x-ray showed diffuse alveolar and interstitial infiltrate edema, ARDS or pneumonia. VQ scan negative for any PE. Unfortunately patient's surgery was delayed due to worsening respiratory symptoms. Overnight patient's oxygen demand has gone up but as per night nurse patient did not have any nausea or vomiting overnight, not sure if patient had aspiration or she is developing pneumonia. Patient received COVID-19 vaccination last 09/27/2020. Unfortunately patient's clinical status is deteriorating compared to yesterday, yesterday she started to become hypoxic and was having nausea and vomiting, initial thought was patient might have developed aspiration pneumonia, but given her worsening platelet levels, elevated D-dimers, fibrinogen, and ot her inflammatory markers looks like patient has developed ARDS and DIC likely due to fat emboli due to acute hip fracture. 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 I have had discussions with 2 of her sons and I have updated them about her underlying medical conditions. 09/28/2020. No acute events overnight, patient has moderate improvement of her symptoms since yesterday, currently off of BiPAP on 6 L nasal cannula saturating WNL, her leukocytosis and kidney function are also improving, her platelets are trending down but still below normal, patient appears very weak however follows commands and talks in a very low voice, denies having any pain. 09/29/2020. Moderate improvement. SPO2 WNL on 3 L nasal cannula, platelets are improving, patient awake and alert however confused at times, not sure if this is her baseline, complaining of being hungry otherwise denies any lower extremity pain, denies any fever, chills, nausea, vomiting. She is scheduled for surgery today. 09/30/2020. No acute events noted. Moderate improvement of hypoxia and mentation, patient comfortable resting with no apparent distress, alert and oriented and very pleasant cooperative with physical examination, she is status post hemiarthroplasty on 09/29/2020. Denies any fever, chest pain, nausea, vomiting. Patient family has refused SNF and they would like to take her home with home PT once she is ready to be discharged. Patient will probably benefit from another day or 2 of antibiotics and respiratory treatments. 10/01/2020. Patient was agitated this morning, as per night nurse she was yelling and screaming at the staff, she removed her IV lines, patient received oxycodone for hip pain, not sure if her agitation was due to reaction to oxycodone or if she was , this morning on my encounter patient is sitting on the edge of the bed accompanied by physical therapist, she is very pleasant and does not appear to be in any acute distress still seems to be confused, she is stating that "in the morning she was trying to give herself glucose and then she saw that she was bleeding from her left arm. " Apparently patient had left antecubital IV and she removed it, not sure if she was bleeding. She denies to be in any pain, denies any fever, chills, nausea, vo miting. 10/02/2020. No acute events overnight. Patient had right upper extremity IV access infiltration which was replaced, patient also received a dose of IV Ativan, this morning comfortably resting in bed sleeping, easily arousable, alert and oriented, very pleasant, stating that she is feeling better but her right hip hip and right foot are hurting, worse right foot. Possible discharge home tomorrow. 10/03/2020. No acute events overnight, patient is alert and oriented very pleasant does not appear to be in any apparent distress, still complaining of right hip pain otherwise denies any fever, chills, nausea, vomiting. Plan was to discharge home today however patient has a significant drop in her hemoglobin she is pending a stool guaiac and UA. I want to make sure patient is not ble eding as she would have to be sent home on Xarelto due to recent hip fracture. Reason For Visit: RIGHT FEMORAL NECK FRACTURE Physical Exam Vital Signs: Temp Pulse Resp BP Pulse Ox 97.8 F 68 16 135/54 H 96 10/03/20 11:32 10/03/20 11:32 10/03/20 11:32 10/03/20 11:32 10/03/20 11:32 Intake & Output 10/02/20 10/03/20 10/04/20 06:59 06:59 06:59 Intake Total 1600 920 360 Output Total 600 500 Balance 1000 420 360 Weight 60 kg 60 kg General appearance: PRESENT: no acute distress, well-developed, well-nourished Head exam: PRESENT: atraumatic, normocephalic Respiratory exam: PRESENT: clear to auscultation jase. ABSENT: rales, rhonchi, wheezes Cardiovascular exam: PRESENT: RRR. ABSENT: diastolic murmur, rubs, systolic murmur GI/Abdominal exam: PRESENT: normal bowel sounds, soft. ABSENT: distended, guarding, mass, organolmegaly, rebound, tenderness Extremities exam: PRESENT: full ROM, other - Right hip wound looks clean, left upper extremity cast in place.. ABSENT: calf tenderness, clubbing, pedal edema Neurological exam: PRESENT: alert, awake, oriented to person, oriented to place, CN II-XII grossly intact. ABSENT: motor sensory deficit Skin exam: PRESENT: other - Bilateral upper extremity ecchymosis. Results Laboratory Results: 10/03/20 04:38 10/03/20 04:38 10/03/20 10/03/20 04:38 04:38 WBC 10.9 H RBC 2.85 L Hgb 8.6 L Hct 25.2 L MCV 88 MCH 30.3 MCHC 34.4 RDW 13.5 Plt Count 120 L Sodium 140.1 Potassium 3.8 Chloride 110 H Carbon Dioxide 25 Anion Gap 5 BUN 35 H Creatinine 0.81 Est GFR ( Amer) > 60 Glucose 94 Calcium 8.1 L Impressions: Chest X-Ray 09/26/20 00:00 IMPRESSION: Dense alveolar and interstitial infiltrates edema versus ARDS versus pneumonia. This is progressive since yesterday KUB X-Ray 09/26/20 00:00 IMPRESSION: NO RADIOGRAPHIC EVIDENCE FOR ACUTE ABDOMINAL DISEASE. UNCHANGED RIGHT SUBCAPITAL FEMORAL NECK FRACTURE Lung Scan-VQ NM 09/26/20 00:00 IMPRESSION: NORMAL PERFUSION LUNG SCAN. Head CT 09/27/20 00:00 IMPRESSION: CHRONIC CHANGES OF ATROPHY AND MICROVASCULAR ISCHEMIA. NO ACUTE PROCESS. EVIDENCE OF ACUTE STROKE: NO. Hip/Pelvis X-Ray 09/29/20 00:00 IMPRESSION: Status post right total hip arthroplasty without evidence of hardware complication. Additional chronic and incidental findings as detailed above. Wrist X-Ray 09/29/20 00:00 IMPRESSION: Distal radius and ulna fractures as detailed above. No acute findings on this limited examination. Assessment and Plan - Diagnosis (1) Acute hypoxemic respiratory failure Is this a current diagnosis for this admission?: Yes Plan: Resolved. SPO2 WNL on RA. Initially thought to be aspiration pneumonia but seems like that patient has developed ARDS aspiration pneumonia but community-acquired pneumonia also remains a possibility. Patient has been having nausea vomiting since last night which increases likelihood of aspiration pneumonia. Patient had left hip fracture prior to admission. She also received COVID-19 va ccination on 09/22/2020. ABG 09/28/2020 mild improvement of hypoxemia. Chest x-ray dense alveolar and interstitial infiltrates edema, ARDS or pneumonia. VQ scan negative for any PE. COVID-19 serology negative. Day 7 IV antibiotics. Day 7 IV cefepime. Continue empiric broad-spectrum IV antibiotics and high-dose IV steroids. Scheduled duo nebs, scheduled BiPAP as needed, pulmonary toileting. Follow-up sputum and blood culture. (2) Disseminated intravascular coagulation Is this a current diagnosis for this admission?: Yes Plan: No DIC as per hematology note. Platelets trending up. Patient had hip fracture prior to presentation to ED, fat emboli is known to cause DIC in some cases. Not sure if this is true DIC since patient is having worsening thrombocytopenia, anemia, direct hyper bilirubinemia, elevated D-dimer but elevated fibrinogen. Has also developed ecchymosis on her extremities and face. Monitor closely, supportive transfusions, high-dose steroids. Hematology consulted. Recommendations noted. (3) Pneumonia Qualifiers: Pneumonia type: aspiration pneumonia Is this a current diagnosis for this admission?: Yes Plan: Possibly community-acquired pneumonia complicated by ARDS. Not as per #1. (4) Thrombocytopenia Is this a current diagnosis for this admission?: Yes Plan: Trending up. Has not received any heparin. No history of recent hospitalization. Unlikely this is heparin-induced thrombocytopenia. Likely due to acute illness. Status post platelet transfusion. Monitor for bleeding, platelet levels tomorrow. (5) COPD (chronic obstructive pulmonary disease) Qualifiers: COPD type: unspecified COPD Qualified Code(s): J44.9 - Chronic obstructive pulmonary disease, unspecified Is this a current diagnosis for this admission?: Yes Plan: History of oxygen dependent COPD 2 L nasal cannula as needed. Plan as per #1. (6) Femoral neck fracture Qualifiers: Encounter type: initial encounter Fracture type: closed Laterality: right Qualified Code(s): S72.001A - Fracture of unspecified part of neck of right femur, initial encounter for closed fracture Is this a current diagnosis for this admission?: Yes Plan: Status post hemiarthroplasty. Family has refused transfer to rehab. Plan is to continue PT while inpatient and discharged home with home PT. Ortho on board, recommendations noted. (7) Hypertension Qualifiers: Hypertension type: essential hypertension Qualified Code(s): I10 - Essential (primary) hypertension Is this a current diagnosis for this admission?: Yes Plan: Mildly hypertensive. He is euvolemic. Monitor vitals, continue home meds. IV labetalol as needed. Adjust meds as needed. (8) Nausea & vomiting Qualifiers: Vomiting Intractability: unspecified Is this a current diagnosis for this admission?: Yes Plan: Resolved. Likely gastroenteritis. KUB no acute changes. Antiemetics, supportive measures, monitor electrolytes at volume status. Replace electrolytes as needed. (9) Frequent falls Is this a current diagnosis for this admission?: Yes Plan: Fall precautions. Outpatient PT. (10) Pulmonary hypertension Is this a current diagnosis for this admission?: Yes Plan: History of severe pulmonary hypertension. On 2L Home O2 Supplemental O2 for goal saturation >90% Continue home sildenafil Outpatient pulmonology follow-up. (11) ANDRAE (acute kidney injury) Is this a current diagnosis for this admission?: Yes Plan: Resolved. Prerenal. Likely due to nausea vomiting and low p.o. intake. Cautious volume restriction guided by volume status given acute respiratory failure. Monitor volume status and electrolytes, replace electrolytes as needed. BMP t omorrow. Nephrology consulted. (12) Anemia Qualifiers: Anemia type: iron deficiency Is this a current diagnosis for this admission?: Yes Plan: She has acute drop in her hemoglobin. Acute blood loss anemia. Most likely due to hip fracture and subsequent surgery. No any apparent sign of acute bleeding. Status post 1 PRBC transfusion. Pending stool guaiac and UA. Hold Xarelto for today. Resume if stool guaiac and urine are negative. Monitor H&H. - Plan Summary Summary: -Lui CHRISTOPHER is an 89 year old female with PMH of HTN, HLD, CHF, CHB s/p pacemaker, pulmonary hypertension on 2 L home O2 and frequent falls who presented to the ED s/p fall with R hip pain. She notes that she hates using canes/walkers. She was walking to the mailbox today when she had a mechanical fall onto her R hip. She recently (4-5 weeks ago) had a fall which results in a LUE fracture, which is still in a cast. She also notes that she broke her left hip in a fall a few years ago. She denies recent illnesses, sick contacts, fevers/chills, SOB, CP, cough, abdominal pain, dysuria. R femoral neck fracture - Orthopedic surgery was consulted and recommended surgical repair on 09/26 (NPO past MN) - bed rest - fall precautions - [facility] catheter placed in ED - PT immediately after surgery - pain control with oxycodone PRN, Tylenol scheduled and Morphine for breakthrough pain Pre-Operative Risk Assessment: she is euvolemic on exam and on the appropriate cardiac medications to control her risk factors. She has a Revised Cardiac Risk Index for Pre-Operative Risk of 2 (Class III) with a 10.1% 30-day risk of , HI or cardiac arrest. I discussed risks of surgery/anesthesia with patient and her son at bedside. They are understanding that she is high risk given her cardiac and pulmonary function, but are willing to take the risk to maximize her mobility and quality of life. Pulmonary HTN: on 2L Home O2 - Duo-Nebs PRN - supplemental O2 for goal saturation >90% - continue home sildenafil Leukocytosis: likely a stress reaction given fall and femur fracture. She has no other signs of or symptoms of infection. UA shows small LE and bacteria - this i s likely due to asymptomatic bacteriuria and does not require antibiotic therapy. - repeat CBC in AM - hold off on antibiotics Congestive Heart Failure: euvolemic to slightly dry on exam today. No evidence of volume overload. - restart home medications - avoid aggressive IVF hydration Essential HTN: uncontrolled, likely due to the fact that she has not taken any of her home medications today - restart home medications Complete Heart Block s/p pacemaker - telemetry Dispo: she will likely require SNF placement on discharge. Discharge planning consult placed. DVT ppx: hold off on starting until after surgery tomorrow morning Code Status: DNR/DNI - Time Time Spent with patient: 35 or more minutes Anticipated Discharge Disposition: Home with Home Health Anticipated Discharge Timeframe: within 24 hours
[2020-10-03] MEDS: ACETAMINOPHEN 325 MG TABLET PO PRN (21:37)
[2020-10-03] MEDS: ATORVASTATIN CALCIUM 40 MG TABLET PO SCH (21:38)
[2020-10-03] MEDS: DILTIAZEM HCL 180 MG CAPSULE.CR PO SCH (21:38)
[2020-10-04 05:36] LABS: HEMATOCRIT 26.3 % (36.0-47.0); HEMOGLOBIN 8.7 g/dL (12.0-15.5); MEAN CORPUSCULAR HEMOGLOBIN 29.5 pg (27.0-33.4); MEAN CORPUSCULAR HGB CONC 33.3 g/dL (32.0-36.0); MEAN CORPUSCULAR VOLUME 89 fl (80-97); PLATELET COUNT 137 10^3/uL (150-450); RED BLOOD COUNT 2.96 10^6/uL (3.72-5.28); RED CELL DISTRIBUTION WIDTH 14.2 % (11.5-14.0); WHITE BLOOD COUNT 11.4 10^3/uL (4.0-10.5)
[2020-10-04 05:54] LABS: BLOOD UREA NITROGEN 27 mg/dL (7-20); CALCIUM 7.8 mg/dL (8.4-10.2); CARBON DIOXIDE 25 mmol/L (22-30); CHLORIDE 110 mmol/L (98-107); GLUCOSE 82 mg/dL (75-110); POTASSIUM 3.5 mmol/L (3.6-5.0)
[2020-10-04 06:02] LABS: ANION GAP 4 (5-19)
[2020-10-04 06:17] LABS: ABSOLUTE LYMPHOCYTES# (MANUAL) 1.1 10^3/uL (0.5-4.7); ABSOLUTE MONOCYTES # (MANUAL) 0.5 10^3/uL (0.1-1.4); BASOPHILS % (MANUAL) 0 % (0-2); EOSINOPHILS % (MANUAL) 4 % (0-6); LYMPHOCYTES % (MANUAL) 10 % (13-45); MONOCYTES % (MANUAL) 4 % (3-13); SEGMENTED NEUTROPHILS % (MAN) 82 % (42-78); TOTAL CELLS COUNTED 100
[2020-10-04 06:18] LABS: ANISOCYTOSIS SLIGHT; BURR CELLS SLIGHT; POIKILOCYTOSIS SLIGHT; TOXIC GRANULATION 1+; TOXIC VACUOLATION PRESENT
[2020-10-04 06:19] LABS: PLATELET COMMENT ADEQUATE; SCHISTOCYTES SLIGHT; TEAR DROP CELLS SLIGHT
[2020-10-04 06:43] LABS: APPEARANCE,URINE CLEAR; BILIRUBIN,URINE NEGATIVE (NEGATIVE); COLOR,URINE YELLOW; GLUCOSE, URINE NEGATIVE (NEGATIVE); KETONES,URINE NEGATIVE (NEGATIVE); PROTEIN,URINE 100 mg/dL (NEGATIVE); URINE SPECIFIC GRAVITY 1.015
[2020-10-04] MEDS: CARVEDILOL 6.25 MG TABLET PO SCH ×2 (10:42→22:08)
[2020-10-04] MEDS: MULTIVITAMIN TABLET PO SCH (10:42)
[2020-10-04] MEDS: ESCITALOPRAM OXALATE 10 MG TABLET PO SCH (10:42)
[2020-10-04] MEDS: SILDENAFIL CITRATE 20 MG TABLET PO SCH ×3 (10:43→17:32)
[2020-10-04] MEDS: LOSARTAN POTASSIUM 50 MG TABLET PO SCH (10:43)
--- NOTE | 2020-10-04 12:10 | PDOC PROGRESS REPORT ---
Subjective Date:: 10/04/20 Subjective:: ALEXANDER CHRISTOPHER is an 89 year old female with PMH of HTN, HLD, CHF, CHB s/p pacemaker, pulmonary hypertension on 2 L home O2 and frequent falls who presented to the ED s/p fall with R hip pain. She notes that she hates using canes/walkers. She was walking to the mailbox today when she had a mechanical fall onto her R hip. She denies LOC or head trauma. She recently (4-5 weeks ago) had a fall which results in a LUE fracture, which is still in a cast. She also notes that she broke her left hip in a fall a few years ago. She denies recent illnesses, sick contacts, fevers/chills, SOB, CP, cough, abdominal pain, dysuria. Pain is currently well controlled. In the ED, she was found to have a R femoral neck fracture. Orthopedic surgery was consulted and recommended surgical repair on 09/26. 09/26/2020. This morning patient noted to be hypoxic, and having nausea and vomi ting, stat ABG showed hypoxemia. Chest x-ray showed diffuse alveolar and interstitial infiltrate edema, ARDS or pneumonia. VQ scan negative for any PE. Unfortunately patient's surgery was delayed due to worsening respiratory symptoms. Overnight patient's oxygen demand has gone up but as per night nurse patient did not have any nausea or vomiting overnight, not sure if patient had aspiration or she is developing pneumonia. Patient received COVID-19 vaccination last 09/27/2020. Unfortunately patient's clinical status is deteriorating compared to yesterday, yesterday she started to become hypoxic and was having nausea and vomiting, initial thought was patient might have developed aspiration pneumonia, but given her worsening platelet levels, elevated D-dimers, fibrinogen, and ot her inflammatory markers looks like patient has developed ARDS and DIC likely due to fat emboli due to acute hip fracture. 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 I have had discussions with 2 of her sons and I have updated them about her underlying medical conditions. 09/28/2020. No acute events overnight, patient has moderate improvement of her symptoms since yesterday, currently off of BiPAP on 6 L nasal cannula saturating WNL, her leukocytosis and kidney function are also improving, her platelets are trending down but still below normal, patient appears very weak however follows commands and talks in a very low voice, denies having any pain. 09/29/2020. Moderate improvement. SPO2 WNL on 3 L nasal cannula, platelets are improving, patient awake and alert however confused at times, not sure if this is her baseline, complaining of being hungry otherwise denies any lower extremity pain, denies any fever, chills, nausea, vomiting. She is scheduled for surgery today. 09/30/2020. No acute events noted. Moderate improvement of hypoxia and mentation, patient comfortable resting with no apparent distress, alert and oriented and very pleasant cooperative with physical examination, she is status post hemiarthroplasty on 09/29/2020. Denies any fever, chest pain, nausea, vomiting. Patient family has refused SNF and they would like to take her home with home PT once she is ready to be discharged. Patient will probably benefit from another day or 2 of antibiotics and respiratory treatments. 10/01/2020. Patient was agitated this morning, as per night nurse she was yelling and screaming at the staff, she removed her IV lines, patient received oxycodone for hip pain, not sure if her agitation was due to reaction to oxycodone or if she was , this morning on my encounter patient is sitting on the edge of the bed accompanied by physical therapist, she is very pleasant and does not appear to be in any acute distress still seems to be confused, she is stating that "in the morning she was trying to give herself glucose and then she saw that she was bleeding from her left arm. " Apparently patient had left antecubital IV and she removed it, not sure if she was bleeding. She denies to be in any pain, denies any fever, chills, nausea, vo miting. 10/02/2020. No acute events overnight. Patient had right upper extremity IV access infiltration which was replaced, patient also received a dose of IV Ativan, this morning comfortably resting in bed sleeping, easily arousable, alert and oriented, very pleasant, stating that she is feeling better but her right hip hip and right foot are hurting, worse right foot. Possible discharge home tomorrow. 10/03/2020. No acute events overnight, patient is alert and oriented very pleasant does not appear to be in any apparent distress, still complaining of right hip pain otherwise denies any fever, chills, nausea, vomiting. Plan was to discharge home today however patient has a significant drop in her hemoglobin she is pending a stool guaiac and UA. I want to make sure patient is not ble eding as she would have to be sent home on Xarelto due to recent hip fracture. 10/04/2020. No acute events overnight, saw patient this morning resting in bed enjoying her breakfast in no apparent distress, denies any fever, chills, nausea, vomiting. Patient was noted to have a drop in her hemoglobin yesterday, her Xarelto was held and home her hemoglobin is trending up, patient was also noted to have guaiac positive stool, had a discussion with family and patient they agree with holding Xarelto and recheck her hemoglobin tomorrow and see if it is trending up, they would like to also consult surgery to see if patient needs a colonoscopy. They would like to discuss again tomorrow if they want to continue Xarelto or stop it before discharge. I had a discussion with Dr. Ortega over the phone to see if patient was a candidate for colonoscopy, as per Dr. Ortega they would not do colonoscopy on a patient who just has had hip fracture, hemiarthroplasty and is on blood thinners unless it is an emergency. Since patient is not acutely bleeding he recommends they for to follow-up as outpatien t for possible colonoscopy. Reason For Visit: RIGHT FEMORAL NECK FRACTURE Physical Exam Vital Signs: Temp Pulse Resp BP Pulse Ox 98.4 F 61 14 139/57 H 98 10/04/20 10:00 10/04/20 07:00 10/03/20 23:37 10/03/20 23:37 10/03/20 23:37 Intake & Output 10/03/20 10/04/20 10/05/20 06:59 06:59 06:59 Intake Total 920 1080 Output Total 500 900 Balance 420 180 Weight 60 kg 60.1 kg General appearance: PRESENT: no acute distress, well-developed, well-nourished Head exam: PRESENT: atraumatic, normocephalic Respiratory exam: PRESENT: clear to auscultation jase. ABSENT: rales, rhonchi, wheezes Cardiovascular exam: PRESENT: RRR. ABSENT: diastolic murmur, rubs, systolic m urmur GI/Abdominal exam: PRESENT: normal bowel sounds, soft. ABSENT: distended, guarding, mass, organolmegaly, rebound, tenderness Neurological exam: PRESENT: alert, awake, oriented to person, oriented to place, CN II-XII grossly intact. ABSENT: motor sensory deficit Results Laboratory Results: 10/04/20 04:47 10/04/20 04:47 10/03/20 10/04/20 10/04/20 14:54 04:47 04:47 WBC 11.4 H RBC 2.96 L Hgb 8.7 L Hct 26.3 L MCV 89 MCH 29.5 MCHC 33.3 RDW 14.2 H Plt Count 137 L Seg Neutrophils % Not Reportable Sodium 138.5 Potassium 3.5 L Chloride 110 H Carbon Dioxide 25 Anion Gap 4 L BUN 27 H Creatinine 0.84 Est GFR ( Amer) > 60 Glucose 82 Calcium 7.8 L Magnesium 2.0 Urine Color Urine Appearance Urine pH Ur Specific Mcdonough Urine Protein Urine Glucose (UA) Urine Ketones Urine Blood Urine RBC (Auto) Stool Occult Blood POSITIVE 10/04/20 06:15 WBC RBC Hgb Hct MCV MCH MCHC RDW Plt Count Seg Neutrophils % Sodium Potassium Chloride Carbon Dioxide Anion Gap BUN Creatinine Est GFR ( Amer) Glucose Calcium Magnesium Urine Color YELLOW Urine Appearance CLEAR Urine pH 6.0 Ur Specific Mcdonough 1.015 Urine Protein 100 H Urine Glucose (UA) NEGATIVE Urine Ketones NEGATIVE Urine Blood SMALL H Urine RBC (Auto) 6 Stool Occult Blood Impressions: Chest X-Ray 09/26/20 00:00 IMPRESSION: Dense alveolar and interstitial infiltrates edema versus ARDS versus pneumonia. This is progressive since yesterday KUB X-Ray 09/26/20 00:00 IMPRESSION: NO RADIOGRAPHIC EVIDENCE FOR ACUTE ABDOMINAL DISEASE. UNCHANGED RIGHT SUBCAPITAL FEMORAL NECK FRACTURE Lung Scan-VQ NM 09/26/20 00:00 IMPRESSION: NORMAL PERFUSION LUNG SCAN. Head CT 09/27/20 00:00 IMPRESSION: CHRONIC CHANGES OF ATROPHY AND MICROVASCULAR ISCHEMIA. NO ACUTE PROCESS. EVIDENCE OF ACUTE STROKE: NO. Hip/Pelvis X-Ray 09/29/20 00:00 IMPRESSION: Status post right total hip arthroplasty without evidence of hardware complication. Additional chronic and incidental findings as detailed above. Wrist X-Ray 09/29/20 00:00 IMPRESSION: Distal radius and ulna fractures as detailed above. No acute findings on this limited examination. Assessment and Plan - Diagnosis (1) Acute hypoxemic respiratory failure Is this a current diagnosis for this admission?: Yes Plan: Resolved. SPO2 WNL on RA. Initially thought to be aspiration pneumonia but seems like that patient has developed ARDS aspiration pneumonia but community-acquired pneumonia also remains a possibility. Patient has been having nausea vomiting since last night which increases likelihood of aspiration pneumonia. Patient had left hip fracture prior to admission. She also received COVID-19 vaccination on 09/22/2020. ABG 09/28/2020 mild improvement of hypoxemia. Chest x-ray dense alveolar and interstitial infiltrates edema, ARDS or pneumonia. VQ scan negative for any PE. COVID-19 serology negative. Day 8 IV antibiotics. Day 8 IV cefepime. Continue empiric broad-spectrum IV antibiotics and high-dose IV steroids. Scheduled duo nebs, scheduled BiPAP as needed, pulmonary toileting. Follow-up sputum and blood culture. (2) Anemia Qualifiers: Anemia type: iron deficiency Is this a current diagnosis for this admission?: Yes Plan: Hemoglobin stable. Was noted to have has acute drop in her hemoglobin yes terday. No sign of acute bleeding. Stool guaiac positive. Vitals stable. Most likely due to hip fracture and subsequent surgery and GI bleed due to Xarelto. Status post 1 PRBC transfusion on this hospitalization. Hold Xarelto for today. Monitor H&H. Had a discussion with family and Dr. Sa puente from surgery as described above. (3) Pneumonia Qualifiers: Pneumonia type: aspiration pneumonia Is this a current diagnosis for this admission?: Yes Plan: Possibly community-acquired pneumonia complicated by ARDS. Not as per #1. (4) Thrombocytopenia Is this a current diagnosis for this admission?: Yes Plan: Trending up. Has not received any heparin. No history of recent hospitalization. Unlikely this is heparin-induced thrombocytopenia. Likely due to acute illness. Status post platelet transfusion. Monitor for bleeding, platelet levels tomorrow. (5) COPD (chronic obstructive pulmonary disease) Qualifiers: COPD type: unspecified COPD Qualified Code(s): J44.9 - Chronic obstructive pulmonary disease, unspecified Is this a current diagnosis for this admission?: Yes Plan: History of oxygen dependent COPD 2 L nasal cannula as needed. Plan as per #1. (6) Femoral neck fracture Qualifiers: Encounter type: initial encounter Fracture type: closed Laterality: right Qualified Code(s): S72.001A - Fracture of unspecified part of neck of right femur, initial encounter for closed fracture Is this a current diagnosis for this admission?: Yes Plan: Status post hemiarthroplasty. Family has refused transfer to rehab. Plan is to continue PT while inpatient and discharged home with home PT. Ortho on board, recommendations noted. (7) Hypertension Qualifiers: Hypertension type: essential hypertension Qualified Code(s): I10 - Essential (primary) hypertension Is this a current diagnosis for this admission?: Yes Plan: Mildly hypertensive. He is euvolemic. Monitor vitals, continue home meds. IV labetalol as needed. Adjust meds as needed. (8) Nausea & vomiting Qualifiers: Vomiting Intractability: unspecified Is this a current diagnosis for this admission?: Yes Plan: Resolved. Likely gastroenteritis. KUB no acute changes. Antiemetics, supportive measures, monitor electrolytes at volume status. Replace electrolytes as needed. (9) Frequent falls Is this a current diagnosis for this admission?: Yes Plan: Fall precautions. Outpatient PT. (10) Pulmonary hypertension Is this a current diagnosis for this admission?: Yes Plan: History of severe pulmonary hypertension. On 2L Home O2 Supplemental O2 for goal saturation >90% Continue home sildenafil Outpatient pulmonology follow-up. (11) ANDRAE (acute kidney injury) Is this a current diagnosis for this admission?: Yes Plan: Resolved. Prerenal. Likely due to nausea vomiting and low p.o. intake. Cautious volume restriction guided by volume status given acute respiratory failure. Monitor volume status and electrolytes, replace electrolytes as needed. BMP tomorrow. Nephrology consulted. (12) Disseminated intravascular coagulation Is this a current diagnosis for this admission?: Yes Plan: Ruled out. No DIC as per hematology note. Platelets trending up. Patient had hip fracture prior to presentation to ED, fat emboli is known to cause DIC in some cases. Not sure if this is true DIC since patient is having worsening thrombocytopenia, anemia, direct hyper bilirubinemia, elevated D-dimer but elevated fibrinogen. Has also developed ecchymosis on her extremities and face. Monitor closely, supportive transfusions, high-dose steroids. Hematology consulted. Recommendations noted. - Plan Summary Summary: -Lui CHRISTOPHER is an 89 year old female with PMH of HTN, HLD, CHF, CHB s/p pacemaker, pulmonary hypertension on 2 L home O2 and frequent falls who presented to the ED s/p fall with R hip pain. She notes that she hates using canes/walkers. She was walking to the mailbox today when she had a mechanical fall onto her R hip. She recently (4-5 weeks ago) had a fall which results in a LUE fracture, which is still in a cast. She also notes that she broke her left hip in a fall a few years ago. She denies recent illnesses, sick contacts, fevers/chills, SOB, CP, cough, abdominal pain, dysuria. R femoral neck fracture - Orthopedic surgery was consulted and recommended surgical repair on 09/26 (NPO past MN) - bed rest - fall precautions - [facility] catheter placed in ED - PT immediately after surgery - pain control with oxycodone PRN, Tylenol scheduled and Morphine for breakthrough pain Pre-Operative Risk Assessment: she is euvolemic on exam and on the appropriate cardiac medications to control her risk factors. She has a Revised Cardiac Risk Index for Pre-Operative Risk of 2 (Class III) with a 10.1% 30-day risk of , TN or cardiac arrest. I discussed risks of surgery/anesthesia with patient and her son at bedside. They are understanding that she is high risk given her cardiac and pulmonary function, but are willing to take the risk to maximize her mobility and quality of life. Pulmonary HTN: on 2L Home O2 - Duo-Nebs PRN - supplemental O2 for goal saturation >90% - continue home sildenafil Leukocytosis: likely a stress reaction given fall and femur fracture. She has no other signs of or symptoms of infection. UA shows small LE and bacteria - this is likely due to asymptomatic bacteriuria and does not require antibiotic therapy. - repeat CBC in AM - hold off on antibiotics Congestive Heart Failure: euvolemic to slightly dry on exam today. No evidence of volume overload. - restart home medications - avoid aggressive IVF hydration Essential HTN: uncontrolled, likely due to the fact that she has not taken any of her home medications today - restart home medications Complete Heart Block s/p pacemaker - telemetry Dispo: she will likely require SNF placement on discharge. Discharge planning consult placed. DVT ppx: hold off on starting until after surgery tomorrow morning Code Status: DNR/DNI - Time Time Spent with patient: 35 or more minutes Anticipated Discharge Disposition: Home with Home Health Anticipated Discharge Timeframe: within 72 hours
[2020-10-04] MEDS: ATORVASTATIN CALCIUM 40 MG TABLET PO SCH (22:08)
[2020-10-04] MEDS: ACETAMINOPHEN 325 MG TABLET PO PRN (22:08)
[2020-10-04] MEDS: DILTIAZEM HCL 180 MG CAPSULE.CR PO SCH (22:08)
[2020-10-05 05:30] LABS: HEMATOCRIT 26.9 % (36.0-47.0); HEMOGLOBIN 9.3 g/dL (12.0-15.5); MEAN CORPUSCULAR HEMOGLOBIN 31.2 pg (27.0-33.4); MEAN CORPUSCULAR HGB CONC 34.6 g/dL (32.0-36.0); MEAN CORPUSCULAR VOLUME 90 fl (80-97); PLATELET COUNT 135 10^3/uL (150-450); RED BLOOD COUNT 2.98 10^6/uL (3.72-5.28); RED CELL DISTRIBUTION WIDTH 13.8 % (11.5-14.0); WHITE BLOOD COUNT 9.9 10^3/uL (4.0-10.5)
[2020-10-05] MEDS: LOSARTAN POTASSIUM 50 MG TABLET PO SCH (10:40)
[2020-10-05] MEDS: SILDENAFIL CITRATE 20 MG TABLET PO SCH ×2 (10:41→13:55)
[2020-10-05] MEDS: CARVEDILOL 6.25 MG TABLET PO SCH (10:41)
[2020-10-05] MEDS: MULTIVITAMIN TABLET PO SCH (10:41)
[2020-10-05] MEDS: ESCITALOPRAM OXALATE 10 MG TABLET PO SCH (10:41)
[2020-10-05 14:37] VITALS: BP 142/58
--- NOTE | 2020-10-05 15:07 | PDOC DISCHARGE SUMMARY ---
Impression - Admit/DC Date/PCP Admission Date/Primary Care Provider: 09/25/20 16:52 ELISABET MUNGUIA DO Discharge Date: 10/05/20 - Discharge Diagnosis (1) Acute hypoxemic respiratory failure Is this a current diagnosis for this admission?: Yes (2) Anemia Is this a current diagnosis for this admission?: Yes (3) Pneumonia Is this a current diagnosis for this admission?: Yes (4) Thrombocytopenia Is this a current diagnosis for this admission?: Yes (5) COPD (chronic obstructive pulmonary disease) Is this a current diagnosis for this admission?: Yes (6) Femoral neck fracture Is this a current diagnosis for this admission?: Yes (7) Hypertension Is this a current diagnosis for this admission?: Yes (8) Nausea & vomiting Is this a current diagnosis for this admission?: Yes (9) Frequent falls Is this a current diagnosis for this admission?: Yes (10) Pulmonary hypertension Is this a current diagnosis for this admission?: Yes (11) ANDRAE (acute kidney injury) Is this a current diagnosis for this admission?: Yes (12) Disseminated intravascular coagulation Is this a current diagnosis for this admission?: Yes - Assessment Summary: -Lui CHRISTOPHER is an 89 year old female with PMH of HTN, HLD, CHF, CHB s/p pacemaker, pulmonary hypertension on 2 L home O2 and frequent falls who presented to the ED s/p fall with R hip pain. She notes that she hates using canes/walkers. She was walking to the mailbox today when she had a mechanical fall onto her R hip. She recently (4-5 weeks ago) had a fall which results in a LUE fracture, which is still in a cast. She also notes that she broke her left hip in a fall a few years ago. She denies recent illnesses, sick contacts, fevers/chills, SOB, CP, cough, abdominal pain, dysuria. R femoral neck fracture - Orthopedic surgery was consulted and recommended surgical repair on 09/26 (NPO past MN) - bed rest - fall precautions - Duke catheter placed in ED - PT immediately after surgery - pain control with oxycodone PRN, Tylenol scheduled and Morphine for breakthrough pain Pre-Operative Risk Assessment: she is euvolemic on exam and on the appropriate cardiac medications to control her risk factors. She has a Revised Cardiac Risk Index for Pre-Operative Risk of 2 (Class III) with a 10.1% 30-day risk of , IA or cardiac arrest. I discussed risks of surgery/anesthesia with patient and her son at bedside. They are understanding that she is high risk given her cardiac and pulmonary function, but are willing to take the risk to maximize her mobility and quality of life. Pulmonary HTN: on 2L Home O2 - Duo-Nebs PRN - supplemental O2 for goal saturation >90% - continue home sildenafil Leukocytosis: likely a stress reaction given fall and femur fracture. She has no other signs of or symptoms of infection. UA shows small LE and bacteria - this is likely due to asymptomatic bacteriuria and does not require antibiotic therapy. - repeat CBC in AM - hold off on antibiotics Congestive Heart Failure: euvolemic to slightly dry on exam today. No evidence of volume overload. - restart home medications - avoid aggressive IVF hydration Essential HTN: uncontrolled, likely due to the fact that she has not taken any of her home medications today - restart home medications Complete Heart Block s/p pacemaker - telemetry Dispo: she will likely require SNF placement on discharge. Discharge planning consult placed. DVT ppx: hold off on starting until after surgery tomorrow morning Code Status: DNR/DNI - Additional Information Resuscitation Status: Do Not Resuscitate Discharge Diet: As Tolerated Discharge Activity: Activity As Tolerated, Balance Activity w/Rest, No tub bath Referrals: RENEE GRIMES MD [ACTIVE STAFF] - 10/19/20 9:30 am (in 2 weeks from discharge. Please call offivce to arrange. ) ELISABET MUNGUIA DO [Primary Care Provider] - 10/09/20 1:30 pm FADI CARIAS DO [ACTIVE STAFF] - 10/16/20 8:50 am Home Medications: Atorvastatin Calcium [Lipitor 40 mg Tablet] 40 mg PO QHS 09/27/20 Carvedilol [Coreg 3.125 mg Tablet] 3.125 mg PO Q12 09/27/20 Diltiazem HCl [Diltiazem 24Hr ER] 180 mg PO DAILY 09/27/20 Escitalopram Oxalate [Lexapro 10 mg Tablet] 20 mg PO DAILY 09/27/20 Furosemide [Lasix 40 mg Tablet] 40 mg PO DAILY 09/27/20 Ibandronate Sodium [Boniva] 150 mg PO .QMONTHLY 09/27/20 Telmisartan 40 mg PO DAILY 09/27/20 History of Present Illiness History of Present Illness: ALEXANDER CHRISTOPHER is an 89 year old female with PMH of HTN, HLD, CHF, CHB s/p pacemaker, pulmonary hypertension on 2 L home O2 and frequent falls who presented to the ED s/p fall with R hip pain. She notes that she hates using canes/walkers. She was walking to the mailbox today when she had a mechanical fall onto her R hip. She denies LOC or head trauma. She recently (4-5 weeks ago) had a fall which results in a LUE fracture, which is still in a cast. She also notes that she broke her left hip in a fall a few years ago. She denies recent illnesses, sick contacts, fevers/chills, SOB, CP, cough, abdominal pain, dysuria. Pain is currently well controlled. In the ED, she was found to have a R femoral neck fracture. Orthopedic surgery was consulted and recommended surgical repair on 09/26. Hospital Course Hospital Course: (1) Acute hypoxemic respiratory failure Resolved. SPO2 WNL on RA. WBC WNL. Initially thought to be aspiration pneumonia but seems like that patient has developed ARDS aspiration pneumonia but community-acquired pneumonia also remains a possibility. Patient has been having nausea vomiting since last night which increases likelihood of aspiration pneumonia. Patient had left hip fracture prior to admission. She also received COVID-19 vaccination on 09/22/2020. ABG 09/28/2020 mild improvement of hypoxemia. Chest x-ray dense alveolar and interstitial infiltrates edema, ARDS or pneum onia. VQ scan negative for any PE. COVID-19 serology negative. Received 9 days of IV antibiotics. Received 9 days of IV cefepime. Continue empiric broad-spectrum IV antibiotics and high-dose IV steroids. Scheduled duo nebs, scheduled BiPAP as needed, pulmonary toileting. All cultures remain negative. (2) Anemia Hemoglobin trending up. 9.7 today up from 8.7 yesterday. No sign of acute bleeding. Stool guaiac positive on 10/03/2020. Vitals stable. Most likely due to hip fracture and subsequent surgery and GI bleed due to Xarelto. Status post 1 PRBC transfusion on this hospitalization. DCd Xarelto. Discussed extensively with patient and family about risk and benefit of continuing Xarelto. They agreed to stop Xarelto as patient was having drop in hemoglobin, was having guaiac positive stool and has history of recurrent recurrent falls. I also discussed the case with Dr. Ortega over the phone if patient was a candidate for colonoscopy he stated that since patient had a recent hip fracture and hemiarthroplasty she is not a candidate for colonoscopy and also she was stable and not acutely bleeding. Patient is stating that she had a colonoscopy less than 2 years ago which was reported as normal. Patient and family advised to follow-up with surgery as outpatient for possible upper and lower GI endoscopy. (3) Pneumonia Possibly community-acquired pneumonia complicated by ARDS. Not as per #1. (4) Thrombocytopenia Trending up. 135 at the day of discharge. Has not received any heparin. No history of recent hospitalization. Unlikely this is heparin-induced thrombocytopenia. Likely due to acute illness. Status post platelet transfusion. (5) COPD (chronic obstructive pulmonary disease) History of oxygen dependent COPD 2 L nasal cannula as needed. Plan as per #1. (6) Femoral neck fracture Status post hemiarthroplasty. Family has refused transfer to rehab. Was discharged home health and home PT. Advised family and patient to follow-up with Dr. Carias as outpatient. (7) Hypertension Euvolemic. Normotensive. Was advised to resume home meds upon discharge. (8) Nausea & vomiting Resolved. Likely gastroenteritis. KUB no acute changes. Antiemetics, supportive measures, monitor electrolytes at volume status. Replace electrolytes as needed. (9) Frequent falls Fall precautions. Outpatient PT. (10) Pulmonary hypertension History of severe pulmonary hypertension. On 2L Home O2 Supplemental O2 for goal saturation >90% Continued home sildenafil Advised to resume home upon discharge and follow-up with pulmonology. (11) ANDRAE (acute kidney injury) Resolved. Prerenal. Likely due to nausea vomiting and low p.o. intake. Cautious volume restriction guided by volume status given acute respiratory failure. Monitor volume status and electrolytes, replace electrolytes as needed. BMP tomorrow. Nephrology consulted. (12) Disseminated intravascular coagulation Ruled out. No DIC as per hematology note. Platelets trending up. Patient had hip fracture prior to presentation to ED, fat emboli is known to cause DIC in some cases. Not sure if this is true DIC since patient is having worsening thrombocytopenia, anemia, direct hyper bilirubinemia, elevated D-dimer but elevated fibrinogen. Had also developed ecchymosis on her extremities and face. Hematology consulted. Please refer to note. Physical Exam Vital Signs: Temp Pulse Resp BP Pulse Ox 98.0 F 74 18 142/58 H 99 10/05/20 14:17 10/05/20 14:17 10/05/20 14:17 10/05/20 14:17 10/05/20 14:17 Intake & Output 10/04/20 10/05/20 10/06/20 06:59 06:59 06:59 Intake Total 1080 1140 956 Output Total 900 1000 800 Balance 180 140 156 Weight 60.1 kg 62.3 kg General appearance: PRESENT: no acute distress, well-developed, well-nourished Head exam: PRESENT: atraumatic, normocephalic Neck exam: ABSENT: carotid bruit, JVD, lymphadenopathy, thyromegaly Respiratory exam: PRESENT: clear to auscultation jase. ABSENT: rales, rhonchi, wheezes Cardiovascular exam: PRESENT: RRR. ABSENT: diastolic murmur, rubs, systolic murmur GI/Abdominal exam: PRESENT: normal bowel sounds, soft. ABSENT: distended, guarding, mass, organolmegaly, rebound, tenderness Extremities exam: PRESENT: full ROM, other - Hip wound looks clean.. ABSENT: calf tenderness, clubbing, pedal edema Neurological exam: PRESENT: alert, awake, oriented to person, oriented to place, oriented to time, oriented to situation, CN II-XII grossly intact. ABSENT: motor sensory deficit Results Laboratory Results: WBC 9.9 10^3/uL (4.0-10.5) 10/05/20 04:42 RBC 2.98 10^6/uL (3.72-5.28) L 10/05/20 04:42 Hgb 9.3 g/dL (12.0-15.5) L 10/05/20 04:42 Hct 26.9 % (36.0-47.0) L 10/05/20 04:42 MCV 90 fl (80-97) 10/05/20 04:42 MCH 31.2 pg (27.0-33.4) 10/05/20 04:42 MCHC 34.6 g/dL (32.0-36.0) 10/05/20 04:42 RDW 13.8 % (11.5-14.0) 10/05/20 04:42 Plt Count 135 10^3/uL (150-450) L 10/05/20 04:42 Lymph % (Auto) Not Reportable 10/04/20 04:47 [place] % (Auto) Not Reportable 10/04/20 04:47 Eos % (Auto) Not Reportable 10/04/20 04:47 Baso % (Auto) Not Reportable 10/04/20 04:47 Absolute Neuts (auto) Not Reportable 10/04/20 04:47 Absolute Lymphs (auto) Not Reportable 10/04/20 04:47 Absolute Monos (auto) Not Reportable 10/04/20 04:47 Absolute Eos (auto) Not Reportable 10/04/20 04:47 Absolute Basos (auto) Not Reportable 10/04/20 04:47 Total Counted 100 10/04/20 04:47 Seg Neutrophils % Not Reportable 10/04/20 04:47 Seg Neuts % (Manual) 82 % (42-78) H 10/04/20 04:47 Band Neutrophils % 1 % (3-5) L 09/28/20 07:32 Lymphocytes % (Manual) 10 % (13-45) L 10/04/20 04:47 Atypical Lymphs % 1 % (0) 09/27/20 04:14 Monocytes % (Manual) 4 % (3-13) 10/04/20 04:47 Eosinophils % (Manual) 4 % (0-6) 10/04/20 04:47 Basophils % (Manual) 0 % (0-2) 10/04/20 04:47 Metamyelocytes % 5 % (0-1) H 09/27/20 04:14 Abs Neuts (Manual) 9.3 10^3/uL (1.7-8.2) H 10/04/20 04:47 Abs Lymphs (Manual) 1.1 10^3/uL (0.5-4.7) 10/04/20 04:47 Abs Monocytes (Manual) 0.5 10^3/uL (0.1-1.4) 10/04/20 04:47 Absolute Eos (Manual) 0.5 10^3/uL (0.0-0.6) 10/04/20 04:47 Abs Basophils (Manual) 0.0 10^3/uL (0.0-0.2) 10/04/20 04:47 Toxic Granulation 1+ 10/04/20 04:47 Toxic Vacuolation PRESENT 10/04/20 04:47 Large Platelets PRESENT 09/29/20 15:19 Platelet Comment ADEQUATE 10/04/20 04:47 Polychromasia SLIGHT 09/28/20 07:32 Poikilocytosis SLIGHT 10/04/20 04:47 Anisocytosis SLIGHT 10/04/20 04:47 Tear Drop Cells SLIGHT 10/04/20 04:47 Ovalocytes SLIGHT 09/27/20 04:14 [place] Cells SLIGHT 10/04/20 04:47 Schistocytes SLIGHT 10/04/20 04:47 RBC Morph Comment NORMO-CYTIC/CHROMIC 09/30/20 16:24 ESR 22 mm/hr (0-30) 09/26/20 10:30 PT 14.9 SEC (11.4-15.4) 09/29/20 04:29 INR 1.15 09/29/20 04:29 INR (Anticoag Therapy) Cancelled 09/25/20 14:36 APTT 34.5 SEC (23.5-35.8) 09/25/20 18:20 Fibrinogen 655 mg/dL (209-497) H 09/27/20 10:40 D-Dimer 1.87 ug/mL (0.00-0.50) H 09/29/20 04:29 Carbonic Acid 1.04 mmol/L (1.05-1.35) L 09/29/20 05:50 HCO3/H2CO3 Ratio 22:1 09/29/20 05:50 ABG pH 7.44 (7.35-7.45) 09/29/20 05:50 ABG pCO2 34.7 mmHg (35-45) L 09/29/20 05:50 ABG pO2 66.0 mmHg (80-100) L 09/29/20 05:50 ABG HCO3 23.3 mmol/L (20-24) 09/29/20 05:50 ABG Total CO2 24.3 mmol/L (21-25) 09/29/20 05:50 ABG O2 Saturation 94.0 % (94-98) 09/29/20 05:50 ABG Base Excess -0.5 mmol/L 09/29/20 05:50 FiO2 4.5L 09/29/20 05:50 Sodium 138.5 mmol/L (137-145) 10/04/20 04:47 Potassium 3.5 mmol/L (3.6-5.0) L 10/04/20 04:47 Chloride 110 mmol/L (98-107) H 10/04/20 04:47 Carbon Dioxide 25 mmol/L (22-30) 10/04/20 04:47 Anion Gap 4 (5-19) L 10/04/20 04:47 BUN 27 mg/dL (7-20) H 10/04/20 04:47 Creatinine 0.84 mg/dL (0.52-1.25) 10/04/20 04:47 Est GFR ( Amer) > 60 (>60) 10/04/20 04:47 Est GFR (MDRD) Non-Af > 60 (>60) 10/04/20 04:47 Glucose 82 mg/dL (75-110) 10/04/20 04:47 POC Glucose 190 mg/dL (70-110) H 09/30/20 10:25 Calcium 7.8 mg/dL (8.4-10.2) L 10/04/20 04:47 Magnesium 2.0 mg/dL (1.6-2.3) 10/04/20 04:47 Ferritin 326.00 ng/mL (11.1-264.0) H 09/26/20 09:09 Total Bilirubin 1.2 mg/dL (0.2-1.3) 09/30/20 05:02 Direct Bilirubin 0.4 mg/dL (0.0-0.4) 09/30/20 05:02 Neonat Total Bilirubin Not Reportable 09/30/20 05:02 Neonat Direct Bilirubin Not Reportable 09/30/20 05:02 Neonat Indirect Bili Not Reportable 09/30/20 05:02 AST 36 U/L (14-36) 09/30/20 05:02 ALT 24 U/L (<35) 09/30/20 05:02 Alkaline Phosphatase 59 U/L (38-126) 09/30/20 05:02 C-Reactive Protein 52.4 mg/L (<10.0) H 09/26/20 09:09 Total Protein 5.1 g/dL (6.3-8.2) L 09/30/20 05:02 Albumin 2.6 g/dL (3.5-5.0) L 09/30/20 05:02 Vitamin B12 > 1000.0 pg/mL (239-931) H 10/02/20 08:16 Folate 14.10 ng/mL (>2.76) 10/02/20 08:16 Urine Color YELLOW 10/04/20 06:15 Urine Appearance CLEAR 10/04/20 06:15 Urine pH 6.0 (5.0-9.0) 10/04/20 06:15 Ur Specific [place] 1.015 10/04/20 06:15 Urine Protein 100 mg/dL (NEGATIVE) H 10/04/20 06:15 Urine Glucose (UA) NEGATIVE mg/dL (NEGATIVE) 10/04/20 06:15 Urine Ketones NEGATIVE mg/dL (NEGATIVE) 10/04/20 06:15 Urine Blood SMALL (NEGATIVE) H 10/04/20 06:15 Urine Nitrite NEGATIVE (NEGATIVE) 09/25/20 16:09 Urine Nitrite (Reflex) NEGATIVE (NEGATIVE) 10/04/20 06:15 Urine Bilirubin NEGATIVE (NEGATIVE) 10/04/20 06:15 Urine Urobilinogen 2.0 mg/dL (<2.0) H 10/04/20 06:15 Ur Leukocyte Esterase SMALL (NEGATIVE) H 09/25/20 16:09 Leukocyte Esterase Rfl NEGATIVE (NEGATIVE) 10/04/20 06:15 Urine WBC (Auto) 9 /HPF 09/25/20 16:09 Urine RBC (Auto) 6 /HPF 10/04/20 06:15 U Hyaline Cast (Auto) 10 /LPF 09/25/20 16:09 Urine Bacteria (Auto) 3+ /HPF 09/25/20 16:09 Urine WBC (Reflex) 5 /HPF 10/04/20 06:15 Squamous Epi Cells Auto 1 /HPF 10/04/20 06:15 Urine Mucus (Auto) RARE /LPF 10/04/20 06:15 Urine Yeast (Budding) PRESENT /HPF 10/04/20 06:15 Urine Ascorbic Acid NEGATIVE (NEGATIVE) 10/04/20 06:15 Po Human Metapneumo PCR NOT DETECTED (NOT DETECT) 09/26/20 12:40 Stool Occult Blood POSITIVE (NEGATIVE) 10/03/20 14:54 Adenovirus (PCR) NOT DETECTED (NOT DETECT) 09/26/20 12:40 B. pertussis DNA (PCR) NOT DETECTED (NOT DETECT) 09/26/20 12:40 B.parapertussis DNA PCR NOT DETECTED (NOT DETECT) 09/26/20 12:40 C. pneumoniae DNA (PCR) NOT DETECTED (NOT DETECT) 09/26/20 12:40 Coronavirus OC43 (PCR) NOT DETECTED (NOT DETECT) 09/26/20 12:40 Coronavirus HKU1 (PCR) NOT DETECTED (NOT DETECT) 09/26/20 12:40 Coronavirus 229E (PCR) NOT DETECTED (NOT DETECT) 09/26/20 12:40 COVID-19 Source Cancelled 09/25/20 14:36 COVID-19 (ANGELITO) Cancelled 09/25/20 14:36 Coronavirus NL63 (PCR) NOT DETECTED (NOT DETECT) 09/26/20 12:40 Influenza A (RT-PCR) NEGATIVE (NEGATIVE) 09/25/20 15:03 Influenza A (H1) PCR NOT DETECTED (NOT DETECT) 09/26/20 12:40 Influ A (H1N1/09) PCR NOT DETECTED (NOT DETECT) 09/26/20 12:40 Influenza A (H3) PCR NOT DETECTED (NOT DETECT) 09/26/20 12:40 Influenza Type A (PCR) NOT DETECTED (NOT DETECT) 09/26/20 12:40 Influenza B (RT-PCR) NEGATIVE (NEGATIVE) 09/25/20 15:03 Influenza Type B (PCR) NOT DETECTED (NOT DETECT) 09/26/20 12:40 M. pneumoniae (PCR) NOT DETECTED (NOT DETECT) 09/26/20 12:40 Parainfluenza 1 (PCR) NOT DETECTED (NOT DETECT) 09/26/20 12:40 Parainfluenza 2 (PCR) NOT DETECTED (NOT DETECT) 09/26/20 12:40 Parainfluenza 3 (PCR) NOT DETECTED (NOT DETECT) 09/26/20 12:40 Parainfluenza 4 (PCR) NOT DETECTED (NOT DETECT) 09/26/20 12:40 RSV (RT-PCR) NEGATIVE (NEGATIVE) 09/25/20 15:03 RSV (PCR) NOT DETECTED (NOT DETECT) 09/26/20 12:40 Entero/Rhino (PCR) NOT DETECTED (NOT DETECT) 09/26/20 12:40 SARS-CoV-2 (PCR) NOT DETECTED (NOT DETECT) 09/26/20 12:40 SARS-CoV-2 Rap RNA(RT-PCR) NEGATIVE (NEGATIVE) 09/25/20 15:03 Slides for Path Review PATHOLOGIST REVIEWED 09/27/20 04:14 Blood Type O POSITIVE 09/29/20 08:34 Blood Type Confirm O POSITIVE 09/29/20 08:34 Antibody Screen NEGATIVE 09/29/20 08:34 Crossmatch See Detail 09/29/20 08:34 Impressions: Chest X-Ray 09/25/20 13:37 IMPRESSION: Chronic lung changes with no acute cardiopulmonary finding. Hip/Pelvis X-Ray 09/25/20 13:37 IMPRESSION: Impacted subcapital fracture of the femoral neck. Chest X-Ray 09/26/20 00:00 IMPRESSION: Dense alveolar and interstitial infiltrates edema versus ARDS versus pneumonia. This is progressive since yesterday KUB X-Ray 09/26/20 00:00 IMPRESSION: NO RADIOGRAPHIC EVIDENCE FOR ACUTE ABDOMINAL DISEASE. UNCHANGED RIGHT SUBCAPITAL FEMORAL NECK FRACTURE Lung Scan-VQ NM 09/26/20 00:00 IMPRESSION: NORMAL PERFUSION LUNG SCAN. Head CT 09/27/20 00:00 IMPRESSION: CHRONIC CHANGES OF ATROPHY AND MICROVASCULAR ISCHEMIA. NO ACUTE PROCESS. EVIDENCE OF ACUTE STROKE: NO. Hip/Pelvis X-Ray 09/29/20 00:00 IMPRESSION: Status post right total hip arthroplasty without evidence of hardware complication. Additional chronic and incidental findings as detailed above. Wrist X-Ray 09/29/20 00:00 IMPRESSION: Distal radius and ulna fractures as detailed above. No acute findings on this limited examination. Stroke Is this a Stroke Patient?: No Acute Heart Failure Is this a Heart Failure Patient?: No
== END 2020-10-05 14:55 | disposition home health service (06) | DRG 521 ==
LOC: ER 12:43 → EH 16:52 → 4N 17:55
PROVIDERS: ADMIT Hospitalist; ATTEND Internal Medicine
PROC: 5A09557 Assistance with Respiratory Ventilation, Greater than 96 Consecutive Hours, Continuous Positive Airway Pressure (ICD-10-PCS; 2020-09-26)
PROC: 30243R1 Transfusion of Nonautologous Platelets into Central Vein, Percutaneous Approach (ICD-10-PCS; 2020-09-29)
PROC: 0SRR0JZ Replacement of Right Hip Joint, Femoral Surface with Synthetic Substitute, Open Approach (ICD-10-PCS; principal; 2020-09-29 16:30)
PROC: 30243N1 Transfusion of Nonautologous Red Blood Cells into Central Vein, Percutaneous Approach (ICD-10-PCS; 2020-09-30)
DX: S72.011A Unspecified intracapsular fracture of right femur, initial encounter for closed fracture (principal); J96.21 Acute and chronic respiratory failure with hypoxia; J69.0 Pneumonitis due to inhalation of food and vomit; N17.9 Acute kidney failure, unspecified; D62 Acute posthemorrhagic anemia; J44.9 Chronic obstructive pulmonary disease, unspecified; I50.9 Heart failure, unspecified; I11.0 Hypertensive heart disease with heart failure; E78.00 Pure hypercholesterolemia, unspecified; I27.20 Pulmonary hypertension, unspecified; K52.9 Noninfective gastroenteritis and colitis, unspecified; R58 Hemorrhage, not elsewhere classified; D69.6 Thrombocytopenia, unspecified; D72.829 Elevated white blood cell count, unspecified; F03.90 Unspecified dementia, unspecified severity, without behavioral disturbance, psychotic disturbance, mood disturbance, and anxiety; Z66 Do not resuscitate; W18.39XA Other fall on same level, initial encounter; Z96.642 Presence of left artificial hip joint; Y93.89 Activity, other specified; Y92.017 Garden or yard in single-family (private) house as the place of occurrence of the external cause; Z99.81 Dependence on supplemental oxygen; Z95.0 Presence of cardiac pacemaker; Z79.82 Long term (current) use of aspirin; Z79.51 Long term (current) use of inhaled steroids; Z79.52 Long term (current) use of systemic steroids; Z79.899 Other long term (current) drug therapy
CPT/HCPCS: 01210; 36415; 36430; 36600; 70450; 71045; 74018; 78580; 80048; 80053; 81001; 82272; 82607; 82728; 82746; 82803; 82962; 83735; 85025; 85027; 85379; 85384; 85610; 85652; 85730; 86140; 86850; 86900; 86901; 86920; 87086; 87088; 87186; 88304; 88311; 93005; 93010; 93306; 94640; 94660; 94799; 96374; 96375; 99285; 0202U; 0241U; A9540; C1776; C9803; J0690; J0692; J1652; J2060; J2250; J2270; J2310; J2405; J2550; J2704; J2920; J3010; J3490; J7030; J7060; J7120; J7512; P9016; P9035; Q9969